=== PATIENT | male | born 1950 | race Caucasian/White ===

== ENCOUNTER 2021-09-24 08:27 | Inpatient (IN) ==
[2021-09-24] MEDS ORDERED: SODIUM CHLORIDE 0.9% 1000ML 500 ML IV ONE (08:42)
[2021-09-24] MEDS ORDERED: dexAMETHasone**PF** 10 MG/ML VIAL IV ONE (08:42)
[2021-09-24] MEDS ORDERED: FAMOTIDINE 20MG IV PUSH 20 MG/5 ML SYR IV STA (08:42)
[2021-09-24] MEDS ORDERED: diphenhydrAMINE 50 MG/ML VIAL IV STA (08:42)
--- NOTE | 2021-09-24 08:45 | Emergency Department Note ---
Impression & Plan Angioedema of tongue ED Provider Note Name: CRIS CHURCHILL Age: 71 Sex: M Arrives Via: Walk-In Informant: Patient, ED Provider: Darrick Diez MD Chief Complaint: Tongue Swelling Impression: Angioedema of tongue Medical Decision Making: Pleasant 71-year-old gentleman with a history of hypertension hyperlipidemia early diabetes arrives for evaluation of tongue swelling. Patient was recently increased lisinopril dosing. He notes swelling this morning of the right side of his tongue with some discomfort. When patient arrived he was noted to have right sided tongue swelling though no significant protuberance in the left side was normal. He had no difficulty swallowing and was talking decently well. He was given Benadryl Decadron Pepcid IV no improvement. Symptoms gradually started worsening at which point it was felt that FFP was indicated which was ordered. At that time I also consulted anesthesia who came and evaluated him and the plan was to continue monitoring closely. Labs were unremarkable other than some mild hyperglycemia. A Covid swab was sent which returned positive. Is unclear when his exposure may have been no the entire family did test positive shortly after Thanksgiving 2 weeks ago with him having no symptoms at that time. One of his contact was his who was positive at that time as well. Patient is not Covid vaccinated. Patient received the FFP however he had worsening of his tongue swelling which is now bilateral and protuberant with inability to swallow his secretions. With bedside discussion with anesthesia the plan is to emergently take him to the Covid isolation unit where he will be intubated in a negative pressure location for the safety of staff as this is a reasonable approach given his other vitals being stable and breathing comfortably through his nose. I feel this is most likely related to his lisinopril as the cause of his angioedema. He does take regular NSAID use but has been doing so for quite some time and I feel lisinopril is more likely. There are case reports of angioedema being associated with Covid however those seem to also have urticaria which she does not have. Patient has a remote history of angioedema felt to be due to food dye and did have some recent [place] food though again it does seem more likely this is the recent increase in his lisinopril. Prior Medical Record and Triage/Nursing Notes reviewed by Me Additional history obtained from chart Differentials: Lisinopril induced angioedema, Allergic reaction, anaphylaxis, urticaria, Hines-Javier syndrome, toxic epidermal necrolysis, erythema multiforme, contact dermatitis, cellulitis, as well as other pathologies. Vital Signs: reviewed and remarkable for hypertension Interventions: Decadron, Benadryl, Pepcid, normal saline bolus, FFP 2 units IV Labs:Reviewed and remarkable for positive Covid, hyperglycemia Cardiac/Tele Monitoring: Cardiac Monitoring: An Order was placed for continuous cardiac monitoring. The monitor shows a rate of 60 with a normal sinus rhythm. Consults:Dr Tonya QUIÑONES Anesthesia, Dr Gisella QUIÑONES Hospitalist Plan: Disposition:Hospitalization. Condition: Fair History of Present Illness:71-year-old male arrives for evaluation of tongue swelling. Patient notes he awoke this morning with sore tongue and noted it was swollen. He notes some mild difficulty with speaking due to large tongue but no difficulty breathing or swallowing. Tongue is not protruding through mouth. He denies any lip swelling itching syncope shortness of breath. He has a history of this happening many years ago of unknown etiology. He does note using lisinopril which was just doubled about 4 weeks ago. He he notes he also takes daily NSAIDs for chronic sciatica. Patient denies any falls, trauma, injuries. He denies any other symptoms currently. He has no recent antibiotic nor other new medication use. He previously had this happen and was given EpiPen but has never used it.. ROS: See above HPI for pertinent positives & negatives. A total of 8 systems reviewed and were otherwise negative. Past Medical History:See Below Past Surgical History:See Below Family History:See Below Social History:See Below Home Medications:See Below Allergies:pnc Vitals:Blood Pressure: 131/91, Pulse 69, RR 18, T 36.8C, O2 99% on RA Physical Exam: GENERAL: Patient is well appearing and in minimal distress. EYES: No scleral icterus, unremarkable pupils. ENT: Edema of right side of tongue, no lip swelling, left side tongue normal. Tolerating secretions. Mucous membranes moist, no nasal congestion. NECK: No masses appreciated, nomeningismus, trachea is midline. RESPIRATORY: No dyspnea. Clear to auscultation and equal bilaterally. No wheeze, no rhonchi. CARDIOVASCULAR: Regular rate and rhythm.No murmurs, rubs, gallops appreciated. EXTREMITIES: Normal motion all extremities, no cyanosis, no edema. NEUROLOGIC: Alert and oriented, no acute motor or sensory deficits, no focal weakness, cranial nerves grossly intact. SKIN: No rash, no jaundice, no diaphoresis. PSYCH: Appropriate GCS: 15 ED Course: Times/Reassessments: gradually worsening tongue swelling despite FFP and plan intubation, but given positive covid taken to unit for intubation by anesthesia Critical Care: I have personally spent 45 minutes of critical care time in the direct management of this patient. Angioedema of the tongue causing airway compromise requiring FFP IV and close monitoring and evaluation by anesthesia with plan to go to Covid unit for probable intubation. This was a life/limb threatening event. This 45 minutes is in excess of all separately billable procedures. Darrick Diez MD Past Med/Surg History Medical History Bladder tumor Encounter for pre-operative examination Erectile dysfunction Hyperlipidemia Hypertension Prediabetes Surgical History No significant past surgical history Family History Father Cardiac disorder Myocardial infarction Coronary heart disease Sister Myocardial infarction Diabetes Mother Hypertension Denies family history of Ovarian cancer Prostate cancer Breast cancer Colorectal cancer Social History Smoking Status: Current every day smoker Tobacco Type: Cigarettes Age Started Using Tobacco: 17; packs per day: 0.5; Cigarettes Per Day: 1/2 ppd; Second Hand Exposure: No; Do You Dip or Chew Tobacco: No; Tobacco Cessation Education Requested by Patient: No Hx Alcohol Use: No Hx Substance Use: No Preferred Language: Dominican Communication Ability: Effective Visual Impairment: No Limitations Hearing Ability: Hard of Hearing Water Engineer Required: No Beliefs That Will Affect Care: None marital status: Current Living Situation: Spouse current occupational status: retired 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 Other Information That Helps Us Care for You: No Feels Safe at Home: Yes Safety Concerns: Feels Safe At This Time Childhood Exposure to Second-Hand Smoke: Yes caffeine: Yes Dental Care, Regularly: No Physical Activity Frequency: Daily Seatbelt Use: always Sunscreen Use: No Assistive Devices: None Allergies Allergies Allergy/AdvReac Type Severity Reaction Status Date / Time Penicillins Allergy Intermediate hives Verified 06/28/21 10:48 Home Meds Home Medications Medication Instructions Recorded Confirmed aspirin 81 mg tablet,delayed 81 mg PO DAILY tab 03/24/19 09/24/21 release coenzyme Q10 100 mg capsule 100 mg PO DAILY cap 03/24/19 09/24/21 omega-3 acid ethyl esters 1 gram 2 cap PO DAILY cap 03/24/19 09/24/21 capsule lisinopril 5 mg tablet 10 mg PO DAILY 09/24/21 09/24/21 Previous Rx's Medication Instructions Recorded metoprolol tartrate 50 mg tablet 50 mg PO BID #180 tab 01/29/21 atorvastatin 10 mg tablet 10 mg PO DAILY #90 tab 02/19/21 Results & Data (ED) Vital Signs Vital Signs - 24 hr 09/24/21 08:31 09/24/21 08:41 09/24/21 08:50 Temperature 36.8 C Temperature Source Temporal Artery Scan Pulse Rate 69 65 61 Pulse Rate from SpO2 Sensor 65 62 Pulse Rhythm Pulse Strength Respiratory Rate 18 17 21 Blood Pressure 131/91 Blood Pressure Mean 104 Pulse Oximetry 99 99 99 Oxygen Delivery Method Room Air Sepsis Recent Fever Within 48 Hours No Sepsis New/Unexplained Change in Mental Status N/A Sepsis Action Taken by Nursing No Action Required 09/24/21 09:00 09/24/21 09:10 09/24/21 09:20 Temperature Temperature Source Pulse Rate 63 60 60 Pulse Rate from SpO2 Sensor 60 60 61 Pulse Rhythm Pulse Strength Respiratory Rate 17 15 19 Blood Pressure Blood Pressure Mean Pulse Oximetry 99 100 100 Oxygen Delivery Method Sepsis Recent Fever Within 48 Hours Sepsis New/Unexplained Change in Mental Status Sepsis Action Taken by Nursing 09/24/21 09:30 09/24/21 09:40 09/24/21 09:50 Temperature Temperature Source Pulse Rate 61 62 61 Pulse Rate from SpO2 Sensor 61 62 61 Pulse Rhythm Pulse Strength Respiratory Rate 18 19 19 Blood Pressure Blood Pressure Mean Pulse Oximetry 99 97 97 Oxygen Delivery Method Sepsis Recent Fever Within 48 Hours Sepsis New/Unexplained Change in Mental Status Sepsis Action Taken by Nursing 09/24/21 10:00 09/24/21 10:10 09/24/21 10:20 Temperature Temperature Source Pulse Rate 60 59 L 60 Pulse Rate from SpO2 Sensor 60 59 L 61 Pulse Rhythm Pulse Strength Respiratory Rate 19 22 19 Blood Pressure Blood Pressure Mean Pulse Oximetry 97 97 98 Oxygen Delivery Method Sepsis Recent Fever Within 48 Hours Sepsis New/Unexplained Change in Mental Status Sepsis Action Taken by Nursing 09/24/21 10:30 09/24/21 10:40 09/24/21 10:50 Temperature Temperature Source Pulse Rate 60 62 71 Pulse Rate from SpO2 Sensor 61 61 71 Pulse Rhythm Pulse Strength Respiratory Rate 15 16 16 Blood Pressure Blood Pressure Mean Pulse Oximetry 98 98 100 Oxygen Delivery Method Sepsis Recent Fever Within 48 Hours Sepsis New/Unexplained Change in Mental Status Sepsis Action Taken by Nursing 09/24/21 11:00 09/24/21 11:02 09/24/21 11:10 Temperature 37.2 C Temperature Source Oral Pulse Rate 60 60 60 Pulse Rate from SpO2 Sensor 59 L 60 Pulse Rhythm Regular Pulse Strength Normal Respiratory Rate 22 20 15 Blood Pressure 168/118 H Blood Pressure Mean 134 Pulse Oximetry 98 99 97 Oxygen Delivery Method Sepsis Recent Fever Within 48 Hours Sepsis New/Unexplained Change in Mental Status Sepsis Action Taken by Nursing 09/24/21 11:20 09/24/21 11:21 09/24/21 11:30 Temperature 36.6 C Temperature Source Oral Pulse Rate 58 L 66 59 L Pulse Rate from SpO2 Sensor 58 L 59 L Pulse Rhythm Pulse Strength Respiratory Rate 17 20 15 Blood Pressure 169/97 H Blood Pressure Mean 121 Pulse Oximetry 98 99 97 Oxygen Delivery Method Sepsis Recent Fever Within 48 Hours Sepsis New/Unexplained Change in Mental Status Sepsis Action Taken by Nursing 09/24/21 11:35 09/24/21 11:40 Temperature 36.6 C Temperature Source Oral Pulse Rate 61 62 Pulse Rate from SpO2 Sensor 61 Pulse Rhythm Pulse Strength Respiratory Rate 18 20 Blood Pressure 169/97 H Blood Pressure Mean 121 Pulse Oximetry 97 98 Oxygen Delivery Method Sepsis Recent Fever Within 48 Hours Sepsis New/Unexplained Change in Mental Status Sepsis Action Taken by Nursing Laboratory Data Result diagrams: 09/24/21 08:46 09/24/21 08:46 Lab Results 09/24/21 09/24/21 09/24/21 Range/Units 08:46 08:46 08:50 WBC 10.19 (4.8-10.8) K/uL RBC 4.51 L (4.7-6.1) M/uL Hgb 13.8 L (14.0-18.0) g/dL Hct 40.9 L (42-52) % MCV 90.7 (80-100) fL MCH 30.6 (25-34) pg MCHC 33.7 (32-36) g/dL RDW Std Deviation 42.5 (36.4-46.3) fL RDW Coeff of Jimbo 12.9 (11.5-14.5) % Plt Count 249 (130-400) K/uL MPV 11.6 H (7.4-10.4) fL Immature Gran % (Auto) 0.2 % Neut % (Auto) 73.1 % Lymph % (Auto) 17.3 % [place] % (Auto) 7.7 % Eos % (Auto) 1.5 % Baso % (Auto) 0.2 % Neut # (Auto) 7.46 H (1.4-6.5) K/uL Lymph # (Auto) 1.76 (1.2-3.4) K/uL [place] # (Auto) 0.78 H (0.11-0.59) K/uL Eos # (Auto) 0.15 (0-0.5) K/uL Baso # (Auto) 0.02 (0-0.2) K/uL Immature Gran # (Auto) 0.02 (0.00-0.02) K/uL Sodium 139 (136-145) mmol/L Potassium 3.8 (3.5-5.1) mmol/L Chloride 107 (98-107) mmol/L Carbon Dioxide 25 (21-32) mmol/L Anion Gap 7.0 (3-11) BUN 13 (7-18) mg/dl Creatinine 1.35 (0.6-1.4) mg/dl Est Cr Clr Drug Dosing 50.9 ml/min Est GFR ( Amer) 61.2 ml/min Est GFR (Non-Af Amer) 52.8 ml/min BUN/Creatinine Ratio 9.7 L (10-20) Glucose 158 H (70-99) mg/dl Calcium 9.2 (8.5-10.1) mg/dl SARS-CoV-2, RNA, NAAT (NEGATIVE) Blood Type B Positive Antibody Screen NEGATIVE 09/24/21 Range/Units 10:33 WBC (4.8-10.8) K/uL RBC (4.7-6.1) M/uL Hgb (14.0-18.0) g/dL Hct (42-52) % MCV (80-100) fL MCH (25-34) pg MCHC (32-36) g/dL RDW Std Deviation (36.4-46.3) fL RDW Coeff of Jimbo (11.5-14.5) % Plt Count (130-400) K/uL MPV (7.4-10.4) fL Immature Gran % (Auto) % Neut % (Auto) % Lymph % (Auto) % [place] % (Auto) % Eos % (Auto) % Baso % (Auto) % Neut # (Auto) (1.4-6.5) K/uL Lymph # (Auto) (1.2-3.4) K/uL [place] # (Auto) (0.11-0.59) K/uL Eos # (Auto) (0-0.5) K/uL Baso # (Auto) (0-0.2) K/uL Immature Gran # (Auto) (0.00-0.02) K/uL Sodium (136-145) mmol/L Potassium (3.5-5.1) mmol/L Chloride (98-107) mmol/L Carbon Dioxide (21-32) mmol/L Anion Gap (3-11) BUN (7-18) mg/dl Creatinine (0.6-1.4) mg/dl Est Cr Clr Drug Dosing ml/min Est GFR ( Amer) ml/min Est GFR (Non-Af Amer) ml/min BUN/Creatinine Ratio (10-20) Glucose (70-99) mg/dl Calcium (8.5-10.1) mg/dl SARS-CoV-2, RNA, NAAT POSITIVE A* (NEGATIVE) Blood Type Antibody Screen Administered Medications Discontinued Medications Dexamethasone Sodium Phosphate (DexamethasonePf 10 Mg/Ml Vial) 10 mg IV NOW ONE Stop: 09/24/21 08:43 Last Admin: 09/24/21 08:50 Dose: 10 mg Documented by: [id number] Diphenhydramine HCl (Diphenhydramine 50 Mg/Ml Vial) 50 mg IV NOW STA Stop: 09/24/21 08:43 Last Admin: 09/24/21 08:50 Dose: 50 mg Documented by: [id number] Famotidine (Pepcid 20mg Iv Push) 20 mg in 5 mls @ 2.5 mls/min IV NOW STA Stop: 09/24/21 08:43 Last Admin: 09/24/21 08:50 Dose: 2.5 mls/min Documented by: [id number] Sodium Chloride (Nss 1000ml) 500 mls @ 999 mls/hr IV .Q31M ONE Stop: 09/24/21 09:12 Last Admin: 09/24/21 08:50 Dose: 999 mls/hr Documented by: [id number] Discharge Plan Visit Data Chief Complaint: Allergic Reaction Stated Complaint: TOUNGE SWELLING ED Provider: Darrick Diez Discharge Problem: Angioedema of tongue Patient Disposition: Admitted As Inpatient Discharge Instructions Interventions: ED Discharge Assessment Last Done: 09/24/21 12:50
[2021-09-24 08:59] LABS: Basophils # (auto) 0.02 K/uL (0-0.2); Basophils % (auto) 0.2 %; Eosinophils # (auto) 0.15 K/uL (0-0.5); Eosinophils % (auto) 1.5 %; Hematocrit (blood only) 40.9 % (42-52); Hemoglobin 13.8 g/dL (14.0-18.0); Immature Granulocytes # (auto) 0.02 K/uL (0.00-0.02); Immature Granulocytes % (auto) 0.2 %; Lymphocytes # (auto) 1.76 K/uL (1.2-3.4); Lymphocytes % (auto) 17.3 %; Mean Corpuscular Hemoglobin 30.6 pg (25-34); Mean Corpuscular Hgb Conc 33.7 g/dL (32-36); Mean Corpuscular Volume 90.7 fL (80-100); Mean Platelet Volume 11.6 fL (7.4-10.4); Monocytes # (auto) 0.78 K/uL (0.11-0.59); Monocytes % (auto) 7.7 %; Neutrophils # (auto) 7.46 K/uL (1.4-6.5); Neutrophils % (auto) 73.1 %; Platelet Count 249 K/uL (130-400); RDW Coefficient of Variation 12.9 % (11.5-14.5); RDW Standard Deviation 42.5 fL (36.4-46.3); Red Blood Count 4.51 M/uL (4.7-6.1); White Blood Count 10.19 K/uL (4.8-10.8)
[2021-09-24 09:19] LABS: BUN Creatinine Ratio 9.7 (10-20); Calcium 9.2 mg/dl (8.5-10.1); Creatinine Clr Calc Pharmacy 50.9 ml/min; Est GFR (African American) 61.2 ml/min; Est GFR (Non-African American) 52.8 ml/min
[2021-09-24 09:20] LABS: Potassium 3.8 mmol/L (3.5-5.1)
[2021-09-24] MEDS ORDERED: KETAMINE 50 MG/5 ML SYRINGE ONE (10:08)
[2021-09-24] MEDS ORDERED: MIDAZOLAM HCL 1 MG/ML 2ML VIAL ONE (10:08)
[2021-09-24] MEDS ORDERED: PROPOFOL IV EMULSION 10 MG/ML 20 ML VIAL IV ONE (10:08)
[2021-09-24] MEDS ORDERED: LIDOCAINE 4% MPF LOCAL INJ 5 ML AMP ONE (10:12)
--- NOTE | 2021-09-24 10:22 | History & Physical Report ---
Date of Service September 24, 2021 Assessment & Plan (1) Angioedema of tongue: Plan: Intubated for airway protection. Received FFP, diphenhydramine and dexamethasone. Hold lars inhibitor indefinitely will monitor overnight, likely extubate in AM. (2) COVID-19: Plan: First postive test today. will keep patient in isolation until day 10, eventhough patient was perhaps symptomatic for more than 10 days. However, unable to confirm his prior symptoms were from covid. (3) Hyperlipidemia: Plan: resume home meds (4) Hypertension: Plan: hold lars cont metoprolol and monitor DVT proph: lovenox History of Present Illness Chief Complaint: angioedema. Primary Care Provider: Sebastian Jane MD 71 yo male with PMH described below arrives to the ED with swollen tongue. Patient recently had an increase to his lars inhibitor. Patient is having difficulty swallowing. History obtained from ED chart. At time of interview, patient already intubated and sedated. Allergies Allergy/AdvReac Type Severity Reaction Status Date / Time LARS Inhibitors Allergy Severe Severe Verified 09/24/21 14:31 angioedema Penicillins Allergy Intermediate hives Verified 06/28/21 10:48 Home Medications Medication Instructions Recorded Confirmed Type aspirin 81 mg tablet,delayed 81 mg PO DAILY tab 03/24/19 09/24/21 History release coenzyme Q10 100 mg capsule 100 mg PO DAILY cap 03/24/19 09/24/21 History omega-3 acid ethyl esters 1 gram 2 cap PO DAILY cap 03/24/19 09/24/21 History capsule metoprolol tartrate 50 mg tablet 50 mg PO BID #180 tab 01/29/21 09/24/21 Rx atorvastatin 10 mg tablet 10 mg PO DAILY #90 tab 02/19/21 09/24/21 Rx lisinopril 5 mg tablet 10 mg PO DAILY 09/24/21 09/24/21 History Past Med/Surg History Medical History Bladder tumor COVID-19 Encounter for pre-operative examination Erectile dysfunction Hyperlipidemia Hypertension Prediabetes Tobacco abuse Surgical History No significant past surgical history Family History Father Cardiac disorder Myocardial infarction Coronary heart disease Sister Myocardial infarction Diabetes Mother Hypertension Denies family history of Ovarian cancer Prostate cancer Breast cancer Colorectal cancer Social History Smoking Status: Current every day smoker Tobacco Type: Cigarettes Age Started Using Tobacco: 17; packs per day: 0.5; Cigarettes Per Day: 1/2 ppd; Second Hand Exposure: No; Do You Dip or Chew Tobacco: No; Tobacco Cessation Education Requested by Patient: No Hx Alcohol Use: No Hx Substance Use: No Preferred Language: Mosotho Communication Ability: Effective Visual Impairment: No Limitations Hearing Ability: Hard of Hearing Product Safety Test Engineer Required: No Beliefs That Will Affect Care: None marital status: Current Living Situation: Spouse current occupational status: retired 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 Other Information That Helps Us Care for You: No Feels Safe at Home: Yes Safety Concerns: Feels Safe At This Time Childhood Exposure to Second-Hand Smoke: Yes caffeine: Yes Dental Care, Regularly: No Physical Activity Frequency: Daily Seatbelt Use: always Sunscreen Use: No Assistive Devices: Oxygen - Continuous Review of Systems Review of Systems: Unobtainable due to endotracheal tube Physical Exam Physical Exam: Intubated and sedated Eyes: PERRL, conjunctivae normal, anicteric sclerae ENMT: external ear and nose normal, oropharynx normal (except for swollen tongue) Neck: trachea midline, no thyromegaly Respiratory: normal respiratory effort, lungs clear to auscultation Cardiovascular: RRR, no murmur, no edema Gastrointestinal (Abdomen): normal bowel sounds, soft, nontender, no hepatosplenomegaly Skin: no rashes, warm and dry Psychiatric: sedated Results & Data Results & Data ([facility]) Vital Signs (Past 12 Hours) Vital Signs Temp Pulse Resp BP Pulse Ox 09/24/21 10:10 59 L 22 97 09/24/21 10:00 60 19 97 09/24/21 09:50 61 19 97 09/24/21 09:40 62 19 97 09/24/21 09:30 61 18 99 09/24/21 09:20 60 19 100 09/24/21 09:10 60 15 100 09/24/21 09:00 63 17 99 09/24/21 08:50 61 21 99 09/24/21 08:41 65 17 99 12/13/21 08:31 36.8 C 69 18 131/91 99 PG Care Time/CCT Total # of Minutes Spent Total Time Spent with Patient: Total time spent is greater than 50% in coordination of care (as documented) at patient's floor/unit and/or counseling patient: Coding Level of Care Code 04841 Initial Inpt Care Lvl 3 Diagnoses Angioedema of tongue T78.3XXA COVID-19 U07.1 Hyperlipidemia E78.5 Hypertension I10 Hypertension type: essential hypertension (1) Hypertension Hypertension type: essential hypertension Qualified Code(s): I10 - Essential (primary) hypertension
[2021-09-24] MEDS ORDERED: SODIUM CHLORIDE 0.9% 250 ML IV PRN (10:23)
--- NOTE | 2021-09-24 10:23 | Anesthesiology Consultation ---
Date of Service September 24, 2021 Assessment & Plan (1) Encounter for pre-operative examination: Chart Review Chart Review: Acceptable Risk for Surgery and Patient NOT seen in Pre Admission Testing Plan would be intubation for airway protection given progression of angioedema likely relate to lisinopril. Patient is full stomach and difficult airway so will require awake intubation with light sedation after airway topicalization. Patient and made aware of risks and benefits and agree to procedure if FFP does not improve patient's condition. ER physician closely monitoring and if no improvement or worsening of his condition will intubate before patient's airway status worsens. Consults Requested none History Height/Weight Height: 5 ft 9 in Weight: 81.5 kg Allergies Allergy/AdvReac Type Severity Reaction Status Date / Time Penicillins Allergy Intermediate hives Verified 06/28/21 10:48 Medications Home Medications Medication Instructions Recorded Confirmed Last Taken aspirin 81 mg tablet,delayed 81 mg PO DAILY tab 03/24/19 06/28/21 Unknown release coenzyme Q10 100 mg capsule 100 mg PO DAILY cap 03/24/19 06/28/21 Unknown omega-3 acid ethyl esters 1 gram 2 cap PO DAILY cap 03/24/19 06/28/21 Unknown capsule metoprolol tartrate 50 mg tablet 50 mg PO BID #180 tab 01/29/21 06/28/21 Unknown atorvastatin 10 mg tablet 10 mg PO DAILY #90 tab 02/19/21 06/28/21 Unknown hydrochlorothiazide 25 mg tablet 25 mg PO DAILY #90 tab 03/14/21 06/28/21 Unknown lisinopril 5 mg tablet 5 mg PO DAILY #90 tab 05/02/21 06/28/21 Unknown Past Medical History Medical History (Updated 09/24/21 @ 10:20 by Chintan Castaneda MD) Bladder tumor Encounter for pre-operative examination Erectile dysfunction Hyperlipidemia Hypertension Prediabetes Past Family History Family History Father Cardiac disorder Myocardial infarction Coronary heart disease Sister Myocardial infarction Diabetes Mother Hypertension Denies family history of Ovarian cancer Prostate cancer Breast cancer Colorectal cancer Past Surgical History Surgical History No significant past surgical history Past Anesthesia History No Hx of Anesthesia Complications and No Family Hx of Anesthesia Complications Social History Smoking Status: Current every day smoker Smoking cigarettes per day: 10 Hx Alcohol Use: Yes Hx Substance Use: No Physical Exam Vital Signs Last Vital Signs Temp 36.8 C 09/24/21 08:31 Pulse 59 L 09/24/21 10:10 Resp 22 09/24/21 10:10 BP 131/91 09/24/21 08:31 Pulse Ox 97 09/24/21 10:10 Testing Laboratory Results 09/24/21 08:46 09/24/21 08:46 Blood Type B Positive 09/24/21 08:50 Antibody Screen NEGATIVE 09/24/21 08:50
[2021-09-24] MEDS ORDERED: DEXTROSE 5% 100 ML BAG IV ONE (11:26)
[2021-09-24] MEDS ORDERED: AMIODARONE HCL INJ 50 MG/ML 3 ML VIAL IV ONE (11:26)
[2021-09-24] MEDS ORDERED: MIDAZOLAM HCL 5 MG/ML VIAL IV ONE (11:26)
[2021-09-24] MEDS ORDERED: SODIUM CHLORIDE 0.9% 10ML FLUSH IV ONE (11:26)
[2021-09-24] MEDS ORDERED: ADENOSINE IV SOLN 3 MG/ML 2 ML VIAL IV ONE (11:26)
[2021-09-24] MEDS ORDERED: SODIUM CHLORIDE 0.9% 500 ML BAG IV ONE (11:26)
[2021-09-24] MEDS ORDERED: NOREPINEPHRINE BITARTRATE 1 MG/ML 4 ML VIAL IV ONE (11:26)
[2021-09-24] MEDS ORDERED: ICU PROTOCOL FOR HYPERGLYCEMIA PRN (11:55)
[2021-09-24] MEDS ORDERED: RAPID SEQUENCE INDUCTION BAG ONE (12:04)
--- NOTE | 2021-09-24 13:38 | Critical Care Consultation ---
Date of Consultation September 24, 2021 Assessment & Plan (1) Angioedema of tongue: (2) COVID-19: (3) Tobacco abuse: Attending: Dr. Connolly Impression: 71-year-old male with no history of trauma or sting. Patient presents with severe angioedema of the tongue. Suspected to be from increased dose of lisinopril. Patient denies any prior history to LARS inhibitor allergies or history of angioedema. Drug allergies include penicillin. Patient not subjected to penicillin recently. Reason Critically Ill: Angioedema of the tongue presumably secondary to LARS inhibitor (lisinopril). Patient was ordered 2 units of FFP. He did not receive any TXA. No reason to suspect anaphylactic reaction at this time. No improvement after FFP, diphenhydramine and dexamethasone. Patient intubated for airway control Neuro - [facility] ICU: Alert and oriented x3. Cardiac - History of hypertension. Patient is on lisinopril at home. As well as metoprolol tartrate 50 mg p.o. twice daily. Lisinopril will be discontinued as it most likely is causing patient's angioedema No indication for echocardiogram at this time. Respiratory - Currently saturating well on room air Patient denies history of pulmonary disease including asthma Will follow closely secondary angioedema for increasing oxygen requirements Continue to monitor on telemetry COVID-19 pneumonitis- No chest x-ray on admission. Will obtain chest x-ray to trend Continue dexamethasone No indication for remdesivir or monoclonal antibodies as patient has no respiratory distress and was initially positive over a week ago Check CRP and procalcitonin Follow supportively GI - No history of GERD or other abdominal malady Patient denies any nominal nausea or vomiting or diarrhea. Continue to follow clinically Patient started empirically on famotidine Hold on tube feeds at this time RENAL/LYTES - BUN 13, creatinine 1.35 Gentle hydration and follow serial labs - No indication for Barber catheter at this time Follow strict I's and O's ENDO - Prediabetes but no diagnosis of diabetes mellitus Previous hemoglobin A1c was 6% Check hemoglobin A1c with next set of labs Random glucose 158 No history of hypothyroidism HEME - Hemoglobin 13.8 ID - Patient with COVID-19 pneumonitis Apparently diagnosed 1 week ago No chest x-ray this admission Check CRP, procalcitonin No hypoxia No other signs or symptoms of infection LINES/IV ACCESS - Peripheral IV No indication for central line or arterial line at this time DVT PROPHYLAXIS - Enoxaparin 40 mg subcutaneously every 12 hours CCT: 60 minutes independent of any procedures. Thank you for including us in the care of this patient. Please refer to Dr. Connolly's addendum for further recommendations. Supervising Physician Co-Signing Physician Notes Patient seen and examined. EMR reviewed. Discussed with anesthesia as well as critical care ASHER. Agree with assessment and plan as noted. The patient is failed to show any significant improvement despite serial examination and observation. I agree with anesthesias assessment that I would rather secure his airway in a nonemergent fashion as this may take several days for the patient to get better. As this likely represents angioedema, I think there is little role for additional steroids H2 blockers or epinephrine. Data supporting FFP and angioedema related to LARS inhibitor's is quite mixed. Could consider TXA. We do not have icatibant available or C1 esterase concentrates. As the patient is not intubated and most of these therapies had endpoints defined as not progressing to needing intubation would hold off now and offer supportive care. Will likely need enteral nutrition. will check ESR, CRP and C4 levels. May need outpatient allergy evaluation. History of Present Illness Reason for Consultation: Angioedema Attending Physician: Jovani Obando History of Present Illness Attending: Dr. Connolly Patient is a 71 yo caucasion male with a PMH including HTN, ED, hy[perlipidemia, prediabetes. He presents with angioedema of the tongue. He was previously diagnosed with COVID-19 approximately one week ago. He denies any SOB, n/v/d. He has no chest pain and no pleuritic pain. It is probable that his angioedema is secondary to increased dose of Lisinopril. He reports that he has been on this for years but recently had his dose increased. He has no other known provocation. He received FFP, diphenhydramine, and dexamethasone in the ED. Currently he has no stridor, no difficulty swallowing, and no odynophagia. He does drool as he is not able to mobilize secrecretions behind the tongue to swallow. He denies fever, chills, sweats, rigors. He has no otheracute complaints. The patient is an every day smoker of approximately 1/2 PPD Allergies Allergy/AdvReac Type Severity Reaction Status Date / Time LARS Inhibitors Allergy Severe Severe Verified 09/24/21 14:31 angioedema Penicillins Allergy Intermediate hives Verified 06/28/21 10:48 Home Medications Medication Instructions Recorded Confirmed Type aspirin 81 mg tablet,delayed 81 mg PO DAILY tab 03/24/19 09/24/21 History release coenzyme Q10 100 mg capsule 100 mg PO DAILY cap 03/24/19 09/24/21 History omega-3 acid ethyl esters 1 gram 2 cap PO DAILY cap 03/24/19 09/24/21 History capsule metoprolol tartrate 50 mg tablet 50 mg PO BID #180 tab 01/29/21 09/24/21 Rx atorvastatin 10 mg tablet 10 mg PO DAILY #90 tab 02/19/21 09/24/21 Rx lisinopril 5 mg tablet 10 mg PO DAILY 09/24/21 09/24/21 History Patient History Medical History (Updated 09/24/21 @ 13:51 by Silverio Chaney PA-C) Bladder tumor COVID-19 Encounter for pre-operative examination Erectile dysfunction Hyperlipidemia Hypertension Prediabetes Tobacco abuse Surgical History No significant past surgical history Family History Father Cardiac disorder Myocardial infarction Coronary heart disease Sister Myocardial infarction Diabetes Mother Hypertension Denies family history of Ovarian cancer Prostate cancer Breast cancer Colorectal cancer Social History Smoking Status: Current every day smoker Tobacco Type: Cigarettes Age Started Using Tobacco: 17; packs per day: 0.5; Cigarettes Per Day: 1/2 ppd; Second Hand Exposure: No; Do You Dip or Chew Tobacco: No; Tobacco Cessation Education Requested by Patient: No Hx Alcohol Use: No Hx Substance Use: No Preferred Language: [place] Communication Ability: Effective Visual Impairment: No Limitations Hearing Ability: Hard of Hearing Nitriles Lab Technician Required: No Beliefs That Will Affect Care: None marital status: Current Living Situation: Spouse current occupational status: retired 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 EYES: No icterus, gaze conjugate. Pupils equal round and reactive to light NOSE: No evidence of epistaxis MOUTH: No lesions or candidiasis. Unable to visualize the posterior oropharynx secondary to extreme tongue swelling. Patient with no significant discomfort. Denies pain to tongue. Drooling as he cannot mobilize secretions posterior to the tongue. Otherwise, appears to have no difficulty with swallowing. NECK: Supple. No stridor LUNGS: CTA B/L, no wheezes, rales or rhonchi. Good inspirational effort HEART: Regular, rate controlled. No appreciation of ectopy ABDOMEN: Soft, NT, ND, BS Present EXTREMITIES: No LE edema, pedal pulses intact NEURO: A&OX3. Pupils equal round react to light. Slurred speech secondary to angioedema of the tongue. Results & Data Results & Data ([facility]) Vital Signs (Past 12 Hours) Vital Signs Temp Pulse Pulse Resp BP BP Pulse Ox 09/24/21 12:58 36.8 C 70 20 212/105 H 99 09/24/21 11:56 36.8 C 72 22 186/102 H 100 09/24/21 11:40 62 20 98 09/24/21 11:35 36.6 C 61 18 169/97 H 97 09/24/21 11:30 59 L 15 97 09/24/21 11:21 36.6 C 66 20 169/97 H 99 09/24/21 11:20 58 L 17 98 09/24/21 11:10 60 15 97 09/24/21 11:02 37.2 C 60 20 168/118 H 99 09/24/21 11:00 60 22 98 09/24/21 10:50 71 16 100 09/24/21 10:40 62 16 98 09/24/21 10:30 60 15 98 09/24/21 10:20 60 19 98 09/24/21 10:10 59 L 22 97 09/24/21 10:00 60 19 97 09/24/21 09:50 61 19 97 09/24/21 09:40 62 19 97 09/24/21 09:30 61 18 99 09/24/21 09:20 60 19 100 09/24/21 09:10 60 15 100 09/24/21 09:00 63 17 99 09/24/21 08:50 61 21 99 09/24/21 08:41 65 17 99 09/24/21 08:31 36.8 C 69 18 131/91 99 Laboratory Results 09/24/21 08:46 09/24/21 08:46 Coding Level of Care Code Critical Care 1st 30-74 mins Diagnoses Angioedema of tongue T78.3XXA COVID-19 U07.1 Tobacco abuse Z72.0 Time Spent (min) 60
[2021-09-24 14:55] LABS: INR 1.1 (0.9-1.1); Prothrombin Time 11.2 Seconds (9.0-12.0)
[2021-09-24] MEDS ORDERED: STAT IV Infusion **Titration per Protocol STA (14:56)
[2021-09-24] MEDS ORDERED: PROPOFOL IV EMULSION 10 MG/ML 100 ML VIAL IV ONE (14:58)
[2021-09-24 15:13] LABS: Albumin Level 2.6 gm/dl (3.4-5.0); Bilirubin Direct 0.4 mg/dl (0-0.2); Bilirubin,Total 0.9 mg/dl (0.2-1); C Reactive Protein 0.37 mg/dl (0-0.29)
--- NOTE | 2021-09-24 15:41 | Anesthesiology Progress Note ---
Date of Service September 24, 2021 Assessment & Plan (1) Angioedema of tongue: Plan: Patient already on monitors in ICU negative pressure room. Consent had been obtained in emergency room. Family updated, patient agreeable to proceed. Preoxygenated, suctioned and IVF running freely. Respiratory therapy present with vent and ICU nurses x2. Myself and [employer] performed intubation. Patient had lidocaine nebulizer and then sprayed with atomizer with 2% lido at cords. Sed ated gently with 2mg versed and IV ketamine. Fiberoptic scope inserted and noted significant edema of epiglottis and vocal cords (anatomy grossly distorted). Inserted fiberoptic into trachea as noted by tracheal rings and advanced until darryl visualized. ETT had been placed previously over the fiberoptic scope and inserted to a depth of 24cm at lips. Confirmed by listening to b/l breath sounds and positive ETCO2. Secured in placed by respiratory therapy and CXR ordered. ICU team managing sedation. VSS. No desaturations during procedure as patient maintained spontaneous respirations throughout. Given a dose of IV propofol after tube in placed, confirmed and secured. Intubation Note Date and time of procedure: 09/24/21 at 1500 Indication for Intubation: Unable to protect airway in setting of angioedema of tongue and airway. Consent: Informed consent obtained from the patient. The inherent risks, expected benefits, treatment alternatives, as well as the technical aspects of the procedure were discussed with the patient and a full explanation was given. Patient was given the opportunity to ask questions, which were answered to their satisfaction. Time Out: A time-out was performed verifying correct patient with two identifiers, procedure, site, positioning, and special equipment (if needed). Monitors Attached: EKG BP Pulse Oximetry CO2 Induction Medications: [2]mg Midazolam [50]mg Ketamine Paralytic Medication: NONE Intubation Technique: Adequate preoxygenation Equipment: Fiberoptic Endotracheal Tube: Oral 7.0 Procedure Details: ET tube was placed atraumatically on [1st] attempt. Balloon was inflated and the tube was secured at [24] cm. Placement was confirmed by auscultation and positive CO2 detection. Post-procedure: Pt hemodynamically stable throughout. Patient tolerated the procedure well without apparent complications. Post placement CXR ordered. Present on Admission?: Yes Admission and Anticipated Discharge Date Admission Date: September 24, 2021 Subjective After reassessing patient at 1445, no change noted in size of his tongue. Continued to drool now requiring suction. Patient fully agreeable at this point to undergo endotracheal intubation (awake fiberoptic). Updated his family pre and post intubation and answered all questions. Physical Exam Vital Signs: Last Vital Signs Temp 36.8 C 09/24/21 12:58 Pulse 77 09/24/21 15:00 Resp 11 L 09/24/21 15:00 BP 202/102 H 09/24/21 15:00 Pulse Ox 100 09/24/21 15:00
[2021-09-24] MEDS: fentaNYL DRIP 1,250 MCG/250 ML BAG IV SCH (15:49)
[2021-09-24] MEDS: MIDAZOLAM HCL 125 MG/250 ML BAG IV SCH (15:50)
[2021-09-24] MEDS: D5W NORMOSOL-R 1,000 ML IV SCH (15:50)
[2021-09-24] MEDS: MIDAZOLAM BOLUS FROM BAG IV PRN (15:50)
[2021-09-24] MEDS: ENOXAPARIN INJ 40 MG/0.4 ML SYR SQ SCH ×2 (15:51→21:33)
--- NOTE | 2021-09-24 16:28 | XRay Report ---
XR chest 1V portable CLINICAL HISTORY: post intubation and OG placement TECHNIQUE: Single frontal radiograph of the chest was obtained. Comparison: Comparison is made to chest one view 06/07/2011 FINDINGS: Endotracheal tube terminates 3 cm from the darryl. An enteric tube is in satisfactory position. The c ardiomediastinal silhouette is normal. Faint bilateral airspace opacities are noted. No evidence of p leural effusion or pneumothorax. IMPRESSION: Satisfactory position of endotracheal and enteric tubes. Faint bilateral airspace opacities may repre sent atelectasis, aspiration, or pneumonia. ACT 112: Negative or not required by law. Electronically signed by: Kiel Aguirre M.D. 09/24/2021 4:27 PM
[2021-09-24] MEDS: METOPROLOL TARTRATE 50 MG TAB PO SCH (21:32)
[2021-09-25] MEDS: fentaNYL DRIP 1,250 MCG/250 ML BAG IV SCH ×3 (00:49→19:45)
[2021-09-25 04:21] LABS: iSTAT Allen Test Pass; iSTAT Arterial Blood Gas HCO3 23 meg/L (19-24); iSTAT Arterial Blood Gas pCO2 37 mmHg (35-46); iSTAT Arterial Blood Gas pO2 65 mmHg (80-95); iSTAT Carbon Dioxide 24 mmol/L (24-31); iSTAT FiO2 35 %; iSTAT Site R Radial
[2021-09-25] MEDS: D5W NORMOSOL-R 1,000 ML IV SCH (04:23)
[2021-09-25 07:15] LABS: Estimated Average Glucose 131 mg/dl; Hemoglobin A1C 6.2 % (4.5-5.6)
[2021-09-25 07:36] LABS: Basophils # (auto) 0.01 K/uL (0-0.2); Basophils % (auto) 0.1 %; Hematocrit (blood only) 35.1 % (42-52); Hemoglobin 11.5 g/dL (14.0-18.0); Immature Granulocytes # (auto) 0.02 K/uL (0.00-0.02); Immature Granulocytes % (auto) 0.2 %; Lymphocytes # (auto) 1.65 K/uL (1.2-3.4); Lymphocytes % (auto) 13.3 %; Mean Corpuscular Hemoglobin 30.5 pg (25-34); Mean Corpuscular Hgb Conc 32.8 g/dL (32-36); Mean Corpuscular Volume 93.1 fL (80-100); Mean Platelet Volume 11.3 fL (7.4-10.4); Monocytes # (auto) 0.96 K/uL (0.11-0.59); Monocytes % (auto) 7.7 %; Neutrophils # (auto) 9.75 K/uL (1.4-6.5); Neutrophils % (auto) 78.7 %; Platelet Count 235 K/uL (130-400); RDW Coefficient of Variation 13.2 % (11.5-14.5); RDW Standard Deviation 44.7 fL (36.4-46.3); Red Blood Count 3.77 M/uL (4.7-6.1); White Blood Count 12.39 K/uL (4.8-10.8)
[2021-09-25] MEDS: MIDAZOLAM BOLUS FROM BAG IV PRN ×5 (07:37→19:55)
[2021-09-25 08:06] LABS: BUN Creatinine Ratio 16.7 (10-20); Calcium 8.5 mg/dl (8.5-10.1); Creatinine Clr Calc Pharmacy 62.9 ml/min; Est GFR (African American) 70.6 ml/min; Est GFR (Non-African American) 60.9 ml/min; Magnesium 2.3 mg/dl (1.8-2.4); Phosphorus 3.2 mg/dl (2.5-4.9)
[2021-09-25] MEDS: ENOXAPARIN INJ 40 MG/0.4 ML SYR SQ SCH ×2 (08:25→22:05)
[2021-09-25] MEDS: ATORVASTATIN 10 MG TAB PO SCH (08:25)
[2021-09-25] MEDS: METOPROLOL TARTRATE 50 MG TAB PO SCH (08:25)
[2021-09-25 08:26] LABS: Potassium 3.5 mmol/L (3.5-5.1)
[2021-09-25] MEDS ORDERED: ASPIRIN 81 MG ECTAB PO SCH (09:00)
[2021-09-25] MEDS ORDERED: NON-FORMULARY MEDICATION (Coenzyme Q10 100 mg capsule) PO SCH (09:00)
[2021-09-25] MEDS ORDERED: OMEGA-3 (PURIFIED FISH OIL) 1 GM CAP PO SCH (09:00)
[2021-09-25] MEDS ORDERED: STAT IV Infusion **Titration per Protocol STA (11:02)
[2021-09-25] MEDS: DEXMEDETOMIDINE HCL 200 MCG in SODIUM CHLORIDE 0.9% 48 ML IV SCH ×3 (11:37→18:34)
[2021-09-25] MEDS: ASPIRIN 81 MG CHEW PO SCH (12:19)
--- NOTE | 2021-09-25 13:44 | Critical Care Progress Note ---
Date of Service September 25, 2021 Assessment & Plan (1) Angioedema of tongue: (2) COVID-19: (3) Tobacco abuse: Plan: Impression: 71-year-old male with no history of trauma or sting. Patient presents with severe angioedema of the tongue. Suspected to be from increased dose of lisinopril. Patient denies any prior history to LARS inhibitor allergies or history of angioedema. Drug allergies include penicillin. Patient not subjected to penicillin recently. 24-hour events: Patient was a admitted to the ICU. He underwent awake fiberoptic intubation by anesthesia due to severe angioedema with tongue swelling. The vocal cords and laryngeal structures were markedly abnormal per my discussion with anesthesia. Has been maintained on sedation and mechanical ventilation overnight. He is hemodynamically stable. Recommendations: Neuro -keep sedated on vent for now. He is currently on Versed and fentanyl. We will hold his metoprolol and placed on Precedex to see if this provides bet ter levels of sedation. May consider oral agents as well. Cardiac -history of hypertension but not currently hypertensive. Holding metoprolol if so we can add Precedex. Avoid LARS inhibitors in the future. If additional blood pressure medications are required, these will be titrated based on clinical response. Respiratory -intubated for airway protection. Airway swelling is not significantly decreased to the patient's not appropriate for sedation break or SBT at the current time. I discussed with the patient's daughter who is an ICU nurse. I advised them that the only other alternative other than watchful waiting at this point time would be to pursue an early tracheostomy which would likely allow the patient to potentially go home in avoid any additional sedatives. She appropriately would like to hold off for now which I think is reasonable. We will continue to provide local care to his tongue to prevent desiccation. There is no indication for steroids or H2 blockers currently. Other therapies for angioedema have only been shown to be effective in preventing intubation mechanical ventilation. As he is already there, I do not think additional therapies at this point time are warranted. Awaiting C1 esterase level as well as C4. Interestingly his CRP and ESR were elevated. Outpatient allergy immunology evaluation may be appropriate. Patient was Covid positive. He is oxygenating well. He does not need steroids or any additional interventions for Covid. GI -asked dietary to initiate enteral tube feeding. Does not need PPI or stress ulcer prophylaxis currently. RENAL/LYTES -no acute issues. We will replete electrolytes as needed. -Barber catheter while intubated ENDO -glycemic control per protocol HEME -no current issues. Continue to follow ID -positive COVID-19. Continue to follow. He is at risk for progression. No adjunct of therapy is indicated currently. LINES/IV ACCESS - Peripheral IV Endotracheal tube, Barber catheter DVT PROPHYLAXIS - Enoxaparin 40 mg subcutaneously every 12 hours Discussed with patient's daughter and on the phone. Questions were answered and they were updated appropriately. They are agreement with the plan as outlined. We will continue supportive care pending improvement in the patient's airway. They were advised that this may take several days. They understand and we will continue to update them on a daily basis. Patient was reviewed on multidisciplinary rounds as well as with the bedside critical care nurse. Total of 54 minutes was spent in evaluation management stabilization of this patient. Admission and Anticipated Discharge Date Admission Date: September 24, 2021 Subjective Patient is intubated and sedated. Review of Systems Review of Systems: Unobtainable due to endotracheal tube Physical Exam Constitutional: + mechanically ventilated ENMT: Endotracheal tube in position. The tongue is markedly swollen, not different than yesterday. Nasogastric tube in place. Neck: trachea midline, no thyromegaly Respiratory: no respiratory distress Few inspiratory squeaks bilaterally. Cardiovascular: RRR, no murmur, no edema Gastrointestinal (Abdomen): normal bowel sounds, soft, nontender, no hepatosplenomegaly Musculoskeletal: Extremities: extremities normal to inspection Skin: no rashes, warm and dry Neurologic: Sedated Lymphatic: no cervical lymphadenopathy Results & Data Results & Data ([facility]) Vital Signs (Past 12 Hours) Vital Signs Temp Pulse Pulse Resp BP BP Pulse Ox 09/25/21 12:00 57 L 20 132/71 94 09/25/21 11:38 36.5 C 09/25/21 11:00 57 L 20 140/76 95 09/25/21 10:55 58 L 20 95 09/25/21 10:00 57 L 20 116/68 97 09/25/21 09:00 62 20 94 09/25/21 08:00 58 L 20 131/71 95 09/25/21 07:55 36.5 C 09/25/21 07:45 62 20 94 09/25/21 07:30 62 20 149/72 H 94 09/25/21 07:00 54 L 20 116/65 96 09/25/21 06:00 54 L 20 154/80 H 97 09/25/21 05:00 52 L 20 123/68 96 09/25/21 04:02 50 L 20 95 09/25/21 04:00 36.8 C 50 L 20 118/67 95 09/25/21 03:00 51 L 20 109/63 97 09/25/21 02:00 53 L 20 119/69 97 Critical Care Results & Data Vital Signs (Past 12 Hours) Vital Signs Temp Pulse Pulse Resp BP BP Pulse Ox 09/25/21 12:00 57 L 20 132/71 94 09/25/21 11:38 36.5 C 09/25/21 11:00 57 L 20 140/76 95 09/25/21 10:55 58 L 20 95 09/25/21 10:00 57 L 20 116/68 97 09/25/21 09:00 62 20 94 09/25/21 08:00 58 L 20 131/71 95 09/25/21 07:55 36.5 C 09/25/21 07:45 62 20 94 09/25/21 07:30 62 20 149/72 H 94 09/25/21 07:00 54 L 20 116/65 96 09/25/21 06:00 54 L 20 154/80 H 97 09/25/21 05:00 52 L 20 123/68 96 09/25/21 04:02 50 L 20 95 09/25/21 04:00 36.8 C 50 L 20 118/67 95 09/25/21 03:00 51 L 20 109/63 97 09/25/21 02:00 53 L 20 119/69 97 Lab & Micro Results (Past 24 Hours) RBC 3.77 M/uL (4.7-6.1) L 09/25/21 WBC 12.39 K/uL (4.8-10.8) H 09/25/21 Hgb 11.5 g/dL (14.0-18.0) L 09/25/21 Hct 35.1 % (42-52) L 09/25/21 MCV 93.1 fL (80-100) 09/25/21 MCH 30.5 pg (25-34) 09/25/21 MCHC 32.8 g/dL (32-36) 09/25/21 RDW Standard Deviation 44.7 fL (36.4-46.3) 09/25/21 RDW Coefficient of Variation 13.2 % (11.5-14.5) 09/25/21 Plt Count 235 K/uL (130-400) 09/25/21 MPV 11.3 fL (7.4-10.4) H 09/25/21 Neutrophils (%) (Auto) 78.7 % 09/25/21 Lymphocytes (%) (Auto) 13.3 % 09/25/21 Monocytes # (Auto) 0.96 K/uL (0.11-0.59) H 09/25/21 Eosinophils # (Auto) 0.00 K/uL (0-0.5) 09/25/21 Immature Granulocyte % (Auto) 0.2 % 09/25/21 Neutrophils # (Auto) 9.75 K/uL (1.4-6.5) H 09/25/21 Lymphocytes # (Auto) 1.65 K/uL (1.2-3.4) 09/25/21 Monocytes # (Auto) 0.96 K/uL (0.11-0.59) H 09/25/21 Eosinophils # (Auto) 0.00 K/uL (0-0.5) 09/25/21 Basophils # (Auto) 0.01 K/uL (0-0.2) 09/25/21 Immature Granulocyte # (Auto) 0.02 K/uL (0.00-0.02) 09/25/21 Na 143 mmol/L (136-145) 09/25/21 K 3.5 mmol/L (3.5-5.1) 09/25/21 Cl 112 mmol/L (98-107) H 09/25/21 CO2 24 mmol/L (21-32) 09/25/21 Anion Gap 7.0 (3-11) 09/25/21 BUN 20 mg/dl (7-18) H 09/25/21 Creatinine 1.20 mg/dl (0.6-1.4) 09/25/21 Estimated GFR ( Amer) 70.6 ml/min 09/25/21 Estimated GFR (Non-Af Amer) 60.9 ml/min 09/25/21 BUN/Creatinine Ratio 16.7 (10-20) 09/25/21 Glu 128 mg/dl (70-99) H 09/25/21 Ca 8.5 mg/dl (8.5-10.1) 09/25/21 Phosphorus Level 3.2 mg/dl (2.5-4.9) 09/25/21 Mg 2.3 mg/dl (1.8-2.4) 09/25/21 07:10 09/25/21 Calcium Level 8.5 mg/dl (8.5-10.1) 09/25/21 07:10 09/25/21 [place] Test Pass 09/25/21 04:04 09/25/21 Diagnostic Findings (Past 24 Hours) Chest X-Ray 09/24/21 15:46 XR chest 1V portable CLINICAL HISTORY: post intubation and OG placement TECHNIQUE: Single frontal radiograph of the chest was obtained. Comparison: Comparison is made to chest one view 06/07/2011 FINDINGS: Endotracheal tube terminates 3 cm from the darryl. An enteric tube is in satisfactory position. The cardiomediastinal silhouette is normal. Faint bilateral airspace opacities are noted. No evidence of pleural effusion or pneumothorax. IMPRESSION: Satisfactory position of endotracheal and enteric tubes. Faint bilateral airspace opacities may represent atelectasis, aspiration, or pneumonia. ACT 112: Negative or not required by law. Electronically signed by: Kiel Aguirre M.D. 09/24/2021 4:27 PM I & O Totals 24 Hours 09/24/21 09/25/21 09/26/21 06:59 06:59 06:59 Intake Total 2648.500 / 2648.500 779.034 / 779.034 Output Total 835 / 835 230 / 230 Balance 1813.500 / 1813.500 549.034 / 549.034 Cumulative 09/24/21 08:27 thru 09/25/21 12:38 Intake Total 3427.534 Output Total 1065 Balance 2362.534 RT Ventilator Mngmt (Last Documented) Ventilator Ordered Settings Ventilator Support Mode Assist Control 09/25/21 11:00 Respiratory Rate 20 09/25/21 12:00 Ventilator Tidal Volume 400 09/25/21 11:00 Setting Minute Ventilation 7.6 09/25/21 10:55 Positive End Expiratory 5 09/25/21 11:00 Pressure Fraction of Inspired Oxygen 35 12/14/21 11:00 Peak Inspiratory Flow 60 09/25/21 10:55 Ventilator - PT Measurements Respiratory Rate 20 Exhaled Tidal Volume 420 Minute Ventilation 7.6 Peak Inspiratory Airway 28 Pressure Plateau Pressure 17 Respiratory Cycle Inspiratory: 1:3.4 Expiratory Ratio Inspiratory Phase Time 0.67 End-Tidal CO2 26 Static Lung Compliance 35.00 Dynamic Lung Compliance 16.80 Normal Static Lung Compliance 45.00 Coding Level of Care Code Critical Care 1st 30-74 mins Diagnoses Angioedema of tongue T78.3XXA COVID-19 U07.1 Tobacco abuse Z72.0 Time Spent (min) 50
[2021-09-25] MEDS: TUBE FEEDING WATER FLUSH NG SCH ×3 (14:35→22:05)
[2021-09-25] MEDS: IMPACT LIQD 1.0 CAL 1,000 ML BAG NG SCH (14:36)
[2021-09-25] MEDS: MIDAZOLAM HCL 125 MG/250 ML BAG IV SCH (15:33)
--- NOTE | 2021-09-25 21:04 | Hospitalist Progress Note ---
Date of Service September 25, 2021 Assessment & Plan (1) Angioedema of tongue: Plan: Likely secondary to recently increased dose of lisinopril Intubated for airway protection due to extremely large tongue. Tongue swelling persists Received FFP, diphenhydramine and dexamethasone in the ER Hold ruy inhibitor indefinitely Continue sedation and mechanical ventilation for airway protection Appreciate rock picker management Should follow-up with scrum product owner as an outpatient after discharge C1 esterase and C4 levels pending CRP and ESR elevated-likely secondary to Covid-19 infection No steroids or antihistamines indicated (2) COVID-19: Plan: Was asymptomatic other than angioedema at the time of presentation Oxygenating well Keep on Covid airborne precautions No indication for steroids (3) Hyperlipidemia: Plan: Continue atorvastatin, aspirin through NG tube (4) Hypertension: Plan: Discontinue lisinopril Continue metoprolol tartrate 50 mg p.o. twice daily Plan: DVT prophylaxis-Lovenox Disposition-continued stay in ICU Admission and Anticipated Discharge Date Admission Date: September 24, 2021 Subjective Patient is intubated and sedated. Review of Systems Review of Systems: Unobtainable due to endotracheal tube and Unobtainable due to reduced consciousness Physical Exam Constitutional: well developed and + mechanically ventilated ENMT: Tongue very large and protruding out of mouth Results & Data Results & Data ([facility]) Vital Signs (Past 12 Hours) Vital Signs Temp Pulse Pulse Resp BP BP Pulse Ox 09/25/21 19:26 60 20 162/78 H 98 09/25/21 19:01 36.9 C 61 20 163/83 H 97 09/25/21 19:00 63 09/25/21 18:00 37.2 C 50 L 20 125/67 96 09/25/21 17:00 49 L 20 127/70 94 09/25/21 16:29 20 09/25/21 16:00 36.9 C 50 L 20 135/72 95 09/25/21 15:44 36.4 C L 09/25/21 15:00 37.0 C 51 L 20 123/69 94 09/25/21 14:00 58 L 20 136/69 95 09/25/21 13:00 36.9 C 58 L 20 124/67 95 09/25/21 12:00 57 L 20 132/71 94 09/25/21 11:38 36.5 C 09/25/21 11:00 57 L 20 140/76 95 09/25/21 10:55 58 L 20 95 09/25/21 10:00 57 L 20 116/68 97 Laboratory Results 09/25/21 09/25/21 09/25/21 Range/Units 18:11 14:56 11:27 WBC (4.8-10.8) K/uL RBC (4.7-6.1) M/uL Hgb (14.0-18.0) g/dL Hct (42-52) % MCV (80-100) fL MCH (25-34) pg MCHC (32-36) g/dL RDW Std Deviation (36.4-46.3) fL RDW Coeff of Jimbo (11.5-14.5) % Plt Count (130-400) K/uL MPV (7.4-10.4) fL Immature Gran % (Auto) % Neut % (Auto) % Lymph % (Auto) % [place] % (Auto) % Eos % (Auto) % Baso % (Auto) % Neut # (Auto) (1.4-6.5) K/uL Lymph # (Auto) (1.2-3.4) K/uL [place] # (Auto) (0.11-0.59) K/uL Eos # (Auto) (0-0.5) K/uL Baso # (Auto) (0-0.2) K/uL Immature Gran # (Auto) (0.00-0.02) K/uL Sample Site POC pH (7.35-7.45) POC pCO2 (35-46) mmHg POC pO2 (80-95) mmHg POC HCO3 (19-24) sarita/L POC Total CO2 (24-31) mmol/L POC Base Excess (-9-1.8) sarita/L POC ABG O2 Sat (90-95) % Troy Test O2 Delivery Device POC O2 Rate POC FiO2 % Tidal Volume PEEP Sodium (136-145) mmol/L Potassium (3.5-5.1) mmol/L Chloride (98-107) mmol/L Carbon Dioxide (21-32) mmol/L Anion Gap (3-11) BUN (7-18) mg/dl Creatinine (0.6-1.4) mg/dl Est Cr Clr Drug Dosing ml/min Est GFR ( Amer) ml/min Est GFR (Non-Af Amer) ml/min BUN/Creatinine Ratio (10-20) Glucose (70-99) mg/dl POC Glucose 110 H 121 H (70-99) mg/dl Estimat Average Glucose mg/dl Hemoglobin A1c (4.5-5.6) % Calcium (8.5-10.1) mg/dl Phosphorus (2.5-4.9) mg/dl Magnesium (1.8-2.4) mg/dl Func C1 Esterase Inhib Pending 09/25/21 09/25/21 09/25/21 Range/Units 07:10 07:10 04:04 WBC 12.39 H (4.8-10.8) K/uL RBC 3.77 L (4.7-6.1) M/uL Hgb 11.5 L (14.0-18.0) g/dL Hct 35.1 L (42-52) % MCV 93.1 (80-100) fL MCH 30.5 (25-34) pg MCHC 32.8 (32-36) g/dL RDW Std Deviation 44.7 (36.4-46.3) fL RDW Coeff of Jimbo 13.2 (11.5-14.5) % Plt Count 235 (130-400) K/uL MPV 11.3 H (7.4-10.4) fL Immature Gran % (Auto) 0.2 % Neut % (Auto) 78.7 % Lymph % (Auto) 13.3 % [place] % (Auto) 7.7 % Eos % (Auto) 0.0 % Baso % (Auto) 0.1 % Neut # (Auto) 9.75 H (1.4-6.5) K/uL Lymph # (Auto) 1.65 (1.2-3.4) K/uL [place] # (Auto) 0.96 H (0.11-0.59) K/uL Eos # (Auto) 0.00 (0-0.5) K/uL Baso # (Auto) 0.01 (0-0.2) K/uL Immature Gran # (Auto) 0.02 (0.00-0.02) K/uL Sample Site R Radial POC pH 7.40 (7.35-7.45) POC pCO2 37 (35-46) mmHg POC pO2 65 L (80-95) mmHg POC HCO3 23 (19-24) sarita/L POC Total CO2 24 (24-31) mmol/L POC Base Excess -2.0 (-9-1.8) sarita/L POC ABG O2 Sat 93.0 (90-95) % [place] Test Pass O2 Delivery Device Ventilator POC O2 Rate 20 POC FiO2 35 % Tidal Volume 400 PEEP 5 Sodium 143 (136-145) mmol/L Potassium 3.5 (3.5-5.1) mmol/L Chloride 112 H (98-107) mmol/L Carbon Dioxide 24 (21-32) mmol/L Anion Gap 7.0 (3-11) BUN 20 H D (7-18) mg/dl Creatinine 1.20 (0.6-1.4) mg/dl Est Cr Clr Drug Dosing 62.9 ml/min Est GFR ( Amer) 70.6 ml/min Est GFR (Non-Af Amer) 60.9 ml/min BUN/Creatinine Ratio 16.7 (10-20) Glucose 128 H (70-99) mg/dl POC Glucose (70-99) mg/dl Estimat Average Glucose mg/dl Hemoglobin A1c (4.5-5.6) % Calcium 8.5 (8.5-10.1) mg/dl Phosphorus 3.2 (2.5-4.9) mg/dl Magnesium 2.3 (1.8-2.4) mg/dl Func C1 Esterase Inhib 09/25/21 09/24/21 Range/Units 00:02 08:46 WBC (4.8-10.8) K/uL RBC (4.7-6.1) M/uL Hgb (14.0-18.0) g/dL Hct (42-52) % MCV (80-100) fL MCH (25-34) pg MCHC (32-36) g/dL RDW Std Deviation (36.4-46.3) fL RDW Coeff of Jimbo (11.5-14.5) % Plt Count (130-400) K/uL MPV (7.4-10.4) fL Immature Gran % (Auto) % Neut % (Auto) % Lymph % (Auto) % [place] % (Auto) % Eos % (Auto) % Baso % (Auto) % Neut # (Auto) (1.4-6.5) K/uL Lymph # (Auto) (1.2-3.4) K/uL [place] # (Auto) (0.11-0.59) K/uL Eos # (Auto) (0-0.5) K/uL Baso # (Auto) (0-0.2) K/uL Immature Gran # (Auto) (0.00-0.02) K/uL Sample Site POC pH (7.35-7.45) POC pCO2 (35-46) mmHg POC pO2 (80-95) mmHg POC HCO3 (19-24) sarita/L POC Total CO2 (24-31) mmol/L POC Base Excess (-9-1.8) sarita/L POC ABG O2 Sat (90-95) % [place] Test O2 Delivery Device POC O2 Rate POC FiO2 % Tidal Volume PEEP Sodium (136-145) mmol/L Potassium (3.5-5.1) mmol/L Chloride (98-107) mmol/L Carbon Dioxide (21-32) mmol/L Anion Gap (3-11) BUN (7-18) mg/dl Creatinine (0.6-1.4) mg/dl Est Cr Clr Drug Dosing ml/min Est GFR ( Amer) ml/min Est GFR (Non-Af Amer) ml/min BUN/Creatinine Ratio (10-20) Glucose (70-99) mg/dl POC Glucose 137 H (70-99) mg/dl Estimat Average Glucose 131 mg/dl Hemoglobin A1c 6.2 H (4.5-5.6) % Calcium (8.5-10.1) mg/dl Phosphorus (2.5-4.9) mg/dl Magnesium (1.8-2.4) mg/dl Func C1 Esterase Inhib PG Care Time/CCT Total # of Minutes Spent Total Time Spent with Patient: Total time spent is greater than 50% in coordination of care (as documented) at patient's floor/unit and/or counseling patient: Coding Level of Care Code 00046 Subseq Hosp Care Lvl 1 Diagnoses Angioedema of tongue T78.3XXA COVID-19 U07.1 Hyperlipidemia E78.5 Hypertension I10 Hypertension type: essential hypertension (1) Hypertension Hypertension type: essential hypertension Qualified Code(s): I10 - Essential (primary) hypertension
[2021-09-26] MEDS: DEXMEDETOMIDINE HCL 200 MCG in SODIUM CHLORIDE 0.9% 48 ML IV SCH ×4 (00:46→08:07)
[2021-09-26] MEDS: TUBE FEEDING WATER FLUSH NG SCH ×6 (02:09→22:05)
[2021-09-26] MEDS: MIDAZOLAM BOLUS FROM BAG IV PRN (03:22)
[2021-09-26] MEDS: fentaNYL DRIP 1,250 MCG/250 ML BAG IV SCH ×2 (04:07→15:10)
[2021-09-26 06:48] LABS: Basophils # (auto) 0.02 K/uL (0-0.2); Basophils % (auto) 0.1 %; Eosinophils # (auto) 0.01 K/uL (0-0.5); Eosinophils % (auto) 0.1 %; Hematocrit (blood only) 39.7 % (42-52); Hemoglobin 12.6 g/dL (14.0-18.0); Immature Granulocytes # (auto) 0.04 K/uL (0.00-0.02); Immature Granulocytes % (auto) 0.3 %; Lymphocytes # (auto) 1.19 K/uL (1.2-3.4); Lymphocytes % (auto) 8.8 %; Mean Corpuscular Hemoglobin 29.6 pg (25-34); Mean Corpuscular Hgb Conc 31.7 g/dL (32-36); Mean Corpuscular Volume 93.4 fL (80-100); Mean Platelet Volume 11.5 fL (7.4-10.4); Monocytes # (auto) 1.59 K/uL (0.11-0.59); Monocytes % (auto) 11.8 %; Neutrophils # (auto) 10.67 K/uL (1.4-6.5); Neutrophils % (auto) 78.9 %; Platelet Count 240 K/uL (130-400); RDW Coefficient of Variation 13.5 % (11.5-14.5); Red Blood Count 4.25 M/uL (4.7-6.1); White Blood Count 13.52 K/uL (4.8-10.8)
[2021-09-26 07:25] LABS: BUN Creatinine Ratio 20.6 (10-20); Calcium 9.1 mg/dl (8.5-10.1); Creatinine Clr Calc Pharmacy 58.3 ml/min; Est GFR (Non-African American) 62.2 ml/min; Phosphorus 2.7 mg/dl (2.5-4.9); Potassium 3.6 mmol/L (3.5-5.1)
[2021-09-26 07:28] LABS: Magnesium 2.2 mg/dl (1.8-2.4)
[2021-09-26] MEDS: DEXMEDETOMIDINE HCL 400 MCG in 0.9 % SODIUM CHLORIDE 96 ML IV SCH ×3 (07:31→19:25)
[2021-09-26] MEDS: MIDAZOLAM HCL 125 MG/250 ML BAG IV SCH ×2 (08:06→18:38)
[2021-09-26] MEDS: ENOXAPARIN INJ 40 MG/0.4 ML SYR SQ SCH ×2 (09:49→22:09)
[2021-09-26] MEDS: ATORVASTATIN 10 MG TAB PO SCH (09:51)
[2021-09-26] MEDS: ASPIRIN 81 MG CHEW PO SCH (09:51)
--- NOTE | 2021-09-26 14:39 | Critical Care Progress Note ---
Date of Service September 26, 2021 Assessment & Plan (1) Angioedema of tongue: (2) COVID-19: (3) Tobacco abuse: Plan: Impression: 71-year-old male with no history of trauma or sting. Patient presents with severe angioedema of the tongue. Suspected to be from increased dose of lisinopril, however there have been case reports of this occurring with COVID infecitons. Patient denies any prior history to LARS inhibitor allergies or history of angioedema. Drug allergies include penicillin. Patient not subjected to penicillin recently. 24-hour events: Patient was a admitted to the ICU. He underwent awake fiberop tic intubation by anesthesia due to severe angioedema with tongue swelling. The vocal cords and laryngeal structures were reportedly markedly abnormal. . Has been maintained on sedation and mechanical ventilation. He is hemodynamically stable. Recommendations: Neuro - CAM (-) Awoken and followed commands this morning with no focal deficits. Keep sedated on vent for now. He is currently on Versed and fentanyl. We will hold his metoprolol and placed on Precedex to see if this provides better levels of sedation. May consider oral agents as well. Cardiac - history of hypertension but not currently hypertensive. Holding metoprolol if so we can add Precedex. Avoid LARS inhibitors in the future. If additional blood pressure medications are required, these will be titrated based on clinical response. Respiratory -intubated for airway protection. Airway swelling is not significantly decreased to the patient's not appropriate for sedation break or SBT at the current time. I discussed with the patient's daughter who is an ICU nurse. Continue with waiting for swelling to decrease to a safe level. We will continue to provide local care to his tongue to prevent desiccation. There is no indication for steroids or H2 blockers currently. Awaiting C1 esterase level as well as C4. . Outpatient allergy immunology evaluation would be appropriate. Patient was Covid positive and remains doing well on the ventliator. He does not need steroids or any additional interventions for Covid. GI -asked dietary to initiate enteral tube feeding. Does not need PPI or stress ulcer prophylaxis currently. RENAL/LYTES -no acute issues. We will replete electrolytes as needed. -Barber catheter while intubated ENDO -glycemic control per protocol HEME -no current issues. Continue to follow ID -positive COVID-19. Continue to follow. He is at risk for progression. No adjunct of therapy is indicated currently. LINES/IV ACCESS - Peripheral IV Endotracheal tube, Barber catheter Continue use of all lines DVT PROPHYLAXIS - Enoxaparin 40 mg subcutaneously every 12 hours Patient was reviewed on multidisciplinary rounds as well as with the bedside [facility] emergency department nurse. Total of 35 minutes was spent in evaluation management stabilization of this patient. Admission and Anticipated Discharge Date Admission Date: September 24, 2021 Subjective Patient is HD# 2, ICU day and Ventilator day #2 following angioedema in the setting of increased LARS and COVID +. Patient was intubated secondary to his angioedema and has remained on very minimal ventilatory settings. He is doing well from oxygenation standpoint and does not currently meet any further criteria for treatment of his COVID infection. Ther eis a possibility that the COVID infection and the LARS dose increase together may have contributed to his angioedema, but either way this therapy should be abandoned in the future. He has had compliment factors sent which are pending to rule out hereditary angioedema. He has had some thick secretions from his ETT without febrility, will obtain culture and gram stain of his ETT secretions. Patient remains with conservative treatment as there is no current role for any of the other agents. We will continue to await for his swelling in his tongue to decrease and continue with sedation holidays. Review of Systems Review of Systems: unable to perform secondary to sedation and mechanical intubation Physical Exam Physical Exam: GENERAL : sedated to a REYMUNDO -2 , weakly opens eyes- did have sedation holiday this morning EYES: No icterus, gaze conjugate. Pupils equal round and reactive to light NOSE: No evidence of epistaxis MOUTH: No lesions or candidiasis. Unable to visualize the posterior oropharynx secondary to extreme tongue swelling. Tongue is softer today, remains moist without ulcerations, unable to view posterior to the tongue. Otherwise, appears to have no difficulty with swallowing. NECK: Supple. No stridor LUNGS: CTA B/L, no wheezes, rales or rhonchi. Good inspirational effort HEART: Regular, rate controlled. No appreciation of ectopy ABDOMEN: Soft, NT, ND, BS Present EXTREMITIES: No LE edema, pedal pulses intact NEURO: A&OX3. Pupils equal round react to light. Slurred speech secondary to angioedema of the tongue. Results & Data Results & Data ([facility]) Vital Signs (Past 12 Hours) Vital Signs Temp Pulse Pulse Resp BP BP Pulse Ox 09/26/21 11:15 56 L 20 95 09/26/21 10:00 57 L 20 160/77 H 95 09/26/21 09:30 58 L 20 160/76 H 95 09/26/21 09:00 59 L 20 166/80 H 95 09/26/21 08:30 60 21 165/83 H 94 09/26/21 08:00 37.6 C H 61 22 154/75 H 94 09/26/21 07:46 62 20 94 09/26/21 07:30 62 24 171/83 H 94 09/26/21 07:00 63 24 161/80 H 93 09/26/21 06:30 64 22 155/80 H 92 09/26/21 06:00 64 64 21 157/78 H 157/78 H 93 09/26/21 05:30 64 21 157/80 H 93 09/26/21 05:00 63 63 21 154/79 H 154/79 H 94 09/26/21 04:30 63 21 159/78 H 94 09/26/21 04:10 63 23 94 09/26/21 04:00 36.8 C 63 63 22 138/73 138/73 93 09/26/21 03:30 63 20 124/67 93 09/26/21 03:00 63 63 21 132/71 132/71 93 09/26/21 02:30 62 20 141/73 H 94 Laboratory Results Abnormal lab results 09/24/21 09/25/21 09/26/21 Range/Units 08:46 18:11 06:08 WBC 13.52 H (4.8-10.8) K/uL RBC 4.25 L (4.7-6.1) M/uL Hgb 12.6 L (14.0-18.0) g/dL Hct 39.7 L (42-52) % MCHC 31.7 L (32-36) g/dL MPV 11.5 H (7.4-10.4) fL Neut # (Auto) 10.67 H (1.4-6.5) K/uL Lymph # (Auto) 1.19 L (1.2-3.4) K/uL [place] # (Auto) 1.59 H (0.11-0.59) K/uL Immature Gran # (Auto) 0.04 H (0.00-0.02) K/uL Chloride (98-107) mmol/L BUN (7-18) mg/dl BUN/Creatinine Ratio (10-20) Glucose (70-99) mg/dl POC Glucose 110 H (70-99) mg/dl Complement C4 54 H (15-53) mg/dL 09/26/21 09/26/21 Range/Units 06:08 08:20 WBC (4.8-10.8) K/uL RBC (4.7-6.1) M/uL Hgb (14.0-18.0) g/dL Hct (42-52) % MCHC (32-36) g/dL MPV (7.4-10.4) fL Neut # (Auto) (1.4-6.5) K/uL Lymph # (Auto) (1.2-3.4) K/uL [place] # (Auto) (0.11-0.59) K/uL Immature Gran # (Auto) (0.00-0.02) K/uL Chloride 111 H (98-107) mmol/L BUN 24 H (7-18) mg/dl BUN/Creatinine Ratio 20.6 H (10-20) Glucose 127 H (70-99) mg/dl POC Glucose 122 H (70-99) mg/dl Complement C4 (15-53) mg/dL Diagnostic Findings XR chest 1V portable CLINICAL HISTORY: post intubation and OG placement TECHNIQUE: Single frontal radiograph of the chest was obtained. Comparison: Comparison is made to chest one view 06/07/2011 FINDINGS: Endotracheal tube terminates 3 cm from the darryl. An enteric tube is in satisfactory position. The cardiomediastinal silhouette is normal. Faint bilateral airspace opacities are noted. No evidence of pleural effusion or pneumothorax. IMPRESSION: Satisfactory position of endotracheal and enteric tubes. Faint bilateral airspace opacities may represent atelectasis, aspiration, or pneumonia. Coding Level of Care Code Critical Care 1st 30-74 mins Diagnoses Angioedema of tongue T78.3XXA COVID-19 U07.1 Tobacco abuse Z72.0
--- NOTE | 2021-09-26 17:21 | Hospitalist Progress Note ---
Date of Service September 26, 2021 Assessment & Plan (1) Angioedema of tongue: Plan: Likely secondary to recently increased dose of lisinopril No NSAID use reportedly and no other signs of anaphylaxis to suggest allergic reaction C4 level is normal/high which rules out hereditary angioedema Intubated for airway protection due to extremely large tongue. Tongue swelling persists Received FFP, diphenhydramine and dexamethasone in the ER Discontinue ruy inhibitor permanently Continue sedation and mechanical ventilation for airway protection as tongue still quite swollen Appreciate solid waste collector management Pulmonology recommends follow-up with visual manager as an outpatient after discharge CRP and ESR elevated-likely secondary to Covid-19 infection No steroids or antihistamines indicated (2) COVID-19: Plan: Was asymptomatic other than angioedema at the time of presentation Oxygenating well Keep on Covid airborne precautions No indication for steroids (3) Hyperlipidemia: Plan: Continue atorvastatin, aspirin through NG tube (4) Hypertension: Plan: Discontinue lisinopril Continue metoprolol tartrate 50 mg p.o. twice daily Plan: DVT prophylaxis-Lovenox Disposition-continued stay in ICU Admission and Anticipated Discharge Date Admission Date: September 24, 2021 Subjective Patient remains sedated and intubated, tongue is still quite swollen. Review of Systems Review of Systems: Unobtainable due to endotracheal tube and Unobtainable due to reduced consciousness Physical Exam Constitutional: well developed and + mechanically ventilated ENMT: Tongue is large and swollen hanging out of mouth, wrapped in moist gauze Results & Data Results & Data ([facility]) Vital Signs (Past 12 Hours) Vital Signs Temp Pulse Pulse Resp BP BP Pulse Ox 09/26/21 15:23 53 L 20 96 09/26/21 11:15 56 L 20 95 09/26/21 10:00 57 L 20 160/77 H 95 09/26/21 09:30 58 L 20 160/76 H 95 09/26/21 09:00 59 L 20 166/80 H 95 09/26/21 08:30 60 21 165/83 H 94 09/26/21 08:00 37.6 C H 61 22 154/75 H 94 09/26/21 07:46 62 20 94 09/26/21 07:30 62 24 171/83 H 94 09/26/21 07:00 63 24 161/80 H 93 09/26/21 06:30 64 22 155/80 H 92 09/26/21 06:00 64 64 21 157/78 H 157/78 H 93 09/26/21 05:30 64 21 157/80 H 93 Laboratory Results 09/26/21 09/26/21 09/26/21 Range/Units 08:20 06:08 06:08 WBC 13.52 H (4.8-10.8) K/uL RBC 4.25 L (4.7-6.1) M/uL Hgb 12.6 L (14.0-18.0) g/dL Hct 39.7 L (42-52) % MCV 93.4 (80-100) fL MCH 29.6 (25-34) pg MCHC 31.7 L (32-36) g/dL RDW Std Deviation 46.0 (36.4-46.3) fL RDW Coeff of Jimbo 13.5 (11.5-14.5) % Plt Count 240 (130-400) K/uL MPV 11.5 H (7.4-10.4) fL Immature Gran % (Auto) 0.3 % Neut % (Auto) 78.9 % Lymph % (Auto) 8.8 % [place] % (Auto) 11.8 % Eos % (Auto) 0.1 % Baso % (Auto) 0.1 % Neut # (Auto) 10.67 H (1.4-6.5) K/uL Lymph # (Auto) 1.19 L (1.2-3.4) K/uL [place] # (Auto) 1.59 H (0.11-0.59) K/uL Eos # (Auto) 0.01 (0-0.5) K/uL Baso # (Auto) 0.02 (0-0.2) K/uL Immature Gran # (Auto) 0.04 H (0.00-0.02) K/uL Sodium 143 (136-145) mmol/L Potassium 3.6 (3.5-5.1) mmol/L Chloride 111 H (98-107) mmol/L Carbon Dioxide 25 (21-32) mmol/L Anion Gap 7.0 (3-11) BUN 24 H (7-18) mg/dl Creatinine 1.18 (0.6-1.4) mg/dl Est Cr Clr Drug Dosing 58.3 ml/min Est GFR ( Amer) 72.0 ml/min Est GFR (Non-Af Amer) 62.2 ml/min BUN/Creatinine Ratio 20.6 H (10-20) Glucose 127 H (70-99) mg/dl POC Glucose 122 H (70-99) mg/dl Calcium 9.1 (8.5-10.1) mg/dl Phosphorus 2.7 (2.5-4.9) mg/dl Magnesium 2.2 (1.8-2.4) mg/dl Complement C4 (15-53) mg/dL 09/24/21 Range/Units 08:46 WBC (4.8-10.8) K/uL RBC (4.7-6.1) M/uL Hgb (14.0-18.0) g/dL Hct (42-52) % MCV (80-100) fL MCH (25-34) pg MCHC (32-36) g/dL RDW Std Deviation (36.4-46.3) fL RDW Coeff of Jimbo (11.5-14.5) % Plt Count (130-400) K/uL MPV (7.4-10.4) fL Immature Gran % (Auto) % Neut % (Auto) % Lymph % (Auto) % [place] % (Auto) % Eos % (Auto) % Baso % (Auto) % Neut # (Auto) (1.4-6.5) K/uL Lymph # (Auto) (1.2-3.4) K/uL [place] # (Auto) (0.11-0.59) K/uL Eos # (Auto) (0-0.5) K/uL Baso # (Auto) (0-0.2) K/uL Immature Gran # (Auto) (0.00-0.02) K/uL Sodium (136-145) mmol/L Potassium (3.5-5.1) mmol/L Chloride (98-107) mmol/L Carbon Dioxide (21-32) mmol/L Anion Gap (3-11) BUN (7-18) mg/dl Creatinine (0.6-1.4) mg/dl Est Cr Clr Drug Dosing ml/min Est GFR ( Amer) ml/min Est GFR (Non-Af Amer) ml/min BUN/Creatinine Ratio (10-20) Glucose (70-99) mg/dl POC Glucose (70-99) mg/dl Calcium (8.5-10.1) mg/dl Phosphorus (2.5-4.9) mg/dl Magnesium (1.8-2.4) mg/dl Complement C4 54 H (15-53) mg/dL PG Care Time/CCT Total # of Minutes Spent Total Time Spent with Patient: Total time spent is greater than 50% in coordination of care (as documented) at patient's floor/unit and/or counseling patient: Coding Level of Care Code 20058 Subseq Hosp Care Lvl 1 Diagnoses Angioedema of tongue T78.3XXA COVID-19 U07.1 Hyperlipidemia E78.5 Hypertension I10 Hypertension type: essential hypertension (1) Hypertension Hypertension type: essential hypertension Qualified Code(s): I10 - Essential (primary) hypertension
[2021-09-27] MEDS: DEXMEDETOMIDINE HCL 400 MCG in 0.9 % SODIUM CHLORIDE 96 ML IV SCH ×5 (00:50→23:05)
[2021-09-27] MEDS: TUBE FEEDING WATER FLUSH NG SCH ×6 (01:16→21:07)
[2021-09-27] MEDS: fentaNYL DRIP 1,250 MCG/250 ML BAG IV SCH (04:33)
[2021-09-27 06:34] LABS: Basophils # (auto) 0.02 K/uL (0-0.2); Basophils % (auto) 0.2 %; Eosinophils # (auto) 0.06 K/uL (0-0.5); Eosinophils % (auto) 0.5 %; Hematocrit (blood only) 39.1 % (42-52); Hemoglobin 12.7 g/dL (14.0-18.0); Immature Granulocytes # (auto) 0.04 K/uL (0.00-0.02); Immature Granulocytes % (auto) 0.3 %; Lymphocytes # (auto) 1.36 K/uL (1.2-3.4); Lymphocytes % (auto) 10.5 %; Mean Corpuscular Hemoglobin 30.7 pg (25-34); Mean Corpuscular Hgb Conc 32.5 g/dL (32-36); Mean Corpuscular Volume 94.4 fL (80-100); Mean Platelet Volume 11.5 fL (7.4-10.4); Monocytes # (auto) 1.99 K/uL (0.11-0.59); Monocytes % (auto) 15.3 %; Neutrophils # (auto) 9.51 K/uL (1.4-6.5); Neutrophils % (auto) 73.2 %; Platelet Count 217 K/uL (130-400); RDW Coefficient of Variation 13.4 % (11.5-14.5); RDW Standard Deviation 46.2 fL (36.4-46.3); Red Blood Count 4.14 M/uL (4.7-6.1); White Blood Count 12.98 K/uL (4.8-10.8)
[2021-09-27 07:09] LABS: BUN Creatinine Ratio 23.6 (10-20); Calcium 9.1 mg/dl (8.5-10.1); Creatinine Clr Calc Pharmacy 56.8 ml/min; Est GFR (African American) 69.9 ml/min; Est GFR (Non-African American) 60.3 ml/min; Magnesium 2.4 mg/dl (1.8-2.4); Potassium 3.8 mmol/L (3.5-5.1)
[2021-09-27] MEDS: ATORVASTATIN 10 MG TAB PO SCH (08:12)
[2021-09-27] MEDS: ENOXAPARIN INJ 40 MG/0.4 ML SYR SQ SCH (08:12)
[2021-09-27] MEDS: ASPIRIN 81 MG CHEW PO SCH (08:12)
--- NOTE | 2021-09-27 12:28 | Critical Care Progress Note ---
Date of Service September 27, 2021 Assessment & Plan (1) Angioedema of tongue: (2) COVID-19: (3) Tobacco abuse: Plan: Impression: 71-year-old male with no history of trauma or sting. Patient presents with severe angioedema of the tongue. Suspected to be from increased dose of lisinopril. Patient denies any prior history to LARS inhibitor allergies or history of angioedema. Drug allergies include penicillin. Patient not subjected to penicillin recently. 24-hour events: Remains on the ventilator. Has had some improvement in his tongue swelling over the last 24 hours. Tolerating sedation. Hemodynamically s table Recommendations: Neuro -keep sedated on vent for now. He is currently on Versed fentanyl and Precedex. We will try and wean the Versed to off. Can increase Precedex if needed Cardiac -history of hypertension but not currently hypertensive. Avoid LARS inhibitors in the future. If additional blood pressure medications are required, these will be titrated based on clinical response. Respiratory -intubated for airway protection. Tongue swelling improved today. Continue supportive care and watchful waiting. Once swelling has significantly regressed, will assess for cuff leak prior to extubation. Interestingly his CRP and ESR were elevated. C1 esterase level pending. Outpatient allergy immunology evaluation may be appropriate. Patient was Covid positive. He is oxygenating well. He does not need steroids or any additional interventions for Covid. GI -tube feeding per dietary. Does not need PPI or stress ulcer prophylaxis currently. RENAL/LYTES -no acute issues. We will replete electrolytes as needed. -Barber catheter while intubated ENDO -glycemic control per protocol HEME -no current issues. Continue to follow ID -positive COVID-19. Continue to follow. He is at risk for progression. No adjunct of therapy is indicated currently. Mild leukocytosis but no signs of infection LINES/IV ACCESS - Peripheral IV Endotracheal tube, Barber catheter DVT PROPHYLAXIS - Enoxaparin 40 mg subcutaneously daily Discussed with patient's daughter and on the phone. Questions were answered and they were updated appropriately. They are agreement with the plan as outlined. We will continue supportive care pending improvement in the patient's airway. They were advised that this may take several days. They understand and we will continue to update them on a daily basis. Patient was reviewed on multidisciplinary rounds as well as with the bedside critical care nurse. Admission and Anticipated Discharge Date Admission Date: September 24, 2021 Subjective Intubated and sedated Review of Systems Review of Systems: Unobtainable due to endotracheal tube Physical Exam Constitutional: + mechanically ventilated ENMT: Tongue is markedly better today. Abnormal stable to push back into the oral cavity. Endotracheal tube and nasogastric tube still in place Neck: trachea midline, no thyromegaly Respiratory: no respiratory distress Cardiovascular: RRR, no murmur, no edema Gastrointestinal (Abdomen): normal bowel sounds, soft, nontender, no hepatosplenomegaly Musculoskeletal: Extremities: extremities normal to inspection Skin: no rashes, warm and dry Lymphatic: no cervical lymphadenopathy Results & Data Results & Data ([facility]) Vital Signs (Past 12 Hours) Vital Signs Temp Pulse Resp BP Pulse Ox 09/27/21 07:41 51 L 20 97 09/27/21 06:00 50 L 20 152/72 H 97 09/27/21 05:30 50 L 20 97 09/27/21 05:00 50 L 20 133/66 97 09/27/21 04:30 50 L 20 135/69 97 09/27/21 04:00 36.5 C 51 L 20 148/69 H 97 09/27/21 03:30 50 L 20 149/69 H 96 09/27/21 03:00 48 L 20 119/64 97 09/27/21 02:38 48 L 20 96 09/27/21 02:30 48 L 20 120/62 97 09/27/21 02:00 48 L 20 113/63 97 09/27/21 01:30 47 L 20 116/63 97 09/27/21 01:00 46 L 20 130/63 97 09/27/21 00:30 46 L 20 104/58 L 96 Critical Care Results & Data Vital Signs (Past 12 Hours) Vital Signs Temp Pulse Resp BP Pulse Ox 09/27/21 12:17 58 L 20 96 09/27/21 07:41 51 L 20 97 09/27/21 06:00 50 L 20 152/72 H 97 09/27/21 05:30 50 L 20 97 09/27/21 05:00 50 L 20 133/66 97 09/27/21 04:30 50 L 20 135/69 97 09/27/21 04:00 36.5 C 51 L 20 148/69 H 97 09/27/21 03:30 50 L 20 149/69 H 96 09/27/21 03:00 48 L 20 119/64 97 09/27/21 02:38 48 L 20 96 09/27/21 02:30 48 L 20 120/62 97 09/27/21 02:00 48 L 20 113/63 97 09/27/21 01:30 47 L 20 116/63 97 09/27/21 01:00 46 L 20 130/63 97 09/27/21 00:30 46 L 20 104/58 L 96 Lab & Micro Results (Past 24 Hours) RBC 4.14 M/uL (4.7-6.1) L 09/27/21 WBC 12.98 K/uL (4.8-10.8) H 09/27/21 Hgb 12.7 g/dL (14.0-18.0) L 09/27/21 Hct 39.1 % (42-52) L 09/27/21 MCV 94.4 fL (80-100) 09/27/21 MCH 30.7 pg (25-34) 09/27/21 MCHC 32.5 g/dL (32-36) 09/27/21 RDW Standard Deviation 46.2 fL (36.4-46.3) 09/27/21 RDW Coefficient of Variation 13.4 % (11.5-14.5) 09/27/21 Plt Count 217 K/uL (130-400) 09/27/21 MPV 11.5 fL (7.4-10.4) H 09/27/21 Neutrophils (%) (Auto) 73.2 % 09/27/21 Lymphocytes (%) (Auto) 10.5 % 09/27/21 Monocytes # (Auto) 1.99 K/uL (0.11-0.59) H 09/27/21 Eosinophils # (Auto) 0.06 K/uL (0-0.5) 09/27/21 Immature Granulocyte % (Auto) 0.3 % 09/27/21 Neutrophils # (Auto) 9.51 K/uL (1.4-6.5) H 09/27/21 Lymphocytes # (Auto) 1.36 K/uL (1.2-3.4) 09/27/21 Monocytes # (Auto) 1.99 K/uL (0.11-0.59) H 09/27/21 Eosinophils # (Auto) 0.06 K/uL (0-0.5) 09/27/21 Basophils # (Auto) 0.02 K/uL (0-0.2) 09/27/21 Immature Granulocyte # (Auto) 0.04 K/uL (0.00-0.02) H 09/27/21 Na 145 mmol/L (136-145) 09/27/21 K 3.8 mmol/L (3.5-5.1) 09/27/21 Cl 113 mmol/L (98-107) H 09/27/21 CO2 27 mmol/L (21-32) 09/27/21 Anion Gap 5.0 (3-11) 09/27/21 BUN 29 mg/dl (7-18) H 09/27/21 Creatinine 1.21 mg/dl (0.6-1.4) 09/27/21 Estimated GFR ( Amer) 69.9 ml/min 09/27/21 Estimated GFR (Non-Af Amer) 60.3 ml/min 09/27/21 BUN/Creatinine Ratio 23.6 (10-20) H 09/27/21 Glu 140 mg/dl (70-99) H 09/27/21 Ca 9.1 mg/dl (8.5-10.1) 09/27/21 Phosphorus Level 3.0 mg/dl (2.5-4.9) 09/27/21 Mg 2.4 mg/dl (1.8-2.4) 09/27/21 06:14 09/27/21 Calcium Level 9.1 mg/dl (8.5-10.1) 09/27/21 06:14 09/27/21 Microbiology 09/26/21 10:45 Gram Stain - Final Sputum,Vent Suction Sputum Culture - Preliminary Light normal ricki present, final report to follow. I & O Totals 24 Hours 09/26/21 09/27/21 09/28/21 06:59 06:59 06:59 Intake Total 1839.010 / 0855.293 8427.880 / 1921.880 195.027 / 195.027 Output Total 1130 / 1130 925 / 925 Balance 709.010 / 709.010 966.880 / 996.880 195.027 / 195.027 Cumulative 09/24/21 08:27 thru 09/27/21 07:52 Intake Total 6574.417 Output Total 2890 Balance 3684.417 RT Ventilator Mngmt (Last Documented) Ventilator Ordered Settings Ventilator Support Mode Assist Control 09/27/21 12:17 Respiratory Rate 20 09/27/21 12:17 Ventilator Tidal Volume 400 09/27/21 12:17 Setting Minute Ventilation 7.4 09/27/21 12:17 Positive End Expiratory 5 09/27/21 12:17 Pressure Fraction of Inspired Oxygen 30 09/27/21 12:17 Peak Inspiratory Flow 50 09/27/21 12:17 Ventilator - PT Measurements Respiratory Rate 20 Exhaled Tidal Volume 380 Minute Ventilation 7.4 Peak Inspiratory Airway 35 Pressure Plateau Pressure 20 Respiratory Cycle Inspiratory: 1:2.6 Expiratory Ratio Inspiratory Phase Time 0.83 End-Tidal CO2 30 Static Lung Compliance 25.33 Dynamic Lung Compliance 12.67 Normal Static Lung Compliance 43.00 Coding Level of Care Code 30378 Subseq Hosp Care Lvl 3 Diagnoses Angioedema of tongue T78.3XXA COVID-19 U07.1 Tobacco abuse Z72.0
[2021-09-27] MEDS: hydrALAZINE HCL 20 MG/ML VIAL IV PRN (16:08)
[2021-09-27] MEDS ORDERED: fentaNYL citrate 2,500 MCG/250 ML BAG IV SCH (17:00)
[2021-09-27] MEDS: hydrALAZINE 10 MG TAB PO SCH ×2 (18:27→23:52)
--- NOTE | 2021-09-27 21:15 | Hospitalist Progress Note ---
Date of Service September 27, 2021 Assessment & Plan (1) Angioedema of tongue: Plan: Likely secondary to recently increased dose of lisinopril No NSAID use reportedly and no other signs of anaphylaxis to suggest allergic reaction C4 level is normal/high which rules out hereditary angioedema On Dexmedetomidine Intubated for airway protection due to extremely large tongue. 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 twice daily Plan: DVT prophylaxis-Lovenox Disposition-continued stay in ICU Admission and Anticipated Discharge Date Admission Date: September 24, 2021 Subjective Patient is intubated. Review of Systems Review of Systems: All systems reviewed & are unremarkable except as noted in HPI & below Physical Exam Physical Exam: Physical Exam: Intubated and sedated Eyes: PERRL, conjunctivae normal, anicteric sclerae ENMT: external ear and nose normal, oropharynx normal (except for swollen tongue) Neck: trachea midline, no thyromegaly Respiratory: normal respiratory effort, lungs clear to auscultation Cardiovascular: RRR, no murmur, no edema Gastrointestinal (Abdomen): normal bowel sounds, soft, nontender, no hepatosplenomegaly Skin: no rashes, warm and dry Psychiatric: sedated Results & Data Results & Data ([facility]) Vital Signs (Past 12 Hours) Vital Signs Temp Pulse Resp BP Pulse Ox 09/27/21 20:30 60 20 146/78 H 96 09/27/21 20:00 36.5 C 61 20 144/74 H 95 09/27/21 19:30 63 20 135/73 94 09/27/21 19:00 65 20 133/68 94 09/27/21 17:30 57 L 20 95 09/27/21 17:00 57 L 20 170/77 H 96 09/27/21 16:30 59 L 20 97 09/27/21 16:00 52 L 20 96 09/27/21 15:58 52 L 20 96 09/27/21 15:30 53 L 20 96 09/27/21 15:15 52 L 20 95 09/27/21 15:00 52 L 20 177/82 H 95 09/27/21 14:45 52 L 20 95 09/27/21 14:30 52 L 20 95 09/27/21 14:15 60 20 96 09/27/21 14:00 53 L 20 181/79 H 97 09/27/21 13:45 52 L 20 97 09/27/21 13:30 52 L 20 97 09/27/21 13:15 52 L 20 97 09/27/21 13:00 52 L 20 166/70 H 97 09/27/21 12:45 54 L 20 97 09/27/21 12:30 52 L 20 97 09/27/21 12:17 58 L 20 96 09/27/21 12:15 52 L 20 97 09/27/21 12:00 51 L 20 98 09/27/21 11:45 50 L 20 97 09/27/21 11:30 51 L 20 156/74 H 97 09/27/21 11:15 50 L 20 98 09/27/21 11:00 51 L 20 97 09/27/21 10:45 51 L 20 97 09/27/21 10:30 51 L 20 97 09/27/21 10:15 51 L 20 97 09/27/21 10:00 51 L 20 97 09/27/21 09:45 51 L 20 97 09/27/21 09:30 51 L 20 97 09/27/21 09:15 52 L 20 97 PG Care Time/CCT Total # of Minutes Spent Total Time Spent with Patient: Total time spent is greater than 50% in coordination of care (as documented) at patient's floor/unit and/or counseling patient: Coding Level of Care Code 18580 Subseq Hosp Care Lvl 2 Diagnoses Angioedema of tongue T78.3XXA COVID-19 U07.1 Hyperlipidemia E78.5 Hypertension I10 Hypertension type: essential hypertension (1) Hypertension Hypertension type: essential hypertension Qualified Code(s): I10 - Essential (primary) hypertension
[2021-09-28] MEDS: TUBE FEEDING WATER FLUSH NG SCH ×6 (02:50→19:37)
[2021-09-28] MEDS: DEXMEDETOMIDINE HCL 400 MCG in 0.9 % SODIUM CHLORIDE 96 ML IV SCH ×3 (04:07→19:39)
[2021-09-28] MEDS: IMPACT LIQD 1.0 CAL 1,000 ML BAG NG SCH (04:08)
[2021-09-28] MEDS: hydrALAZINE 10 MG TAB PO SCH ×3 (05:04→17:07)
[2021-09-28 05:09] LABS: iSTAT Allen Test Pass; iSTAT Arterial Blood Gas HCO3 27 meg/L (19-24); iSTAT Arterial Blood Gas pCO2 40 mmHg (35-46); iSTAT Arterial Blood Gas pH 7.44 (7.35-7.45); iSTAT Arterial Blood Gas pO2 65 mmHg (80-95); iSTAT Carbon Dioxide 29 mmol/L (24-31); iSTAT FiO2 30 %; iSTAT Site L Radial
--- NOTE | 2021-09-28 07:48 | XRay Report ---
XR chest 1V portable HISTORY: Respiratory failure. Follow-up. COMPARISON: Chest 09/24/2021. FINDINGS: No pneumothorax. No pleural effusions. Hazy bilateral mid to lower lung zone airspace opaci ties have slightly progressed. This most pronounced within the left lower lobe. The heart is normal i n size. The endotracheal tube terminates 3 cm from the darryl. IMPRESSION: 1. Slight progression of the hazy bilateral airspace opacities likely representing a viral pneumonia. 2. Endotracheal tube terminates 3 cm from the darryl. ACT 112: Negative or not required by law. Electronically signed by: Lit Nino M.D. 09/28/2021 7:47 AM
[2021-09-28 07:56] LABS: Basophils # (auto) 0.01 K/uL (0-0.2); Basophils % (auto) 0.1 %; Eosinophils # (auto) 0.01 K/uL (0-0.5); Eosinophils % (auto) 0.1 %; Hematocrit (blood only) 37.4 % (42-52); Immature Granulocytes # (auto) 0.03 K/uL (0.00-0.02); Immature Granulocytes % (auto) 0.3 %; Lymphocytes # (auto) 0.64 K/uL (1.2-3.4); Lymphocytes % (auto) 5.7 %; Mean Corpuscular Hgb Conc 32.1 g/dL (32-36); Mean Corpuscular Volume 93.5 fL (80-100); Mean Platelet Volume 12.1 fL (7.4-10.4); Monocytes # (auto) 0.69 K/uL (0.11-0.59); Monocytes % (auto) 6.2 %; Neutrophils # (auto) 9.78 K/uL (1.4-6.5); Neutrophils % (auto) 87.6 %; Platelet Count 228 K/uL (130-400); RDW Coefficient of Variation 13.2 % (11.5-14.5); RDW Standard Deviation 45.3 fL (36.4-46.3); White Blood Count 11.16 K/uL (4.8-10.8)
[2021-09-28 08:17] LABS: BUN Creatinine Ratio 27.5 (10-20); Calcium 9.1 mg/dl (8.5-10.1); Creatinine Clr Calc Pharmacy 62.5 ml/min; Est GFR (African American) 78.4 ml/min; Est GFR (Non-African American) 67.7 ml/min; Magnesium 2.4 mg/dl (1.8-2.4); Phosphorus 2.8 mg/dl (2.5-4.9); Potassium 3.4 mmol/L (3.5-5.1)
--- NOTE | 2021-09-28 09:26 | Critical Care Progress Note ---
Date of Service September 28, 2021 Assessment & Plan (1) Angioedema of tongue: (2) COVID-19: (3) Tobacco abuse: Plan: Impression: 71-year-old male with no history of trauma or sting. Patient presents with severe angioedema of the tongue. Suspected to be from increased dose of lisinopril. Patient denies any prior history to LARS inhibitor allergies or history of angioedema. Drug allergies include penicillin. Patient not subjected to penicillin recently. 24-hour events: patient doing well clinically. Tongue swelling is decreased significantly. I performed a cuff leak at bedside. He had a significant cough. Contacted anesthesia who presented to the bedside and we extubated the patient to a humidified face tent. Recommendations: Neuro - discontinue all sedation Cardiac -history of hypertension. Avoid LARS inhibitors in the future. IV hydralazine as needed. We will readdress his oral regiment once he passes swallow study. Respiratory -now extubated. Oxygen via humidified face tent. GI -we will request swallow study with speech therapy RENAL/LYTES -no acute issues. Mildly hyponatremic and hypokalemic today. Will replace potassium. Likely need some free water but will await swallow evaluation. Repeat labs in the a.m. -discontinue Barber ENDO -glycemic control per protocol HEME -no current issues. Continue to follow ID -positive COVID-19. Continue to follow. He is at risk for progression. No adjunct of therapy is indicated currently. Mild leukocytosis but no signs of infection ALLERGY: Angioedema most likely secondary to LARS inhibitor. Avoid in the future. C1 esterase level pending. ESR and CRP elevated. Outpatient allergy immunology evaluation and follow-up recommended. LINES/IV ACCESS - Peripheral IV Discontinue Barber catheter. Out of bed to chair as tolerated. PT OT and speech therapy evaluations DVT PROPHYLAXIS - Enoxaparin 40 mg subcutaneously daily Discussed with patient's daughter and on the phone. He is doing well clinically. He can likely downgrade out of the ICU status over the next 12 to 24 hours depending on clinical course. Admission and Anticipated Discharge Date Admission Date: September 24, 2021 Subjective intubated and sedated Review of Systems Review of Systems: Unobtainable due to endotracheal tube Physical Exam Constitutional: + mechanically ventilated ENMT: tongue looks better. Cuff leak noted with deflation of balloon. Neck: trachea midline, no thyromegaly Respiratory: no respiratory distress Cardiovascular: RRR, no murmur, no edema Gastrointestinal (Abdomen): normal bowel sounds, soft, nontender, no hepatosplenomegaly Musculoskeletal: Extremities: extremities normal to inspection Skin: no rashes, warm and dry Lymphatic: no cervical lymphadenopathy Results & Data Results & Data ([facility]) Vital Signs (Past 12 Hours) Vital Signs Temp Pulse Resp BP Pulse Ox 09/28/21 08:11 77 24 94 09/28/21 06:00 79 24 147/77 H 95 09/28/21 05:30 70 23 95 09/28/21 05:00 62 20 156/80 H 96 09/28/21 04:30 63 20 169/81 H 94 09/28/21 04:00 36.6 C 63 21 141/75 H 95 09/28/21 03:30 64 20 92 09/28/21 03:00 66 20 137/74 92 09/28/21 02:30 74 24 160/85 H 92 09/28/21 02:00 70 24 134/66 93 09/28/21 01:30 65 20 92 09/28/21 01:00 63 20 156/80 H 92 09/28/21 00:30 67 20 92 09/28/21 00:00 36.6 C 69 20 168/85 H 94 09/27/21 23:30 64 20 136/76 93 09/27/21 23:00 73 21 146/80 H 94 09/27/21 22:57 75 21 94 09/27/21 22:30 64 20 150/75 H 94 09/27/21 22:00 66 21 141/72 H 95 09/27/21 21:30 63 20 141/75 H 95 Critical Care Results & Data Vital Signs (Past 12 Hours) Vital Signs Temp Pulse Resp BP Pulse Ox 09/28/21 08:11 77 24 94 09/28/21 06:00 79 24 147/77 H 95 09/28/21 05:30 70 23 95 09/28/21 05:00 62 20 156/80 H 96 09/28/21 04:30 63 20 169/81 H 94 09/28/21 04:00 36.6 C 63 21 141/75 H 95 09/28/21 03:30 64 20 92 09/28/21 03:00 66 20 137/74 92 09/28/21 02:30 74 24 160/85 H 92 09/28/21 02:00 70 24 134/66 93 09/28/21 01:30 65 20 92 09/28/21 01:00 63 20 156/80 H 92 09/28/21 00:30 67 20 92 09/28/21 00:00 36.6 C 69 20 168/85 H 94 09/27/21 23:30 64 20 136/76 93 09/27/21 23:00 73 21 146/80 H 94 09/27/21 22:57 75 21 94 09/27/21 22:30 64 20 150/75 H 94 09/27/21 22:00 66 21 141/72 H 95 09/27/21 21:30 63 20 141/75 H 95 Lab & Micro Results (Past 24 Hours) RBC 4.00 M/uL (4.7-6.1) L 09/28/21 WBC 11.16 K/uL (4.8-10.8) H 09/28/21 Hgb 12.0 g/dL (14.0-18.0) L 09/28/21 Hct 37.4 % (42-52) L 09/28/21 MCV 93.5 fL (80-100) 09/28/21 MCH 30.0 pg (25-34) 09/28/21 MCHC 32.1 g/dL (32-36) 09/28/21 RDW Standard Deviation 45.3 fL (36.4-46.3) 09/28/21 RDW Coefficient of Variation 13.2 % (11.5-14.5) 09/28/21 Plt Count 228 K/uL (130-400) 09/28/21 MPV 12.1 fL (7.4-10.4) H 09/28/21 Neutrophils (%) (Auto) 87.6 % 09/28/21 Lymphocytes (%) (Auto) 5.7 % 09/28/21 Monocytes # (Auto) 0.69 K/uL (0.11-0.59) H 09/28/21 Eosinophils # (Auto) 0.01 K/uL (0-0.5) 09/28/21 Immature Granulocyte % (Auto) 0.3 % 09/28/21 Neutrophils # (Auto) 9.78 K/uL (1.4-6.5) H 09/28/21 Lymphocytes # (Auto) 0.64 K/uL (1.2-3.4) L 09/28/21 Monocytes # (Auto) 0.69 K/uL (0.11-0.59) H 09/28/21 Eosinophils # (Auto) 0.01 K/uL (0-0.5) 09/28/21 Basophils # (Auto) 0.01 K/uL (0-0.2) 09/28/21 Immature Granulocyte # (Auto) 0.03 K/uL (0.00-0.02) H 09/28/21 Na 146 mmol/L (136-145) H 09/28/21 K 3.4 mmol/L (3.5-5.1) L 09/28/21 Cl 114 mmol/L (98-107) H 09/28/21 CO2 26 mmol/L (21-32) 09/28/21 Anion Gap 6.0 (3-11) 09/28/21 BUN 30 mg/dl (7-18) H 09/28/21 Creatinine 1.10 mg/dl (0.6-1.4) 09/28/21 Estimated GFR ( Amer) 78.4 ml/min 09/28/21 Estimated GFR (Non-Af Amer) 67.7 ml/min 09/28/21 BUN/Creatinine Ratio 27.5 (10-20) H 09/28/21 Glu 225 mg/dl (70-99) H 09/28/21 Ca 9.1 mg/dl (8.5-10.1) 09/28/21 Phosphorus Level 2.8 mg/dl (2.5-4.9) 09/28/21 Mg 2.4 mg/dl (1.8-2.4) 09/28/21 06:50 09/28/21 Calcium Level 9.1 mg/dl (8.5-10.1) 09/28/21 06:50 09/28/21 [place] Test Pass 09/28/21 04:19 09/28/21 Microbiology 09/26/21 10:45 Gram Stain - Final Sputum,Vent Suction Sputum Culture - Preliminary Light normal ricki present, final report to follow. Diagnostic Findings (Past 24 Hours) Chest X-Ray 09/28/21 07:00 XR chest 1V portable HISTORY: Respiratory failure. Follow-up. COMPARISON: Chest 09/24/2021. FINDINGS: No pneumothorax. No pleural effusions. Hazy bilateral mid to lower lung zone airspace opacities have slightly progressed. This most pronounced within the left lower lobe. The heart is normal in size. The endotracheal tube terminates 3 cm from the darryl. IMPRESSION: 1. Slight progression of the hazy bilateral airspace opacities likely representing a viral pneumonia. 2. Endotracheal tube terminates 3 cm from the darryl. ACT 112: Negative or not required by law. Electronically signed by: Lit Nino M.D. 09/28/2021 7:47 AM I & O Totals 24 Hours 09/27/21 09/28/21 09/29/21 06:59 06:59 06:59 Intake Total 1891.880 / 9104.064 7152.973 / 2343.973 189.200 / 189.200 Output Total 925 / 925 1250 / 1250 Balance 966.880 / 142.461 5874.973 / 1093.973 189.200 / 189.200 Cumulative 09/24/21 08:27 thru 09/28/21 07:18 Intake Total 8912.563 Output Total 4140 Balance 4772.563 RT Ventilator Mngmt (Last Documented) Ventilator Ordered Settings Ventilator Support Mode Assist Control 09/28/21 08:11 Respiratory Rate 24 09/28/21 08:11 Ventilator Tidal Volume 400 09/28/21 08:11 Setting Minute Ventilation 9.1 09/28/21 08:11 Positive End Expiratory 5 09/28/21 08:11 Pressure Fraction of Inspired Oxygen 30 09/28/21 08:11 Peak Inspiratory Flow 50 09/27/21 15:58 Ventilator - PT Measurements Respiratory Rate 24 Exhaled Tidal Volume 380 Minute Ventilation 9.1 Peak Inspiratory Airway 19 Pressure Plateau Pressure 16 Respiratory Cycle Inspiratory: 1:2.3 Expiratory Ratio Inspiratory Phase Time 0.75 End-Tidal CO2 31 Static Lung Compliance 34.55 Dynamic Lung Compliance 27.14 Normal Static Lung Compliance 47.00 Coding Level of Care Code 25486 Subseq Hosp Care Lvl 3 Diagnoses Angioedema of tongue T78.3XXA COVID-19 U07.1 Tobacco abuse Z72.0
[2021-09-28] MEDS: fentaNYL DRIP 1,250 MCG/250 ML BAG IV SCH ×2 (11:19→11:20)
[2021-09-28] MEDS: MIDAZOLAM HCL 125 MG/250 ML BAG IV SCH (11:20)
[2021-09-28] MEDS: ASPIRIN 81 MG CHEW PO SCH (11:21)
[2021-09-28] MEDS: ATORVASTATIN 10 MG TAB PO SCH (11:21)
[2021-09-28] MEDS: ENOXAPARIN INJ 40 MG/0.4 ML SYR SQ SCH (11:21)
[2021-09-28] MEDS: INSULIN ASPART PER UNIT SC SCH ×2 (11:47→17:07)
[2021-09-28] MEDS: ONDANSETRON INJ 2 MG/ML 2 ML VIAL IV PRN ×2 (14:22→22:30)
[2021-09-28] MEDS ORDERED: CARBOHYDRATES FOR HYPOGLYCEMIA PO PRN (15:45)
[2021-09-28] MEDS ORDERED: GLUCAGON FOR INJ 1 MG VIAL IM PRN (15:45)
[2021-09-28] MEDS ORDERED: GLUCOSE 40% GEL 15 GM TUBE PO PRN (15:45)
[2021-09-28] MEDS ORDERED: DEXTROSE 50% 50 ML SYRINGE IV PRN (15:45)
[2021-09-28] MEDS ORDERED: GLUCOSE 10 TABS/TUBE PO PRN (15:45)
[2021-09-28] MEDS ORDERED: LABETALOL HCL IV 5 MG/ML 20ML IV SCH (16:00)
[2021-09-28] MEDS: hydrALAZINE HCL 20 MG/ML VIAL IV PRN ×2 (16:44→22:57)
[2021-09-28] MEDS ORDERED: LABETALOL HCL IV 5 MG/ML 20ML IV STA (17:34)
[2021-09-28] MEDS ORDERED: LABETALOL HCL IV 5 MG/ML 20ML IV PRN (17:34)
--- NOTE | 2021-09-28 20:57 | Hospitalist Progress Note ---
Date of Service September 28, 2021 Assessment & Plan (1) Angioedema of tongue: Plan: Likely secondary to recently increased dose of lisinopril No NSAID use reportedly and no other signs of anaphylaxis to suggest allergic reaction C4 level is normal/high which rules out hereditary angioedema On Dexmedetomidine Intubated for airway protection due to extremely large tongue. Tongue swelling persists Received FFP, diphenhydramine and dexamethasone in the ER Extubated on 08/29 will transfer out of ICU. 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 twice daily Plan: DVT prophylaxis-Lovenox Admission and Anticipated Discharge Date Admission Date: September 24, 2021 Subjective Patient is extubated. Patient is amador to close mouth now. Review of Systems Review of Systems: All systems reviewed & are unremarkable except as noted in HPI & below Physical Exam Physical Exam: Physical Exam: awake, able close to mouth Eyes: PERRL, conjunctivae normal, anicteric sclerae ENMT: external ear and nose normal, oropharynx normal except: (decreased swollen tongue) Neck: trachea midline, no thyromegaly Respiratory: normal respiratory effort, lungs clear to auscultation Cardiovascular: RRR, no murmur, no edema Gastrointestinal (Abdomen): normal bowel sounds, soft, nontender, no hepatosplenomegaly Skin: no rashes, warm and dry Psychiatric: sedated Results & Data Results & Data ([facility]) Vital Signs (Past 12 Hours) Vital Signs Temp Pulse Pulse Resp BP BP Pulse Ox 09/28/21 20:30 102 H 183/82 H 95 09/28/21 20:00 37.5 C 99 H 96 09/28/21 19:30 101 H 95 09/28/21 19:00 103 H 92 09/28/21 18:57 176/77 H 12/17/21 18:00 101 H 93 09/28/21 17:30 108 H 182/80 H 91 09/28/21 17:00 102 H 184/85 H 94 09/28/21 16:30 92 H 199/91 H 95 09/28/21 16:00 97 H 205/99 H 91 09/28/21 15:30 95 H 94 09/28/21 15:24 36.9 C 92 H 26 H 204/94 H 93 09/28/21 15:00 91 H 180/93 H 94 09/28/21 14:30 89 142/97 H 90 09/28/21 14:03 98 H 22 142/97 H 94 09/28/21 13:00 83 24 183/90 H 92 09/28/21 12:00 87 24 143/80 H 93 09/28/21 11:00 74 22 154/79 H 09/28/21 10:00 72 24 143/69 H 09/28/21 09:00 68 22 132/72 94 PG Care Time/CCT Total # of Minutes Spent Total Time Spent with Patient: Total time spent is greater than 50% in coordination of care (as documented) at patient's floor/unit and/or counseling patient: Coding Level of Care Code 70614 Subseq Hosp Care Lvl 2 Diagnoses Angioedema of tongue T78.3XXA COVID-19 U07.1 Hyperlipidemia E78.5 Hypertension I10 Hypertension type: essential hypertension (1) Hypertension Hypertension type: essential hypertension Qualified Code(s): I10 - Essential (primary) hypertension
[2021-09-29] MEDS: hydrALAZINE 10 MG TAB PO SCH ×4 (00:17→17:49)
[2021-09-29] MEDS: INSULIN ASPART PER UNIT SC SCH ×4 (00:17→18:33)
[2021-09-29] MEDS ORDERED: STAT IV Infusion **Titration per Protocol STA (00:31)
[2021-09-29] MEDS: niCARdipine 25 MG in SODIUM CHLORIDE 0.9% 240 ML IV SCH ×8 (00:53→22:54)
[2021-09-29] MEDS: ONDANSETRON INJ 2 MG/ML 2 ML VIAL IV PRN (03:18)
--- NOTE | 2021-09-29 06:40 | XRay Report ---
SINGLE VIEW CHEST CLINICAL HISTORY: Hypoxia. FINDINGS: An AP, portable, upright chest radiograph is compared to study dated 09/28/2021. The examin ation is degraded by portable technique and patient rotation. An enteric tube has been placed. The tip extends below the diaphragm and is not visualized. An endotracheal tube has been removed. The hea rt is top normal for projection. Airspace consolidation is seen at the left lung base. No large pleur al effusion or pneumothorax is seen. The skeletal structures are osteopenic. The bony thorax is gross ly intact. IMPRESSION: 1. An endotracheal tube has been removed and an enteric tube has been placed. 2. Airspace consolidation at the left lung base is typical for pneumonia. Clinical correlation will b e required and radiographic follow-up to resolution is recommended. ACT 112: Negative or not required by law. Electronically signed by: Silverio Szymanski M.D. 09/29/2021 6:38 AM
--- NOTE | 2021-09-29 06:50 | XRay Report ---
KUB CLINICAL HISTORY: Enteric tube placement. FINDINGS: 2 AP, portable, supine abdominal radiographs are obtained. No prior studies are available f or comparison at the time of dictation. An enteric tube has been placed. The tip projects below the d iaphragm over the distal stomach. There is mild gaseous distention of the small bowel loops which abiel sure up to 3.5 cm. Gas and stool are seen in the left colon. No evidence of intraperitoneal free air is seen on these supine images. Left basilar consolidation is noted. The skeletal structures are oste openic and grossly intact. IMPRESSION: 1. An enteric tube has been placed as above. 2. There is mild nonspecific gaseous distention of the small bowel loops, possibly representing ileus . Low-grade/developing obstruction would be impossible exclude and clinical correlation will be requi red. Electronically signed by: Silverio Szymanski M.D. 09/29/2021 6:49 AM
[2021-09-29 08:26] LABS: Basophils # (auto) 0.01 K/uL (0-0.2); Basophils % (auto) 0.1 %; Hematocrit (blood only) 40.6 % (42-52); Hemoglobin 13.2 g/dL (14.0-18.0); Immature Granulocytes # (auto) 0.04 K/uL (0.00-0.02); Immature Granulocytes % (auto) 0.3 %; Lymphocytes # (auto) 1.49 K/uL (1.2-3.4); Lymphocytes % (auto) 11.1 %; Mean Corpuscular Hemoglobin 30.7 pg (25-34); Mean Corpuscular Hgb Conc 32.5 g/dL (32-36); Mean Corpuscular Volume 94.4 fL (80-100); Mean Platelet Volume 11.8 fL (7.4-10.4); Monocytes # (auto) 0.64 K/uL (0.11-0.59); Monocytes % (auto) 4.8 %; Neutrophils # (auto) 11.23 K/uL (1.4-6.5); Neutrophils % (auto) 83.7 %; Platelet Count 266 K/uL (130-400); RDW Coefficient of Variation 13.7 % (11.5-14.5); White Blood Count 13.41 K/uL (4.8-10.8)
[2021-09-29 08:56] LABS: C1 Esterase Inhib Functional 91 % (>=68)
[2021-09-29 09:17] LABS: BUN Creatinine Ratio 21.3 (10-20); Calcium 9.7 mg/dl (8.5-10.1); Creatinine Clr Calc Pharmacy 50.2 ml/min; Est GFR (African American) 60.1 ml/min; Est GFR (Non-African American) 51.9 ml/min; Magnesium 2.6 mg/dl (1.8-2.4)
[2021-09-29] MEDS ORDERED: SODIUM PHOSPHATE 3 MMOL/1 ML INFUSION IV STA (09:56)
[2021-09-29] MEDS ORDERED: POTASSIUM CHLORIDE / WTR 10 MEQ/100 ML PLCT IV STA ×4 (09:56)
[2021-09-29] MEDS ORDERED: MAGNESIUM SULFATE / D5W 1 GM/100 ML BAG IV ONE (09:56)
[2021-09-29] MEDS ORDERED: MAGNESIUM SULFATE / D5W 1 GM/100 ML BAG IV STA (09:56)
[2021-09-29] MEDS ORDERED: MAGNESIUM SULFATE / D5W 1 GM/100 ML BAG IV SCH (10:00)
[2021-09-29] MEDS ORDERED: ICU ELECTROLYTE REPLACEMENT PROTOCOL PRN (10:12)
[2021-09-29] MEDS: ENOXAPARIN INJ 40 MG/0.4 ML SYR SQ SCH (10:24)
--- NOTE | 2021-09-29 10:47 | Critical Care Progress Note ---
Date of Service September 29, 2021 Assessment & Plan (1) Angioedema of tongue: (2) COVID-19: (3) Tobacco abuse: Plan: Impression: 71-year-old male with no history of trauma or sting. Patient presents with severe angioedema of the tongue. Suspected to be from increased dose of lisinopril. Patient denies any prior history to LARS inhibitor allergies or history of angioedema. Drug allergies include penicillin. Patient not subjected to penicillin recently. 24-hour events: Extubated with anesthesia and did well. Unfortunately developed ileus with nausea and vomiting and potential aspiration event. Now on oxygen. NG tube to low intermittent suction. Unable to control blood pressure so was initiated on Cardene infusion. Patient is manifesting some signs of sundowning/ICU delirium Recommendations: Neuro -ICU related delirium. Maintain sleep-wake cycles. Reorient patient frequently. Avoid medications known to contribute to ICU delirium. Cardiac -significant hypertension. Continue IV labetalol and hydralazine. Will start clonidine TTS patches. Wean Cardene as tolerated. Respiratory -aspiration event last evening. Continue to wean oxygen as tolerated. GI -ileus versus small bowel obstruction. Continue NG until bowel function resumes. Would continue with speech therapy swallow evaluation. If passes, may be able to restart some of his oral hypertensive medications. Unclear if the patient could have had some angioedema of the bowel contributing to his nausea vomiting and bowel dysfunction. If fails to progress over the next [address] scanning of the chest to evaluate for potential transition point. RENAL/LYTES - Hypernatremic today. We will change IV fluids to quarter normal saline with potassium and recheck. -discontinue Barber ENDO -glycemic control per protocol HEME -no current issues. Continue to follow ID -positive COVID-19. Continue to follow. Aspiration last evening with mild elevation in white blood cell count. Significant penicillin allergy. Starting Rocephin. Will trend procalcitonin, white blood cell count, and clinical response ALLERGY: Angioedema most likely secondary to LARS inhibitor. Avoid in the future. C1 esterase level normal. ESR and CRP elevated. Outpatient allergy immunology evaluation and follow-up recommended. LINES/IV ACCESS - Peripheral IV Discontinue Barber catheter. Out of bed to chair as tolerated. PT OT and speech therapy evaluations DVT PROPHYLAXIS - Enoxaparin 40 mg subcutaneously daily Discussed with patient's daughter and on the phone. We will keep in ICU u ntil we can get him off parenteral blood pressure medications. Admission and Anticipated Discharge Date Admission Date: September 24, 2021 Subjective Patient seen and examined. EMR reviewed. Discussed with bedside critical care nurse as well as overnight critical care ASHER. The patient had issues with hypertension. He was started on scheduled IV Lopressor and as needed IV hydralazine. Unfortunately this was inadequate to control his blood pressure and he was initiated on a Cardene infusion. During the night he developed nausea vomiting and emesis with a potential aspiration event. Chest x-ray showed a new left lower lobe airspace opacity. His white count is up to 13,000 but he remains afebrile. An NG tube was placed and 700 cc of output was recorded. He has minimal bowel sounds. KUB did demonstrate several mildly dilated loops of small bowel consistent with early bowel obstruction versus ileus. The patient states that he feels fine. He states he is ready to go home. He does not wish to remain in the hospital anymore. Review of Systems Review of Systems: All systems reviewed & are unremarkable except as noted in Subjective Physical Exam Neck: trachea midline, no thyromegaly Respiratory: no respiratory distress Cardiovascular: RRR, no murmur, no edema Gastrointestinal (Abdomen): normal bowel sounds, soft, nontender, no hepatosplenomegaly Musculoskeletal: Extremities: extremities normal to inspection Skin: no rashes, warm and dry Lymphatic: no cervical lymphadenopathy Results & Data Results & Data ([facility]) Vital Signs (Past 12 Hours) Vital Signs Temp Pulse Pulse Resp BP BP Pulse Ox 09/29/21 08:00 104 H 09/29/21 07:41 37.0 C 105 H 28 H 160/75 H 94 09/29/21 06:00 104 H 167/77 H 92 09/29/21 05:30 105 H 149/74 H 91 09/29/21 05:00 104 H 92 09/29/21 04:30 98 H 160/70 H 86 L 09/29/21 04:00 100 H 88 L 09/29/21 03:30 97 H 09/29/21 03:26 37.2 C 09/29/21 03:00 96 H 92 09/29/21 02:30 100 H 153/78 H 91 09/29/21 02:00 99 H 159/70 H 92 09/29/21 01:30 100 H 164/72 H 92 09/29/21 01:00 98 H 171/76 H 94 09/29/21 00:30 100 H 94 09/29/21 00:00 37.2 C 98 H 93 09/28/21 23:30 99 H 159/73 H 94 09/28/21 23:00 93 H 94 09/28/21 22:49 179/86 H Critical Care Results & Data Vital Signs (Past 12 Hours) Vital Signs Temp Pulse Pulse Resp BP BP Pulse Ox 09/29/21 08:00 104 H 09/29/21 07:41 37.0 C 105 H 28 H 160/75 H 94 09/29/21 06:00 104 H 167/77 H 92 09/29/21 05:30 105 H 149/74 H 91 09/29/21 05:00 104 H 92 09/29/21 04:30 98 H 160/70 H 86 L 09/29/21 04:00 100 H 88 L 09/29/21 03:30 97 H 09/29/21 03:26 37.2 C 09/29/21 03:00 96 H 92 09/29/21 02:30 100 H 153/78 H 91 09/29/21 02:00 99 H 159/70 H 92 09/29/21 01:30 100 H 164/72 H 92 09/29/21 01:00 98 H 171/76 H 94 09/29/21 00:30 100 H 94 09/29/21 00:00 37.2 C 98 H 93 09/28/21 23:30 99 H 159/73 H 94 09/28/21 23:00 93 H 94 Lab & Micro Results (Past 24 Hours) RBC 4.30 M/uL (4.7-6.1) L 09/29/21 WBC 13.41 K/uL (4.8-10.8) H 09/29/21 Hgb 13.2 g/dL (14.0-18.0) L 09/29/21 Hct 40.6 % (42-52) L 09/29/21 MCV 94.4 fL (80-100) 09/29/21 MCH 30.7 pg (25-34) 09/29/21 MCHC 32.5 g/dL (32-36) 09/29/21 RDW Standard Deviation 47.0 fL (36.4-46.3) H 09/29/21 RDW Coefficient of Variation 13.7 % (11.5-14.5) 09/29/21 Plt Count 266 K/uL (130-400) 09/29/21 MPV 11.8 fL (7.4-10.4) H 09/29/21 Neutrophils (%) (Auto) 83.7 % 09/29/21 Lymphocytes (%) (Auto) 11.1 % 09/29/21 Monocytes # (Auto) 0.64 K/uL (0.11-0.59) H 09/29/21 Eosinophils # (Auto) 0.00 K/uL (0-0.5) 09/29/21 Immature Granulocyte % (Auto) 0.3 % 09/29/21 Neutrophils # (Auto) 11.23 K/uL (1.4-6.5) H 09/29/21 Lymphocytes # (Auto) 1.49 K/uL (1.2-3.4) 09/29/21 Monocytes # (Auto) 0.64 K/uL (0.11-0.59) H 09/29/21 Eosinophils # (Auto) 0.00 K/uL (0-0.5) 09/29/21 Basophils # (Auto) 0.01 K/uL (0-0.2) 09/29/21 Immature Granulocyte # (Auto) 0.04 K/uL (0.00-0.02) H 09/29/21 Na 154 mmol/L (136-145) H 09/29/21 K 3.0 mmol/L (3.5-5.1) L 09/29/21 Cl 115 mmol/L (98-107) H 09/29/21 CO2 30 mmol/L (21-32) 09/29/21 Anion Gap 9.0 (3-11) 09/29/21 BUN 29 mg/dl (7-18) H 09/29/21 Creatinine 1.37 mg/dl (0.6-1.4) 09/29/21 Estimated GFR ( Amer) 60.1 ml/min 09/29/21 Estimated GFR (Non-Af Amer) 51.9 ml/min 09/29/21 BUN/Creatinine Ratio 21.3 (10-20) H 09/29/21 Glu 154 mg/dl (70-99) H 09/29/21 Ca 9.7 mg/dl (8.5-10.1) 09/29/21 Phosphorus Level 3.0 mg/dl (2.5-4.9) 09/29/21 Mg 2.6 mg/dl (1.8-2.4) H 09/29/21 08:09 09/29/21 Calcium Level 9.7 mg/dl (8.5-10.1) 09/29/21 08:09 09/29/21 Microbiology 09/26/21 10:45 Gram Stain - Final Sputum,Vent Suction Sputum Culture - Final Light normal ricki. Diagnostic Findings (Past 24 Hours) Chest X-Ray 09/29/21 04:55 SINGLE VIEW CHEST CLINICAL HISTORY: Hypoxia. FINDINGS: An AP, portable, upright chest radiograph is compared to study dated 09/28/2021. The examination is degraded by portable technique and patient rotation. An enteric tube has been placed. The tip extends below the diaphragm and is not visualized. An endotracheal tube has been removed. The heart is top normal for projection. Airspace consolidation is seen at the left lung base. No large pleural effusion or pneumothorax is seen. The skeletal structures are osteopenic. The bony thorax is grossly intact. IMPRESSION: 1. An endotracheal tube has been removed and an enteric tube has been placed. 2. Airspace consolidation at the left lung base is typical for pneumonia. Clinical correlation will be required and radiographic follow-up to resolution is recommended. ACT 112: Negative or not required by law. Electronically signed by: Silverio Szymanski M.D. 09/29/2021 6:38 AM KUB X-Ray 09/29/21 04:55 KUB CLINICAL HISTORY: Enteric tube placement. FINDINGS: 2 AP, portable, supine abdominal radiographs are obtained. No prior studies are available for comparison at the time of dictation. An enteric tube has been placed. The tip projects below the diaphragm over the distal stomach. There is mild gaseous distention of the small bowel loops which measure up to 3.5 cm. Gas and stool are seen in the left colon. No evidence of intraperitoneal free air is seen on these supine images. Left basilar consolidation is noted. The skeletal structures are osteopenic and grossly intact. IMPRESSION: 1. An enteric tube has been placed as above. 2. There is mild nonspecific gaseous distention of the small bowel loops, possibly representing ileus. Low-grade/developing obstruction would be impossible exclude and clinical correlation will be required. Electronically signed by: Silverio Szymanski M.D. 09/29/2021 6:49 AM I & O Totals 24 Hours 09/28/21 09/29/21 09/30/21 06:59 06:59 06:59 Intake Total 2343.973 / 2433.973 749.667 / 749.667 380.000 / 380.000 Output Total 1250 / 1400 2370 / 2370 0 / 0 Balance 1093.973 / 1033.973 -1620.333 / -1620.333 380.000 / 380.000 Cumulative 09/24/21 08:27 thru 09/29/21 10:23 Intake Total 9853.030 Output Total 6510 Balance 3343.030 RT Ventilator Mngmt (Last Documented) Ventilator Ordered Settings Ventilator Support Mode Assist Control 09/28/21 08:11 Respiratory Rate 28 09/29/21 07:41 Ventilator Tidal Volume 400 09/28/21 08:11 Setting Minute Ventilation 9.1 09/28/21 08:11 Positive End Expiratory 5 09/28/21 08:11 Pressure Fraction of Inspired Oxygen 30 09/28/21 08:11 Peak Inspiratory Flow 50 09/27/21 15:58 Ventilator - PT Measurements Respiratory Rate 28 Exhaled Tidal Volume 380 Minute Ventilation 9.1 Peak Inspiratory Airway 19 Pressure Plateau Pressure 16 Respiratory Cycle Inspiratory: 1:2.3 Expiratory Ratio Inspiratory Phase Time 0.75 End-Tidal CO2 31 Static Lung Compliance 34.55 Dynamic Lung Compliance 27.14 Normal Static Lung Compliance 47.00 Coding Level of Care Code 26330 Subseq Hosp Care Lvl 3 Diagnoses Angioedema of tongue T78.3XXA COVID-19 U07.1 Tobacco abuse Z72.0
[2021-09-29] MEDS: ATORVASTATIN 10 MG TAB PO SCH (10:50)
[2021-09-29] MEDS: ASPIRIN 81 MG CHEW PO SCH (10:50)
[2021-09-29] MEDS: POTASSIUM CHLORIDE / WTR 10 MEQ/100 ML PLCT IV SCH ×9 (10:58→23:10)
[2021-09-29] MEDS ORDERED: cloNIDine HCL 0.3 MG/24 HR TRANSDERM SYS TD SCH (11:30)
[2021-09-29] MEDS ORDERED: D5W AND 1/4NSS + 20MEQ KCL 20 MEQ/1,000 ML BAG IV SCH (12:00)
[2021-09-29] MEDS: cefTRIAXone SODIUM 2,000 MG in DEXTROSE 5% 50 ML IV SCH (12:25)
[2021-09-29] MEDS: NICOTINE 7 MG/24 HR TDSY TD SCH (15:27)
[2021-09-29] MEDS: CHECK CLONIDINE PATCH PLACEMENT SCH (17:48)
[2021-09-29 21:06] LABS: BUN Creatinine Ratio 23.1 (10-20); Calcium 9.3 mg/dl (8.5-10.1); Creatinine Clr Calc Pharmacy 48.4 ml/min; Est GFR (African American) 57.6 ml/min; Est GFR (Non-African American) 49.7 ml/min; Potassium 3.2 mmol/L (3.5-5.1)
[2021-09-29] MEDS ORDERED: DEXTROSE 5% 250 ML IV ONE (21:26)
--- NOTE | 2021-09-29 21:33 | Hospitalist Progress Note ---
Date of Service September 29, 2021 Assessment & Plan (1) Angioedema of tongue: Plan: Likely secondary to recently increased dose of lisinopril No NSAID use reportedly and no other signs of anaphylaxis to suggest allergic reaction C4 level is normal/high which rules out hereditary angioedema On Dexmedetomidine Intubated for airway protection due to extremely large tongue. Tongue swelling persists Received FFP, diphenhydramine and dexamethasone in the ER Extubated on 08/29 remains on ICU team. Discontinue ruy inhibitor permanently Appreciate house calls nurse management Pulmonology recommends follow-up with school bus driver/teacher assistant as an outpatient after discharge CRP and ESR elevated-likely secondary to Covid-19 infection (2) COVID-19: Plan: Was asymptomatic other than angioedema at the time of presentation Oxygenating well Keep on Covid airborne precautions On 09/29 Patient's oxygenation has worsened, CRP is also elevated. will start patient on remdesevir and dexamethasone. unsure of start date of infection. Very well could be less than 1 week. (3) Hyperlipidemia: Plan: Continue atorvastatin, aspirin through NG tube (4) Hypertension: Plan: Discontinue lisinopril Continue metoprolol tartrate 50 mg p.o. twice daily Plan: DVT prophylaxis-Lovenox Admission and Anticipated Discharge Date Admission Date: September 24, 2021 Subjective Patient reports feeling better. States he wants to move around. Nurse reports that he required an NG tube due to nausea and ileus on imaging. Review of Systems Review of Systems: All systems reviewed & are unremarkable except as noted in HPI & below Physical Exam Physical Exam: Physical Exam: awake, able close to mouth Eyes: PERRL, conjunctivae normal, anicteric sclerae ENMT: external ear and nose normal, oropharynx normal except: (decreased swollen tongue) Neck: trachea midline, no thyromegaly Respiratory: normal respiratory effort, lungs clear to auscultation Cardiovascular: RRR, no murmur, no edema Gastrointestinal (Abdomen): normal bowel sounds, soft, nontender, no hepatosplenomegaly Skin: no rashes, warm and dry Results & Data Results & Data ([facility]) Vital Signs (Past 12 Hours) Vital Signs Temp Pulse Pulse Resp BP BP Pulse Ox 09/29/21 18:30 103 H 141/73 H 87 L 09/29/21 18:00 101 H 145/71 H 88 L 09/29/21 17:30 105 H 135/70 94 12/18/21 17:00 107 H 158/66 H 92 09/29/21 16:30 100 H 148/72 H 93 09/29/21 16:14 37.0 C 105 H 26 H 152/79 H 93 09/29/21 16:00 100 H 158/74 H 94 09/29/21 15:30 105 H 141/81 H 92 09/29/21 15:00 101 H 160/73 H 90 09/29/21 14:30 101 H 149/74 H 89 L 09/29/21 14:00 104 H 150/74 H 90 09/29/21 13:30 101 H 152/74 H 88 L 09/29/21 13:00 101 H 151/71 H 91 09/29/21 12:30 101 H 149/66 H 91 09/29/21 12:00 106 H 150/80 H 88 L 09/29/21 11:48 36.9 C 105 H 29 H 153/70 H 89 L 09/29/21 11:30 109 H 09/29/21 11:00 105 H 143/69 H 87 L 09/29/21 10:30 102 H 141/71 H 91 09/29/21 10:00 102 H 145/67 H 92 PG Care Time/CCT Total # of Minutes Spent Total Time Spent with Patient: Total time spent is greater than 50% in coordination of care (as documented) at patient's floor/unit and/or counseling patient: Coding Level of Care Code 38283 Subseq Hosp Care Lvl 3 Diagnoses Angioedema of tongue T78.3XXA COVID-19 U07.1 Hyperlipidemia E78.5 Hypertension I10 Hypertension type: essential hypertension Time Spent (min) 35 (1) Hypertension Hypertension type: essential hypertension Qualified Code(s): I10 - Essential (primary) hypertension
[2021-09-29 21:56] LABS: C Reactive Protein 18.2 mg/dl (0-0.29)
[2021-09-29] MEDS: POTASSIUM CHLORIDE 20 MEQ in DEXTROSE 5% 1,000 ML IV SCH (23:06)
[2021-09-29] MEDS ORDERED: REMDESIVIR 200 MG in SODIUM CHLORIDE 0.9% 210 ML IV STA (23:08)
[2021-09-30] MEDS: POTASSIUM CHLORIDE / WTR 10 MEQ/100 ML PLCT IV SCH ×7 (00:19→06:58)
[2021-09-30] MEDS: dexAMETHasone 6 MG in SYRINGE 0 ML IV SCH ×2 (00:51→10:04)
[2021-09-30] MEDS: CHECK CLONIDINE PATCH PLACEMENT SCH ×4 (01:22→23:47)
[2021-09-30] MEDS: INSULIN ASPART PER UNIT SC SCH ×5 (01:23→23:46)
[2021-09-30] MEDS: SODIUM CHLORIDE 0.9% 10ML FLUSH IV SCH ×2 (03:01→21:55)
[2021-09-30 07:00] LABS: Hematocrit (blood only) 41.9 % (42-52); Hemoglobin 13.3 g/dL (14.0-18.0); Immature Granulocytes # (auto) 0.04 K/uL (0.00-0.02); Immature Granulocytes % (auto) 0.3 %; Lymphocytes # (auto) 0.76 K/uL (1.2-3.4); Lymphocytes % (auto) 6.5 %; Mean Corpuscular Hemoglobin 30.3 pg (25-34); Mean Corpuscular Hgb Conc 31.7 g/dL (32-36); Mean Corpuscular Volume 95.4 fL (80-100); Mean Platelet Volume 12.1 fL (7.4-10.4); Monocytes # (auto) 0.81 K/uL (0.11-0.59); Monocytes % (auto) 6.9 %; Neutrophils % (auto) 86.3 %; Platelet Count 252 K/uL (130-400); RDW Coefficient of Variation 13.6 % (11.5-14.5); RDW Standard Deviation 47.5 fL (36.4-46.3); Red Blood Count 4.39 M/uL (4.7-6.1); White Blood Count 11.71 K/uL (4.8-10.8)
[2021-09-30 07:37] LABS: Alanine Aminotransferase 30 (12-78); Albumin Level 2.4 gm/dl (3.4-5.0); Alkaline Phosphatase 75 U/L (45-117); Aspartate Aminotransferase 22 U/L (15-37); BUN Creatinine Ratio 22.6 (10-20); Bilirubin Direct < 0.1 mg/dl (0-0.2); Bilirubin,Total 0.4 mg/dl (0.2-1); Blood Urea Nitrogen 31 mg/dl (7-18); Calcium 9.3 mg/dl (8.5-10.1); Carbon Dioxide 32 mmol/L (21-32); Chloride 114 mmol/L (98-107); Creatinine Clr Calc Pharmacy 50.5 ml/min; Est GFR (African American) 60.7 ml/min; Est GFR (Non-African American) 52.3 ml/min; Glucose 185 mg/dl (70-99); Magnesium 2.7 mg/dl (1.8-2.4); Phosphorus 2.2 mg/dl (2.5-4.9); Potassium 3.8 mmol/L (3.5-5.1); Sodium 150 mmol/L (136-145); Total Protein 7.5 gm/dl (6.4-8.2)
--- NOTE | 2021-09-30 09:18 | XRay Report ---
XR chest 1V portable HISTORY: 71 years-old Male Resp failure acute respiratory failure COMPARISON: Chest radiograph 09/29/2021 TECHNIQUE: Portable AP view of the chest FINDINGS: Is below the enteric tube courses below the diaphragm with distal tip outside the [id number]. No p neumothorax or large pleural effusion. Ill-defined interstitial coarsening with left basilar predomin ant airspace opacities. Ill-defined airspace opacities are also noted throughout the right lung. No s ignificant change from prior. No acute fracture. IMPRESSION: 1. Bilateral airspace opacities, most pronounced within the left lung base appear stable from prior. 2. Enteric tube courses below the diaphragm outside the [id number]. ACT 112: Negative or not required by law. The above report was generated using voice recognition software. It may contain grammatical, syntax o r spelling errors. Electronically signed by: Ethan Chavez M.D. 09/30/2021 9:16 AM
[2021-09-30] MEDS: ENOXAPARIN INJ 40 MG/0.4 ML SYR SQ SCH (10:04)
[2021-09-30] MEDS: NICOTINE 7 MG/24 HR TDSY TD SCH (10:05)
[2021-09-30] MEDS: ASPIRIN 81 MG CHEW PO SCH (10:06)
[2021-09-30] MEDS: ATORVASTATIN 10 MG TAB PO SCH (10:06)
[2021-09-30] MEDS: POTASSIUM CHLORIDE 20 MEQ in DEXTROSE 5% 1,000 ML IV SCH ×2 (10:10→19:12)
--- NOTE | 2021-09-30 10:34 | Critical Care Progress Note ---
Date of Service September 30, 2021 Assessment & Plan (1) Angioedema of tongue: (2) COVID-19: (3) Tobacco abuse: Plan: Impression: 71-year-old male with no history of trauma or sting. Patient presents with severe angioedema of the tongue. Suspected to be from increased dose of lisinopril. Patient denies any prior history to LARS inhibitor allergies or history of angioedema. Drug allergies include penicillin. Patient not subjected to penicillin recently. 24-hour events: Awaiting speech therapy evaluation. Remains on Cardene. Clonidine patch started. Delirium improved. Still with relatively high NG output Recommendations: Neuro -ICU related delirium. Continue to reorient patient as needed. Avoid medications known to contribute to ICU delirium. Cardiac -significant hypertension. Continue IV labetalol and hydralazine. Continue clonidine. Will start p.o. metoprolol and Norvasc. Wean Cardene to off as tolerated. BNP elevated Respiratory -questionable aspiration event. Continue to wean oxygen as tolerated. GI -ileus versus small bowel obstruction. We will pursue a trial of clamping of the NG tube to see how he does. Okay to start oral medications with NG tube clamped RENAL/LYTES - Hypernatremic today. Fluids changed to D5 water last night. Sodium down to 150 this morning. Continue to replace potassium. -discontinue [facility] ENDO -glycemic control per protocol HEME -no current issues. Continue to follow ID -positive COVID-19. Continue to follow. Aspiration event 09/28. White count decreasing. Fever curve negative. Continue Rocephin. Procalcitonin 0.5. Anticipate 5 to 7 days of antimicrobial therapy ALLERGY: Angioedema most likely secondary to LARS inhibitor. Avoid in the future. C1 esterase level normal. ESR and CRP elevated. Outpatient allergy immunology evaluation and follow-up recommended. LINES/IV ACCESS - Peripheral IV Await speech therapy evaluation. PT OT and out of bed to chair as tolerated DVT PROPHYLAXIS - Enoxaparin 40 mg subcutaneously daily Discussed with patient's daughter and on the phone. We will keep in ICU until we can get him off parenteral blood pressure medications. When off cardene, can go to floor and CC will sign off. Admission and Anticipated Discharge Date Admission Date: September 24, 2021 Subjective Seen and examined. The patient is more calm and oriented today. He denies any complaints. He states he is passing gas. His bowel sounds remain diminished. He is not distended. Review of Systems Review of Systems: All systems reviewed & are unremarkable except as noted in Subjective Physical Exam Neck: trachea midline, no thyromegaly Respiratory: no respiratory distress Cardiovascular: RRR, no murmur, no edema Gastrointestinal (Abdomen): Bowel sounds are diminished in all 4 quadrants. Not distended. Not tender to palpation Musculoskeletal: Extremities: extremities normal to inspection Skin: no rashes, warm and dry Lymphatic: no cervical lymphadenopathy Results & Data Results & Data ([facility]) Vital Signs (Past 12 Hours) Vital Signs Temp Pulse Pulse Resp BP BP Pulse Ox 09/30/21 07:26 36.9 C 96 H 25 H 145/76 H 94 09/30/21 07:00 89 137/67 92 09/30/21 06:45 91 H 142/68 H 91 09/30/21 06:30 96 H 148/74 H 92 09/30/21 06:15 95 H 137/73 93 09/30/21 06:00 95 H 135/69 94 09/30/21 05:45 98 H 139/68 95 09/30/21 05:30 93 H 137/69 93 09/30/21 05:15 94 H 138/69 93 09/30/21 05:00 92 H 136/72 93 09/30/21 04:45 95 H 127/69 94 09/30/21 04:30 96 H 144/71 H 93 09/30/21 04:15 93 H 130/67 94 09/30/21 04:00 92 H 135/68 93 09/30/21 03:45 92 H 134/68 92 09/30/21 03:30 94 H 140/72 93 09/30/21 03:22 36.7 C 26 H 09/30/21 03:15 94 H 134/74 92 09/30/21 03:00 96 H 138/69 94 09/30/21 02:45 98 H 131/69 93 09/30/21 02:30 99 H 90 09/30/21 02:15 96 H 138/70 93 09/30/21 02:00 99 H 142/70 H 93 09/30/21 01:45 100 H 137/68 93 09/30/21 01:30 102 H 130/69 94 09/30/21 01:15 98 H 94 09/30/21 01:00 103 H 93 09/30/21 00:45 103 H 93 09/30/21 00:30 100 H 93 09/30/21 00:15 100 H 145/73 H 93 09/30/21 00:00 100 H 150/74 H 93 09/29/21 23:45 100 H 145/73 H 93 09/29/21 23:30 103 H 152/74 H 93 09/29/21 23:15 100 H 135/76 94 09/29/21 23:00 100 H 143/71 H 94 09/29/21 22:45 102 H 142/70 H 94 09/29/21 22:31 37.1 C 09/29/21 22:30 102 H 149/72 H 94 Critical Care Results & Data Vital Signs (Past 12 Hours) Vital Signs Temp Pulse Pulse Resp BP BP Pulse Ox 09/30/21 07:26 36.9 C 96 H 25 H 145/76 H 94 09/30/21 07:00 89 137/67 92 09/30/21 06:45 91 H 142/68 H 91 09/30/21 06:30 96 H 148/74 H 92 09/30/21 06:15 95 H 137/73 93 09/30/21 06:00 95 H 135/69 94 09/30/21 05:45 98 H 139/68 95 09/30/21 05:30 93 H 137/69 93 09/30/21 05:15 94 H 138/69 93 09/30/21 05:00 92 H 136/72 93 09/30/21 04:45 95 H 127/69 94 09/30/21 04:30 96 H 144/71 H 93 09/30/21 04:15 93 H 130/67 94 09/30/21 04:00 92 H 135/68 93 09/30/21 03:45 92 H 134/68 92 09/30/21 03:30 94 H 140/72 93 09/30/21 03:22 36.7 C 26 H 09/30/21 03:15 94 H 134/74 92 09/30/21 03:00 96 H 138/69 94 09/30/21 02:45 98 H 131/69 93 09/30/21 02:30 99 H 90 09/30/21 02:15 96 H 138/70 93 09/30/21 02:00 99 H 142/70 H 93 09/30/21 01:45 100 H 137/68 93 09/30/21 01:30 102 H 130/69 94 09/30/21 01:15 98 H 94 09/30/21 01:00 103 H 93 09/30/21 00:45 103 H 93 09/30/21 00:30 100 H 93 09/30/21 00:15 100 H 145/73 H 93 09/30/21 00:00 100 H 150/74 H 93 09/29/21 23:45 100 H 145/73 H 93 09/29/21 23:30 103 H 152/74 H 93 09/29/21 23:15 100 H 135/76 94 09/29/21 23:00 100 H 143/71 H 94 09/29/21 22:45 102 H 142/70 H 94 09/29/21 22:31 37.1 C 09/29/21 22:30 102 H 149/72 H 94 Lab & Micro Results (Past 24 Hours) RBC 4.39 M/uL (4.7-6.1) L 09/30/21 WBC 11.71 K/uL (4.8-10.8) H 09/30/21 Hgb 13.3 g/dL (14.0-18.0) L 09/30/21 Hct 41.9 % (42-52) L 09/30/21 MCV 95.4 fL (80-100) 09/30/21 MCH 30.3 pg (25-34) 09/30/21 MCHC 31.7 g/dL (32-36) L 09/30/21 RDW Standard Deviation 47.5 fL (36.4-46.3) H 09/30/21 RDW Coefficient of Variation 13.6 % (11.5-14.5) 09/30/21 Plt Count 252 K/uL (130-400) 09/30/21 MPV 12.1 fL (7.4-10.4) H 09/30/21 Neutrophils (%) (Auto) 86.3 % 09/30/21 Lymphocytes (%) (Auto) 6.5 % 09/30/21 Monocytes # (Auto) 0.81 K/uL (0.11-0.59) H 09/30/21 Eosinophils # (Auto) 0.00 K/uL (0-0.5) 09/30/21 Immature Granulocyte % (Auto) 0.3 % 09/30/21 Neutrophils # (Auto) 10.10 K/uL (1.4-6.5) H 09/30/21 Lymphocytes # (Auto) 0.76 K/uL (1.2-3.4) L 09/30/21 Monocytes # (Auto) 0.81 K/uL (0.11-0.59) H 09/30/21 Eosinophils # (Auto) 0.00 K/uL (0-0.5) 09/30/21 Basophils # (Auto) 0.00 K/uL (0-0.2) 09/30/21 Immature Granulocyte # (Auto) 0.04 K/uL (0.00-0.02) H 09/30/21 Na 150 mmol/L (136-145) H 09/30/21 K 3.8 mmol/L (3.5-5.1) 09/30/21 Cl 114 mmol/L (98-107) H 09/30/21 CO2 32 mmol/L (21-32) 09/30/21 Anion Gap 4.0 (3-11) 09/30/21 BUN 31 mg/dl (7-18) H 09/30/21 Creatinine 1.36 mg/dl (0.6-1.4) 09/30/21 Estimated GFR ( Amer) 60.7 ml/min 09/30/21 Estimated GFR (Non-Af Amer) 52.3 ml/min 09/30/21 BUN/Creatinine Ratio 22.6 (10-20) H 09/30/21 Glu 185 mg/dl (70-99) H 09/30/21 Ca 9.3 mg/dl (8.5-10.1) 09/30/21 Phosphorus Level 2.2 mg/dl (2.5-4.9) L 09/30/21 Total Bilirubin 0.4 mg/dl (0.2-1) 09/30/21 Direct Bilirubin < 0.1 mg/dl (0-0.2) 09/30/21 AST 22 U/L (15-37) 09/30/21 ALT 30 (12-78) 09/30/21 Alkaline Phosphatase 75 U/L (45-117) 09/30/21 TP 7.5 gm/dl (6.4-8.2) 09/30/21 Albumin 2.4 gm/dl (3.4-5.0) L 09/30/21 Mg 2.7 mg/dl (1.8-2.4) H 09/30/21 06:02 09/30/21 Calcium Level 9.3 mg/dl (8.5-10.1) 09/30/21 06:02 09/30/21 Diagnostic Findings (Past 24 Hours) Chest X-Ray 09/30/21 07:00 XR chest 1V portable HISTORY: 71 years-old Male Resp failure acute respiratory failure COMPARISON: Chest radiograph 09/29/2021 TECHNIQUE: Portable AP view of the chest FINDINGS: Is below the enteric tube courses below the diaphragm with distal tip outside the [id number]. No pneumothorax or large pleural effusion. Ill-defined interstitial coarsening with left basilar predominant airspace opacities. Ill- defined airspace opacities are also noted throughout the right lung. No significant change from prior. No acute fracture. IMPRESSION: 1. Bilateral airspace opacities, most pronounced within the left lung base appear stable from prior. 2. Enteric tube courses below the diaphragm outside the [id number]. ACT 112: Negative or not required by law. The above report was generated using voice recognition software. It may contain grammatical, syntax or spelling errors. Electronically signed by: Ethan Chavez M.D. 09/30/2021 9:16 AM I & O Totals 24 Hours 09/29/21 09/30/21 10/01/21 06:59 06:59 06:59 Intake Total 749.667 / 166.537 2658.000 / 4580.000 1510 / 1510 Output Total 2370 / 2370 2850 / 2850 Balance -1620.333 / -3673.601 4100.000 / 0446.013 3045 / 1510 Cumulative 09/24/21 08:27 thru 09/30/21 10:08 Intake Total 22208.030 Output Total 9360 Balance 6203.030 RT Ventilator Mngmt (Last Documented) Ventilator Ordered Settings Ventilator Support Mode Assist Control 09/28/21 08:11 Respiratory Rate 25 09/30/21 07:26 Ventilator Tidal Volume 400 09/28/21 08:11 Setting Minute Ventilation 9.1 09/28/21 08:11 Positive End Expiratory 5 09/28/21 08:11 Pressure Fraction of Inspired Oxygen 40 09/29/21 19:45 Peak Inspiratory Flow 50 09/27/21 15:58 Ventilator - PT Measurements Respiratory Rate 25 Exhaled Tidal Volume 380 Minute Ventilation 9.1 Peak Inspiratory Airway 19 Pressure Plateau Pressure 16 Respiratory Cycle Inspiratory: 1:2.3 Expiratory Ratio Inspiratory Phase Time 0.75 End-Tidal CO2 31 Static Lung Compliance 34.55 Dynamic Lung Compliance 27.14 Normal Static Lung Compliance 47.00 Coding Level of Care Code 63787 Subseq Hosp Care Lvl 3 Diagnoses Angioedema of tongue T78.3XXA COVID-19 U07.1 Tobacco abuse Z72.0
[2021-09-30] MEDS: niCARdipine 25 MG in SODIUM CHLORIDE 0.9% 240 ML IV SCH ×2 (10:51→10:52)
[2021-09-30] MEDS: amLODIPine BESYLATE 5 MG TAB PO SCH (11:29)
[2021-09-30] MEDS: METOPROLOL TARTRATE 25 MG TAB PO SCH ×2 (11:29→20:02)
[2021-09-30] MEDS: cefTRIAXone SODIUM 2,000 MG in DEXTROSE 5% 50 ML IV SCH (12:05)
[2021-09-30] MEDS ORDERED: METOPROLOL TARTRATE 1 MG/ML VIAL IV STA (15:37)
[2021-09-30] MEDS ORDERED: dilTIAZem HCl 5 MG/ML 5 ML VIAL IV STA ×2 (15:39→15:44)
--- NOTE | 2021-09-30 15:39 | Hospitalist Progress Note ---
Date of Service September 30, 2021 Assessment & Plan (1) Angioedema of tongue: Plan: Likely secondary to recently increased dose of lisinopril No NSAID use reportedly and no other signs of anaphylaxis to suggest allergic reaction C4 level is normal/high which rules out hereditary angioedema Intubated for airway protection due to extremely large tongue. Received FFP, diphenhydramine and dexamethasone in the ER Extubated on 08/29 remains on ICU team. Discontinue ruy inhibitor permanently Appreciate telecom analyst management Pulmonology recommends follow-up with engine dispatcher as an outpatient after discharge CRP and ESR elevated-likely secondary to Covid-19 infection (2) Atrial fibrillation with rapid ventricular response: Plan: went into RVR 130-150's on 09/30 continue Lopressor 25mg via NGT BID give Lopressor 5mg IV now start Diltiazem drip at 5mg/hr, stop the Cardene as BP is low normal and need rate control agent heparin drip for full anticoagulation plan for NOAC once he can swallow order echo, consult cardiology consider Amiodarone as this is brand new (3) COVID-19: Plan: Was asymptomatic other than angioedema at the time of presentation Oxygenating well Keep on Covid airborne precautions continue dexamethasone and Remdesivir as he is on oxygen breathing well on 4L currently (4) Hyperlipidemia: Plan: Continue atorvastatin, aspirin through NG tube (5) Hypertension: Plan: Discontinue lisinopril Continue metoprolol tartrate 25 mg via NGT twice daily Clonidine 0.3mg patch Norvasc 5mg daily, will hold tomorrow with using Cardizem drip stop Cardene drip due to Cardizem drip being needed for afib BP is 100's systolic Plan: DVT prophylaxis: start heparin drip with afib Admission and Anticipated Discharge Date Admission Date: September 24, 2021 Subjective patient doing well this morning, had a swallow study, did okay but not great, they will evaluate him again tomorrow breathing well on 4L, no distress, less swelling in lips and tongue had a BM today, ileus is resolving clinically, no abdominal pain or nausea, keep NGT for medications until he passes swallow study BP is better on Cardene drip, Clonidine, Metoprolol, Norvasc, actually down to 100s systolic went into Afib with RVR this afternoon, rates in 140-150, some ST depressions on EKG will give Lopressor 5mg IV now and will start Diltiazem 5mg IV drip after bolus will initiate anticoagulation, consider Amiodarone if afib does no convert back to sinus discussed with Dr. Connolly Review of Systems Review of Systems: All systems reviewed & are unremarkable except as noted in Subjective Respiratory: + dyspnea on exertion; no cough and no dyspnea Cardiovascular: no chest pain, no palpitations and no edema Gastrointestinal: no abdominal pain, no nausea, no vomiting, no constipation and no diarrhea/loose stools Physical Exam Physical Exam: General: well developed, well nourished, no acute distress, appears weak EENT: swelling of lips and tongue, NGT in place Neck: supple, trachea midline, normal thyroid Lungs: clear to auscultation bilaterally, normal respiratory effort, no accessory muscle use, no distress Heart: tachycardic, irregular irregular S1 S2, no murmur, peripheral pulses normal, capillary refill normal, no edema Abdomen: soft, slightly distended, normoactive bowel sounds, tympanic to percusion Extremities: normal in appearance, no cyanosis, no petechiae, strength is 5/5 bilaterally Neuro: awake, cooperative, moves all extremities, no focal motor deficits, CN II-XII intact, sensation in extremities intact, normal speech Skin: warm, dry, no rash, normal turgor Psych: Awake, alert oriented x 3, euthymic affect Results & Data Results & Data ([facility]) Vital Signs (Past 12 Hours) Vital Signs Temp Pulse Pulse Resp BP BP Pulse Ox 09/30/21 12:19 37.0 C 83 24 120/62 93 09/30/21 07:26 36.9 C 96 H 25 H 145/76 H 94 09/30/21 07:00 89 137/67 92 09/30/21 06:45 91 H 142/68 H 91 09/30/21 06:30 96 H 148/74 H 92 09/30/21 06:15 95 H 137/73 93 09/30/21 06:00 95 H 135/69 94 09/30/21 05:45 98 H 139/68 95 09/30/21 05:30 93 H 137/69 93 09/30/21 05:15 94 H 138/69 93 09/30/21 05:00 92 H 136/72 93 09/30/21 04:45 95 H 127/69 94 12/19/21 04:30 96 H 144/71 H 93 09/30/21 04:15 93 H 130/67 94 09/30/21 04:00 92 H 135/68 93 09/30/21 03:45 92 H 134/68 92 Laboratory Results Laboratory Results - last 24 hr 09/29/21 09/29/21 09/30/21 18:31 20:14 00:17 WBC RBC Hgb Hct MCV MCH MCHC RDW Std Deviation RDW Coeff of Jimbo Plt Count MPV Immature Gran % (Auto) Neut % (Auto) Lymph % (Auto) [place] % (Auto) Eos % (Auto) Baso % (Auto) Neut # (Auto) Lymph # (Auto) [place] # (Auto) Eos # (Auto) Baso # (Auto) Immature Gran # (Auto) Sodium 156 H* Potassium 3.2 L Chloride 117 H Carbon Dioxide 34 H Anion Gap 5.0 BUN 33 H Creatinine 1.42 H Est Cr Clr Drug Dosing 48.4 Est GFR ( Amer) 57.6 Est GFR (Non-Af Amer) 49.7 BUN/Creatinine Ratio 23.1 H Glucose 160 H POC Glucose 152 H 169 H Calcium 9.3 Phosphorus Magnesium Total Bilirubin Direct Bilirubin AST ALT Alkaline Phosphatase C-Reactive Protein 18.20 H NT-Pro-B Natriuret Pep 3987 H Total Protein Albumin 09/30/21 09/30/21 09/30/21 05:46 06:02 06:02 WBC 11.71 H RBC 4.39 L Hgb 13.3 L Hct 41.9 L MCV 95.4 MCH 30.3 MCHC 31.7 L RDW Std Deviation 47.5 H RDW Coeff of Jimbo 13.6 Plt Count 252 MPV 12.1 H Immature Gran % (Auto) 0.3 Neut % (Auto) 86.3 Lymph % (Auto) 6.5 [place] % (Auto) 6.9 Eos % (Auto) 0.0 Baso % (Auto) 0.0 Neut # (Auto) 10.10 H Lymph # (Auto) 0.76 L [place] # (Auto) 0.81 H Eos # (Auto) 0.00 Baso # (Auto) 0.00 Immature Gran # (Auto) 0.04 H Sodium 150 H Potassium 3.8 D Chloride 114 H Carbon Dioxide 32 Anion Gap 4.0 BUN 31 H Creatinine 1.36 Est Cr Clr Drug Dosing 50.5 Est GFR ( Amer) 60.7 Est GFR (Non-Af Amer) 52.3 BUN/Creatinine Ratio 22.6 H Glucose 185 H POC Glucose 164 H Calcium 9.3 Phosphorus 2.2 L Magnesium 2.7 H Total Bilirubin 0.4 Direct Bilirubin < 0.1 AST 22 ALT 30 Alkaline Phosphatase 75 C-Reactive Protein NT-Pro-B Natriuret Pep Total Protein 7.5 Albumin 2.4 L 09/30/21 12:18 WBC RBC Hgb Hct MCV MCH MCHC RDW Std Deviation RDW Coeff of Jimbo Plt Count MPV Immature Gran % (Auto) Neut % (Auto) Lymph % (Auto) [place] % (Auto) Eos % (Auto) Baso % (Auto) Neut # (Auto) Lymph # (Auto) [place] # (Auto) Eos # (Auto) Baso # (Auto) Immature Gran # (Auto) Sodium Potassium Chloride Carbon Dioxide Anion Gap BUN Creatinine Est Cr Clr Drug Dosing Est GFR ( Amer) Est GFR (Non-Af Amer) BUN/Creatinine Ratio Glucose POC Glucose 166 H Calcium Phosphorus Magnesium Total Bilirubin Direct Bilirubin AST ALT Alkaline Phosphatase C-Reactive Protein NT-Pro-B Natriuret Pep Total Protein Albumin Medications Administered Current Inpatient Medications Amlodipine Besylate (Amlodipine Besylate 5 Mg Tab) 5 mg PO QAM [facility] Stop: 10/30/21 10:29 Last Admin: 09/30/21 11:29 Dose: 5 mg Documented by: Aspirin (Aspirin 81 Mg Chew) 81 mg PO DAILY [facility] Stop: 10/25/21 11:59 Last Admin: 09/30/21 10:06 Dose: 81 mg Documented by: Atorvastatin Calcium (Atorvastatin 10 Mg Tab) 10 mg PO DAILY [facility] Stop: 10/25/21 08:59 Last Admin: 09/30/21 10:06 Dose: 10 mg Documented by: Clonidine HCl (Clonidine Hcl 0.3 Mg/24 Hr Transderm Sys) 1 patch TD Sa@1130 [facility] Stop: 10/29/21 11:29 Last Admin: 09/29/21 12:28 Dose: 1 patch Documented by: Dextrose (Dextrose 50% 50 Ml Syringe) 25 - 50 ml IV UD PRN; Protocol PRN Reason: Hypoglycemia Protocol Stop: 10/28/21 15:44 Enoxaparin Sodium (Enoxaparin Inj 40 Mg/0.4 Ml Syr) 40 mg SQ DAILY [facility] Stop: 10/28/21 08:59 Last Admin: 09/30/21 10:04 Dose: 40 mg Documented by: Glucagon (Glucagon For Inj 1 Mg Vial) 1 mg IM UD PRN; Protocol PRN Reason: Hypoglycemia Protocol Stop: 10/28/21 15:44 Glucose (Glucose 40% Gel 15 Gm Tube) 15 - 30 gm PO UD PRN; Protocol PRN Reason: Hypoglycemia Protocol Stop: 10/28/21 15:44 Glucose (Glucose 10 Tabs/Tube) 4 - 8 tabs PO UD PRN; Protocol PRN Reason: Hypoglycemia Protocol Stop: 10/28/21 15:44 Heparin Sodium/Dextrose (Heparin Iv Adult Wt-Based Low-Dose *No* Bolus Protocol) 1 ea N/A ONE ONE; Protocol Stop: 09/30/21 15:56 Hydralazine HCl (Hydralazine 10 Mg Tab) 10 mg PO Q6 [facility] Stop: 10/27/21 17:59 Last Admin: 09/29/21 17:49 Dose: Not Given Documented by: Hydralazine HCl (Hydralazine Hcl 20 Mg/Ml Vial) 10 mg IV Q4 PRN PRN Reason: hypertension, SBP > 160 Stop: 10/27/21 15:48 Last Admin: 09/28/21 22:57 Dose: 10 mg Documented by: Ceftriaxone Sodium 2,000 mg/ (Dextrose) 70 mls @ 100 mls/hr IV DAILY@1200 ANGELA; Protocol Stop: 10/06/21 11:59 Last Infusion: 09/30/21 13:59 Dose: Infused Documented by: Potassium Chloride 20 meq/ (Dextrose) 1,010 mls @ 100 mls/hr IV .Q10H6M [facility] Stop: 10/29/21 21:44 Last Admin: 09/30/21 10:10 Dose: 100 mls/hr Documented by: Dexamethasone 6 mg/ Syringe 1.5 mls @ 1 mls/min IV DAILY [facility] Stop: 10/29/21 23:29 Last Admin: 09/30/21 10:04 Dose: 1 mls/min Documented by: Remdesivir 100 mg/ Sodium (Chloride) 250 mls @ 250 mls/hr IV Q24H [facility]; Protocol Stop: 10/03/21 20:59 Diltiazem HCl 125 mg/ Dextrose 125 mls @ 5 mls/hr IV .Q24H [facility]; Protocol Stop: 10/30/21 15:59 Heparin Sodium/Dextrose (Heparin Sodium/Dextrose) 25,000 units in 500 mls @ 0.02 mls/hr IV .Q24H [facility]; Protocol Stop: 10/30/21 15:59 Insulin Aspart (Insulin Aspart Per Unit) 0 units SC Q6 [facility] Stop: 10/28/21 11:59 Last Admin: 09/30/21 12:45 Dose: 1 units Documented by: Labetalol HCl (Labetalol Hcl Iv 5 Mg/Ml 20ml) 10 mg IV Q4 PRN PRN Reason: HTN SBP >190 Stop: 10/28/21 17:33 Last Admin: 09/28/21 21:21 Dose: 10 mg Documented by: Metoprolol Tartrate (Metoprolol Tartrate 25 Mg Tab) 25 mg PO BID [facility] Stop: 10/30/21 10:29 Last Admin: 09/30/21 11:29 Dose: 25 mg Documented by: Miscellaneous (Carbohydrates For Hypoglycemia ) 15 - 30 gm PO UD PRN PRN Reason: Hypoglycemia Treatment Stop: 10/28/21 15:44 Miscellaneous (Icu Electrolyte Replacement Protocol) 1 ea N/A PRN PRN PRN Reason: ELECTROLYTES Stop: 10/06/21 10:11 Last Admin: 09/29/21 10:16 Dose: 1 ea Documented by: Miscellaneous (Remove Clonidine Patch) 1 ea N/A Sa@1129 [facility] Stop: 10/29/21 11:28 Last Admin: 09/29/21 12:30 Dose: 1 ea Documented by: Miscellaneous (Check Clonidine Patch Placement) 1 ea N/A QS [facility] Stop: 10/29/21 15:59 Last Admin: 09/30/21 10:07 Dose: 1 ea Documented by: Miscellaneous (Remove Nicoderm Patch) 1 ea N/A DAILY@0859 [facility] Stop: 10/30/21 08:58 Last Admin: 09/30/21 10:06 Dose: 1 ea Documented by: Nicotine (Nicotine 7 Mg/24 Hr Tdsy) 7 mg TD QAM [facility] Stop: 10/29/21 13:44 Last Admin: 09/30/21 10:05 Dose: 7 mg Documented by: Ondansetron HCl (Ondansetron Inj 2 Mg/Ml 2 Ml Vial) 4 mg IV Q4H PRN PRN Reason: Nausea Stop: 10/28/21 14:09 Last Admin: 09/29/21 03:18 Dose: 4 mg Documented by: Sodium Chloride (Sodium Chloride 0.9% 10ml Flush) 30 ml IV Q24H [facility] Stop: 10/03/21 23:16 Last Admin: 09/30/21 03:01 Dose: 30 ml Documented by: PG Care Time/CCT Total # of Minutes Spent Total Time Spent: 36 Total Time Spent with Patient: Total time spent is greater than 50% in coordination of care (as documented) at patient's floor/unit and/or counseling patient: Coding Level of Care Code 76959 Subseq Hosp Care Lvl 3 Diagnoses Angioedema of tongue T78.3XXA COVID-19 U07.1 Hyperlipidemia E78.5 Hypertension I10 Hypertension type: essential hypertension Atrial fibrillation with rapid ventricular response I48.91 (1) Hypertension Hypertension type: essential hypertension Qualified Code(s): I10 - Essential (primary) hypertension
[2021-09-30] MEDS ORDERED: METOPROLOL TARTRATE 1 MG/ML VIAL IV ONE (15:43)
[2021-09-30] MEDS ORDERED: STAT IV Infusion **Titration per Protocol STA (15:44)
[2021-09-30] MEDS ORDERED: Heparin IV Adult Wt-Based Low-Dose *NO* Bolus Protocol IV SCH (15:55)
[2021-09-30] MEDS ORDERED: HEPARIN SODIUM/DEXTROSE 25,000 UNITS/500 ML BAG IV SCH (16:00)
[2021-09-30] MEDS: dilTIAZem HCL 125 MG in DEXTROSE 5% 100 ML IV SCH ×2 (16:20→23:46)
[2021-09-30 16:55] LABS: INR 1.4 (0.9-1.1); Partial Thromboplastin Time 26.8 Seconds (21.0-31.0); Prothrombin Time 13.5 Seconds (9.0-12.0)
[2021-09-30] MEDS ORDERED: FUROSEMIDE INJ 20 MG/2 ML VIAL IV ONE (19:35)
[2021-09-30] MEDS: REMDESIVIR 100 MG in SODIUM CHLORIDE 0.9% 230 ML IV SCH (20:02)
--- NOTE | 2021-09-30 20:39 | XRay Report ---
XR chest 1V portable at 6:05 PM CLINICAL HISTORY: hypoxia. Follow-up bilateral lower lobe airspace opacities, left greater than rig ht COMPARISON STUDY: 09/30/2021 at 6:56 AM TECHNIQUE: 1 view of the chest FINDINGS: Single frontal view of the chest demonstrates the cardiomediastinal silhouette to be within normal li mits. Enteric tube is again seen. Compared to the previous examination, there has been essentially co mplete clearing at the right lung base. There continues to be left lower lobe atelectasis/collapse an d left lower lobe opacity. There is also suspicion of small left pleural effusion. There is no eviden ce for vascular congestion. There is no acute osseous pathology. IMPRESSION: Interval improvement on the right with persistent left lower lobe atelectasis/collapse an d left lower lobe alveolar opacity. There is also suspicion of small left pleural effusion. ACT 112: Negative or not required by law. Electronically signed by: Bernardo Muhammad M.D. 09/30/2021 8:38 PM
[2021-09-30 23:44] LABS: Partial Thromboplastin Ratio 1.2; Partial Thromboplastin Time 30.8 Seconds (21.0-31.0)
[2021-10-01] MEDS ORDERED: HEPARIN SOD (PORCINE) 1000 UNIT/ML IV ONE (03:45)
[2021-10-01] MEDS: INSULIN ASPART PER UNIT SC SCH ×3 (05:51→18:15)
[2021-10-01 07:21] LABS: Basophils # (auto) 0.02 K/uL (0-0.2); Basophils % (auto) 0.1 %; Hemoglobin 12.8 g/dL (14.0-18.0); Immature Granulocytes # (auto) 0.06 K/uL (0.00-0.02); Immature Granulocytes % (auto) 0.4 %; Lymphocytes # (auto) 1.42 K/uL (1.2-3.4); Lymphocytes % (auto) 10.1 %; Mean Corpuscular Hemoglobin 29.7 pg (25-34); Mean Corpuscular Hgb Conc 31.2 g/dL (32-36); Mean Corpuscular Volume 95.1 fL (80-100); Mean Platelet Volume 11.9 fL (7.4-10.4); Monocytes # (auto) 1.09 K/uL (0.11-0.59); Monocytes % (auto) 7.8 %; Neutrophils # (auto) 11.43 K/uL (1.4-6.5); Neutrophils % (auto) 81.6 %; Platelet Count 228 K/uL (130-400); RDW Coefficient of Variation 13.6 % (11.5-14.5); RDW Standard Deviation 47.8 fL (36.4-46.3); Red Blood Count 4.31 M/uL (4.7-6.1); White Blood Count 14.02 K/uL (4.8-10.8)
[2021-10-01] MEDS: dilTIAZem HCL 125 MG in DEXTROSE 5% 100 ML IV SCH ×4 (07:38→22:15)
[2021-10-01] MEDS: CHECK CLONIDINE PATCH PLACEMENT SCH ×2 (07:38→16:24)
--- NOTE | 2021-10-01 07:40 | XRay Report ---
XR KUB/Abdomen 1 view CLINICAL HISTORY: NG tube placement TECHNIQUE: 1 view of the abdomen was obtained. Comparison: None available at the time of this dictation. FINDINGS: Enteric tube side-port and tip lie within the stomach. The osseous structures are grossly unremarkabl e. The bowel gas pattern is nonobstructive. A moderate amount of stool is noted within the large yanira l. IMPRESSION: Nonobstructive bowel gas pattern. ACT 112: Negative or not required by law. Electronically signed by: Kiel Aguirre M.D. 10/01/2021 7:39 AM
[2021-10-01 07:56] LABS: BUN Creatinine Ratio 30.2 (10-20); C Reactive Protein 12.9 mg/dl (0-0.29); Calcium 8.8 mg/dl (8.5-10.1); Creatinine Clr Calc Pharmacy 57.9 ml/min; Est GFR (African American) 64.7 ml/min; Est GFR (Non-African American) 55.8 ml/min; Magnesium 2.5 mg/dl (1.8-2.4); Potassium 3.6 mmol/L (3.5-5.1)
[2021-10-01 08:06] LABS: Phosphorus 3.3 mg/dl (2.5-4.9)
[2021-10-01] MEDS: dexAMETHasone 6 MG in SYRINGE 0 ML IV SCH (08:44)
[2021-10-01] MEDS: ATORVASTATIN 10 MG TAB PO SCH (08:44)
[2021-10-01] MEDS: ASPIRIN 81 MG CHEW PO SCH (08:44)
[2021-10-01] MEDS: NICOTINE 7 MG/24 HR TDSY TD SCH (08:45)
[2021-10-01] MEDS: METOPROLOL TARTRATE 25 MG TAB PO SCH (08:45)
[2021-10-01] MEDS: amLODIPine BESYLATE 5 MG TAB PO SCH (08:45)
[2021-10-01] MEDS ORDERED: PANTOprazole 40 MG TAB PO SCH (09:00)
[2021-10-01] MEDS ORDERED: FUROSEMIDE INJ 20 MG/2 ML VIAL IV ONE (10:09)
[2021-10-01] MEDS ORDERED: FUROSEMIDE INJ 20 MG/2 ML VIAL IV STA (10:11)
[2021-10-01] MEDS ORDERED: DEXTROSE 5% 1,000 ML IV SCH (10:15)
[2021-10-01] MEDS: ENOXAPARIN 100 MG/1ML SYR SQ SCH ×2 (11:57→20:50)
[2021-10-01] MEDS ORDERED: dilTIAZem HCL 30 MG TAB PO SCH (12:00)
--- NOTE | 2021-10-01 13:20 | Critical Care Progress Note ---
Date of Service October 01, 2021 Assessment & Plan (1) Angioedema of tongue: (2) COVID-19: (3) Tobacco abuse: Plan: Impression: 71-year-old male with no history of trauma or sting. Patient presents with severe angioedema of the tongue. Suspected to be from increased dose of lisinopril. Patient denies any prior history to LARS inhibitor allergies or history of angioedema. Drug allergies include penicillin. Patient not subjected to penicillin recently. 24-hour events: Off Cardene drip. Recommendations: --Acute hypoxic respiratory failure Possible aspiration event on top of COPD Patient also has Covid-19 Continue with O2 supplementation to keep oxygen saturation between 90-92% Continue with incentive spirometry Continue with Rocephin for total of 5 days --A. fib with RVR Diltiazem drip We will bridge to p.o. diltiazem --Ileus Patient had bowel movement yesterday Recommend swallow eval today At the patient is able to swallow then we can DC the NGT --Hypernatremia Give free water 250 mL through the NGT every 6 hours Plan: Bridge with p.o. diltiazem to take the diltiazem drip off Free water flushes 250 mL every 6 hours through the NGT Swallow eval and if the patient is able to pass the swallow eval DC the NGT Patient likely has COPD. Would recommend outpatient pulmonary follow-up Recommend Incruse inhaler to be started on discharge Patient is hemodynamically stable to be downgraded to telemetry floor Please note the above document was generated using voice recognition software. It may contain grammatical, syntax or spelling errors.Any formal questions or concerns about the content, text or information contained within the body of this dictation should be directly addressed to the provider for clarification. Admission and Anticipated Discharge Date Admission Date: September 24, 2021 Subjective Patient seen and ABLA bedside. No acute distress, no dressings overnight He was saturating 94% on 5 l nasal cannula at time of examination States that he is doing well. Did have bowel movement yesterday. Denies any fever or chills No headache, no nausea, no vomiting Review of Systems Review of Systems: All systems reviewed & are unremarkable except as noted in Subjective Physical Exam Physical Exam: Constitutional: No acute distress HEENT: EOMI, PERRLA, positive NGT Respiratory system: Decreased air entry bilaterally, no wheeze, no rub, positive crackles bilateral lower lobes CVS: S1-S2 positive, no murmurs or gallops Abdomen: Soft, nontender, nondistended, positive bowel sounds x4 Extremities: +2 pulses bilaterally radialis/ dorsalis pedis, no cyanosis, no edema Neuro: Awake alert oriented x3 Psych: Normal mood and affect G/U: No Barber Skin: no rashes, warm and dry Lymphatic: no cervical or axillary lymphadenopathy Results & Data Results & Data ([facility]) Vital Signs (Past 12 Hours) Vital Signs Temp Pulse Pulse Resp BP BP Pulse Ox 10/01/21 11:56 36.4 C L 72 20 136/79 93 10/01/21 08:04 36.6 C 79 20 134/78 91 10/01/21 06:00 74 133/69 93 10/01/21 05:00 76 129/66 93 10/01/21 04:00 36.9 C 83 150/67 H 93 10/01/21 03:00 79 124/72 92 10/01/21 02:00 75 128/69 94 10/01/21 07:03 10/01/21 07:03 Coding Level of Care Code 46258 Subseq Hosp Care Lvl 3 Diagnoses Angioedema of tongue T78.3XXA COVID-19 U07.1 Tobacco abuse Z72.0
--- NOTE | 2021-10-01 13:44 | Hospitalist Progress Note ---
Date of Service October 01, 2021 Assessment & Plan (1) Angioedema of tongue: Plan: Likely secondary to recently increased dose of lisinopril No NSAID use reportedly and no other signs of anaphylaxis to suggest allergic reaction C4 level is normal/high which rules out hereditary angioedema Intubated for airway protection due to extremely large tongue. Received FFP, diphenhydramine and dexamethasone in the ER Extubated on 08/29 Discontinue ruy inhibitor permanently Appreciate top polisher management Pulmonology recommends follow-up with wash house worker as an outpatient after discharge CRP and ESR elevated-likely secondary to Covid-19 infection failed bedside swallow today, try again tomorrow if speech can see him again (2) Atrial fibrillation with rapid ventricular response: Plan: went into RVR 130-150's on 09/30 converted to sinus rhythm with Diltiazem drip increase Lopressor to 50mg BID, stop Diltiazem Lovenox BID for full anticoagulation echo done appreciate consult from Dr. Noland (3) COVID-19: Plan: Was asymptomatic other than angioedema at the time of presentation Oxygenating well Keep on Covid airborne precautions continue dexamethasone and Remdesivir as he is on oxygen breathing well on 2L currently (4) Hyperlipidemia: Plan: Continue atorvastatin, aspirin through NG tube (5) Hypertension: Plan: Discontinue lisinopril Continue metoprolol tartrate 50mg BID Clonidine 0.3mg patch BP well controlled Plan: DVT prophylaxis: start heparin drip with afib Admission and Anticipated Discharge Date Admission Date: September 24, 2021 Subjective patient failed his swallow study today, had to place another NG tube after he pulled it out last night HR is better, converted to sinus rhythm in 70s change to Lovenox, appreciate Dr. Noland recommendations, increase metoprolol to 50mg BID and stop diltiazem patient wanted to leave, explained that he needs to stay, placed on one to one updated his daughter over the phone discussed plan with nutrition, resume tube feeds and free water flushes reviewed labs, Na is up at 150, Cr stable Review of Systems Review of Systems: All systems reviewed & are unremarkable except as noted in Subjective Physical Exam Physical Exam: General: well developed, well nourished, no acute distress, appears weak EENT: swelling of lips and tongue, NGT in place Neck: supple, trachea midline, normal thyroid Lungs: clear to auscultation bilaterally, normal respiratory effort, no accessory muscle use, no distress Heart:regular S1 S2, no murmur, peripheral pulses normal, capillary refill normal, no edema Abdomen: soft, slightly distended, normoactive bowel sounds, tympanic to percusion Extremities: normal in appearance, no cyanosis, no petechiae, strength is 5/5 bilaterally Neuro: awake, cooperative, moves all extremities, no focal motor deficits, CN II-XII intact, sensation in extremities intact, normal speech Skin: warm, dry, no rash, normal turgor Psych: Awake, alert oriented x 3, agitated affect Results & Data Results & Data ([facility]) Vital Signs (Past 12 Hours) Vital Signs Temp Pulse Pulse Resp BP BP Pulse Ox 10/01/21 11:56 36.4 C L 72 20 136/79 93 10/01/21 08:04 36.6 C 79 20 134/78 91 10/01/21 06:00 74 133/69 93 10/01/21 05:00 76 129/66 93 10/01/21 04:00 36.9 C 83 150/67 H 93 10/01/21 03:00 79 124/72 92 10/01/21 02:00 75 128/69 94 Laboratory Results Laboratory Results - last 24 hr 09/30/21 09/30/21 09/30/21 16:32 18:16 23:11 WBC RBC Hgb Hct MCV MCH MCHC RDW Std Deviation RDW Coeff of Jimbo Plt Count MPV Immature Gran % (Auto) Neut % (Auto) Lymph % (Auto) Miner % (Auto) Eos % (Auto) Baso % (Auto) Neut # (Auto) Lymph # (Auto) Miner # (Auto) Eos # (Auto) Baso # (Auto) Immature Gran # (Auto) PT 13.5 H INR 1.4 H APTT 26.8 PTT Ratio 1.0 Sodium Potassium Chloride Carbon Dioxide Anion Gap BUN Creatinine Est Cr Clr Drug Dosing Est GFR ( Amer) Est GFR (Non-Af Amer) BUN/Creatinine Ratio Glucose POC Glucose 135 H 125 H Calcium Phosphorus Magnesium C-Reactive Protein 09/30/21 10/01/21 10/01/21 23:20 05:33 07:03 WBC RBC Hgb Hct MCV MCH MCHC RDW Std Deviation RDW Coeff of Jimbo Plt Count MPV Immature Gran % (Auto) Neut % (Auto) Lymph % (Auto) Miner % (Auto) Eos % (Auto) Baso % (Auto) Neut # (Auto) Lymph # (Auto) Miner # (Auto) Eos # (Auto) Baso # (Auto) Immature Gran # (Auto) PT INR APTT 30.8 PTT Ratio 1.2 Sodium 149 H Potassium 3.6 Chloride 114 H Carbon Dioxide 30 Anion Gap 5.0 BUN 39 H Creatinine 1.29 Est Cr Clr Drug Dosing 57.9 Est GFR ( Amer) 64.7 Est GFR (Non-Af Amer) 55.8 BUN/Creatinine Ratio 30.2 H Glucose 132 H POC Glucose 127 H Calcium 8.8 Phosphorus 3.3 D Magnesium 2.5 H C-Reactive Protein 12.90 H 10/01/21 10/01/21 07:03 11:16 WBC 14.02 H RBC 4.31 L Hgb 12.8 L Hct 41.0 L MCV 95.1 MCH 29.7 MCHC 31.2 L RDW Std Deviation 47.8 H RDW Coeff of Jimbo 13.6 Plt Count 228 MPV 11.9 H Immature Gran % (Auto) 0.4 Neut % (Auto) 81.6 Lymph % (Auto) 10.1 Miner % (Auto) 7.8 Eos % (Auto) 0.0 Baso % (Auto) 0.1 Neut # (Auto) 11.43 H Lymph # (Auto) 1.42 Miner # (Auto) 1.09 H Eos # (Auto) 0.00 Baso # (Auto) 0.02 Immature Gran # (Auto) 0.06 H PT INR APTT PTT Ratio Sodium Potassium Chloride Carbon Dioxide Anion Gap BUN Creatinine Est Cr Clr Drug Dosing Est GFR ( Amer) Est GFR (Non-Af Amer) BUN/Creatinine Ratio Glucose POC Glucose 125 H Calcium Phosphorus Magnesium C-Reactive Protein Medications Administered Current Inpatient Medications Amlodipine Besylate (Amlodipine Besylate 5 Mg Tab) 5 mg PO QAM [facility] Stop: 10/30/21 10:29 Last Admin: 10/01/21 08:45 Dose: 5 mg Documented by: Aspirin (Aspirin 81 Mg Chew) 81 mg PO DAILY [facility] Stop: 10/25/21 11:59 Last Admin: 10/01/21 08:44 Dose: 81 mg Documented by: Atorvastatin Calcium (Atorvastatin 10 Mg Tab) 10 mg PO DAILY [facility] Stop: 10/25/21 08:59 Last Admin: 10/01/21 08:44 Dose: 10 mg Documented by: Clonidine HCl (Clonidine Hcl 0.3 Mg/24 Hr Transderm Sys) 1 patch TD Sa@1130 [facility] Stop: 10/29/21 11:29 Last Admin: 09/29/21 12:28 Dose: 1 patch Documented by: Dextrose (Dextrose 50% 50 Ml Syringe) 25 - 50 ml IV UD PRN; Protocol PRN Reason: Hypoglycemia Protocol Stop: 10/28/21 15:44 Diltiazem HCl (Diltiazem Hcl 30 Mg Tab) 30 mg PO Q6 [facility] Stop: 10/31/21 11:59 Enoxaparin Sodium (Enoxaparin 100 Mg/1ml Syr) 90 mg SQ Q12 [facility] Stop: 10/31/21 10:29 Last Admin: 10/01/21 11:57 Dose: 90 mg Documented by: Glucagon (Glucagon For Inj 1 Mg Vial) 1 mg IM UD PRN; Protocol PRN Reason: Hypoglycemia Protocol Stop: 10/28/21 15:44 Glucose (Glucose 40% Gel 15 Gm Tube) 15 - 30 gm PO UD PRN; Protocol PRN Reason: Hypoglycemia Protocol Stop: 10/28/21 15:44 Glucose (Glucose 10 Tabs/Tube) 4 - 8 tabs PO UD PRN; Protocol PRN Reason: Hypoglycemia Protocol Stop: 10/28/21 15:44 Hydralazine HCl (Hydralazine 10 Mg Tab) 10 mg PO Q6 [facility] Stop: 10/27/21 17:59 Last Admin: 09/29/21 17:49 Dose: Not Given Documented by: Hydralazine HCl (Hydralazine Hcl 20 Mg/Ml Vial) 10 mg IV Q4 PRN PRN Reason: hypertension, SBP > 160 Stop: 10/27/21 15:48 Last Admin: 09/28/21 22:57 Dose: 10 mg Documented by: Ceftriaxone Sodium 2,000 mg/ (Dextrose) 70 mls @ 100 mls/hr IV DAILY@1200 ANGELA; Protocol Stop: 10/03/21 12:41 Last Infusion: 09/30/21 13:59 Dose: Infused Documented by: Dexamethasone 6 mg/ Syringe 1.5 mls @ 1 mls/min IV DAILY [facility] Stop: 10/29/21 23:29 Last Admin: 10/01/21 08:44 Dose: 1 mls/min Documented by: Remdesivir 100 mg/ Sodium (Chloride) 250 mls @ 250 mls/hr IV Q24H [facility]; Protocol Stop: 10/03/21 20:59 Last Infusion: 09/30/21 21:02 Dose: Infused Documented by: Diltiazem HCl 125 mg/ Dextrose 125 mls @ 15 mls/hr IV .[id number] [facility]; Protocol Stop: 10/30/21 15:59 Last Admin: 10/01/21 07:38 Dose: 15 mg/hr, 15 mls/hr Documented by: Dextrose (D5w) 1,000 mls @ 80 mls/hr IV .[id number] [facility] Stop: 10/01/21 22:44 Last Admin: 10/01/21 11:57 Dose: 80 mls/hr Documented by: Insulin Aspart (Insulin Aspart Per Unit) 0 units SC Q6 [facility] Stop: 10/28/21 11:59 Last Admin: 10/01/21 11:26 Dose: Not Given Documented by: Metoprolol Tartrate (Metoprolol Tartrate 25 Mg Tab) 25 mg PO BID [facility] Stop: 10/30/21 10:29 Last Admin: 10/01/21 08:45 Dose: 25 mg Documented by: Miscellaneous (Carbohydrates For Hypoglycemia ) 15 - 30 gm PO UD PRN PRN Reason: Hypoglycemia Treatment Stop: 10/28/21 15:44 Miscellaneous (Icu Electrolyte Replacement Protocol) 1 ea N/A PRN PRN PRN Reason: ELECTROLYTES Stop: 10/06/21 10:11 Last Admin: 09/29/21 10:16 Dose: 1 ea Documented by: Miscellaneous (Remove Clonidine Patch) 1 ea N/A Sa@1129 [facility] Stop: 10/29/21 11:28 Last Admin: 09/29/21 12:30 Dose: 1 ea Documented by: Miscellaneous (Check Clonidine Patch Placement) 1 ea N/A QS [facility] Stop: 10/29/21 15:59 Last Admin: 10/01/21 07:38 Dose: 1 ea Documented by: Miscellaneous (Remove Nicoderm Patch) 1 ea N/A DAILY@0859 [facility] Stop: 10/30/21 08:58 Last Admin: 10/01/21 08:45 Dose: 1 ea Documented by: Nicotine (Nicotine 7 Mg/24 Hr Tdsy) 7 mg TD QAM [facility] Stop: 10/29/21 13:44 Last Admin: 10/01/21 08:45 Dose: 7 mg Documented by: Ondansetron HCl (Ondansetron Inj 2 Mg/Ml 2 Ml Vial) 4 mg IV Q4H PRN PRN Reason: Nausea Stop: 10/28/21 14:09 Last Admin: 09/29/21 03:18 Dose: 4 mg Documented by: Pantoprazole Sodium (Pantoprazole 40 Mg Tab) 40 mg PO QAM [facility] Stop: 10/31/21 08:59 Last Admin: 10/01/21 11:22 Dose: 40 mg Documented by: Sodium Chloride (Sodium Chloride 0.9% 10ml Flush) 30 ml IV Q24H [facility] Stop: 10/03/21 23:16 Last Admin: 09/30/21 21:55 Dose: 30 ml Documented by: PG Care Time/CCT Total # of Minutes Spent Total Time Spent with Patient: Total time spent is greater than 50% in coordination of care (as documented) at patient's floor/unit and/or counseling patient: Coding Level of Care Code 24392 Subseq Hosp Care Lvl 3 Diagnoses Angioedema of tongue T78.3XXA Atrial fibrillation with rapid ventricular response I48.91 COVID-19 U07.1 Hyperlipidemia E78.5 Hypertension I10 Hypertension type: essential hypertension (1) Hypertension Hypertension type: essential hypertension Qualified Code(s): I10 - Essential (primary) hypertension
[2021-10-01] MEDS: cefTRIAXone SODIUM 2,000 MG in DEXTROSE 5% 50 ML IV SCH (13:49)
--- NOTE | 2021-10-01 14:00 | XCELERA ---
[id number]\[id number]
[2021-10-01] MEDS: IMPACT LIQD 1.0 CAL 1,000 ML BAG NG SCH (16:24)
[2021-10-01] MEDS: TUBE FEEDING WATER FLUSH NG SCH ×2 (16:25→20:51)
--- NOTE | 2021-10-01 16:46 | Cardiology Consultation ---
Date of Consultation October 01, 2021 Assessment & Plan (1) Paroxysmal atrial fibrillation: (2) Hypertension: (3) Tobacco abuse: ASSESSMENT/PLAN: 1. Paroxysmal AFib: Asymptomatic. Spontaneously converted to sinus rhythm after less than 9 hours in AFib. Given that he had a rapid ventricular response, would recommend adjustment of rate-controlling therapy. Increase metoprolol to 50 mg twice daily. Can discontinue diltiazem as he is also on amlodipine for blood pressure management. Diagnosis discussed with him. Various treatment strategies also discussed. His was also contacted via telephone. Recommend anticoagulation for stroke risk reduction. He is agreeable. Would recommend novel agent on discharge, such as Eliquis 5 mg twice daily. Based on his description of his pulse during blood pressure checks at home, this is likely a recurrent issue, but once again asymptomatic. 2. Hypertension: Blood pressure acceptable. Adjusting beta-felipe for rate control. Lisinopril discontinued for angioedema. 3. Tobacco abuse: Recommended that he stop smoking. 4. Disposition: Please call with any other questions or concerns. Cardiology will sign off for now as he is in sinus rhythm. ECG with. Follow-up in the cardiology office in 2-4 weeks. Patient care communicated with Dr. Jiménez of the primary hospitalist service. Thank you for allowing me to participate in the care of your patient. Please call for any other questions or concerns. Sincerely, Luis Noland M.D. History of Present Illness Reason for Consultation: Newly diagnosed AFib Requesting Physician: Kiel Jiménez DO Attending Physician: Kiel Jiménez DO History of Present Illness Mr. Duran is a 71-year-old gentleman with a history significant for hypertension, dyslipidemia, and tobacco abuse. He was admitted on 09/24/2021 with angioedema of the tongue and underwent intubation for airway protection. He was extubated on 08/29/2021. He developed atrial fibrillation with rapid ventricular response on 09/30/2021 at 3:30 p.m. and then spontaneously converted at 12:07 a.m. this morning. He was completely asymptomatic in that regard. He was placed on diltiazem and anticoagulation therapy. He denies palpitations, chest pain, shortness of breath, syncope, near-syncope, edema, or bleeding. He acknowledges that his tongue was swollen when he presented to the emergency department but states that he is fine now. He states that he is being discharged tomorrow regardless. He denies a history of palpitations but when asked about checking his blood pressure or heart rate, he acknowledges that he checks his blood pressure at home periodically. At times he has noted that his resting heart rate is greater than 120 beats per minute, although typically resting heart rate had been normal. Review of systems: As above. Review of systems otherwise negative/unremarkable. Family History: Family history of CAD. Social history: Has smoked 0.5-1 pack per day for many years. Denies significant alcohol or drug abuse. He is and lives at home with his (Verenice) and grandchild. Three children (Angelia is a CCU nurse at [employer] [place] [facility] [place]; Sarah). 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 There was no family in his hospital room. Allergies Allergy/AdvReac Type Severity Reaction Status Date / Time LARS Inhibitors Allergy Severe Severe Verified 09/24/21 14:31 angioedema Penicillins Allergy Intermediate hives Verified 06/28/21 10:48 Home Medications Medication Instructions Recorded Confirmed Type aspirin 81 mg tablet,delayed 81 mg PO DAILY tab 03/24/19 09/24/21 History release coenzyme Q10 100 mg capsule 100 mg PO DAILY cap 03/24/19 09/24/21 History omega-3 acid ethyl esters 1 gram 2 cap PO DAILY cap 03/24/19 09/24/21 History capsule metoprolol tartrate 50 mg tablet 50 mg PO BID #180 tab 01/29/21 09/24/21 Rx atorvastatin 10 mg tablet 10 mg PO DAILY #90 tab 02/19/21 09/24/21 Rx lisinopril 5 mg tablet 10 mg PO DAILY 09/24/21 09/24/21 History Patient History Medical History (Updated 10/01/21 @ 17:21 by Stefan Noland MD) Bladder tumor COVID-19 Encounter for pre-operative examination Erectile dysfunction Hyperlipidemia Hypertension Paroxysmal atrial fibrillation Prediabetes Tobacco abuse Surgical History No significant past surgical history Family History Father Cardiac disorder Myocardial infarction Coronary heart disease Sister Myocardial infarction Diabetes Mother Hypertension Denies family history of Ovarian cancer Prostate cancer Breast cancer Colorectal cancer Social History Smoking Status: Current every day smoker Tobacco Type: Cigarettes Age Started Using Tobacco: 17; packs per day: 0.5; Cigarettes Per Day: 1/2 ppd; Second Hand Exposure: No; Do You Dip or Chew Tobacco: No; Tobacco Cessation Education Requested by Patient: No Hx Alcohol Use: No Hx Substance Use: No Preferred Language: Spanish Communication Ability: Effective Visual Impairment: No Limitations Hearing Ability: Hard of Hearing Water Server Required: No Beliefs That Will Affect Care: None marital status: Current Living Situation: Spouse current occupational status: retired 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 Alert and oriented. HEENT: Anicteric sclera. Neck: No JVD. No bruits. Normal carotid upstrokes bilaterally. Cardiac: PMI was nondisplaced. No ventricular heave. Regular. Normal S1-S2. 1/6 systolic murmur. No rubs or gallops. Pulmonary: Clear to auscultation bilaterally without wheezes, rales, or rhonchi. Abdomen: Soft, nontender, nondistended, with normoactive bowel sounds. No bruits noted. Extremities: 2+ radial pulses bilaterally. 2+ posterior tibialis pulses bilaterally. No edema or cyanosis. Psychiatric: Affect appears appropriate. Results & Data ([facility]) Vital Signs (Past 12 Hours) Vital Signs Temp Pulse Pulse Resp BP BP Pulse Ox 10/01/21 14:59 36.5 C 71 26 H 138/71 91 10/01/21 14:45 73 21 94 10/01/21 14:30 74 94 10/01/21 14:15 71 96 10/01/21 14:00 67 87 L 10/01/21 13:45 68 91 10/01/21 13:30 80 94 10/01/21 13:15 77 93 10/01/21 13:00 73 92 10/01/21 12:45 75 90 10/01/21 12:30 72 92 10/01/21 12:15 70 93 10/01/21 12:00 70 95 10/01/21 11:56 36.4 C L 72 20 136/79 93 10/01/21 11:45 71 91 10/01/21 11:30 74 91 10/01/21 11:15 75 93 10/01/21 11:00 70 95 10/01/21 10:45 95 10/01/21 10:30 93 10/01/21 10:15 95 10/01/21 10:00 78 93 10/01/21 09:45 90 10/01/21 09:30 67 93 10/01/21 09:15 65 94 10/01/21 09:00 72 91 10/01/21 08:45 74 93 10/01/21 08:30 74 89 L 10/01/21 08:15 76 87 L 10/01/21 08:04 36.6 C 79 20 134/78 91 10/01/21 08:00 76 92 10/01/21 07:45 77 93 10/01/21 07:30 77 92 10/01/21 07:15 77 88 L 10/01/21 07:00 73 134/78 92 10/01/21 06:45 74 92 10/01/21 06:30 75 92 10/01/21 06:15 74 92 10/01/21 06:00 74 133/69 93 10/01/21 05:00 76 129/66 93 Laboratory Results Laboratory Results - last 24 hr 09/30/21 09/30/21 09/30/21 18:16 23:11 23:20 WBC RBC Hgb Hct MCV MCH MCHC RDW Std Deviation RDW Coeff of Jimbo Plt Count MPV Immature Gran % (Auto) Neut % (Auto) Lymph % (Auto) [place] % (Auto) Eos % (Auto) Baso % (Auto) Neut # (Auto) Lymph # (Auto) [place] # (Auto) Eos # (Auto) Baso # (Auto) Immature Gran # (Auto) APTT 30.8 PTT Ratio 1.2 Sodium Potassium Chloride Carbon Dioxide Anion Gap BUN Creatinine Est Cr Clr Drug Dosing Est GFR ( Amer) Est GFR (Non-Af Amer) BUN/Creatinine Ratio Glucose POC Glucose 135 H 125 H Calcium Phosphorus Magnesium C-Reactive Protein 10/01/21 10/01/21 10/01/21 05:33 07:03 07:03 WBC 14.02 H RBC 4.31 L Hgb 12.8 L Hct 41.0 L MCV 95.1 MCH 29.7 MCHC 31.2 L RDW Std Deviation 47.8 H RDW Coeff of Jimbo 13.6 Plt Count 228 MPV 11.9 H Immature Gran % (Auto) 0.4 Neut % (Auto) 81.6 Lymph % (Auto) 10.1 [place] % (Auto) 7.8 Eos % (Auto) 0.0 Baso % (Auto) 0.1 Neut # (Auto) 11.43 H Lymph # (Auto) 1.42 [place] # (Auto) 1.09 H Eos # (Auto) 0.00 Baso # (Auto) 0.02 Immature Gran # (Auto) 0.06 H APTT PTT Ratio Sodium 149 H Potassium 3.6 Chloride 114 H Carbon Dioxide 30 Anion Gap 5.0 BUN 39 H Creatinine 1.29 Est Cr Clr Drug Dosing 57.9 Est GFR ( Amer) 64.7 Est GFR (Non-Af Amer) 55.8 BUN/Creatinine Ratio 30.2 H Glucose 132 H POC Glucose 127 H Calcium 8.8 Phosphorus 3.3 D Magnesium 2.5 H C-Reactive Protein 12.90 H 10/01/21 11:16 WBC RBC Hgb Hct MCV MCH MCHC RDW Std Deviation RDW Coeff of Jimbo Plt Count MPV Immature Gran % (Auto) Neut % (Auto) Lymph % (Auto) [place] % (Auto) Eos % (Auto) Baso % (Auto) Neut # (Auto) Lymph # (Auto) [place] # (Auto) Eos # (Auto) Baso # (Auto) Immature Gran # (Auto) APTT PTT Ratio Sodium Potassium Chloride Carbon Dioxide Anion Gap BUN Creatinine Est Cr Clr Drug Dosing Est GFR ( Amer) Est GFR (Non-Af Amer) BUN/Creatinine Ratio Glucose POC Glucose 125 H Calcium Phosphorus Magnesium C-Reactive Protein Diagnostic Findings Telemetry personally reviewed: Sinus rhythm. Atrial fibrillation with RVR began on 09/30/2021 at approximately 3:30 p.m. and spontaneously converted to sinus rhythm today at 12:07 a.m.. No significant pause. Echo 10/01/2021: Normal LV size, wall motion, systolic function. EF 60-65%. No significant valvular abnormalities. ECG 09/30/2021: AFib with RVR 145 beats per minute. Inferolateral ST/T-wave abnormality. Chest x-ray 09/30/2021: left lower lobe atelectasis/collapse with left lower lobe alveolar opacity and possible small left pleural effusion per Radiology. Medications Administered Current Inpatient Medications Amlodipine Besylate (Amlodipine Besylate 5 Mg Tab) 5 mg PO QAM [facility] Stop: 10/30/21 10:29 Last Admin: 10/01/21 08:45 Dose: 5 mg Documented by: Aspirin (Aspirin 81 Mg Chew) 81 mg PO DAILY ANGELA Stop: 10/25/21 11:59 Last Admin: 10/01/21 08:44 Dose: 81 mg Documented by: Atorvastatin Calcium (Atorvastatin 10 Mg Tab) 10 mg PO DAILY ANGELA Stop: 10/25/21 08:59 Last Admin: 10/01/21 08:44 Dose: 10 mg Documented by: Clonidine HCl (Clonidine Hcl 0.3 Mg/24 Hr Transderm Sys) 1 patch TD Sa@1130 [facility] Stop: 10/29/21 11:29 Last Admin: 09/29/21 12:28 Dose: 1 patch Documented by: Dextrose (Dextrose 50% 50 Ml Syringe) 25 - 50 ml IV UD PRN; Protocol PRN Reason: Hypoglycemia Protocol Stop: 10/28/21 15:44 Diltiazem HCl (Diltiazem Hcl 30 Mg Tab) 30 mg PO Q6 [facility] Stop: 10/31/21 11:59 Last Admin: 10/01/21 13:49 Dose: 30 mg Documented by: Enoxaparin Sodium (Enoxaparin 100 Mg/1ml Syr) 90 mg SQ Q12 ANGELA Stop: 10/31/21 10:29 Last Admin: 10/01/21 11:57 Dose: 90 mg Documented by: Enteral Nutritional Formula (Impact Liqd 1.0 Adolfo 1,000 Ml Bag) 1,000 ml NG Q24H ANGELA; Protocol Stop: 10/31/21 14:59 Last Admin: 10/01/21 16:24 Dose: 1,000 ml Documented by: Glucagon (Glucagon For Inj 1 Mg Vial) 1 mg IM UD PRN; Protocol PRN Reason: Hypoglycemia Protocol Stop: 10/28/21 15:44 Glucose (Glucose 40% Gel 15 Gm Tube) 15 - 30 gm PO UD PRN; Protocol PRN Reason: Hypoglycemia Protocol Stop: 10/28/21 15:44 Glucose (Glucose 10 Tabs/Tube) 4 - 8 tabs PO UD PRN; Protocol PRN Reason: Hypoglycemia Protocol Stop: 10/28/21 15:44 Hydralazine HCl (Hydralazine 10 Mg Tab) 10 mg PO Q6 ANGELA Stop: 10/27/21 17:59 Last Admin: 09/29/21 17:49 Dose: Not Given Documented by: Hydralazine HCl (Hydralazine Hcl 20 Mg/Ml Vial) 10 mg IV Q4 PRN PRN Reason: hypertension, SBP > 160 Stop: 10/27/21 15:48 Last Admin: 09/28/21 22:57 Dose: 10 mg Documented by: Ceftriaxone Sodium 2,000 mg/ (Dextrose) 70 mls @ 100 mls/hr IV DAILY@1200 ANGELA; Protocol Stop: 10/03/21 12:41 Last Infusion: 10/01/21 14:35 Dose: Infused Documented by: Dexamethasone 6 mg/ Syringe 1.5 mls @ 1 mls/min IV DAILY [facility] Stop: 10/29/21 23:29 Last Admin: 10/01/21 08:44 Dose: 1 mls/min Documented by: Remdesivir 100 mg/ Sodium (Chloride) 250 mls @ 250 mls/hr IV Q24H [facility]; Protocol Stop: 10/03/21 20:59 Last Infusion: 09/30/21 21:02 Dose: Infused Documented by: Diltiazem HCl 125 mg/ Dextrose 125 mls @ 10 mls/hr IV .[id number] [facility]; Protocol Stop: 10/30/21 15:59 Last Admin: 10/01/21 15:51 Dose: 10 mg/hr, 10 mls/hr Documented by: Insulin Aspart (Insulin Aspart Per Unit) 0 units SC Q6 [facility] Stop: 10/28/21 11:59 Last Admin: 10/01/21 11:26 Dose: Not Given Documented by: Metoprolol Tartrate (Metoprolol Tartrate 25 Mg Tab) 25 mg PO BID [facility] Stop: 10/30/21 10:29 Last Admin: 10/01/21 08:45 Dose: 25 mg Documented by: Miscellaneous (Carbohydrates For Hypoglycemia ) 15 - 30 gm PO UD PRN PRN Reason: Hypoglycemia Treatment Stop: 10/28/21 15:44 Miscellaneous (Icu Electrolyte Replacement Protocol) 1 ea N/A PRN PRN PRN Reason: ELECTROLYTES Stop: 10/06/21 10:11 Last Admin: 09/29/21 10:16 Dose: 1 ea Documented by: Miscellaneous (Remove Clonidine Patch) 1 ea N/A Sa@1129 [facility] Stop: 10/29/21 11:28 Last Admin: 09/29/21 12:30 Dose: 1 ea Documented by: Miscellaneous (Check Clonidine Patch Placement) 1 ea N/A QS [facility] Stop: 10/29/21 15:59 Last Admin: 10/01/21 16:24 Dose: 1 ea Documented by: Serenacellaneous (Remove Nicoderm Patch) 1 ea N/A DAILY@0859 [facility] Stop: 10/30/21 08:58 Last Admin: 10/01/21 08:45 Dose: 1 ea Documented by: Nicotine (Nicotine 7 Mg/24 Hr Tdsy) 7 mg TD QAM [facility] Stop: 10/29/21 13:44 Last Admin: 10/01/21 08:45 Dose: 7 mg Documented by: Ondansetron HCl (Ondansetron Inj 2 Mg/Ml 2 Ml Vial) 4 mg IV Q4H PRN PRN Reason: Nausea Stop: 10/28/21 14:09 Last Admin: 09/29/21 03:18 Dose: 4 mg Documented by: Pantoprazole Sodium (Pantoprazole 40 Mg Tab) 40 mg PO QAM [facility] Stop: 10/31/21 08:59 Last Admin: 10/01/21 11:22 Dose: 40 mg Documented by: Sodium Chloride (Sodium Chloride 0.9% 10ml Flush) 30 ml IV Q24H [facility] Stop: 10/03/21 23:16 Last Admin: 09/30/21 21:55 Dose: 30 ml Documented by: Sterile Water (Tube Feeding Water Flush) 250 ml NG Q6H [facility] Stop: 10/31/21 14:59 Last Admin: 10/01/21 16:25 Dose: 250 ml Documented by: PG Care Time/CCT Total # of Minutes Spent Total Time Spent with Patient: Total time spent is greater than 50% in coordination of care (as documented) at patient's floor/unit and/or counseling patient: Coding Level of Care Code 55905 Initial Inpt Care Lvl 2 Diagnoses Paroxysmal atrial fibrillation I48.0 Hypertension I10 Hypertension type: essential hypertension Tobacco abuse Z72.0 (1) Hypertension Hypertension type: essential hypertension Qualified Code(s): I10 - Essential (primary) hypertension
[2021-10-01] MEDS: REMDESIVIR 100 MG in SODIUM CHLORIDE 0.9% 230 ML IV SCH (20:51)
[2021-10-01] MEDS: METOPROLOL TARTRATE 50 MG TAB PO SCH (20:51)
[2021-10-01] MEDS: SODIUM CHLORIDE 0.9% 10ML FLUSH IV SCH (22:13)
[2021-10-02] MEDS: CHECK CLONIDINE PATCH PLACEMENT SCH ×2 (00:15→08:08)
[2021-10-02] MEDS: INSULIN ASPART PER UNIT SC SCH ×4 (00:17→18:05)
[2021-10-02] MEDS: TUBE FEEDING WATER FLUSH NG SCH ×3 (03:00→14:15)
[2021-10-02 07:40] LABS: Basophils # (auto) 0.01 K/uL (0-0.2); Basophils % (auto) 0.1 %; Hematocrit (blood only) 37.4 % (42-52); Hemoglobin 11.8 g/dL (14.0-18.0); Immature Granulocytes # (auto) 0.09 K/uL (0.00-0.02); Immature Granulocytes % (auto) 0.6 %; Lymphocytes # (auto) 1.75 K/uL (1.2-3.4); Lymphocytes % (auto) 11.8 %; Mean Corpuscular Hemoglobin 30.2 pg (25-34); Mean Corpuscular Hgb Conc 31.6 g/dL (32-36); Mean Corpuscular Volume 95.7 fL (80-100); Mean Platelet Volume 12.1 fL (7.4-10.4); Monocytes # (auto) 1.45 K/uL (0.11-0.59); Monocytes % (auto) 9.8 %; Neutrophils % (auto) 77.7 %; Platelet Count 231 K/uL (130-400); RDW Coefficient of Variation 13.6 % (11.5-14.5); RDW Standard Deviation 47.4 fL (36.4-46.3); Red Blood Count 3.91 M/uL (4.7-6.1)
[2021-10-02] MEDS: ENOXAPARIN 100 MG/1ML SYR SQ SCH (08:05)
[2021-10-02] MEDS: ASPIRIN 81 MG CHEW PO SCH (08:05)
[2021-10-02] MEDS: dexAMETHasone 6 MG in SYRINGE 0 ML IV SCH (08:06)
[2021-10-02] MEDS: METOPROLOL TARTRATE 50 MG TAB PO SCH (08:07)
[2021-10-02] MEDS: NICOTINE 7 MG/24 HR TDSY TD SCH (08:07)
[2021-10-02] MEDS: amLODIPine BESYLATE 5 MG TAB PO SCH (08:07)
[2021-10-02] MEDS: ATORVASTATIN 10 MG TAB PO SCH (08:08)
[2021-10-02] MEDS ORDERED: PANTOprazole 40 MG in SYRINGE 0 ML IV SCH (09:00)
[2021-10-02 09:35] LABS: Magnesium 2.5 mg/dl (1.8-2.4); Phosphorus 2.9 mg/dl (2.5-4.9)
[2021-10-02] MEDS ORDERED: amLODIPine BESYLATE 5 MG TAB PO ONE (09:56)
--- NOTE | 2021-10-02 09:58 | Hospitalist Progress Note ---
Date of Service October 02, 2021 Assessment & Plan (1) GI bleed: Plan: over past 36 hours, Hb down to 9.6, BUN up to 76 very large bloody BM on 10/02/21, this was first time he moved his bowels did have scant amount of coffee ground fluid in NGT this morning but was barely 100cc and nothing further NPO, Protonix drip stop Lovenox and aspirin give 2 units of PRBC since he was hypotensive with afib RVR, want to avoid heart strain his EF was 65% on echo so should do fine with volume, can give Lasix if needed H/H after PRBC transfusion (2) Acute blood loss anemia: Plan: Hb down to 9.6 from 11.8, was 13 on 09/30 give 2 units of PRBC follow H/H (3) Atrial fibrillation with rapid ventricular response: Plan: went into RVR 130-150's on 09/30 converted to sinus rhythm with Diltiazem drip increase Lopressor to 50mg BID, stopped Diltiazem Lovenox BID for full anticoagulation echo done, EF is 65% appreciate consult from Dr. Noland rapid response on 10/02, RVR in 160's and hypotensive after large bloody BM required cardioversion x 3, finally converted to NSR in 80's Amiodarone 150mg IV bolus and drip initiated during ACLS protocol (4) Angioedema of tongue: Plan: Likely secondary to recently increased dose of lisinopril No NSAID use reportedly and no other signs of anaphylaxis to suggest allergic reaction C4 level is normal/high which rules out hereditary angioedema Intubated for airway protection due to extremely large tongue. 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 Pulmonology recommends follow-up with cook jelly as an outpatient after discharge failed bedside swallow, strict NPO still (5) COVID-19: Plan: Was asymptomatic other than angioedema at the time of presentation Oxygenating well Keep on Covid airborne precautions continue dexamethasone and Remdesivir as he is on oxygen was breathing well on room air this morning, now on 5L after ACLS, could be hypoventilation from Versed given for cardioversion (6) Hyperlipidemia: Plan: hold atorvastatin (7) Hypertension: Plan: Discontinue lisinopril stop Clonidine patch for possible allergic reaction hold metoprolol due to hypotension hold Norvasc due to hypotension Plan: DVT prophylaxis: hold now with bleeding, order SCD Admission and Anticipated Discharge Date Admission Date: September 24, 2021 Subjective patient pulled out NGT again last night, had some bright red blood and some reported coffee ground drainage from NGT when placed again Hb was 11.8, down from 12.8 yesterday but Hb was 11.5 on admission no melena reported, when NGT was placed to suction it hardly had any drainage initially held Lovenox and aspirin, had GI evaluated, felt likely to be some bleeding from repeated trauma of pulling 3 NG tubes patient did not have any abdominal pain, kept asking for ice, he was on room air, wanted to go home to take a bath because he felt so good around 14:40 patient was on the toilet, had a very large bloody BM with clots and immediately lost consciousness code blue was called, lifted patient back into bed, he opened his eyes and was talking to me, thus he never lost pulse he was in afib with RVR 150-160s, hypotensive 1L NSS bolus, Amiodarone 150mg bolus and drip, Versed 2mg IV cardioverted 3 times, first 2 attempts with 150J and last attempt with 200J which was successful Hb dropped to 9.6 from 11.8, Cr up to 1.8, BUN jumped to 76 start on Protonix drip, Lovenox and aspirin will be on hold Review of Systems Review of Systems: All systems reviewed & are unremarkable except as noted in Subjective Constitutional: + fatigue; no fever Respiratory: no cough, no dyspnea and no dyspnea on exertion Cardiovascular: no chest pain and no edema Gastrointestinal: + diarrhea/loose stools and + melena; no abdominal pain, no nausea, no vomiting and no constipation Physical Exam Physical Exam: General: well developed, well nourished, ill appearing, weak EENT: far less swelling of lips and tongue, NGT in place Neck: supple, trachea midline, normal thyroid Lungs: clear to auscultation bilaterally, + tachypnea, no accessory muscle use, no distress Heart: regular S1 S2, no murmur, peripheral pulses weak but palpable, capillary refill normal, no edema Abdomen: soft, slightly distended, normoactive bowel sounds, tympanic to percusion Extremities: normal in appearance, no cyanosis, no petechiae, strength is 5/5 bilaterally Neuro: awake, cooperative, moves all extremities, no focal motor deficits, CN II-XII intact, sensation in extremities intact, normal speech Skin: warm, dry, no rash, normal turgor Psych: Awake, alert oriented x 3, agitated affect Results & Data Results & Data ([facility]) Vital Signs (Past 12 Hours) Vital Signs Temp Pulse Pulse Resp BP Pulse Ox 10/02/21 07:57 37.0 C 82 21 173/91 H 95 10/02/21 04:04 36.8 C 73 24 166/87 H 94 10/01/21 23:31 36.8 C 67 19 151/85 H 94 10/01/21 22:30 60 Laboratory Results Laboratory Results - last 24 hr 10/01/21 10/01/21 10/02/21 18:01 23:35 06:32 WBC RBC Hgb Hct MCV MCH MCHC RDW Std Deviation RDW Coeff of Jimbo Plt Count MPV Immature Gran % (Auto) Neut % (Auto) Lymph % (Auto) Drew % (Auto) Eos % (Auto) Baso % (Auto) Neut # (Auto) Lymph # (Auto) Drew # (Auto) Eos # (Auto) Baso # (Auto) Immature Gran # (Auto) Absolute Nucleated RBC Nucleated RBC % (auto) Sodium Potassium Chloride Carbon Dioxide Anion Gap BUN Creatinine Est Cr Clr Drug Dosing Est GFR ( Amer) Est GFR (Non-Af Amer) BUN/Creatinine Ratio Glucose POC Glucose 121 H 127 H 123 H Calcium Phosphorus Magnesium Total Bilirubin AST ALT Alkaline Phosphatase Troponin I Total Protein Albumin Globulin Albumin/Globulin Ratio Blood Type Antibody Screen Crossmatch 10/02/21 10/02/21 10/02/21 07:14 07:14 10:42 WBC 14.80 H RBC 3.91 L Hgb 11.8 L Hct 37.4 L MCV 95.7 MCH 30.2 MCHC 31.6 L RDW Std Deviation 47.4 H RDW Coeff of Jimbo 13.6 Plt Count 231 MPV 12.1 H Immature Gran % (Auto) 0.6 Neut % (Auto) 77.7 Lymph % (Auto) 11.8 Drew % (Auto) 9.8 Eos % (Auto) 0.0 Baso % (Auto) 0.1 Neut # (Auto) 11.50 H Lymph # (Auto) 1.75 Drew # (Auto) 1.45 H Eos # (Auto) 0.00 Baso # (Auto) 0.01 Immature Gran # (Auto) 0.09 H Absolute Nucleated RBC Nucleated RBC % (auto) Sodium 150 H Potassium 4.1 Chloride 117 H Carbon Dioxide 26 Anion Gap 7.0 BUN 64 H D Creatinine 1.43 H Est Cr Clr Drug Dosing 48.1 Est GFR ( Amer) 57.1 Est GFR (Non-Af Amer) 49.3 BUN/Creatinine Ratio 45.0 H Glucose 162 H POC Glucose Calcium 8.4 L Phosphorus 2.9 Magnesium 2.5 H Total Bilirubin AST ALT Alkaline Phosphatase Troponin I Total Protein Albumin Globulin Albumin/Globulin Ratio Blood Type Antibody Screen Crossmatch 10/02/21 10/02/21 10/02/21 11:52 14:40 14:40 WBC RBC Hgb Hct MCV MCH MCHC RDW Std Deviation RDW Coeff of Jimbo Plt Count MPV Immature Gran % (Auto) Neut % (Auto) Lymph % (Auto) Drew % (Auto) Eos % (Auto) Baso % (Auto) Neut # (Auto) Lymph # (Auto) Drew # (Auto) Eos # (Auto) Baso # (Auto) Immature Gran # (Auto) Absolute Nucleated RBC Nucleated RBC % (auto) Sodium 151 H Potassium 3.9 Chloride 117 H Carbon Dioxide 21 Anion Gap 13.0 H BUN 76 H Creatinine 1.81 H D Est Cr Clr Drug Dosing 38.0 Est GFR ( Amer) 42.9 Est GFR (Non-Af Amer) 37.1 BUN/Creatinine Ratio 41.7 H Glucose 207 H POC Glucose 156 H Calcium 8.8 Phosphorus Pending Magnesium 3.0 H Total Bilirubin 0.2 AST 29 ALT 56 Alkaline Phosphatase 61 Troponin I 0.020 Total Protein 6.0 L Albumin 2.2 L Globulin 3.8 Albumin/Globulin Ratio 0.6 L Blood Type Pending Antibody Screen Pending Crossmatch See Detail 10/02/21 14:40 WBC 16.25 H RBC 3.26 L Hgb 9.6 L Hct 31.3 L MCV 96.0 MCH 29.4 MCHC 30.7 L RDW Std Deviation 47.0 H RDW Coeff of Jimbo 13.3 Plt Count 271 MPV 12.3 H Immature Gran % (Auto) 1.0 Neut % (Auto) 74.7 Lymph % (Auto) 19.9 Drew % (Auto) 4.2 Eos % (Auto) 0.0 Baso % (Auto) 0.2 Neut # (Auto) 12.15 H Lymph # (Auto) 3.23 Drew # (Auto) 0.68 H Eos # (Auto) 0.00 Baso # (Auto) 0.03 Immature Gran # (Auto) 0.16 H Absolute Nucleated RBC 0.02 H Nucleated RBC % (auto) 0.1 Sodium Potassium Chloride Carbon Dioxide Anion Gap BUN Creatinine Est Cr Clr Drug Dosing Est GFR ( Amer) Est GFR (Non-Af Amer) BUN/Creatinine Ratio Glucose POC Glucose Calcium Phosphorus Magnesium Total Bilirubin AST ALT Alkaline Phosphatase Troponin I Total Protein Albumin Globulin Albumin/Globulin Ratio Blood Type Antibody Screen Crossmatch Medications Administered Current Inpatient Medications Amlodipine Besylate (Amlodipine Besylate 5 Mg Tab) 5 mg PO NOW ONE Stop: 10/02/21 09:57 Amlodipine Besylate (Amlodipine Besylate 5 Mg Tab) 10 mg PO QAM [facility] Stop: 11/02/21 08:59 Aspirin (Aspirin 81 Mg Chew) 81 mg PO DAILY [facility] Stop: 10/25/21 11:59 Last Admin: 10/02/21 08:05 Dose: Not Given Documented by: Atorvastatin Calcium (Atorvastatin 10 Mg Tab) 10 mg PO DAILY [facility] Stop: 10/25/21 08:59 Last Admin: 10/02/21 08:08 Dose: 10 mg Documented by: Clonidine HCl (Clonidine Hcl 0.3 Mg/24 Hr Transderm Sys) 1 patch TD Sa@1130 [facility] Stop: 10/29/21 11:29 Last Admin: 09/29/21 12:28 Dose: 1 patch Documented by: Dextrose (Dextrose 50% 50 Ml Syringe) 25 - 50 ml IV UD PRN; Protocol PRN Reason: Hypoglycemia Protocol Stop: 10/28/21 15:44 Enoxaparin Sodium (Enoxaparin 100 Mg/1ml Syr) 90 mg SQ Q12 [facility] Stop: 10/31/21 10:29 Last Admin: 10/02/21 08:05 Dose: Not Given Documented by: Enteral Nutritional Formula (Impact Liqd 1.0 Adolfo 1,000 Ml Bag) 1,000 ml NG Q24H ANGELA; Protocol Stop: 10/31/21 14:59 Last Admin: 10/01/21 16:24 Dose: 1,000 ml Documented by: Glucagon (Glucagon For Inj 1 Mg Vial) 1 mg IM UD PRN; Protocol PRN Reason: Hypoglycemia Protocol Stop: 10/28/21 15:44 Glucose (Glucose 40% Gel 15 Gm Tube) 15 - 30 gm PO UD PRN; Protocol PRN Reason: Hypoglycemia Protocol Stop: 10/28/21 15:44 Glucose (Glucose 10 Tabs/Tube) 4 - 8 tabs PO UD PRN; Protocol PRN Reason: Hypoglycemia Protocol Stop: 10/28/21 15:44 Hydralazine HCl (Hydralazine Hcl 20 Mg/Ml Vial) 10 mg IV Q4 PRN PRN Reason: hypertension, SBP > 160 Stop: 10/27/21 15:48 Last Admin: 09/28/21 22:57 Dose: 10 mg Documented by: Ceftriaxone Sodium 2,000 mg/ (Dextrose) 70 mls @ 100 mls/hr IV DAILY@1200 ANGELA; Protocol Stop: 10/03/21 12:41 Last Infusion: 10/01/21 14:35 Dose: Infused Documented by: Dexamethasone 6 mg/ Syringe 1.5 mls @ 1 mls/min IV DAILY [facility] Stop: 10/29/21 23:29 Last Admin: 10/02/21 08:06 Dose: 1 mls/min Documented by: Remdesivir 100 mg/ Sodium (Chloride) 250 mls @ 250 mls/hr IV Q24H [facility]; Protocol Stop: 10/03/21 20:59 Last Infusion: 10/01/21 21:51 Dose: Infused Documented by: Pantoprazole Sodium 40 mg/ (Syringe) 10 mls @ 5 mls/min IV BID [facility] Stop: 11/01/21 08:59 Insulin Aspart (Insulin Aspart Per Unit) 0 units SC Q6 [facility] Stop: 10/28/21 11:59 Last Admin: 10/02/21 06:40 Dose: Not Given Documented by: Metoprolol Tartrate (Metoprolol Tartrate 50 Mg Tab) 50 mg PO BID [facility] Stop: 10/31/21 20:59 Last Admin: 10/02/21 08:07 Dose: 50 mg Documented by: Miscellaneous (Carbohydrates For Hypoglycemia ) 15 - 30 gm PO UD PRN PRN Reason: Hypoglycemia Treatment Stop: 10/28/21 15:44 Miscellaneous (Remove Clonidine Patch) 1 ea N/A Sa@1129 [facility] Stop: 10/29/21 11:28 Last Admin: 09/29/21 12:30 Dose: 1 ea Documented by: Miscellaneous (Check Clonidine Patch Placement) 1 ea N/A QS [facility] Stop: 10/29/21 15:59 Last Admin: 10/02/21 08:08 Dose: 1 ea Documented by: Miscellaneous (Remove Nicoderm Patch) 1 ea N/A DAILY@0859 [facility] Stop: 10/30/21 08:58 Last Admin: 10/02/21 08:08 Dose: 1 ea Documented by: Nicotine (Nicotine 7 Mg/24 Hr Tdsy) 7 mg TD QAM [facility] Stop: 10/29/21 13:44 Last Admin: 10/02/21 08:07 Dose: 7 mg Documented by: Ondansetron HCl (Ondansetron Inj 2 Mg/Ml 2 Ml Vial) 4 mg IV Q4H PRN PRN Reason: Nausea Stop: 10/28/21 14:09 Last Admin: 09/29/21 03:18 Dose: 4 mg Documented by: Sodium Chloride (Sodium Chloride 0.9% 10ml Flush) 30 ml IV Q24H [facility] Stop: 10/03/21 23:16 Last Admin: 10/01/21 22:13 Dose: 30 ml Documented by: Sterile Water (Tube Feeding Water Flush) 250 ml NG Q6H [facility] Stop: 10/31/21 14:59 Last Admin: 10/02/21 08:08 Dose: 250 ml Documented by: PG Care Time/CCT Total # of Minutes Spent Total Time Spent: 65 Total Time Spent with Patient: Total time spent is greater than 50% in coordination of care (as documented) at patient's floor/unit and/or counseling patient: 45 minutes spent on ACLS, rapid response with afib RVR 20 minutes spent earlier in the day on initial visit, documentation, talking with GI and cardiology Prolonged Care Time Prolonged Care Time: Yes Total Prolonged Care Time: 35 65 Coding Level of Care Code 21064 Subseq Hosp Care Lvl 3 (25 - SIGNIFICANT, SEPARATELY IDENTIFIABLE ) Diagnoses Angioedema of tongue T78.3XXA Atrial fibrillation with rapid ventricular response I48.91 COVID-19 U07.1 Hyperlipidemia E78.5 Hypertension I10 Hypertension type: essential hypertension GI bleed K92.2 Acute blood loss anemia D62 Additional Codes Prolonged Care Time - Prolonged Care Time: Yes ([id number]) (1) Hypertension Hypertension type: essential hypertension Qualified Code(s): I10 - Essential (primary) hypertension
--- NOTE | 2021-10-02 10:03 | Communication Note ---
Date of Service: October 02, 2021 Patient is a 71 yo male with COVID19 and angioedema who is currently hospitalized at [facility]. GI was consulted for GI bleeding. Per Dr. Alamo's discussion with nursing staff, patient reportedly has had an NG tube for 2 days and was noted to have coffee-ground colored blood from NG tube in small quantities. Patient's H/H is 11.8/37.4. Patient is on Protonix 40 mg IV BID. Patient has afib and Eliquis was recommended per cardiology. Documentation of brown, formed stool is noted in the chart from 10/01/21. Patient is hemodynamically stable. Suspect blood noted is likely from NG trauma. Given overall clinical picture, no acute GI intervention is recommended at present. Will continue to monitor for ongoing gross GI bleeding. Continue to monitor H/H. Given lack of value of physical exam in this particular clinical situation, patient's evaluation was performed utilizing chart review to minimize provider exposure to COVID19. attending addendum: I agree with the findings as documented by BERYL Saenz continue PPI BID.
[2021-10-02 11:25] LABS: Calcium 8.4 mg/dl (8.5-10.1); Creatinine Clr Calc Pharmacy 48.1 ml/min; Est GFR (African American) 57.1 ml/min; Est GFR (Non-African American) 49.3 ml/min; Potassium 4.1 mmol/L (3.5-5.1)
[2021-10-02] MEDS: cefTRIAXone SODIUM 2,000 MG in DEXTROSE 5% 50 ML IV SCH (12:18)
[2021-10-02] MEDS: IMPACT LIQD 1.0 CAL 1,000 ML BAG NG SCH (14:15)
[2021-10-02] MEDS ORDERED: SODIUM CHLORIDE 0.9% 1000ML 1,000 ML IV ONE ×2 (14:39→14:54)
[2021-10-02] MEDS ORDERED: 0.2 MICRON FILTER SET 1 EA IV ONE (14:42)
[2021-10-02] MEDS ORDERED: AMIODARONE IV BOLUS & DRIP IV STA (14:42)
[2021-10-02] MEDS ORDERED: STAT IV Infusion **Titration per Protocol STA ×2 (14:42→14:50)
[2021-10-02] MEDS ORDERED: AMIODARONE / D5W 150 MG/100 ML BAG IV STA (14:42)
[2021-10-02] MEDS ORDERED: MIDAZOLAM HCL 1 MG/ML 2ML VIAL IV STA (14:43)
[2021-10-02] MEDS ORDERED: SODIUM CHLORIDE 0.9% 250 ML IV PRN ×3 (14:43→16:41)
[2021-10-02] MEDS ORDERED: AMIODARONE 150MG / 100ML D5W IV ONE (14:47)
[2021-10-02] MEDS ORDERED: AMIODARONE 360MG / 200ML D5W IV ONE (14:48)
[2021-10-02] MEDS ORDERED: AMIODARONE / D5W 360 MG/200 ML BAG IV ONE (14:52)
[2021-10-02 15:06] LABS: Basophils # (auto) 0.03 K/uL (0-0.2); Basophils % (auto) 0.2 %; Hematocrit (blood only) 31.3 % (42-52); Hemoglobin 9.6 g/dL (14.0-18.0); Immature Granulocytes # (auto) 0.16 K/uL (0.00-0.02); Lymphocytes # (auto) 3.23 K/uL (1.2-3.4); Lymphocytes % (auto) 19.9 %; Mean Corpuscular Hemoglobin 29.4 pg (25-34); Mean Platelet Volume 12.3 fL (7.4-10.4); Monocytes # (auto) 0.68 K/uL (0.11-0.59); Monocytes % (auto) 4.2 %; Neutrophils # (auto) 12.15 K/uL (1.4-6.5); Neutrophils % (auto) 74.7 %; Nucleated RBC # (auto) 0.02 K/uL (0-0); Nucleated RBC % (auto) 0.1 %; Platelet Count 271 K/uL (130-400); RDW Coefficient of Variation 13.3 % (11.5-14.5); Red Blood Count 3.26 M/uL (4.7-6.1); White Blood Count 16.25 K/uL (4.8-10.8)
[2021-10-02 15:07] LABS: Mean Corpuscular Hgb Conc 30.7 g/dL (32-36)
[2021-10-02 15:23] LABS: Albumin Level 2.2 gm/dl (3.4-5.0); BUN Creatinine Ratio 41.7 (10-20); Calcium 8.8 mg/dl (8.5-10.1); Est GFR (African American) 42.9 ml/min; Est GFR (Non-African American) 37.1 ml/min; Potassium 3.9 mmol/L (3.5-5.1)
[2021-10-02 15:30] LABS: Albumin Globulin Ratio 0.6 (0.9-2); Bilirubin,Total 0.2 mg/dl (0.2-1); Globulin 3.8 gm/dl (2.5-4.0); Troponin I 0.02 ng/ml (0-0.045)
--- NOTE | 2021-10-02 16:27 | Cardiology Progress Note ---
Date of Service October 02, 2021 Assessment & Plan (1) Paroxysmal atrial fibrillation: (2) Hemorrhagic shock: (3) GI bleed: (4) Acute blood loss anemia: (5) Hypertension: (6) Tobacco abuse: Plan: ASSESSMENT/PLAN: 1. Paroxysmal AFib: AFib with RVR recurred today after large bloody bowel movement. Underwent cardioversion emergently as he was hypotensive/unstable. Now on amiodarone drip. Reverted once again to AFib but heart rates 110-120, which should not significantly contribute to hypotension. Continue amiodarone drip. Anticoagulation therapy is contraindicated currently. If heart rate becomes more elevated, would consider Re bolus amiodarone 150 mg IV x1. If unstable, and significantly tachycardic, may require cardioversion, but not currently the case. Some degree of tachycardia is not unexpected due to hemorrhagic shock in the setting of profound GI bleed. Family updated, include his daughter, Angelia, who is a CCU nurse at another facility. 2. Hemorrhagic shock/GI bleed/acute blood loss anemia: Significant GI bleed. Apparently had coffee-ground emesis earlier today followed by hematochezia/melanotic stool this afternoon. GI has already been consulted by primary hospitalist service. Avoid anticoagulation therapy. PRBC is pending. As per GI and primary hospitalist service/critical care team. 3. Hypertension: History of hypertension. Currently mildly hypotensive with systolic pressure in the upper 90s. All antihypertensive agents have been held given acute GI bleed. Lisinopril discontinued for angioedema. 4. Tobacco abuse: Smoking cessation. 5. Disposition: Cardiology will continue to follow along. Patient care communicated with nursing staff and primary hospitalist, Dr. Jiménez. Family updated via telephone. 42 minutes critical care time, including time at the bedside, reviewing telemetry, coordinating care with staff/hospitalist service, and updating family via telephone. Admission and Anticipated Discharge Date Admission Date: September 24, 2021 Subjective Code blue was called earlier today. He did not actually code. Discussed with Dr. Jiménez and also nursing staff who were present in the room. He needed to have a bowel movement and was helped to the commode. He then had a large bloody bowel movement. He apparently lost consciousness for a brief moment and was placed back in bed. When back in bed it was noted that he was in AFib with RVR with heart rates in the 160s and did not have a recordable blood pressure initially. When blood pressure was able to be obtained, he was profoundly hypotensive per nursing staff. He was given IV fluid boluses. He was cardioverted. When reviewing telemetry, he regained sinus rhythm for a brief period of time before reverting to AFib. He was cardioverted again. Amiodarone bolus was given. He remained in sinus rhythm. When I came to the bedside, he had just completed another bloody bowel movement in the bed jones. He had no particular complaints other than he was trying to remove his blood pressure cuff. Nursing staff reports that he has been delirious. He denies chest pain, abdominal pain, shortness of breath, or palpitations. He was in sinus rhythm on telemetry. After I exited the room, I once again glance that telemetry and he had reverted to AFib with RVR but heart rates were 110-120. Systolic blood pressure was 89 mmHg. Review of systems: As above. Physical Exam Physical Exam: Gen.: No acute distress. Alert. Confused. HEENT: Anicteric sclera. Neck: No JVD. Cardiac: PMI was nondisplaced. No ventricular heave. Regular. Normal S1-S2. 1/6 systolic murmur. No rubs or gallops. Pulmonary: Clear to auscultation bilaterally without wheezes, rales, or rhonchi. Abdomen: Soft, nontender, nondistended, with normoactive bowel sounds. No bruits noted. Extremities: 2+ radial pulses bilaterally. 2+ posterior tibialis pulses bilaterally. No edema or cyanosis. Results & Data ([facility]) Vital Signs (Past 12 Hours) Vital Signs Temp Pulse Pulse Resp BP Pulse Ox 10/02/21 11:52 36.8 C 97 H 20 112/61 93 10/02/21 08:00 79 10/02/21 07:57 37.0 C 82 21 173/91 H 95 Laboratory Results Laboratory Results - last 24 hr 10/01/21 10/01/21 10/02/21 18:01 23:35 06:32 WBC RBC Hgb Hct MCV MCH MCHC RDW Std Deviation RDW Coeff of Jimbo Plt Count MPV Immature Gran % (Auto) Neut % (Auto) Lymph % (Auto) Bowman % (Auto) Eos % (Auto) Baso % (Auto) Neut # (Auto) Lymph # (Auto) Bowman # (Auto) Eos # (Auto) Baso # (Auto) Immature Gran # (Auto) Absolute Nucleated RBC Nucleated RBC % (auto) Sodium Potassium Chloride Carbon Dioxide Anion Gap BUN Creatinine Est Cr Clr Drug Dosing Est GFR ( Amer) Est GFR (Non-Af Amer) BUN/Creatinine Ratio Glucose POC Glucose 121 H 127 H 123 H Calcium Phosphorus Magnesium Total Bilirubin AST ALT Alkaline Phosphatase Troponin I Total Protein Albumin Globulin Albumin/Globulin Ratio Blood Type Antibody Screen Crossmatch 10/02/21 10/02/21 10/02/21 07:14 07:14 10:42 WBC 14.80 H RBC 3.91 L Hgb 11.8 L Hct 37.4 L MCV 95.7 MCH 30.2 MCHC 31.6 L RDW Std Deviation 47.4 H RDW Coeff of Jimbo 13.6 Plt Count 231 MPV 12.1 H Immature Gran % (Auto) 0.6 Neut % (Auto) 77.7 Lymph % (Auto) 11.8 Bowman % (Auto) 9.8 Eos % (Auto) 0.0 Baso % (Auto) 0.1 Neut # (Auto) 11.50 H Lymph # (Auto) 1.75 Bowman # (Auto) 1.45 H Eos # (Auto) 0.00 Baso # (Auto) 0.01 Immature Gran # (Auto) 0.09 H Absolute Nucleated RBC Nucleated RBC % (auto) Sodium 150 H Potassium 4.1 Chloride 117 H Carbon Dioxide 26 Anion Gap 7.0 BUN 64 H D Creatinine 1.43 H Est Cr Clr Drug Dosing 48.1 Est GFR ( Amer) 57.1 Est GFR (Non-Af Amer) 49.3 BUN/Creatinine Ratio 45.0 H Glucose 162 H POC Glucose Calcium 8.4 L Phosphorus 2.9 Magnesium 2.5 H Total Bilirubin AST ALT Alkaline Phosphatase Troponin I Total Protein Albumin Globulin Albumin/Globulin Ratio Blood Type Antibody Screen Crossmatch 10/02/21 10/02/21 10/02/21 11:52 14:40 14:40 WBC RBC Hgb Hct MCV MCH MCHC RDW Std Deviation RDW Coeff of Jimbo Plt Count MPV Immature Gran % (Auto) Neut % (Auto) Lymph % (Auto) Bowman % (Auto) Eos % (Auto) Baso % (Auto) Neut # (Auto) Lymph # (Auto) Bowman # (Auto) Eos # (Auto) Baso # (Auto) Immature Gran # (Auto) Absolute Nucleated RBC Nucleated RBC % (auto) Sodium 151 H Potassium 3.9 Chloride 117 H Carbon Dioxide 21 Anion Gap 13.0 H BUN 76 H Creatinine 1.81 H D Est Cr Clr Drug Dosing 38.0 Est GFR ( Amer) 42.9 Est GFR (Non-Af Amer) 37.1 BUN/Creatinine Ratio 41.7 H Glucose 207 H POC Glucose 156 H Calcium 8.8 Phosphorus Pending Magnesium 3.0 H Total Bilirubin 0.2 AST 29 ALT 56 Alkaline Phosphatase 61 Troponin I 0.020 Total Protein 6.0 L Albumin 2.2 L Globulin 3.8 Albumin/Globulin Ratio 0.6 L Blood Type B Positive Antibody Screen NEGATIVE Crossmatch See Detail 10/02/21 14:40 WBC 16.25 H RBC 3.26 L Hgb 9.6 L Hct 31.3 L MCV 96.0 MCH 29.4 MCHC 30.7 L RDW Std Deviation 47.0 H RDW Coeff of Jimbo 13.3 Plt Count 271 MPV 12.3 H Immature Gran % (Auto) 1.0 Neut % (Auto) 74.7 Lymph % (Auto) 19.9 Bowman % (Auto) 4.2 Eos % (Auto) 0.0 Baso % (Auto) 0.2 Neut # (Auto) 12.15 H Lymph # (Auto) 3.23 Bowman # (Auto) 0.68 H Eos # (Auto) 0.00 Baso # (Auto) 0.03 Immature Gran # (Auto) 0.16 H Absolute Nucleated RBC 0.02 H Nucleated RBC % (auto) 0.1 Sodium Potassium Chloride Carbon Dioxide Anion Gap BUN Creatinine Est Cr Clr Drug Dosing Est GFR ( Amer) Est GFR (Non-Af Amer) BUN/Creatinine Ratio Glucose POC Glucose Calcium Phosphorus Magnesium Total Bilirubin AST ALT Alkaline Phosphatase Troponin I Total Protein Albumin Globulin Albumin/Globulin Ratio Blood Type Antibody Screen Crossmatch Diagnostic Findings Telemetry personally reviewed: Paroxysmal atrial fibrillation with rapid ventricular response. Otherwise, sinus rhythm. ECG personally reviewed: ECG 10/02/2021 at 2:41 p.m.: Sinus rhythm 86 beats per minute. Inferolateral ST/T-wave abnormality. Inferolateral ST/T-wave abnormality more pronounced compared to 10/01/2021 at 9:08 p.m. Medications Administered Current Inpatient Medications Dextrose (Dextrose 50% 50 Ml Syringe) 25 - 50 ml IV UD PRN; Protocol PRN Reason: Hypoglycemia Protocol Stop: 10/28/21 15:44 Glucagon (Glucagon For Inj 1 Mg Vial) 1 mg IM UD PRN; Protocol PRN Reason: Hypoglycemia Protocol Stop: 10/28/21 15:44 Glucose (Glucose 40% Gel 15 Gm Tube) 15 - 30 gm PO UD PRN; Protocol PRN Reason: Hypoglycemia Protocol Stop: 10/28/21 15:44 Glucose (Glucose 10 Tabs/Tube) 4 - 8 tabs PO UD PRN; Protocol PRN Reason: Hypoglycemia Protocol Stop: 10/28/21 15:44 Ceftriaxone Sodium 2,000 mg/ (Dextrose) 70 mls @ 100 mls/hr IV DAILY@1200 ANGELA; Protocol Stop: 10/03/21 12:41 Last Infusion: 10/02/21 13:56 Dose: Infused Documented by: Dexamethasone 6 mg/ Syringe 1.5 mls @ 1 mls/min IV DAILY ANGELA Stop: 10/29/21 23:29 Last Admin: 10/02/21 08:06 Dose: 1 mls/min Documented by: Remdesivir 100 mg/ Sodium (Chloride) 250 mls @ 250 mls/hr IV Q24H ANGELA; Protocol Stop: 10/03/21 20:59 Last Infusion: 10/01/21 21:51 Dose: Infused Documented by: Amiodarone HCl/Dextrose (Nexterone / D5w) 360 mg in 200 mls @ 33.333 mls/hr IV ONE ONE Stop: 10/02/21 20:51 Last Admin: 10/02/21 16:21 Dose: 33.3 mls/hr Documented by: Amiodarone HCl/Dextrose (Nexterone / D5w) 360 mg in 200 mls @ 16.667 mls/hr IV .Q12H ANGELA Stop: 11/01/21 20:44 Sodium Chloride (Nss) 250 mls @ 15 mls/hr IV .[id number] PRN PRN Reason: For Transfusion Stop: 10/03/21 00:44 Sodium Chloride (Nss) 250 mls @ 15 mls/hr IV .[id number] PRN PRN Reason: For Transfusion Stop: 10/03/21 00:50 Phenylephrine HCl 20 mg/ (Dextrose) 502 mls @ 37.906 mls/hr IV .[id number] [facility]; Protocol Stop: 11/01/21 14:59 Pantoprazole Sodium 40 mg/ (Dextrose) 100 mls @ 20 mls/hr IV Q5H [facility] Stop: 11/01/21 15:59 Dextrose (D5w) 1,000 mls @ 80 mls/hr IV .[id number] [facility] Stop: 11/01/21 16:29 Insulin Aspart (Insulin Aspart Per Unit) 0 units SC Q6 [facility] Stop: 10/28/21 11:59 Last Admin: 10/02/21 12:20 Dose: Not Given Documented by: Miscellaneous (Carbohydrates For Hypoglycemia ) 15 - 30 gm PO UD PRN PRN Reason: Hypoglycemia Treatment Stop: 10/28/21 15:44 Miscellaneous (Remove Nicoderm Patch) 1 ea N/A DAILY@0859 [facility] Stop: 10/30/21 08:58 Last Admin: 10/02/21 08:08 Dose: 1 ea Documented by: Nicotine (Nicotine 7 Mg/24 Hr Tdsy) 7 mg TD QAM [facility] Stop: 10/29/21 13:44 Last Admin: 10/02/21 08:07 Dose: 7 mg Documented by: Ondansetron HCl (Ondansetron Inj 2 Mg/Ml 2 Ml Vial) 4 mg IV Q4H PRN PRN Reason: Nausea Stop: 10/28/21 14:09 Last Admin: 09/29/21 03:18 Dose: 4 mg Documented by: Sodium Chloride (Sodium Chloride 0.9% 10ml Flush) 30 ml IV Q24H [facility] Stop: 10/03/21 23:16 Last Admin: 10/01/21 22:13 Dose: 30 ml Documented by: PG Care Time/CCT Total # of Minutes Spent Total Time Spent with Patient: Total time spent is greater than 50% in coordination of care (as documented) at patient's floor/unit and/or counseling patient: Critical Care Time: Yes Total Critical Care Time: 42 Coding Level of Care Code None Diagnoses Paroxysmal atrial fibrillation I48.0 Hypertension I10 Hypertension type: essential hypertension Tobacco abuse Z72.0 GI bleed K92.2 Acute blood loss anemia D62 Hemorrhagic shock R57.8 Additional Codes Critical Care Time - Critical Care Time: Yes ([id number]) Time Spent (min) 42 (1) Hypertension Hypertension type: essential hypertension Qualified Code(s): I10 - Essential (primary) hypertension
[2021-10-02 16:42] LABS: Phosphorus 4.5 mg/dl (2.5-4.9)
[2021-10-02] MEDS ORDERED: OCTREOTIDE ACETATE 100 MCG in SYRINGE 9 ML IV ONE (17:00)
[2021-10-02] MEDS: PANTOprazole 40 MG in DEXTROSE 5% 100 ML IV SCH ×2 (17:13→23:03)
--- NOTE | 2021-10-02 17:44 | Critical Care Progress Note ---
Date of Service October 02, 2021 Assessment & Plan (1) Angioedema of tongue: (2) COVID-19: (3) Tobacco abuse: Plan: Impression: 71-year-old male with no history of trauma or sting. Patient presents with severe angioedema of the tongue. Suspected to be from increased dose of lisinopril. Patient denies any prior history to LARS inhibitor allergies or history of angioedema. Drug allergies include penicillin. Patient not subjected to penicillin recently. 24-hour events: In the afternoon patient had a vasovagal syncope and he lost pulse for a brief moment CODE BLUE was called. Recommendations: --Hemorrhagic shock Likely from GI bleed Patient has been started on Protonix drip Continue to monitor H&H. Keep the MAP greater than 65 GI has been consulted --A. fib with RVR S/p cardioversion x3 Continue with amiodarone drip Hold all beta-blockers given initial hypotension --Acute hypoxic respiratory failure Possible aspiration event on top of COPD Patient also has Covid-19 Continue with O2 supplementation to keep oxygen saturation between 90-92% Continue with incentive spirometry S/p remdesivir -- BELIA Likely from hypotensive episode Monitor BUN/creatinine Avoid nephrotoxic medications Strict ins and outs --Hypernatremia Sodium is 151 We will start the patient on D5 water at 100 mL an hour for 1.5 L Plan: There has been drop in hemoglobin. Patient is also started to drain coffee- ground from the NGT Patient was on dexamethasone as well as therapeutic Lovenox Possibility of upper GI bleed is there GI has been consulted Continue with Protonix drip Patient will be getting 2 units of PRBC. 2 units of FFP. I do not think there is any indication for Kcentra right now given the patient has hemodynamically stabilized For hyponatremia we will start the patient on D5 water 100 ml/hour I have personally spent 63 minutes of critical care time in the direct management of this patient. This is a life/limb threatening event. This includes time spent evaluating patient, direct bedside care, chart review, placing orders, interpretation of diagnostic studies, discussion with consultants, patient, and family members, as well as other required patient management activities. This time is exclusive of all separately billable procedures, and teaching time and separate from and in addition to any other critical care service time. Please note the above document was generated using voice recognition software. It may contain grammatical, syntax or spelling errors. Admission and Anticipated Discharge Date Admission Date: September 24, 2021 Subjective Patient is known to our service from before. He came into the hospital with angioedema. Patient developed A. fib with RVR while in the hospital He was on therapeutic Lovenox While he was on the commode patient had vasovagal which resulted into syncopal episode. It was brief and there was pulse appreciated but it was febrile. Patient went into A. fib with RVR at that time. He was cardioverted with 150 J x 2 followed by 200 J x 1 after being given 2 mg of midazolam. --> EKG post cardioversion showed sinus rhythm with no ST-T wave changes He also got 150 mg of amiodarone followed by drip Melanotic stools were appreciated in the commode. Patient was given 2 L of bolus. Blood pressure was systolic in the 100s with map in the 70s before I left. Patient saturation was 99-100% Dr. Jiménez was there to assist all throughout Review of Systems Review of Systems: Unobtainable due to reduced consciousness Physical Exam Physical Exam: Constitutional: No acute distress HEENT: EOMI, PERRLA, positive NGT Respiratory system: Decreased air entry bilaterally, no wheeze, no rhonchi, positive crackles bilateral lower lobes CVS: S1-S2 positive, no murmurs or gallops Abdomen: Soft, nontender, nondistended, positive bowel sounds x4 Extremities: +2 pulses bilaterally radialis/ dorsalis pedis, no cyanosis, no edema Neuro: Awake alert oriented to self Psych: Unable to assess G/U: No Barber Skin: no rashes, warm and dry Lymphatic: no cervical or axillary lymphadenopathy Results & Data Results & Data ([facility]) Vital Signs (Past 12 Hours) Vital Signs Temp Pulse Pulse Resp BP BP Pulse Ox 10/02/21 17:10 36.6 C 118 H 18 110/77 98 10/02/21 16:35 36.6 C 122 H 18 99/41 L 100 10/02/21 11:52 36.8 C 97 H 20 112/61 93 10/02/21 08:00 79 10/02/21 07:57 37.0 C 82 21 173/91 H 95 10/02/21 14:40 10/02/21 14:40 Coding Level of Care Code Critical Care 1st 30-74 mins Diagnoses Angioedema of tongue T78.3XXA COVID-19 U07.1 Tobacco abuse Z72.0 Time Spent (min) 63
[2021-10-02] MEDS ORDERED: DEXTROSE 5% 1,000 ML IV SCH (17:45)
[2021-10-02] MEDS: DEXTROSE 5% 1,000 ML IV SCH (18:03)
[2021-10-02] MEDS: PHENYLEPHRINE HCL 20 MG in DEXTROSE 5% 500 ML IV SCH (18:48)
[2021-10-02] MEDS: OCTREOTIDE ACETATE 500 MCG in 0.9 % SODIUM CHLORIDE 100 ML IV SCH (19:49)
[2021-10-02] MEDS: AMIODARONE / D5W 360 MG/200 ML BAG IV SCH (20:56)
--- NOTE | 2021-10-02 21:52 | Electrocardiogram Report ---
Test Reason : Blood Pressure : / mmHG Vent. Rate : 145 BPM Atrial Rate : 127 BPM P-R Int : 000 ms QRS Dur : 074 ms QT Int : 282 ms P-R-T Axes : 000 045 253 degrees QTc Int : 438 ms Atrial fibrillation with rapid ventricular response Abnormal ECG When compared with ECG of 07-JUN-2011 23:27, Atrial fibrillation has replaced Sinus rhythm HR has increased by 87 bpm Confirmed by Stefan Noland ([id number]) on 10/02/2021 9:52:30 PM Referred By: REFERRED SELF Confirmed By:Stefan Noland
[2021-10-02] MEDS: REMDESIVIR 100 MG in SODIUM CHLORIDE 0.9% 230 ML IV SCH (21:58)
[2021-10-02 22:02] LABS: Hematocrit (blood only) 28.7 % (42-52); Hemoglobin 9.4 g/dL (14.0-18.0)
[2021-10-02 22:07] LABS: Fibrinogen 299 mg/dl (184-400); INR 1.3 (0.9-1.1); Partial Thromboplastin Ratio 0.9; Partial Thromboplastin Time 23.4 Seconds (21.0-31.0)
[2021-10-02] MEDS: SODIUM CHLORIDE 0.9% 10ML FLUSH IV SCH (22:58)
[2021-10-03] MEDS: PANTOprazole 40 MG in DEXTROSE 5% 100 ML IV SCH ×3 (00:23→09:53)
[2021-10-03] MEDS: INSULIN ASPART PER UNIT SC SCH ×4 (00:49→17:46)
[2021-10-03 01:41] LABS: Hematocrit (blood only) 29.5 % (42-52); Hemoglobin 9.7 g/dL (14.0-18.0); Mean Corpuscular Hemoglobin 30.4 pg (25-34); Mean Corpuscular Hgb Conc 32.9 g/dL (32-36); Mean Corpuscular Volume 92.5 fL (80-100); Mean Platelet Volume 12.4 fL (7.4-10.4); Platelet Count 154 K/uL (130-400); RDW Coefficient of Variation 14.6 % (11.5-14.5); RDW Standard Deviation 49.3 fL (36.4-46.3); Red Blood Count 3.19 M/uL (4.7-6.1); White Blood Count 13.88 K/uL (4.8-10.8)
[2021-10-03 02:13] LABS: Polychromasia 1+
[2021-10-03 02:15] LABS: ALC (manual) 3.47 K/uL (1.2-3.4); ANC (manual) 9.72 K/uL (1.4-6.5); Lymphocytes # (manual) 3.47 K/uL (1.2-3.4); Monocytes # (manual) 0.69 K/uL (0.11-0.59); Neutrophils # (manual) 9.72 K/uL (1.4-6.5)
[2021-10-03] MEDS: OCTREOTIDE ACETATE 500 MCG in 0.9 % SODIUM CHLORIDE 100 ML IV SCH (04:26)
[2021-10-03] MEDS: PHENYLEPHRINE HCL 20 MG in DEXTROSE 5% 500 ML IV SCH (04:29)
[2021-10-03] MEDS: DEXTROSE 5% 1,000 ML IV SCH (06:40)
--- NOTE | 2021-10-03 07:48 | Anesthesiology Consultation ---
Date of Service October 03, 2021 Assessment & Plan (1) Encounter for pre-operative examination: Chart Review Chart Review: Acceptable Risk for Surgery and Patient NOT seen in Pre Admission Testing Consults Requested none Additional Notes COVID +, recent history of Afib with RVR requiring urgent cardioversion. P revious angioedema requiring intubation, has since extubated on 5L NC. History Surgery Operation Date: 10/03/21 08:30 Proposed Procedures p Esophagogastroduodenoscopy - Tj Alamo MD Height/Weight Height: 5 ft 9 in Weight: 82.6 kg Allergies Allergy/AdvReac Type Severity Reaction Status Date / Time LARS Inhibitors Allergy Severe Severe Verified 09/24/21 14:31 angioedema Penicillins Allergy Intermediate hives Verified 06/28/21 10:48 Medications Home Medications Medication Instructions Recorded Confirmed Last Taken aspirin 81 mg tablet,delayed 81 mg PO DAILY tab 03/24/19 09/24/21 09/24/21 release coenzyme Q10 100 mg capsule 100 mg PO DAILY cap 03/24/19 09/24/21 09/24/21 omega-3 acid ethyl esters 1 gram 2 cap PO DAILY cap 03/24/19 09/24/21 09/24/21 capsule metoprolol tartrate 50 mg tablet 50 mg PO BID #180 tab 01/29/21 09/24/21 09/24/21 atorvastatin 10 mg tablet 10 mg PO DAILY #90 tab 02/19/21 09/24/21 09/23/21 lisinopril 5 mg tablet 10 mg PO DAILY 09/24/21 09/24/21 09/24/21 Active Medications Generic Name Dose Route Start Last Admin Trade Name Ronni PRN Reason Stop Dose Admin Ceftriaxone Sodium 2,000 mg/ 70 mls @ 100 mls/hr 09/29/21 12:00 10/02/21 13:56 Dextrose IV 10/03/21 12:41 Infused DAILY@1200 ANGELA Infusion Protocol Dexamethasone 6 mg/ Syringe 1.5 mls @ 1 mls/min 09/29/21 23:30 10/02/21 08:06 IV 10/29/21 23:29 1 mls/min DAILY ANGELA Administration Remdesivir 100 mg/ Sodium 250 mls @ 250 mls/hr 09/30/21 20:00 10/02/21 22:58 Chloride IV 10/03/21 20:59 Infused Q24H ANGELA Infusion Protocol Amiodarone HCl/Dextrose 360 mg in 200 mls @ 16.667 mls/hr 10/02/21 20:45 10/02/21 20:56 Nexterone / D5w IV 11/01/21 20:44 0.5 mg/min .Q12H ANGELA 16.7 mls/hr Administration 0.5 MG/MIN Phenylephrine HCl 20 mg/ 502 mls @ 37.906 mls/hr 10/02/21 15:00 10/03/21 04:29 Dextrose IV 11/01/21 14:59 Not Given .[id number] ANGELA Protocol 0.3 MCG/KG/MIN Pantoprazole Sodium 40 mg/ 100 mls @ 20 mls/hr 10/02/21 16:00 10/03/21 04:26 Dextrose IV 11/01/21 15:59 8 mg/hr Q5H ANGELA 20 mls/hr Administration 8 MG/HR Dextrose 1,000 mls @ 80 mls/hr 10/02/21 16:30 10/03/21 06:40 D5w IV 11/01/21 16:29 80 mls/hr .[id number] ANGELA Administration Octreotide Acetate 500 mcg/ 105 mls @ 10.5 mls/hr 10/02/21 16:45 10/03/21 04:26 Sodium Chloride IV 11/01/21 16:44 50 mcg/hr .Q10H ANGELA 10.5 mls/hr Administration 50 MCG/HR Insulin Aspart 0 units 09/28/21 12:00 10/03/21 06:40 Insulin Aspart Per Unit SC 10/28/21 11:59 1 units Q6 ANGELA Administration Miscellaneous 1 ea 09/30/21 08:59 10/02/21 08:08 Remove Nicoderm Patch N/A 10/30/21 08:58 1 ea DAILY@0859 ANGELA Administration Nicotine 7 mg 09/29/21 13:45 10/02/21 08:07 Nicotine 7 Mg/24 Hr Tdsy TD 10/29/21 13:44 7 mg QAM ANGELA Administration Ondansetron HCl 4 mg 09/28/21 14:10 09/29/21 03:18 Ondansetron Inj 2 Mg/Ml 2 Ml Vial IV 10/28/21 14:09 4 mg Q4H PRN Administration Nausea Sodium Chloride 30 ml 09/29/21 23:15 10/02/21 22:58 Sodium Chloride 0.9% 10ml Flush IV 10/03/21 23:16 30 ml Q24H ANGELA Administration NPO Date Last Intake of Fluids: 10/02/21 Time Last Intake of Fluids: 19:00 Date Last Intake of Solids: 10/02/21 Time Last Intake of Solids: 19:00 Past Medical History Medical History Bladder tumor COVID-19 Encounter for pre-operative examination Erectile dysfunction Hyperlipidemia Hypertension Paroxysmal atrial fibrillation Prediabetes Tobacco abuse Past Family History Family History Father Cardiac disorder Myocardial infarction Coronary heart disease Sister Myocardial infarction Diabetes Mother Hypertension Denies family history of Ovarian cancer Prostate cancer Breast cancer Colorectal cancer Past Surgical History Surgical History No significant past surgical history Social History Smoking Status: Current every day smoker tobacco type: cigarettes Smoking cigarettes per day: 1/2 ppd Do You Dip or Chew Tobacco: No Hx Alcohol Use: No Hx Substance Use: No Physical Exam Vital Signs Last Vital Signs Temp 97.9 F 10/03/21 06:39 Pulse 112 H 10/03/21 06:39 Resp 16 10/03/21 06:39 BP 125/84 10/03/21 06:39 Pulse Ox 96 10/03/21 06:39 Testing Laboratory Results 10/03/21 01:26 10/02/21 14:40 PT 13.0 Seconds (9.0-12.0) H 10/02/21 21:31 INR 1.3 (0.9-1.1) H 10/02/21 21:31 APTT 23.4 Seconds (21.0-31.0) 10/02/21 21:31 Hemoglobin A1c 6.2 % (4.5-5.6) H 09/24/21 08:46 Blood Type B Positive 10/02/21 14:40 Antibody Screen NEGATIVE 10/02/21 14:40 09/26/21 10:45 Gram Stain - Final Sputum,Vent Suction Sputum Culture - Final Light normal ricki. 10/03/21 10/02/21 10/02/21 05:58 23:59 19:56 POC Glucose 164 H 209 H 194 H Electrocardiogram Date: 10/02/21 Findings: + NSR @ and + pertinent finding Sinus rhythm with short IA ST & T wave abnormality, consider inferolateral is chemia Abnormal ECG When compared with ECG of 01-OCT-2021 21:08, (unconfirmed) IA interval has decreased ST now depressed in Anterolateral leads T wave inversion less evident in Lateral leads Chest X-Ray Date: 09/30/21 IMPRESSION: Interval improvement on the right with persistent left lower lobe atelectasis/collapse and left lower lobe alveolar opacity. There is also suspicion of small left pleural effusion. Echocardiogram Date: 10/01/21 EF: 60-65 LV Function: normal Valvular Disease: + no significant valvular disease
[2021-10-03] MEDS ORDERED: METOPROLOL TARTRATE 1 MG/ML VIAL IV STA (08:04)
[2021-10-03] MEDS: dexAMETHasone 6 MG in SYRINGE 0 ML IV SCH (08:09)
[2021-10-03] MEDS: NICOTINE 7 MG/24 HR TDSY TD SCH (08:10)
[2021-10-03] MEDS: AMIODARONE / D5W 360 MG/200 ML BAG IV SCH ×2 (08:12→20:05)
--- NOTE | 2021-10-03 08:31 | XRay Report ---
XR chest 1V portable CLINICAL HISTORY: Resp failure. Follow-up lower lobe alveolar opacities COMPARISON STUDY: 09/30/2021 TECHNIQUE: 1 view of the chest FINDINGS: Single frontal view of the chest demonstrates the cardiomediastinal silhouette to be within normal li mits. Compared to the previous examination, there has been almost complete resolution of left lower l obe alveolar opacity and atelectasis. No definite pleural effusion is seen at the current time as wel l. The remainder the lungs are clear. There is no right pleural effusion. There is no evidence for va scular congestion. There is no acute osseous pathology. IMPRESSION: Almost complete interval resolution of left lower lobe alveolar opacity and atelectasis. No left pleural effusion. ACT 112: Negative or not required by law. Electronically signed by: Bernardo Muhammad M.D. 10/03/2021 8:30 AM
[2021-10-03 08:47] LABS: Hematocrit (blood only) 29.8 % (42-52); Hemoglobin 9.9 g/dL (14.0-18.0)
[2021-10-03] MEDS ORDERED: amLODIPine BESYLATE 5 MG TAB PO SCH (09:00)
--- NOTE | 2021-10-03 09:09 | Hospitalist Progress Note ---
Date of Service October 03, 2021 Assessment & Plan (1) GI bleed: Plan: on 10/02 Hb down to 9.6, BUN up to 76 very large bloody BM on 10/02/21, this was first time he moved his bowels did have scant amount of coffee ground fluid in NGT in morning on 10/02, then had several hundred mL in the evening NPO, Protonix drip stop full dose Lovenox (last dose was evening 10/01) and aspirin give 2 units of PRBC since he was hypotensive with afib RVR, want to avoid heart strain his EF was 65% on echo so should do fine with volume, can give Lasix if needed Hb is 9.9 this morning, hypertensive plan for EGD with Dr. Alamo this morning (2) Acute blood loss anemia: Plan: Hb down to 9.6 from 11.8, was 13 on 09/30 transfused 2 units of PRBC on 10/02 Hb is 9.9 this morning, no bloody drainage from NGT and BP is elevated no further need for blood at this time follow H/H (3) Acute kidney injury: Plan: Cr bumped to 1.8 yesterday, making urine, awaiting repeat this morning follow up on potassium level and sodium was high at 150, on D5W for free water likely from anemia, hypotension, hemorrhagic shock mcdaniel in place, making urine got 2 one liter boluses, 2 units of PRBC, 4 units of FFP and fluids going at 80cc/hr all night consider a dose of Lasix today but see how he does with EGD first (4) Atrial fibrillation with rapid ventricular response: Plan: went into RVR 130-150's on 09/30 converted to sinus rhythm with Diltiazem drip increase Lopressor to 50mg BID, stopped Diltiazem Lovenox BID for full anticoagulation echo done, EF is 65% appreciate consult from Dr. Noland rapid response on 10/02, RVR in 160's and hypotensive after large bloody BM required cardioversion x 3, finally converted to NSR in 80's then back to afib RVR Amiodarone 150mg IV bolus and drip initiated during ACLS protocol HR 120's this morning, hypertensive, gave Lopressor 5mg IV with good response after EGD can resume his Metoprolol PO for rate control (5) Angioedema of tongue: Plan: Likely secondary to recently increased dose of lisinopril No NSAID use reportedly and no other signs of anaphylaxis to suggest allergic reaction C4 level is normal/high which rules out hereditary angioedema Intubated for airway protection due to extremely large tongue. 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 Pulmonology recommends follow-up with blending tank tender as an outpatient after discharge failed bedside swallow, strict NPO still and will need to wait until at least tomorrow, maybe the next day (6) COVID-19: Plan: Was asymptomatic other than angioedema at the time of presentation Oxygenating well Keep on Covid airborne precautions continue dexamethasone, stop Remdesivir was breathing well on room air yesterday prior to the rapid response might discontinue dexamethasone if he gets back to room air as steroids might have made him more prone to ulcer, await EGD results (7) Hyperlipidemia: Plan: hold atorvastatin (8) Hypertension: Plan: Discontinue lisinopril stop Clonidine patch for possible allergic reaction hypertensive again today after hypotensive yesterday getting EGD this morning can add back Norvasc and metoprolol if there are no signs of active bleeding Plan: DVT prophylaxis: hold now with bleeding, order SCD Admission and Anticipated Discharge Date Admission Date: September 24, 2021 Subjective patient doing well this morning, minimal drainage from NGT this morning, really nothing in the past few hours no abdominal pain, he had another melanotic stool this morning BP is 160's, HR is afib in 110's Hb is 9.9 this morning, he got 2 units of PRBC and 4 units of FFP last night Cr is pending, it was 1.8 last night I spoke with GI, they will take him for EGD this morning I updated his daughter Angelia, let her know he is stable this morning, will call her after the EGD patient is gruff again which is his baseline, he says he is going to go home by [place] no matter what he wants to go home today Review of Systems Review of Systems: All systems reviewed & are unremarkable except as noted in Subjective Constitutional: + fatigue and + weakness; no fever Respiratory: + cough; no dyspnea and no dyspnea on exertion Cardiovascular: no chest pain, no palpitations and no edema Gastrointestinal: + melena; no abdominal pain, no nausea, no vomiting, no constipation and no diarrhea/loose stools Physical Exam Physical Exam: General: well developed, well nourished, comfortable EENT: far less swelling of lips and tongue, NGT in place Neck: supple, trachea midline, normal thyroid Lungs: clear to auscultation bilaterally, + tachypnea, no accessory muscle use, no distress Heart: irregular irregular tachycardic S1 S2, no murmur, peripheral pulses weak but palpable, capillary refill normal, no edema Abdomen: soft, slightly distended, normoactive bowel sounds, tympanic to percussion Extremities: normal in appearance, no cyanosis, no petechiae, strength is 5/5 bilaterally Neuro: awake, cooperative, moves all extremities, no focal motor deficits, CN II-XII intact, sensation in extremities intact, normal speech Skin: warm, dry, no rash, normal turgor Psych: Awake, alert oriented x 3, agitated affect Results & Data Results & Data ([facility]) Vital Signs (Past 12 Hours) Vital Signs Temp Pulse Pulse Resp BP BP Pulse Ox 10/03/21 08:30 97 H 10/03/21 08:12 123 H 167/96 H 10/03/21 06:39 36.6 C 112 H 16 125/84 96 10/03/21 06:15 106 H 95 10/03/21 06:00 112 H 146/82 H 97 10/03/21 05:45 106 H 95 10/03/21 05:30 122 H 114/77 93 10/03/21 05:15 116 H 91 10/03/21 05:00 117 H 142/105 H 91 10/03/21 04:45 115 H 90 10/03/21 04:30 104 H 140/91 95 10/03/21 04:15 95 H 96 10/03/21 04:00 104 H 93 10/03/21 03:45 104 H 94 10/03/21 03:30 99 H 97 10/03/21 03:15 107 H 96 10/03/21 03:07 36.6 C 112 H 20 163/92 H 98 10/03/21 03:00 105 H 134/86 96 10/03/21 02:45 102 H 97 10/03/21 02:30 108 H 138/84 96 10/03/21 02:15 108 H 96 10/03/21 02:00 107 H 94 10/03/21 01:45 107 H 94 10/03/21 01:39 36.6 C 94 H 16 140/82 98 10/03/21 01:30 115 H 132/88 96 10/03/21 01:20 115 H 98 10/03/21 01:10 108 H 98 10/03/21 01:00 113 H 10/03/21 00:50 104 H 97 10/03/21 00:40 97 H 99 10/03/21 00:30 104 H 155/97 H 95 10/03/21 00:20 101 H 97 10/03/21 00:10 103 H 97 10/03/21 00:00 97 H 96 10/02/21 23:50 103 H 94 10/02/21 23:40 107 H 94 10/02/21 23:30 100 H 95 10/02/21 23:20 110 H 95 10/02/21 23:10 105 H 95 10/02/21 23:00 93 H 97 10/02/21 22:57 36.9 C 98 H 19 137/86 97 10/02/21 22:50 107 H 95 10/02/21 22:40 105 H 98 10/02/21 22:30 101 H 136/79 96 10/02/21 22:20 106 H 97 10/02/21 22:10 106 H 94 10/02/21 22:00 110 H 93 10/02/21 21:50 102 H 95 10/02/21 21:40 98 H 106/87 93 10/02/21 21:30 102 H 98 10/02/21 21:20 107 H 142/91 H 99 10/02/21 21:10 94 H 94 10/02/21 21:00 105 H 98 Laboratory Results Laboratory Results - last 24 hr 10/02/21 10/02/21 10/02/21 07:14 10:42 11:52 WBC RBC Hgb Hct MCV MCH MCHC RDW Std Deviation RDW Coeff of Jimbo Plt Count MPV Immature Gran % (Auto) Neut % (Auto) Lymph % (Auto) [place] % (Auto) Eos % (Auto) Baso % (Auto) Neut # (Auto) Lymph # (Auto) [place] # (Auto) Eos # (Auto) Baso # (Auto) Immature Gran # (Auto) Absolute Nucleated RBC Nucleated RBC % (auto) Neutrophils % (Manual) Lymphocytes % (Manual) Monocytes % (Manual) Neutrophils # (Manual) Total Absolute Neuts Lymphocytes # (Manual) Total Abs Lymphocytes Monocytes # (Manual) Polychromasia PT INR APTT PTT Ratio Fibrinogen Sodium 150 H Potassium 4.1 Chloride 117 H Carbon Dioxide 26 Anion Gap 7.0 BUN 64 H D Creatinine 1.43 H Est Cr Clr Drug Dosing 48.1 Est GFR ( Amer) 57.1 Est GFR (Non-Af Amer) 49.3 BUN/Creatinine Ratio 45.0 H Glucose 162 H POC Glucose 156 H Lactate Calcium 8.4 L Phosphorus 2.9 Magnesium 2.5 H Total Bilirubin AST ALT Alkaline Phosphatase Troponin I Total Protein Albumin Globulin Albumin/Globulin Ratio Blood Type Antibody Screen Crossmatch 10/02/21 10/02/21 10/02/21 14:40 14:40 14:40 WBC 16.25 H RBC 3.26 L Hgb 9.6 L Hct 31.3 L MCV 96.0 MCH 29.4 MCHC 30.7 L RDW Std Deviation 47.0 H RDW Coeff of Jimbo 13.3 Plt Count 271 MPV 12.3 H Immature Gran % (Auto) 1.0 Neut % (Auto) 74.7 Lymph % (Auto) 19.9 [place] % (Auto) 4.2 Eos % (Auto) 0.0 Baso % (Auto) 0.2 Neut # (Auto) 12.15 H Lymph # (Auto) 3.23 [place] # (Auto) 0.68 H Eos # (Auto) 0.00 Baso # (Auto) 0.03 Immature Gran # (Auto) 0.16 H Absolute Nucleated RBC 0.02 H Nucleated RBC % (auto) 0.1 Neutrophils % (Manual) Lymphocytes % (Manual) Monocytes % (Manual) Neutrophils # (Manual) Total Absolute Neuts Lymphocytes # (Manual) Total Abs Lymphocytes Monocytes # (Manual) Polychromasia PT INR APTT PTT Ratio Fibrinogen Sodium 151 H Potassium 3.9 Chloride 117 H Carbon Dioxide 21 Anion Gap 13.0 H BUN 76 H Creatinine 1.81 H D Est Cr Clr Drug Dosing 38.0 Est GFR ( Amer) 42.9 Est GFR (Non-Af Amer) 37.1 BUN/Creatinine Ratio 41.7 H Glucose 207 H POC Glucose Lactate Calcium 8.8 Phosphorus 4.5 D Magnesium 3.0 H Total Bilirubin 0.2 AST 29 ALT 56 Alkaline Phosphatase 61 Troponin I 0.020 Total Protein 6.0 L Albumin 2.2 L Globulin 3.8 Albumin/Globulin Ratio 0.6 L Blood Type B Positive Antibody Screen NEGATIVE Crossmatch See Detail 10/02/21 10/02/21 10/02/21 16:22 19:56 21:31 WBC RBC Hgb Hct MCV MCH MCHC RDW Std Deviation RDW Coeff of Jimbo Plt Count MPV Immature Gran % (Auto) Neut % (Auto) Lymph % (Auto) [place] % (Auto) Eos % (Auto) Baso % (Auto) Neut # (Auto) Lymph # (Auto) [place] # (Auto) Eos # (Auto) Baso # (Auto) Immature Gran # (Auto) Absolute Nucleated RBC Nucleated RBC % (auto) Neutrophils % (Manual) Lymphocytes % (Manual) Monocytes % (Manual) Neutrophils # (Manual) Total Absolute Neuts Lymphocytes # (Manual) Total Abs Lymphocytes Monocytes # (Manual) Polychromasia PT 13.0 H INR 1.3 H APTT 23.4 PTT Ratio 0.9 Fibrinogen 299 Sodium Potassium Chloride Carbon Dioxide Anion Gap BUN Creatinine Est Cr Clr Drug Dosing Est GFR ( Amer) Est GFR (Non-Af Amer) BUN/Creatinine Ratio Glucose POC Glucose 194 H Lactate 2.4 H* Calcium Phosphorus Magnesium Total Bilirubin AST ALT Alkaline Phosphatase Troponin I Total Protein Albumin Globulin Albumin/Globulin Ratio Blood Type Antibody Screen Crossmatch 10/02/21 10/02/21 10/02/21 21:31 21:31 23:59 WBC RBC Hgb 9.4 L Hct 28.7 L MCV MCH MCHC RDW Std Deviation RDW Coeff of Jimbo Plt Count MPV Immature Gran % (Auto) Neut % (Auto) Lymph % (Auto) [place] % (Auto) Eos % (Auto) Baso % (Auto) Neut # (Auto) Lymph # (Auto) [place] # (Auto) Eos # (Auto) Baso # (Auto) Immature Gran # (Auto) Absolute Nucleated RBC Nucleated RBC % (auto) Neutrophils % (Manual) Lymphocytes % (Manual) Monocytes % (Manual) Neutrophils # (Manual) Total Absolute Neuts Lymphocytes # (Manual) Total Abs Lymphocytes Monocytes # (Manual) Polychromasia PT INR APTT PTT Ratio Fibrinogen Sodium Potassium Chloride Carbon Dioxide Anion Gap BUN Creatinine Est Cr Clr Drug Dosing Est GFR ( Amer) Est GFR (Non-Af Amer) BUN/Creatinine Ratio Glucose POC Glucose 209 H Lactate 1.0 Calcium Phosphorus Magnesium Total Bilirubin AST ALT Alkaline Phosphatase Troponin I Total Protein Albumin Globulin Albumin/Globulin Ratio Blood Type Antibody Screen Crossmatch 10/03/21 10/03/21 10/03/21 01:26 05:58 08:07 WBC 13.88 H RBC 3.19 L Hgb 9.7 L Hct 29.5 L MCV 92.5 MCH 30.4 MCHC 32.9 RDW Std Deviation 49.3 H RDW Coeff of Jimbo 14.6 H Plt Count 154 MPV 12.4 H Immature Gran % (Auto) Neut % (Auto) Lymph % (Auto) [place] % (Auto) Eos % (Auto) Baso % (Auto) Neut # (Auto) Lymph # (Auto) [place] # (Auto) Eos # (Auto) Baso # (Auto) Immature Gran # (Auto) Absolute Nucleated RBC Nucleated RBC % (auto) Neutrophils % (Manual) 70.0 Lymphocytes % (Manual) 25.0 Monocytes % (Manual) 5.0 Neutrophils # (Manual) 9.72 H Total Absolute Neuts 9.72 H Lymphocytes # (Manual) 3.47 H Total Abs Lymphocytes 3.47 H Monocytes # (Manual) 0.69 H Polychromasia 1+ PT INR APTT PTT Ratio Fibrinogen Sodium Pending Potassium Pending Chloride Pending Carbon Dioxide Pending Anion Gap Pending BUN Pending Creatinine Pending Est Cr Clr Drug Dosing Pending Est GFR ( Amer) Pending Est GFR (Non-Af Amer) Pending BUN/Creatinine Ratio Pending Glucose Pending POC Glucose 164 H Lactate Calcium Pending Phosphorus Pending Magnesium Pending Total Bilirubin AST ALT Alkaline Phosphatase Troponin I Total Protein Albumin Globulin Albumin/Globulin Ratio Blood Type Antibody Screen Crossmatch 10/03/21 08:07 WBC RBC Hgb 9.9 L Hct 29.8 L MCV MCH MCHC RDW Std Deviation RDW Coeff of Jimbo Plt Count MPV Immature Gran % (Auto) Neut % (Auto) Lymph % (Auto) [place] % (Auto) Eos % (Auto) Baso % (Auto) Neut # (Auto) Lymph # (Auto) [place] # (Auto) Eos # (Auto) Baso # (Auto) Immature Gran # (Auto) Absolute Nucleated RBC Nucleated RBC % (auto) Neutrophils % (Manual) Lymphocytes % (Manual) Monocytes % (Manual) Neutrophils # (Manual) Total Absolute Neuts Lymphocytes # (Manual) Total Abs Lymphocytes Monocytes # (Manual) Polychromasia PT INR APTT PTT Ratio Fibrinogen Sodium Potassium Chloride Carbon Dioxide Anion Gap BUN Creatinine Est Cr Clr Drug Dosing Est GFR ( Amer) Est GFR (Non-Af Amer) BUN/Creatinine Ratio Glucose POC Glucose Lactate Calcium Phosphorus Magnesium Total Bilirubin AST ALT Alkaline Phosphatase Troponin I Total Protein Albumin Globulin Albumin/Globulin Ratio Blood Type Antibody Screen Crossmatch Medications Administered Current Inpatient Medications Dextrose (Dextrose 50% 50 Ml Syringe) 25 - 50 ml IV UD PRN; Protocol PRN Reason: Hypoglycemia Protocol Stop: 10/28/21 15:44 Glucagon (Glucagon For Inj 1 Mg Vial) 1 mg IM UD PRN; Protocol PRN Reason: Hypoglycemia Protocol Stop: 10/28/21 15:44 Glucose (Glucose 40% Gel 15 Gm Tube) 15 - 30 gm PO UD PRN; Protocol PRN Reason: Hypoglycemia Protocol Stop: 10/28/21 15:44 Glucose (Glucose 10 Tabs/Tube) 4 - 8 tabs PO UD PRN; Protocol PRN Reason: Hypoglycemia Protocol Stop: 10/28/21 15:44 Ceftriaxone Sodium 2,000 mg/ (Dextrose) 70 mls @ 100 mls/hr IV DAILY@1200 ANGELA; Protocol Stop: 10/03/21 12:41 Last Infusion: 10/02/21 13:56 Dose: Infused Documented by: Dexamethasone 6 mg/ Syringe 1.5 mls @ 1 mls/min IV DAILY ANGELA Stop: 10/29/21 23:29 Last Admin: 10/03/21 08:09 Dose: 1 mls/min Documented by: Remdesivir 100 mg/ Sodium (Chloride) 250 mls @ 250 mls/hr IV Q24H ANGELA; Protocol Stop: 10/03/21 20:59 Last Infusion: 10/02/21 22:58 Dose: Infused Documented by: Amiodarone HCl/Dextrose (Nexterone / D5w) 360 mg in 200 mls @ 16.667 mls/hr IV .Q12H ANGELA Stop: 11/01/21 20:44 Last Admin: 10/03/21 08:12 Dose: 0.5 mg/min, 16.7 mls/hr Documented by: Phenylephrine HCl 20 mg/ (Dextrose) 502 mls @ 37.906 mls/hr IV .[id number] [facility]; Protocol Stop: 11/01/21 14:59 Last Admin: 10/03/21 04:29 Dose: Not Given Documented by: Pantoprazole Sodium 40 mg/ (Dextrose) 100 mls @ 20 mls/hr IV Q5H [facility] Stop: 11/01/21 15:59 Last Admin: 10/03/21 04:26 Dose: 8 mg/hr, 20 mls/hr Documented by: Dextrose (D5w) 1,000 mls @ 80 mls/hr IV .[id number] [facility] Stop: 11/01/21 16:29 Last Admin: 10/03/21 06:40 Dose: 80 mls/hr Documented by: Octreotide Acetate 500 mcg/ (Sodium Chloride) 105 mls @ 10.5 mls/hr IV .Q10H [facility] Stop: 11/01/21 16:44 Last Admin: 10/03/21 04:26 Dose: 50 mcg/hr, 10.5 mls/hr Documented by: Insulin Aspart (Insulin Aspart Per Unit) 0 units SC Q6 [facility] Stop: 10/28/21 11:59 Last Admin: 10/03/21 06:40 Dose: 1 units Documented by: Miscellaneous (Carbohydrates For Hypoglycemia ) 15 - 30 gm PO UD PRN PRN Reason: Hypoglycemia Treatment Stop: 10/28/21 15:44 Miscellaneous (Remove Nicoderm Patch) 1 ea N/A DAILY@0859 [facility] Stop: 10/30/21 08:58 Last Admin: 10/03/21 08:10 Dose: 1 ea Documented by: Nicotine (Nicotine 7 Mg/24 Hr Tdsy) 7 mg TD QAM [facility] Stop: 10/29/21 13:44 Last Admin: 10/03/21 08:10 Dose: 7 mg Documented by: Ondansetron HCl (Ondansetron Inj 2 Mg/Ml 2 Ml Vial) 4 mg IV Q4H PRN PRN Reason: Nausea Stop: 10/28/21 14:09 Last Admin: 09/29/21 03:18 Dose: 4 mg Documented by: Sodium Chloride (Sodium Chloride 0.9% 10ml Flush) 30 ml IV Q24H [facility] Stop: 10/03/21 23:16 Last Admin: 12/21/21 22:58 Dose: 30 ml Documented by: PG Care Time/CCT Total # of Minutes Spent Total Time Spent with Patient: Total time spent is greater than 50% in coordination of care (as documented) at patient's floor/unit and/or counseling patient: Coding Level of Care Code 09831 Subseq Hosp Care Lvl 3 Diagnoses GI bleed K92.2 Acute blood loss anemia D62 Atrial fibrillation with rapid ventricular response I48.91 Angioedema of tongue T78.3XXA COVID-19 U07.1 Hyperlipidemia E78.5 Hypertension I10 Hypertension type: essential hypertension Acute kidney injury N17.9 (1) Hypertension Hypertension type: essential hypertension Qualified Code(s): I10 - Essential (primary) hypertension
--- NOTE | 2021-10-03 09:16 | History & Physical Bridge Note ---
Date of Service October 03, 2021 History & Physical Bridge Note I have examined the patient, reviewed the History & Physical and in the interval since the performance of the History & Physical I have noted the following changes of clinical significance: Patient developed passage of dark red, loose stool in significant volume on 10/02 in the evening. H/H dropped to 9.9/29.8. Patient NPO. -Keep NPO & proceed with EGD this AM -IV Protonix drip recommended at present -Continue to monitor H/H -Supportive care per primary team
--- NOTE | 2021-10-03 09:20 | Gastrointestinal Consultation ---
Date of Consultation October 03, 2021 Assessment & Plan (1) GI bleed: (2) Acute blood loss anemia: -Continue IV Protonix gtt -Keep NPO for EGD today Supervising Physician Co-Signing Physician Notes I personally evaluated the patient and agree with the findings as documented by BERYL Saenz Exam: abd: soft, nt, nd Proceed with EGD. risks/benefits and procedure discussed with patient, who agrees to proceed History of Present Illness Reason for Consultation: GI bleeding Attending Physician: Kiel Jiménez DO History of Present Illness Patient is a 71 yo male with BELIA, COVID19 infection, paroxysmal A fib, angioedema of the tongue, HLD, & HTN. GI was consulted for GI bleeding which started as a scant amount of dark coffee ground material in the NG tube. His Hemoglobin yesterday was 11.8. Overnight, he developed more rudy bleeding. He began experiencing dark red blood per rectum. H/H dropped to 9..9/29.8. BP 167/96. 36.6 He has been on Aspirin 81 mg and Lovenox. No known history of GI bleeding. Patient was extubated on 09/28 after being intubated for airway protection given angioedema. Allergies Allergy/AdvReac Type Severity Reaction Status Date / Time LARS Inhibitors Allergy Severe Severe Verified 09/24/21 14:31 angioedema Penicillins Allergy Intermediate hives Verified 06/28/21 10:48 Home Medications Medication Instructions Recorded Confirmed Type aspirin 81 mg tablet,delayed 81 mg PO DAILY tab 03/24/19 09/24/21 History release coenzyme Q10 100 mg capsule 100 mg PO DAILY cap 03/24/19 09/24/21 History omega-3 acid ethyl esters 1 gram 2 cap PO DAILY cap 03/24/19 09/24/21 History capsule metoprolol tartrate 50 mg tablet 50 mg PO BID #180 tab 01/29/21 09/24/21 Rx atorvastatin 10 mg tablet 10 mg PO DAILY #90 tab 02/19/21 09/24/21 Rx lisinopril 5 mg tablet 10 mg PO DAILY 09/24/21 09/24/21 History Patient History Medical History Bladder tumor COVID-19 Encounter for pre-operative examination Erectile dysfunction Hyperlipidemia Hypertension Paroxysmal atrial fibrillation Prediabetes Tobacco abuse Surgical History No significant past surgical history Family History Father Cardiac disorder Myocardial infarction Coronary heart disease Sister Myocardial infarction Diabetes Mother Hypertension Denies family history of Ovarian cancer Prostate cancer Breast cancer Colorectal cancer Social History Smoking Status: Current every day smoker Tobacco Type: Cigarettes Age Started Using Tobacco: 17; packs per day: 0.5; Cigarettes Per Day: 1/2 ppd; Second Hand Exposure: No; Hx Alcohol Use: No Hx Substance Use: No Preferred Language: Bur[place]ian Communication Ability: Effective Visual Impairment: No Limitations Hearing Ability: Hard of Hearing Commercial Kitchen Service Technician Required: No Beliefs That Will Affect Care: None marital status: Current Living Situation: Spouse current occupational status: retired 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 Feels Safe at Home: Yes Childhood Exposure to Second-Hand Smoke: Yes caffeine: Yes Dental Care, Regularly: No Physical Activity Frequency: Daily Seatbelt Use: always Sunscreen Use: No Assistive Devices: Oxygen - Continuous Review of Systems Gastrointestinal: + blood in stools Physical Exam Constitutional: no acute distress Respiratory: no respiratory distress Cardiovascular: Rate/Rhythm: + tachycardic Gastrointestinal (Abdomen): Inspection/Auscultation: abdomen normal to inspection Musculoskeletal: Head/Neck/Chest: normocephalic Psychiatric: Orientation: alert Results & Data ([facility]) Vital Signs (Past 12 Hours) Vital Signs Temp Pulse Pulse Resp BP BP Pulse Ox 10/03/21 08:30 97 H 10/03/21 08:12 123 H 167/96 H 10/03/21 06:39 36.6 C 112 H 16 125/84 96 10/03/21 06:15 106 H 95 10/03/21 06:00 112 H 146/82 H 97 10/03/21 05:45 106 H 95 10/03/21 05:30 122 H 114/77 93 10/03/21 05:15 116 H 91 10/03/21 05:00 117 H 142/105 H 91 10/03/21 04:45 115 H 90 10/03/21 04:30 104 H 140/91 95 10/03/21 04:15 95 H 96 10/03/21 04:00 104 H 93 10/03/21 03:45 104 H 94 10/03/21 03:30 99 H 97 10/03/21 03:15 107 H 96 10/03/21 03:07 36.6 C 112 H 20 163/92 H 98 10/03/21 03:00 105 H 134/86 96 10/03/21 02:45 102 H 97 10/03/21 02:30 108 H 138/84 96 10/03/21 02:15 108 H 96 10/03/21 02:00 107 H 94 10/03/21 01:45 107 H 94 10/03/21 01:39 36.6 C 94 H 16 140/82 98 10/03/21 01:30 115 H 132/88 96 10/03/21 01:20 115 H 98 10/03/21 01:10 108 H 98 10/03/21 01:00 113 H 10/03/21 00:50 104 H 97 10/03/21 00:40 97 H 99 10/03/21 00:30 104 H 155/97 H 95 10/03/21 00:20 101 H 97 10/03/21 00:10 103 H 97 10/03/21 00:00 97 H 96 10/02/21 23:50 103 H 94 10/02/21 23:40 107 H 94 10/02/21 23:30 100 H 95 10/02/21 23:20 110 H 95 10/02/21 23:10 105 H 95 10/02/21 23:00 93 H 97 10/02/21 22:57 36.9 C 98 H 19 137/86 97 10/02/21 22:50 107 H 95 10/02/21 22:40 105 H 98 10/02/21 22:30 101 H 136/79 96 10/02/21 22:20 106 H 97 10/02/21 22:10 106 H 94 10/02/21 22:00 110 H 93 10/02/21 21:50 102 H 95 10/02/21 21:40 98 H 106/87 93 10/02/21 21:30 102 H 98 10/02/21 21:20 107 H 142/91 H 99 PG Care Time/CCT Total # of Minutes Spent Total Time Spent with Patient: Total time spent is greater than 50% in coordination of care (as documented) at patient's floor/unit and/or counseling patient: Coding Level of Care Code None Diagnoses GI bleed K92.2 Acute blood loss anemia D62
[2021-10-03] MEDS ORDERED: LIDOCAINE 2% 2 ML VIAL/AMP(20MG/ML) INFIL ONE (09:57)
[2021-10-03] MEDS ORDERED: PROPOFOL IV EMULSION 10 MG/ML 20 ML VIAL IV ONE ×2 (09:57→11:39)
[2021-10-03 10:23] LABS: BUN Creatinine Ratio 36.8 (10-20); Creatinine Clr Calc Pharmacy 50.5 ml/min; Est GFR (African American) 60.7 ml/min; Est GFR (Non-African American) 52.3 ml/min; Magnesium 2.3 mg/dl (1.8-2.4); Phosphorus 2.8 mg/dl (2.5-4.9); Potassium 3.8 mmol/L (3.5-5.1)
--- NOTE | 2021-10-03 10:56 | GI REPORT ---
Patient Name: Rolando Duran Procedure Date: 10/03/2021 10:33 AM Date of : 1950 Admit Type: Inpatient Age: 71 Gender: Male Attending MD: Tj Alamo MD Procedure: Upper GI endoscopy Providers: Tj Alamo MD Referring MD: Kiel Jiménez Indications: Coffee-ground emesis, Hematochezia, Melena Medicines: Monitored Anesthesia Care Complications: No immediate complications. Estimated blood loss: None. Estimated Blood Loss: Estimated blood loss: none. Procedure: Pre-Anesthesia Assessment: - Prior Anticoagulants: The patient has taken no previous anticoagulant or antiplatelet agents. - ASA Grade Assessment: IV - A patient with severe systemic disease that is a constant threat to life. After obtaining informed consent, the endoscope was passed under direct vision. Throughout the procedure, the patient's blood pressure, pulse, and oxygen saturations were monitored continuously. The Endoscope was introduced through the mouth, and advanced to the second part of duodenum. The upper GI endoscopy was accomplished without difficulty. The patient tolerated the procedure well. Findings: The examined esophagus was normal. Few non-bleeding cratered gastric ulcers with no stigmata of bleeding were found in the gastric antrum. One cratered duodenal ulcer with pigmented material was found in the duodenal bulb. Area was successfully injected with 4 mL of a 1:10,000 solution of epinephrine for hemostasis. Coagulation for hemostasis using bipolar probe was successful. Estimated blood loss: none. Impression: - Normal esophagus. - Non-bleeding gastric ulcers with no stigmata of bleeding. - Duodenal ulcer with pigmented material. Injected. Treated with bipolar cautery. - No specimens collected. Recommendation: - [facility] care. - Resume previous diet today. -protonix 40 mg IV BID for 3 months, then daily thereafter -hold eliquis for 10 days -supportive care, trend H/H daily Tj Alamo MD 10/03/2021 10:56:02 AM This report has been signed electronically. Note Initiated On: 10/03/2021 10:33 AM Number of Addenda: 0 I attest to the content of the Intraoperative Record and orders documented therein, exceptions below {[id number]}
--- NOTE | 2021-10-03 11:00 | Procedure Note ---
Procedure Note Date of Service October 03, 2021 Note GI brief procedure note EGD findings: large duodenal ulcer with pigmented spot, treated with epinephrine and bipolar. small antral ulcers, clean based. NG tube in place in the stomach. recs: protonix 40 mg IV BID for 3 months, then daily thereafter diet as tolerated supportive care, trend H/H daily Tj Alamo MD Gastroenterology Coding
[2021-10-03] MEDS: cefTRIAXone SODIUM 2,000 MG in DEXTROSE 5% 50 ML IV SCH (11:37)
[2021-10-03] MEDS ORDERED: PHENYLEPHRINE 100MCG/ML 5ML SYR ONE (11:39)
--- NOTE | 2021-10-03 11:54 | Critical Care Progress Note ---
Date of Service October 03, 2021 Assessment & Plan (1) Angioedema of tongue: (2) COVID-19: (3) Tobacco abuse: Plan: Impression: 71-year-old male with no history of trauma or sting. Patient presents with severe angioedema of the tongue. Suspected to be from increased dose of lisinopril. Patient denies any prior history to LARS inhibitor allergies or history of angioedema. Drug allergies include penicillin. Patient not subjected to penicillin recently. Recommendations: --S/p hemorrhagic shock Likely from GI bleed On PPI S/p 2 units PRBC and 2 units FFP Continue to monitor H&H. Keep the MAP greater than 65 GI has been consulted --A. fib with RVR S/p cardioversion x3 Continue with amiodarone drip --Acute hypoxic respiratory failure Possible aspiration event on top of COPD Patient also has Covid-19 Continue with O2 supplementation to keep oxygen saturation between 90-92% Continue with incentive spirometry -- BELIA Improving Likely from hypotensive episode Monitor BUN/creatinine Avoid nephrotoxic medications Strict ins and outs --Hypernatremia Sodium is 151 Continue with D5 water at 100 mL an hour for 2L Follow-up urine/serum osmolality. Urine sodium. --Prophylaxis GI: Pantoprazole VTE: IPC's Plan: In/out: +1.4 L, urine output 3900 Patient had EGD done today which showed large duodenal ulcer with pigmented stop. It was treated with epi. We will DC the IV Protonix drip. Start the patient on Protonix IV twice daily Continue to monitor H&H. I will get swallow eval for the patient as the patient is reluctant to put her another NG tube in. If the patient is able to swallow then will give free water to 50 mL p.o. For the hyponatremia continue with D5 water for another 2 L. Can gradually resume rate control medication. Continue to hold anticoagulation for the time being I have personally spent 31 minutes of critical care time in the direct management of this patient. This is a life/limb threatening event. This includes time spent evaluating patient, direct bedside care, chart review, placing orders, interpretation of diagnostic studies, discussion with consultants, patient, and family members, as well as other required patient management activities. This time is exclusive of all separately billable procedures, and teaching time and separate from and in addition to any other critical care service time. Please note the above document was generated using voice recognition software. It may contain grammatical, syntax or spelling errors. Admission and Anticipated Discharge Date Admission Date: September 24, 2021 Subjective Patient seen and family bedside. No acute distress, no adverse events overnight Patient systolic blood pressure was in the 140s at the time of examination He was on amiodarone drip. Denies any chest pain, no headache, no nausea, no vomiting He was complaining of pain in the left arm where he had an infiltration of one of the IVs. Review of Systems Review of Systems: All systems reviewed & are unremarkable except as noted in Subjective Physical Exam Physical Exam: Constitutional: No acute distress HEENT: EOMI, PERRLA, positive NGT Respiratory system: Decreased air entry bilaterally, no wheeze, no rhonchi, positive crackles bilateral lower lobes CVS: S1-S2 positive, no murmurs or gallops Abdomen: Soft, nontender, nondistended, positive bowel sounds x4 Extremities: +2 pulses bilaterally radialis/ dorsalis pedis, no cyanosis, no edema Neuro: Awake alert oriented x3 Psych: Normal mood and affect G/U: Positive Barber Skin: no rashes, warm and dry Lymphatic: no cervical or axillary lymphadenopathy Results & Data Results & Data ([facility]) Vital Signs (Past 12 Hours) Vital Signs Temp Pulse Pulse Pulse Resp BP BP 10/03/21 11:18 84 16 109/71 10/03/21 11:03 80 16 129/67 10/03/21 10:48 88 16 95/56 L 10/03/21 09:00 115 H 10/03/21 08:30 97 H 10/03/21 08:12 123 H 167/96 H 10/03/21 06:39 36.6 C 112 H 16 125/84 10/03/21 06:15 106 H 10/03/21 06:00 112 H 146/82 H 10/03/21 05:45 106 H 10/03/21 05:30 122 H 114/77 10/03/21 05:15 116 H 10/03/21 05:00 117 H 142/105 H 10/03/21 04:45 115 H 10/03/21 04:30 104 H 140/91 10/03/21 04:15 95 H 10/03/21 04:00 104 H 10/03/21 03:45 104 H 10/03/21 03:30 99 H 10/03/21 03:15 107 H 10/03/21 03:07 36.6 C 112 H 20 163/92 H 10/03/21 03:00 105 H 134/86 10/03/21 02:45 102 H 10/03/21 02:30 108 H 138/84 10/03/21 02:15 108 H 10/03/21 02:00 107 H 10/03/21 01:45 107 H 10/03/21 01:39 36.6 C 94 H 16 140/82 10/03/21 01:30 115 H 132/88 10/03/21 01:20 115 H 10/03/21 01:10 108 H 10/03/21 01:00 113 H 10/03/21 00:50 104 H 10/03/21 00:40 97 H 10/03/21 00:30 104 H 155/97 H 10/03/21 00:20 101 H 10/03/21 00:10 103 H 10/03/21 00:00 97 H 10/02/21 23:50 103 H Pulse Ox 10/03/21 11:18 96 10/03/21 11:03 94 10/03/21 10:48 95 10/03/21 09:00 10/03/21 08:30 10/03/21 08:12 10/03/21 06:39 96 10/03/21 06:15 95 10/03/21 06:00 97 10/03/21 05:45 95 10/03/21 05:30 93 10/03/21 05:15 91 10/03/21 05:00 91 10/03/21 04:45 90 10/03/21 04:30 95 10/03/21 04:15 96 10/03/21 04:00 93 10/03/21 03:45 94 10/03/21 03:30 97 10/03/21 03:15 96 10/03/21 03:07 98 10/03/21 03:00 96 10/03/21 02:45 97 10/03/21 02:30 96 10/03/21 02:15 96 10/03/21 02:00 94 10/03/21 01:45 94 10/03/21 01:39 98 10/03/21 01:30 96 10/03/21 01:20 98 10/03/21 01:10 98 10/03/21 01:00 10/03/21 00:50 97 10/03/21 00:40 99 10/03/21 00:30 95 10/03/21 00:20 97 10/03/21 00:10 97 10/03/21 00:00 96 10/02/21 23:50 94 10/03/21 08:07 10/03/21 08:07 Coding Level of Care Code Critical Care 1st 30-74 mins Diagnoses Angioedema of tongue T78.3XXA COVID-19 U07.1 Tobacco abuse Z72.0 Time Spent (min) 31
--- NOTE | 2021-10-03 12:36 | Anesthesiology Progress Note ---
Date of Service October 03, 2021 Anesthesia Post Procedure Vital Signs Vital Signs: Temp Pulse Pulse Pulse Resp BP BP 10/03/21 11:18 84 16 109/71 10/03/21 11:03 80 16 129/67 10/03/21 10:48 88 16 95/56 L 10/03/21 09:00 115 H 10/03/21 08:30 97 H 10/03/21 08:12 123 H 167/96 H 10/03/21 06:39 97.9 F 112 H 16 125/84 10/03/21 06:15 106 H 10/03/21 06:00 112 H 146/82 H 10/03/21 05:45 106 H 10/03/21 05:30 122 H 114/77 10/03/21 05:15 116 H 10/03/21 05:00 117 H 142/105 H 10/03/21 04:45 115 H 10/03/21 04:30 104 H 140/91 10/03/21 04:15 95 H 10/03/21 04:00 104 H 10/03/21 03:45 104 H 10/03/21 03:30 99 H 10/03/21 03:15 107 H 10/03/21 03:07 97.9 F 112 H 20 163/92 H 10/03/21 03:00 105 H 134/86 10/03/21 02:45 102 H 10/03/21 02:30 108 H 138/84 10/03/21 02:15 108 H 10/03/21 02:00 107 H 10/03/21 01:45 107 H 10/03/21 01:39 97.9 F 94 H 16 140/82 10/03/21 01:30 115 H 132/88 10/03/21 01:20 115 H 10/03/21 01:10 108 H 10/03/21 01:00 113 H 10/03/21 00:50 104 H 10/03/21 00:40 97 H 10/03/21 00:30 104 H 155/97 H 10/03/21 00:20 101 H 10/03/21 00:10 103 H 10/03/21 00:00 97 H 10/02/21 23:50 103 H 10/02/21 23:40 107 H 10/02/21 23:30 100 H 10/02/21 23:20 110 H 10/02/21 23:10 105 H 10/02/21 23:00 93 H 10/02/21 22:57 98.4 F 98 H 19 137/86 10/02/21 22:50 107 H 10/02/21 22:40 105 H 10/02/21 22:30 101 H 136/79 10/02/21 22:20 106 H 10/02/21 22:10 106 H 10/02/21 22:00 110 H 10/02/21 21:50 102 H 10/02/21 21:40 98 H 106/87 10/02/21 21:30 102 H 10/02/21 21:20 107 H 142/91 H 10/02/21 21:10 94 H 10/02/21 21:00 105 H 10/02/21 20:50 110 H 10/02/21 20:40 101 H 143/86 H 10/02/21 20:30 112 H 10/02/21 20:20 108 H 113/95 10/02/21 20:15 97.9 F 113 H 18 113/85 10/02/21 20:10 104 H 138/95 10/02/21 20:09 97.9 F 103 H 16 139/84 10/02/21 20:00 109 H 139/84 10/02/21 19:50 103 H 136/84 10/02/21 19:40 107 H 10/02/21 19:30 111 H 10/02/21 19:20 108 H 10/02/21 19:15 98.1 F 111 H 16 126/53 L 10/02/21 19:10 108 H 126/93 10/02/21 19:00 99 H 147/91 H 10/02/21 18:50 92 H 139/84 10/02/21 18:40 97.7 F 116 H 20 115/83 10/02/21 18:30 108 H 10/02/21 18:20 107 H 10/02/21 18:10 109 H 10/02/21 18:00 106 H 10/02/21 17:45 101 H 10/02/21 17:30 119 H 115/83 10/02/21 17:26 97.9 F 10/02/21 17:15 121 H 10/02/21 17:10 97.9 F 118 H 18 110/77 10/02/21 17:00 126 H 10/02/21 16:45 10/02/21 16:35 97.9 F 122 H 18 99/41 L 10/02/21 16:30 122 H 10/02/21 16:15 117 H 10/02/21 16:00 80 10/02/21 15:45 97 H 10/02/21 15:30 90 28 H 10/02/21 15:15 81 34 H 10/02/21 15:01 77 35 H 10/02/21 14:45 83 36 H 85/54 L 10/02/21 14:39 153 H 53 H 10/02/21 14:15 89 31 H 10/02/21 14:00 91 H 28 H 10/02/21 13:45 91 H 29 H 10/02/21 13:30 86 23 10/02/21 13:15 81 33 H 10/02/21 13:00 91 H 32 H 10/02/21 12:45 87 34 H Pulse Ox 10/03/21 11:18 96 10/03/21 11:03 94 10/03/21 10:48 95 10/03/21 09:00 10/03/21 08:30 10/03/21 08:12 10/03/21 06:39 96 10/03/21 06:15 95 10/03/21 06:00 97 10/03/21 05:45 95 10/03/21 05:30 93 10/03/21 05:15 91 10/03/21 05:00 91 10/03/21 04:45 90 10/03/21 04:30 95 10/03/21 04:15 96 10/03/21 04:00 93 10/03/21 03:45 94 10/03/21 03:30 97 10/03/21 03:15 96 10/03/21 03:07 98 10/03/21 03:00 96 10/03/21 02:45 97 10/03/21 02:30 96 10/03/21 02:15 96 10/03/21 02:00 94 10/03/21 01:45 94 10/03/21 01:39 98 10/03/21 01:30 96 10/03/21 01:20 98 10/03/21 01:10 98 10/03/21 01:00 2221 00:50 97 22/21 00:40 99 2221 00:30 95 2221 00:20 97 2221 00:10 97 21 00:00 96 21 23:50 94 21 23:40 94 2121 23:30 95 2121 23:20 95 21 23:10 95 21 23:00 97 21 22:57 97 21 22:50 95 21 22:40 98 21 22:30 96 10/02/21 22:20 97 10/02/21 22:10 94 10/02/21 22:00 93 10/02/21 21:50 95 10/02/21 21:40 93 10/02/21 21:30 98 10/02/21 21:20 99 10/02/21 21:10 94 10/02/21 21:00 98 10/02/21 20:50 10/02/21 20:40 97 10/02/21 20:30 83 L 10/02/21 20:20 96 10/02/21 20:15 98 10/02/21 20:10 97 10/02/21 20:09 98 10/02/21 20:00 95 10/02/21 19:50 98 10/02/21 19:40 76 L 10/02/21 19:30 98 10/02/21 19:20 95 10/02/21 19:15 98 10/02/21 19:10 98 10/02/21 19:00 98 2121 18:50 100 21 18:40 99 2121 18:30 97 21 18:20 98 10/02/21 18:10 98 10/02/21 18:00 98 21 17:45 100 21 17:30 95 21 17:26 10/02/21 17:15 100 21 17:10 98 21 17:00 99 21 16:45 99 21 16:35 100 10/02/21 16:30 99 10/02/21 16:15 100 10/02/21 16:00 10/02/21 15:45 87 L 10/02/21 15:30 10/02/21 15:15 100 10/02/21 15:01 100 10/02/21 14:45 97 10/02/21 14:39 10/02/21 14:15 91 10/02/21 14:00 97 10/02/21 13:45 97 10/02/21 13:30 94 10/02/21 13:15 94 10/02/21 13:00 95 10/02/21 12:45 95 Transfer of Care Handoff Completed per policy Notes Mental Status: alert / awake / arousable and participated in evaluation Patient Amnestic to Procedure: Yes Nausea / Vomiting: adequately controlled Pain: adequately controlled Airway Patency, RR, SpO2: stable & adequate BP & HR: stable & adequate Hydration State: stable & adequate Anesthetic Complications: no major complications apparent and Pt Satisfied with anesthetic care
--- NOTE | 2021-10-03 13:07 | Cardiology Progress Note ---
Date of Service October 03, 2021 Assessment & Plan (1) Paroxysmal atrial fibrillation: (2) Hemorrhagic shock: (3) GI bleed: (4) Acute blood loss anemia: (5) Hypertension: (6) Tobacco abuse: Plan: ASSESSMENT/PLAN: 1. Paroxysmal AFib: AFib with RVR recurred 10/02/21 after large bloody bowel movement. Underwent cardioversion emergently as he was hypotensive/unstable. Reverted once again to AFib shortly thereafter. Remains in AFib but asymptomatic. Heart rate acceptable. Continue amiodarone drip as he is not taking p.o.. When able to take p.o., would recommend resuming oral beta- felipe. Would then likely convert amiodarone to p.o., especially if he converts in the meantime. Resume anticoagulation in the future when safe from a GI bleeding standpoint. 2. Hemorrhagic shock/GI bleed/acute blood loss anemia: Significant GI bleed. Underwent treatment of duodenal ulcer. Also found to have nonbleeding gastric ulcers. Underwent PRBC transfusion x2 on 10/02/2021. As per GI. 3. Hypertension: Blood pressure mostly normotensive or mildly hypertensive today. Resume oral beta-felipe when able to swallow pills safely. Lisinopril discontinued for angioedema. 4. Tobacco abuse: Smoking cessation. 5. Disposition: Cardiology will continue to follow along. Patient care communicated with Dr. Jiménez of the primary hospitalist service. Admission and Anticipated Discharge Date Admission Date: September 24, 2021 Subjective He denies chest pain, shortness of breath, syncope, near-syncope, palpitations, or recurrent bleeding. Nursing staff confirms that he has not had any significant bloody bowel movement thus far today. He underwent EGD this morning was found to have a large to wall no ulcer which was treated with epinephrine. He also had small gastric ulcers which were nonbleeding. Review of systems: As above. Physical Exam Physical Exam: Gen.: No acute distress. Alert. HEENT: Anicteric sclera. Neck: No JVD. Cardiac: PMI was nondisplaced. No ventricular heave. Irregularly irregular. Normal S1-S2. 1/6 systolic murmur. No rubs or gallops. Pulmonary: Clear to auscultation bilaterally without wheezes, rales, or rhonchi. Abdomen: Soft, nontender, nondistended, with normoactive bowel sounds. No bruits noted. Extremities: 2+ radial pulses bilaterally. 2+ posterior tibialis pulses bilaterally. No edema or cyanosis. Results & Data ([facility]) Vital Signs (Past 12 Hours) Vital Signs Temp Pulse Pulse Pulse Resp BP BP 10/03/21 11:18 84 16 109/71 10/03/21 11:03 80 16 129/67 10/03/21 10:48 88 16 95/56 L 10/03/21 09:00 115 H 10/03/21 08:30 97 H 10/03/21 08:12 123 H 167/96 H 10/03/21 06:39 36.6 C 112 H 16 125/84 10/03/21 06:15 106 H 10/03/21 06:00 112 H 146/82 H 10/03/21 05:45 106 H 10/03/21 05:30 122 H 114/77 10/03/21 05:15 116 H 10/03/21 05:00 117 H 142/105 H 10/03/21 04:45 115 H 10/03/21 04:30 104 H 140/91 10/03/21 04:15 95 H 10/03/21 04:00 104 H 10/03/21 03:45 104 H 10/03/21 03:30 99 H 10/03/21 03:15 107 H 10/03/21 03:07 36.6 C 112 H 20 163/92 H 10/03/21 03:00 105 H 134/86 10/03/21 02:45 102 H 10/03/21 02:30 108 H 138/84 10/03/21 02:15 108 H 10/03/21 02:00 107 H 10/03/21 01:45 107 H 10/03/21 01:39 36.6 C 94 H 16 140/82 10/03/21 01:30 115 H 132/88 10/03/21 01:20 115 H 10/03/21 01:10 108 H Pulse Ox 10/03/21 11:18 96 10/03/21 11:03 94 10/03/21 10:48 95 10/03/21 09:00 10/03/21 08:30 10/03/21 08:12 10/03/21 06:39 96 10/03/21 06:15 95 10/03/21 06:00 97 10/03/21 05:45 95 10/03/21 05:30 93 10/03/21 05:15 91 10/03/21 05:00 91 10/03/21 04:45 90 10/03/21 04:30 95 10/03/21 04:15 96 10/03/21 04:00 93 10/03/21 03:45 94 10/03/21 03:30 97 10/03/21 03:15 96 10/03/21 03:07 98 10/03/21 03:00 96 10/03/21 02:45 97 10/03/21 02:30 96 10/03/21 02:15 96 10/03/21 02:00 94 10/03/21 01:45 94 10/03/21 01:39 98 10/03/21 01:30 96 10/03/21 01:20 98 10/03/21 01:10 98 Laboratory Results Laboratory Results - last 24 hr 10/02/21 10/02/21 10/02/21 14:40 14:40 14:40 WBC 16.25 H RBC 3.26 L Hgb 9.6 L Hct 31.3 L MCV 96.0 MCH 29.4 MCHC 30.7 L RDW Std Deviation 47.0 H RDW Coeff of Jimbo 13.3 Plt Count 271 MPV 12.3 H Immature Gran % (Auto) 1.0 Neut % (Auto) 74.7 Lymph % (Auto) 19.9 [place] % (Auto) 4.2 Eos % (Auto) 0.0 Baso % (Auto) 0.2 Neut # (Auto) 12.15 H Lymph # (Auto) 3.23 [place] # (Auto) 0.68 H Eos # (Auto) 0.00 Baso # (Auto) 0.03 Immature Gran # (Auto) 0.16 H Absolute Nucleated RBC 0.02 H Nucleated RBC % (auto) 0.1 Neutrophils % (Manual) Lymphocytes % (Manual) Monocytes % (Manual) Neutrophils # (Manual) Total Absolute Neuts Lymphocytes # (Manual) Total Abs Lymphocytes Monocytes # (Manual) Polychromasia PT INR APTT PTT Ratio Fibrinogen Sodium 151 H Potassium 3.9 Chloride 117 H Carbon Dioxide 21 Anion Gap 13.0 H BUN 76 H Creatinine 1.81 H D Est Cr Clr Drug Dosing 38.0 Est GFR ( Amer) 42.9 Est GFR (Non-Af Amer) 37.1 BUN/Creatinine Ratio 41.7 H Glucose 207 H POC Glucose Lactate Calcium 8.8 Phosphorus 4.5 D Magnesium 3.0 H Total Bilirubin 0.2 AST 29 ALT 56 Alkaline Phosphatase 61 Troponin I 0.020 Total Protein 6.0 L Albumin 2.2 L Globulin 3.8 Albumin/Globulin Ratio 0.6 L Blood Type B Positive Antibody Screen NEGATIVE Crossmatch See Detail 10/02/21 10/02/21 10/02/21 16:22 19:56 21:31 WBC RBC Hgb Hct MCV MCH MCHC RDW Std Deviation RDW Coeff of Jimbo Plt Count MPV Immature Gran % (Auto) Neut % (Auto) Lymph % (Auto) [place] % (Auto) Eos % (Auto) Baso % (Auto) Neut # (Auto) Lymph # (Auto) [place] # (Auto) Eos # (Auto) Baso # (Auto) Immature Gran # (Auto) Absolute Nucleated RBC Nucleated RBC % (auto) Neutrophils % (Manual) Lymphocytes % (Manual) Monocytes % (Manual) Neutrophils # (Manual) Total Absolute Neuts Lymphocytes # (Manual) Total Abs Lymphocytes Monocytes # (Manual) Polychromasia PT 13.0 H INR 1.3 H APTT 23.4 PTT Ratio 0.9 Fibrinogen 299 Sodium Potassium Chloride Carbon Dioxide Anion Gap BUN Creatinine Est Cr Clr Drug Dosing Est GFR ( Amer) Est GFR (Non-Af Amer) BUN/Creatinine Ratio Glucose POC Glucose 194 H Lactate 2.4 H* Calcium Phosphorus Magnesium Total Bilirubin AST ALT Alkaline Phosphatase Troponin I Total Protein Albumin Globulin Albumin/Globulin Ratio Blood Type Antibody Screen Crossmatch 10/02/21 10/02/21 10/02/21 21:31 21:31 23:59 WBC RBC Hgb 9.4 L Hct 28.7 L MCV MCH MCHC RDW Std Deviation RDW Coeff of Jimbo Plt Count MPV Immature Gran % (Auto) Neut % (Auto) Lymph % (Auto) [place] % (Auto) Eos % (Auto) Baso % (Auto) Neut # (Auto) Lymph # (Auto) [place] # (Auto) Eos # (Auto) Baso # (Auto) Immature Gran # (Auto) Absolute Nucleated RBC Nucleated RBC % (auto) Neutrophils % (Manual) Lymphocytes % (Manual) Monocytes % (Manual) Neutrophils # (Manual) Total Absolute Neuts Lymphocytes # (Manual) Total Abs Lymphocytes Monocytes # (Manual) Polychromasia PT INR APTT PTT Ratio Fibrinogen Sodium Potassium Chloride Carbon Dioxide Anion Gap BUN Creatinine Est Cr Clr Drug Dosing Est GFR ( Amer) Est GFR (Non-Af Amer) BUN/Creatinine Ratio Glucose POC Glucose 209 H Lactate 1.0 Calcium Phosphorus Magnesium Total Bilirubin AST ALT Alkaline Phosphatase Troponin I Total Protein Albumin Globulin Albumin/Globulin Ratio Blood Type Antibody Screen Crossmatch 10/03/21 10/03/21 10/03/21 01:26 05:58 08:07 WBC 13.88 H RBC 3.19 L Hgb 9.7 L Hct 29.5 L MCV 92.5 MCH 30.4 MCHC 32.9 RDW Std Deviation 49.3 H RDW Coeff of Jimbo 14.6 H Plt Count 154 MPV 12.4 H Immature Gran % (Auto) Neut % (Auto) Lymph % (Auto) [place] % (Auto) Eos % (Auto) Baso % (Auto) Neut # (Auto) Lymph # (Auto) [place] # (Auto) Eos # (Auto) Baso # (Auto) Immature Gran # (Auto) Absolute Nucleated RBC Nucleated RBC % (auto) Neutrophils % (Manual) 70.0 Lymphocytes % (Manual) 25.0 Monocytes % (Manual) 5.0 Neutrophils # (Manual) 9.72 H Total Absolute Neuts 9.72 H Lymphocytes # (Manual) 3.47 H Total Abs Lymphocytes 3.47 H Monocytes # (Manual) 0.69 H Polychromasia 1+ PT INR APTT PTT Ratio Fibrinogen Sodium 151 H Potassium 3.8 Chloride 118 H Carbon Dioxide 29 Anion Gap 4.0 BUN 50 H Creatinine 1.36 D Est Cr Clr Drug Dosing 50.5 Est GFR ( Amer) 60.7 Est GFR (Non-Af Amer) 52.3 BUN/Creatinine Ratio 36.8 H Glucose 156 H POC Glucose 164 H Lactate Calcium 8.0 L Phosphorus 2.8 D Magnesium 2.3 Total Bilirubin AST ALT Alkaline Phosphatase Troponin I Total Protein Albumin Globulin Albumin/Globulin Ratio Blood Type Antibody Screen Crossmatch 10/03/21 10/03/21 08:07 11:30 WBC RBC Hgb 9.9 L Hct 29.8 L MCV MCH MCHC RDW Std Deviation RDW Coeff of Jimbo Plt Count MPV Immature Gran % (Auto) Neut % (Auto) Lymph % (Auto) [place] % (Auto) Eos % (Auto) Baso % (Auto) Neut # (Auto) Lymph # (Auto) [place] # (Auto) Eos # (Auto) Baso # (Auto) Immature Gran # (Auto) Absolute Nucleated RBC Nucleated RBC % (auto) Neutrophils % (Manual) Lymphocytes % (Manual) Monocytes % (Manual) Neutrophils # (Manual) Total Absolute Neuts Lymphocytes # (Manual) Total Abs Lymphocytes Monocytes # (Manual) Polychromasia PT INR APTT PTT Ratio Fibrinogen Sodium Potassium Chloride Carbon Dioxide Anion Gap BUN Creatinine Est Cr Clr Drug Dosing Est GFR ( Amer) Est GFR (Non-Af Amer) BUN/Creatinine Ratio Glucose POC Glucose 193 H Lactate Calcium Phosphorus Magnesium Total Bilirubin AST ALT Alkaline Phosphatase Troponin I Total Protein Albumin Globulin Albumin/Globulin Ratio Blood Type Antibody Screen Crossmatch Diagnostic Findings Telemetry personally reviewed: Atrial fibrillation with heart rate mostly 90s to low 100s. EGD report reviewed from 10/03/2021 as noted above. Medications Administered Current Inpatient Medications Dextrose (Dextrose 50% 50 Ml Syringe) 25 - 50 ml IV UD PRN; Protocol PRN Reason: Hypoglycemia Protocol Stop: 10/28/21 15:44 Glucagon (Glucagon For Inj 1 Mg Vial) 1 mg IM UD PRN; Protocol PRN Reason: Hypoglycemia Protocol Stop: 10/28/21 15:44 Glucose (Glucose 40% Gel 15 Gm Tube) 15 - 30 gm PO UD PRN; Protocol PRN Reason: Hypoglycemia Protocol Stop: 10/28/21 15:44 Glucose (Glucose 10 Tabs/Tube) 4 - 8 tabs PO UD PRN; Protocol PRN Reason: Hypoglycemia Protocol Stop: 10/28/21 15:44 Dexamethasone 6 mg/ Syringe 1.5 mls @ 1 mls/min IV DAILY ANGELA Stop: 10/29/21 23:29 Last Admin: 10/03/21 08:09 Dose: 1 mls/min Documented by: Remdesivir 100 mg/ Sodium (Chloride) 250 mls @ 250 mls/hr IV Q24H ANGELA; Protocol Stop: 10/03/21 20:59 Last Infusion: 10/02/21 22:58 Dose: Infused Documented by: Amiodarone HCl/Dextrose (Nexterone / D5w) 360 mg in 200 mls @ 16.667 mls/hr IV .Q12H ANGELA Stop: 11/01/21 20:44 Last Admin: 10/03/21 08:12 Dose: 0.5 mg/min, 16.7 mls/hr Documented by: Dextrose (D5w) 1,000 mls @ 125 mls/hr IV .Q8H [facility] Stop: 10/03/21 15:30 Last Admin: 10/03/21 06:40 Dose: 80 mls/hr Documented by: Pantoprazole Sodium 40 mg/ (Syringe) 10 mls @ 5 mls/min IV BID [facility] Stop: 11/02/21 11:59 Insulin Aspart (Insulin Aspart Per Unit) 0 units SC Q6 [facility] Stop: 10/28/21 11:59 Last Admin: 10/03/21 11:37 Dose: 2 units Documented by: Miscellaneous (Carbohydrates For Hypoglycemia ) 15 - 30 gm PO UD PRN PRN Reason: Hypoglycemia Treatment Stop: 10/28/21 15:44 Miscellaneous (Remove Nicoderm Patch) 1 ea N/A DAILY@0859 [facility] Stop: 10/30/21 08:58 Last Admin: 10/03/21 08:10 Dose: 1 ea Documented by: Nicotine (Nicotine 7 Mg/24 Hr Tdsy) 7 mg TD QAM [facility] Stop: 10/29/21 13:44 Last Admin: 10/03/21 08:10 Dose: 7 mg Documented by: Ondansetron HCl (Ondansetron Inj 2 Mg/Ml 2 Ml Vial) 4 mg IV Q4H PRN PRN Reason: Nausea Stop: 10/28/21 14:09 Last Admin: 09/29/21 03:18 Dose: 4 mg Documented by: Sodium Chloride (Sodium Chloride 0.9% 10ml Flush) 30 ml IV Q24H [facility] Stop: 10/03/21 23:16 Last Admin: 10/02/21 22:58 Dose: 30 ml Documented by: PG Care Time/CCT Total # of Minutes Spent Total Time Spent with Patient: Total time spent is greater than 50% in coordination of care (as documented) at patient's floor/unit and/or counseling patient: Coding Level of Care Code 93675 Subseq Hosp Care Lvl 3 Diagnoses Paroxysmal atrial fibrillation I48.0 Hemorrhagic shock R57.8 GI bleed K92.2 Acute blood loss anemia D62 Hypertension I10 Hypertension type: essential hypertension Tobacco abuse Z72.0 (1) Hypertension Hypertension type: essential hypertension Qualified Code(s): I10 - Essential (primary) hypertension
[2021-10-03 14:12] LABS: Hematocrit (blood only) 29.8 % (42-52); Hemoglobin 9.7 g/dL (14.0-18.0)
[2021-10-03] MEDS: PANTOprazole 40 MG in SYRINGE 0 ML IV SCH ×2 (15:22→20:08)
[2021-10-03] MEDS ORDERED: LORazepam 0.5 MG/1 ML VIAL IV STA (15:36)
[2021-10-03 18:36] LABS: Creatinine Urine Random 62.6 mg/dl; Potassium Random Urine 44.3 mmol/L; Uric Acid Urine Random 43.3 mg/dl
[2021-10-03] MEDS: REMDESIVIR 100 MG in SODIUM CHLORIDE 0.9% 230 ML IV SCH (20:04)
[2021-10-03] MEDS: SODIUM CHLORIDE 0.9% 10ML FLUSH IV SCH (20:04)
[2021-10-03] MEDS: METOPROLOL TARTRATE 25 MG TAB PO SCH (20:07)
[2021-10-04] MEDS: INSULIN ASPART PER UNIT SC SCH ×6 (00:16→20:12)
--- NOTE | 2021-10-04 05:56 | Electrocardiogram Report ---
Test Reason : Blood Pressure : / mmHG Vent. Rate : 068 BPM Atrial Rate : 068 BPM P-R Int : 156 ms QRS Dur : 078 ms QT Int : 408 ms P-R-T Axes : -08 027 217 degrees QTc Int : 433 ms Normal sinus rhythm T wave abnormality, consider anterior ischemia Abnormal ECG When compared with ECG of 30-SEP-2021 15:38, Sinus rhythm has replaced Atrial fibrillation Vent. rate has decreased BY [address] no longer depressed in Inferior leads ST no longer depressed in Anterolateral leads Nonspecific T wave abnormality has replaced inverted T waves in Inferior leads Confirmed by Stefan Noland ([id number]) on 10/04/2021 5:55:43 AM Referred By: REFERRED SELF Confirmed By:Stefan Noland
--- NOTE | 2021-10-04 06:01 | Electrocardiogram Report ---
Test Reason : Blood Pressure : / mmHG Vent. Rate : 068 BPM Atrial Rate : 068 BPM P-R Int : 154 ms QRS Dur : 082 ms QT Int : 392 ms P-R-T Axes : 005 015 133 degrees QTc Int : 416 ms Normal sinus rhythm Nonspecific T wave abnormality Abnormal ECG When compared with ECG of 01-OCT-2021 18:26, T wave inversion no longer evident in Anterior leads Confirmed by Stefan Noland ([id number]) on 10/04/2021 6:00:54 AM Referred By: REFERRED SELF Confirmed By:Stefan Noland
--- NOTE | 2021-10-04 06:41 | Electrocardiogram Report ---
Test Reason : Blood Pressure : / mmHG Vent. Rate : 086 BPM Atrial Rate : 086 BPM P-R Int : 108 ms QRS Dur : 080 ms QT Int : 358 ms P-R-T Axes : 034 044 176 degrees QTc Int : 428 ms Sinus rhythm with short [place] Abnormal ECG When compared with ECG of 01-OCT-2021 21:08, [place] interval has decreased ST now depressed in Anterolateral leads Confirmed by Stefan Noland ([id number]) on 10/04/2021 6:41:02 AM Referred By: REFERRED SELF Confirmed By:Stefan Noland
[2021-10-04] MEDS: NICOTINE 7 MG/24 HR TDSY TD SCH (08:09)
[2021-10-04] MEDS: METOPROLOL TARTRATE 25 MG TAB PO SCH ×2 (08:09→20:12)
[2021-10-04] MEDS: PANTOprazole 40 MG in SYRINGE 0 ML IV SCH ×2 (08:10→20:11)
[2021-10-04] MEDS: dexAMETHasone 6 MG in SYRINGE 0 ML IV SCH (08:18)
[2021-10-04] MEDS: AMIODARONE / D5W 360 MG/200 ML BAG IV SCH (08:22)
[2021-10-04 08:31] LABS: Mean Corpuscular Hgb Conc 33.1 g/dL (32-36); Nucleated RBC # (auto) 0.12 K/uL (0-0); Nucleated RBC % (auto) 0.6 %
[2021-10-04 08:45] LABS: Hematocrit (blood only) 31.1 % (42-52); Hemoglobin 10.3 g/dL (14.0-18.0); Mean Corpuscular Hemoglobin 29.9 pg (25-34); Mean Corpuscular Volume 90.4 fL (80-100); RDW Standard Deviation 46.2 fL (36.4-46.3); Red Blood Count 3.44 M/uL (4.7-6.1); White Blood Count 18.84 K/uL (4.8-10.8)
[2021-10-04 09:09] LABS: Calcium 8.3 mg/dl (8.5-10.1); Creatinine Clr Calc Pharmacy 44.6 ml/min; Est GFR (African American) 52.2 ml/min; Potassium 3.9 mmol/L (3.5-5.1)
[2021-10-04 09:28] LABS: Mean Platelet Volume 12.9 fL (7.4-10.4); Platelet Count 158 K/uL (130-400)
[2021-10-04 09:29] LABS: Platelet Estimate Decreased (Normal)
--- NOTE | 2021-10-04 10:00 | Communication Note ---
Date of Service: October 04, 2021 Patient is a 71 yo male who underwent an EGD on 10/03/21 after developing a rapid onset of GI bleeding. He underwent an EGD on 10/03/21 that indicated s everal gastric ulcers and 1 large cratered duodenal ulcer that was injected and clipped. He is on PPI therapy. H/H is 10.3/31.1. No further episodes of GI bleeding noted. -Continue to monitor H/H -Monitor for further GI bleeding -Protonix 40 mg BID x 3 months, then once daily indefinitely
--- NOTE | 2021-10-04 12:28 | Hospitalist Progress Note ---
Date of Service October 04, 2021 Assessment & Plan (1) GI bleed: Plan: on 10/02 Hb down to 9.6, BUN up to 76 very large bloody BM on 10/02/21, this was first time he moved his bowels did have scant amount of coffee ground fluid in NGT in morning on 10/02, then had several hundred mL in the evening NPO, Protonix drip stop full dose Lovenox (last dose was evening 10/01) and aspirin 2 units of PRBC and 4 units FFP on 10/02 in evening EGD on 10/[address] Alamo: large cratered duodenal ulcer, epinephrine and clip Protonix BID x 3 months and then daily hold anticoagulation for 10 days Hb is 10 today, BUN trending down to 43 from 76, no melena monitor for any further bleeding through tomorrow but all signs indicate bleeding is over H/H in morning regular diet (2) Acute blood loss anemia: Plan: Hb down to 9.6 on 10/02 but he was actively bleeding at the time transfused 2 units of PRBC on 10/02 Hb is 10.3 this morning no further need for blood at this time follow H/H (3) Acute kidney injury: Plan: Cr bumped to 1.8 10/02, making urine Cr down to 1.5 today, mcdaniel removed got 2 one liter boluses, 2 units of PRBC, 4 units of FFP and fluids going at 80cc/hr the evening of 10/02 (4) Atrial fibrillation with rapid ventricular response: Plan: went into RVR 130-150's on 09/30 converted to sinus rhythm with Diltiazem drip increase Lopressor to 50mg BID, stopped Diltiazem Lovenox BID for full anticoagulation echo done, EF is 65% appreciate consult from Dr. Noland rapid response on 10/02, RVR in 160's and hypotensive after large bloody BM required cardioversion x 3, finally converted to NSR in 80's then back to afib RVR Amiodarone 150mg IV bolus and drip initiated during ACLS protocol converted to NSR this morning on amiodarone drip and Lopressor 25mg BID changed to Amiodarone 200mg BID went back into Afib rates 120-130 in evening on 10/04, treated with Lopressor 5mg IV and increased PO to 50mg plan: discharge on Amiodarone 200mg BID and Lopressor 50mg BID start on Eliquis 5mg BID 10 days from EGD (10/13/21) follow up with Dr. Noland patient's daughter Angelia is CCU nurse at [employer], she will be with him after discharge could likely use a PRN dose of Lopressor 25mg if he goes fast at home he will be reluctant to come back to hospital (5) Angioedema of tongue: Plan: Likely secondary to recently increased dose of lisinopril No NSAID use reportedly and no other signs of anaphylaxis to suggest allergic reaction C4 level is normal/high which rules out hereditary angioedema Intubated for airway protection due to extremely large tongue. 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 after discharge finally passed bedside swallow on 10/03, eating and drinking well, taking pills today (6) COVID-19: Plan: Was asymptomatic other than angioedema at the time of presentation Oxygenating well Keep on Covid airborne precautions stop dexamethasone, stop Remdesivir breathing well on room air (7) Hyperlipidemia: Plan: hold atorvastatin (8) Hypertension: Plan: Discontinue lisinopril metoprolol 50mg BID could add Norvasc if he gets hypertensive Plan: DVT prophylaxis: hold now with bleeding, order SCD discharge to home in the morning on 10/05 send on Protonix 40mg BID x 3 months then daily Amiodarone 200mg BID, Lopressor 50mg BID with PRN 25mg dose for tachycardia (his daughter can monitor him) Eliquis 5mg BID but do not start until 10/13/21 NO LISINOPRIL or ARB due to angioedema follow up with Dr. Noland in a few weeks follow up with Dr. Alamo/Caro Palomo in 1-2 weeks Admission and Anticipated Discharge Date Admission Date: September 24, 2021 Subjective patient doing well, eating and taking his pills he is still frustrated at being in the hospital he converted to NSR and remained in NSR until late this evening, flipped to Afib rates in 120-130 treated with Lopressor 5mg IV and 25mg PO in addition to the 25mg he will get at 9pm discussed with his daughter Angelia, he should be stable from GI bleed perspective to go home tomorrow patient very happy at the idea of going home d/w Dr. Noland, appreciate his input Review of Systems Review of Systems: All systems reviewed & are unremarkable except as noted in Subjective Physical Exam Physical Exam: General: well developed, well nourished, comfortable EENT: far less swelling of lips and tongue, NGT in place Neck: supple, trachea midline, normal thyroid Lungs: clear to auscultation bilaterally, normal effort, no accessory muscle use, no distress Heart: irregular irregular tachycardic S1 S2, no murmur, peripheral pulses weak but palpable, capillary refill normal, no edema Abdomen: soft, slightly distended, normoactive bowel sounds, tympanic to percussion Extremities: normal in appearance, no cyanosis, no petechiae, strength is 5/5 bilaterally Neuro: awake, cooperative, moves all extremities, no focal motor deficits, CN II-XII intact, sensation in extremities intact, normal speech Skin: warm, dry, no rash, normal turgor Psych: Awake, alert oriented x 3, agitated affect Results & Data Results & Data ([facility]) Vital Signs (Past 12 Hours) Vital Signs Temp Pulse Pulse Resp BP BP Pulse Ox 10/04/21 08:48 36.8 C 75 18 135/87 97 10/04/21 07:00 79 98 10/04/21 06:42 36.7 C 82 20 155/92 H 97 10/04/21 06:30 79 97 10/04/21 06:04 81 98 10/04/21 05:30 89 96 10/04/21 05:00 91 H 98 10/04/21 04:30 77 94 10/04/21 04:00 69 134/62 96 10/04/21 03:30 66 122/85 99 10/04/21 03:00 64 99 10/04/21 02:52 36.8 C 68 19 137/58 L 99 10/04/21 02:30 62 100 10/04/21 02:00 71 117/54 L 97 10/04/21 01:30 73 98 10/04/21 01:00 95 H 99 10/04/21 00:30 103 H 97 Laboratory Results Laboratory Results - last 24 hr 10/03/21 10/04/21 10/04/21 23:51 05:53 06:25 WBC 18.84 H RBC 3.44 L Hgb 10.3 L Hct 31.1 L MCV 90.4 MCH 29.9 MCHC 33.1 RDW Std Deviation 46.2 RDW Coeff of Jimbo 14.0 Plt Count 158 MPV 12.9 H Absolute Nucleated RBC 0.12 H Nucleated RBC % (auto) 0.6 Platelet Estimate Decreased L Sodium Potassium Chloride Carbon Dioxide Anion Gap BUN Creatinine Est Cr Clr Drug Dosing Est GFR ( Amer) Est GFR (Non-Af Amer) BUN/Creatinine Ratio Glucose POC Glucose 103 H 111 H Calcium 10/04/21 10/04/21 10/04/21 06:25 11:57 16:48 WBC RBC Hgb Hct MCV MCH MCHC RDW Std Deviation RDW Coeff of Jimbo Plt Count MPV Absolute Nucleated RBC Nucleated RBC % (auto) Platelet Estimate Sodium 143 D Potassium 3.9 Chloride 112 H Carbon Dioxide 25 Anion Gap 6.0 BUN 43 H Creatinine 1.54 H Est Cr Clr Drug Dosing 44.6 Est GFR ( Amer) 52.2 Est GFR (Non-Af Amer) 45.0 BUN/Creatinine Ratio 28.0 H Glucose 108 H POC Glucose 125 H 96 Calcium 8.3 L 10/04/21 20:10 WBC RBC Hgb Hct MCV MCH MCHC RDW Std Deviation RDW Coeff of Jimbo Plt Count MPV Absolute Nucleated RBC Nucleated RBC % (auto) Platelet Estimate Sodium Potassium Chloride Carbon Dioxide Anion Gap BUN Creatinine Est Cr Clr Drug Dosing Est GFR ( Amer) Est GFR (Non-Af Amer) BUN/Creatinine Ratio Glucose POC Glucose 115 H Calcium PG Care Time/CCT Total # of Minutes Spent Total Time Spent: 36 Total Time Spent with Patient: Total time spent is greater than 50% in coordination of care (as documented) at patient's floor/unit and/or counseling patient: Coding Level of Care Code 94794 Subseq Hosp Care Lvl 3 (25 - SIGNIFICANT, SEPARATELY IDENTIFIABLE ) Diagnoses GI bleed K92.2 Acute blood loss anemia D62 Acute kidney injury N17.9 Atrial fibrillation with rapid ventricular response I48.91 Angioedema of tongue T78.3XXA COVID-19 U07.1 Hyperlipidemia E78.5 Hypertension I10 Hypertension type: essential hypertension (1) Hypertension Hypertension type: essential hypertension Qualified Code(s): I10 - Essential (primary) hypertension
[2021-10-04] MEDS ORDERED: AMIODARONE 200 MG TAB PO ONE (12:30)
--- NOTE | 2021-10-04 17:07 | Cardiology Progress Note ---
Date of Service October 04, 2021 Assessment & Plan (1) Paroxysmal atrial fibrillation: (2) Hemorrhagic shock: (3) GI bleed: (4) Acute blood loss anemia: (5) Hypertension: (6) Tobacco abuse: Plan: ASSESSMENT/PLAN: 1. Paroxysmal AFib: First diagnosed during this hospital stay. After brief episode, spontaneously converted to sinus rhythm. He then developed recurrence of AFib with RVR on 10/02/21 after large bloody bowel movement. Underwent cardioversion emergently as he was hypotensive/unstable. Amiodarone began intravenously. Reverted once again to AFib shortly thereafter. 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 Currently in sinus rhythm. Amiodarone IV discontinued in favor of amiodarone 200 mg p.o. b.i.d.. Continue this for next couple of weeks and then likely can reduce to 200 mg once daily. Would continue amiodarone for at least a month, and can consider long-term as an outpatient. Can continue beta-felipe. If safe in the future, resume anticoagulation for stroke risk reduction, but currently recovering from significant GI bleed with hemorrhagic shock, requiring PRBC x 2. 2. Hemorrhagic shock/GI bleed/acute blood loss anemia: No further bleeding. Underwent treatment of duodenal ulcer on 10/03/2021. Also found to have nonblee ding gastric ulcers. Underwent PRBC transfusion x2 on 10/02/2021. As per GI. 3. Hypertension: Blood pressure mostly normotensive or mildly hypertensive today. Continue beta-felipe. Lisinopril discontinued for angioedema. 4. Tobacco abuse: Smoking cessation. 5. Hypernatremia: Sodium level has improved. As per primary service. 6. Disposition: Cardiology will sign off at this time. Please call on-call splitting machine feeder with any other questions or concerns. Recommend follow-up in the cardiology office in approximately 2 weeks. Patient care communicated with Dr. Jiménez of the primary hospitalist service. Admission and Anticipated Discharge Date Admission Date: September 24, 2021 Subjective Patient was seen earlier today. He feels much better today. He denies chest pain, shortness of breath, palpitations, syncope, or abdominal pain. He denies any bleeding. Review of systems: As above. Physical Exam Physical Exam: Gen.: No acute distress. Alert. HEENT: Anicteric sclera. Neck: No JVD. Cardiac: PMI was nondisplaced. No ventricular heave. Regular. Normal S1-S2. 1/6 systolic murmur. No rubs or gallops. Pulmonary: Clear to auscultation bilaterally without wheezes, rales, or rhonchi. Abdomen: Soft, nontender, nondistended, with normoactive bowel sounds. No bruits noted. Extremities: 2+ radial pulses bilaterally. 2+ posterior tibialis pulses bilaterally. No edema or cyanosis. Results & Data ([facility]) Vital Signs (Past 12 Hours) Vital Signs Temp Pulse Pulse Resp BP BP Pulse Ox 10/04/21 16:16 36.8 C 86 18 147/92 H 97 10/04/21 12:00 36.5 C 66 16 150/86 H 94 10/04/21 08:48 36.8 C 75 18 135/87 97 10/04/21 08:00 36.7 C 72 16 135/87 94 10/04/21 07:00 79 98 10/04/21 06:42 36.7 C 82 20 155/92 H 97 10/04/21 06:30 79 97 10/04/21 06:04 81 98 10/04/21 05:30 89 96 Laboratory Results Laboratory Results - last 24 hr 10/03/21 10/03/21 10/03/21 17:51 17:51 23:51 WBC RBC Hgb Hct MCV MCH MCHC RDW Std Deviation RDW Coeff of Jimbo Plt Count MPV Absolute Nucleated RBC Nucleated RBC % (auto) Platelet Estimate Sodium Potassium Chloride Carbon Dioxide Anion Gap BUN Creatinine Est Cr Clr Drug Dosing Est GFR ( Amer) Est GFR (Non-Af Amer) BUN/Creatinine Ratio Glucose POC Glucose 103 H Calcium Urine Osmolality 540 Ur Random Creatinine 62.6 Ur Random Sodium 55 Ur Random Potassium 44.3 Ur Random Chloride 48 Ur Random Uric Acid 43.3 10/04/21 10/04/21 10/04/21 05:53 06:25 06:25 WBC 18.84 H RBC 3.44 L Hgb 10.3 L Hct 31.1 L MCV 90.4 MCH 29.9 MCHC 33.1 RDW Std Deviation 46.2 RDW Coeff of Jimbo 14.0 Plt Count 158 MPV 12.9 H Absolute Nucleated RBC 0.12 H Nucleated RBC % (auto) 0.6 Platelet Estimate Decreased L Sodium 143 D Potassium 3.9 Chloride 112 H Carbon Dioxide 25 Anion Gap 6.0 BUN 43 H Creatinine 1.54 H Est Cr Clr Drug Dosing 44.6 Est GFR ( Amer) 52.2 Est GFR (Non-Af Amer) 45.0 BUN/Creatinine Ratio 28.0 H Glucose 108 H POC Glucose 111 H Calcium 8.3 L Urine Osmolality Ur Random Creatinine Ur Random Sodium Ur Random Potassium Ur Random Chloride Ur Random Uric Acid 10/04/21 10/04/21 11:57 16:48 WBC RBC Hgb Hct MCV MCH MCHC RDW Std Deviation RDW Coeff of Jimbo Plt Count MPV Absolute Nucleated RBC Nucleated RBC % (auto) Platelet Estimate Sodium Potassium Chloride Carbon Dioxide Anion Gap BUN Creatinine Est Cr Clr Drug Dosing Est GFR ( Amer) Est GFR (Non-Af Amer) BUN/Creatinine Ratio Glucose POC Glucose 125 H 96 Calcium Urine Osmolality Ur Random Creatinine Ur Random Sodium Ur Random Potassium Ur Random Chloride Ur Random Uric Acid Diagnostic Findings Telemetry personally reviewed: Atrial fibrillation converted to sinus rhythm on 10/04/2021 at 1:13 a.m.. Has remained in sinus rhythm. Medications Administered Current Inpatient Medications Amiodarone HCl (Amiodarone 200 Mg Tab) 200 mg PO BIDM [facility] Stop: 11/03/21 16:59 Dextrose (Dextrose 50% 50 Ml Syringe) 25 - 50 ml IV UD PRN; Protocol PRN Reason: Hypoglycemia Protocol Stop: 10/28/21 15:44 Glucagon (Glucagon For Inj 1 Mg Vial) 1 mg IM UD PRN; Protocol PRN Reason: Hypoglycemia Protocol Stop: 10/28/21 15:44 Glucose (Glucose 40% Gel 15 Gm Tube) 15 - 30 gm PO UD PRN; Protocol PRN Reason: Hypoglycemia Protocol Stop: 10/28/21 15:44 Glucose (Glucose 10 Tabs/Tube) 4 - 8 tabs PO UD PRN; Protocol PRN Reason: Hypoglycemia Protocol Stop: 10/28/21 15:44 Dexamethasone 6 mg/ Syringe 1.5 mls @ 1 mls/min IV DAILY ANGELA Stop: 10/29/21 23:29 Last Admin: 10/04/21 08:18 Dose: 1 mls/min Documented by: Pantoprazole Sodium 40 mg/ (Syringe) 10 mls @ 5 mls/min IV BID ANGELA Stop: 11/02/21 11:59 Last Admin: 10/04/21 08:10 Dose: 5 mls/min Documented by: Insulin Aspart (Insulin Aspart Per Unit) 0 units SC ACHS [facility] Stop: 11/03/21 12:29 Last Admin: 10/04/21 12:50 Dose: 4 units Documented by: Metoprolol Tartrate (Metoprolol Tartrate 25 Mg Tab) 25 mg PO BID [facility] Stop: 11/02/21 20:59 Last Admin: 10/04/21 08:09 Dose: 25 mg Documented by: Miscellaneous (Carbohydrates For Hypoglycemia ) 15 - 30 gm PO UD PRN PRN Reason: Hypoglycemia Treatment Stop: 10/28/21 15:44 Miscellaneous (Remove Nicoderm Patch) 1 ea N/A DAILY@0859 [facility] Stop: 10/30/21 08:58 Last Admin: 10/04/21 08:08 Dose: 1 ea Documented by: Nicotine (Nicotine 7 Mg/24 Hr Tdsy) 7 mg TD QAM [facility] Stop: 10/29/21 13:44 Last Admin: 10/04/21 08:09 Dose: 7 mg Documented by: Ondansetron HCl (Ondansetron Inj 2 Mg/Ml 2 Ml Vial) 4 mg IV Q4H PRN PRN Reason: Nausea Stop: 10/28/21 14:09 Last Admin: 09/29/21 03:18 Dose: 4 mg Documented by: PG Care Time/CCT Total # of Minutes Spent Total Time Spent with Patient: Total time spent is greater than 50% in coordination of care (as documented) at patient's floor/unit and/or counseling patient: Coding Level of Care Code 62742 Subseq Hosp Care Lvl 3 Diagnoses Paroxysmal atrial fibrillation I48.0 Hemorrhagic shock R57.8 GI bleed K92.2 Acute blood loss anemia D62 Hypertension I10 Hypertension type: essential hypertension Tobacco abuse Z72.0 (1) Hypertension Hypertension type: essential hypertension Qualified Code(s): I10 - Essential (primary) hypertension
[2021-10-04] MEDS: AMIODARONE 200 MG TAB PO SCH (17:14)
[2021-10-04] MEDS ORDERED: METOPROLOL TARTRATE 1 MG/ML VIAL IV STA (18:47)
[2021-10-04] MEDS ORDERED: METOPROLOL TARTRATE 1 MG/ML VIAL IV ONE (18:51)
[2021-10-04] MEDS ORDERED: METOPROLOL TARTRATE 25 MG TAB PO ONE (19:15)
[2021-10-05] MEDS: NICOTINE 7 MG/24 HR TDSY TD SCH (08:32)
[2021-10-05] MEDS: PANTOprazole 40 MG in SYRINGE 0 ML IV SCH (08:34)
[2021-10-05] MEDS: INSULIN ASPART PER UNIT SC SCH (08:37)
[2021-10-05] MEDS ORDERED: METOPROLOL TARTRATE 50 MG TAB PO SCH (09:00)
[2021-10-05] MEDS: AMIODARONE 200 MG TAB PO SCH (09:07)
--- NOTE | 2021-10-05 10:23 | Electrocardiogram Report ---
Test Reason : Blood Pressure : / mmHG Vent. Rate : 123 BPM Atrial Rate : 178 BPM P-R Int : 000 ms QRS Dur : 074 ms QT Int : 350 ms P-R-T Axes : 000 047 000 degrees QTc Int : 501 ms Probable Atrial fibrillation with rapid ventricular response Nonspecific ST abnormality Abnormal ECG When compared with ECG of 02-OCT-2021 14:41, Atrial fibrillation has replaced Sinus rhythm T wave inversion no longer evident in Lateral leads Confirmed by Jose Aburto ([id number]) on 10/05/2021 10:23:27 AM Referred By: REFERRED SELF Confirmed By:Jose Aburto
--- NOTE | 2021-10-05 10:24 | Discharge Summary ---
Date of Service October 05, 2021 Admission HPI Per Admitting Provider 71 yo male with PMH described below arrives to the ED with swollen tongue. Patient recently had an increase to his lars inhibitor. Patient is having difficulty swallowing. History obtained from ED chart. At time of interview, patient already intubated and sedated. Principal Diagnosis Angioedema secondary to LARS inhibitor Covid-19 GI bleed secondary to duodenal ulcer Acute blood loss anemia Discharge Exam Constitutional WD/WN, vitals as above Eyes PERRL, conjunctivae normal, anicteric sclerae ENMT external ear and nose normal, oropharynx normal Neck trachea midline, no thyromegaly Respiratory normal respiratory effort, lungs clear to auscultation Cardiovascular RRR, no murmur, no edema Chest (Breasts) Chest: normal inspection of chest Gastrointestinal (Abdomen) normal bowel sounds, soft, nontender, no hepatosplenomegaly Musculoskeletal Extremities: extremities normal to inspection; no cyanosis and no clubbing Skin no rashes, warm and dry Neurologic moves all extremities and awake; no focal motor deficits Psychiatric A+Ox3, euthymic affect Lymphatic no lymphedema Discharge Data Allergies Allergy/AdvReac Type Severity Reaction Status Date / Time LARS Inhibitors Allergy Severe Severe Verified 09/24/21 14:31 angioedema Penicillins Allergy Intermediate hives Verified 06/28/21 10:48 Consultations 09/24/21 10:22 ED Decision to Admit Stat 09/24/21 11:56 Consult Hide Examiner Routine 10/01/21 09:46 Consult Cardiology Routine 10/02/21 09:08 Consult Gastroenterology Routine Procedures Performed Operation Date: 10/03/21 08:30 Actual Procedures p EGD Hemostasis - Tj Alamo MD Hospital Course (1) Angioedema of tongue: Likely secondary to recently increased dose of lisinopril No NSAID use reportedly and no other signs of anaphylaxis to suggest allergic reaction C4 level is normal/high which rules out hereditary angioedema Intubated for airway protection due to extremely large tongue. Received FFP, diphenhydramine and dexamethasone x1 dose in the ER Extubated on 08/29, tongue swelling is resolved and doing very well Discontinue lars inhibitor permanently Appreciate pattern vault clerk management Pulmonology recommends follow-up with embalmer/funeral director as an outpatient after discharge finally passed bedside swallow on 10/03, eating and drinking well, taking pills without difficulty (2) GI bleed: on 10/02 Hb down to 9.6, BUN up to 76 very large bloody BM on 10/02/21, this was first time he moved his bowels did have scant amount of coffee ground fluid in NGT in morning on 10/02, then had several hundred mL in the evening He was made NPO, Protonix drip was started His full dose Lovenox was held (last dose was evening 10/01) and aspirin held 2 units of PRBC and 4 units FFP on 10/02 in evening EGD on 10/[address] Alamo: large cratered duodenal ulcer, epinephrine and clip Protonix BID x 3 months and then daily after discharge hold anticoagulation for 10 days and can restart after that as long as no further bleeding Hb is 10 and stable prior to discharge, BUN trending down to 43 from 76, no further melena or hematochezia Tolerating regular diet Stable for discharge (3) Acute blood loss anemia: Hb down to 9.6 on 10/02 but he was actively bleeding at the time transfused 2 units of PRBC on 10/02 Hb is 10.3 prior to discharge no further need for blood at this time Follow CBC as an outpatient (4) Acute kidney injury: Cr bumped to 1.8 10/02, making urine Cr down to 1.5 and his mcdaniel was removed got 2 one liter boluses, 2 units of PRBC, 4 units of FFP and fluids going at 80cc/hr the evening of 10/02 (5) Atrial fibrillation with rapid ventricular response: went into RVR 130-150's on 09/30 converted to sinus rhythm with Diltiazem drip increase Lopressor to 50mg BID, stopped Diltiazem Lovenox BID for full anticoagulation which was then held due to GI bleed as above echo done, EF is 65% appreciate consult from Dr. Noland rapid response on 10/02, RVR in 160's and hypotensive after large bloody BM required cardioversion x 3, finally converted to NSR in 80's then back to afib RVR Amiodarone 150mg IV bolus and drip initiated during ACLS protocol converted to NSR on amiodarone drip and Lopressor 25mg BID changed to Amiodarone 200mg BID went back into Afib rates 120-130 in evening on 10/04, treated with Lopressor 5mg IV and increased PO to 50mg plan: discharge on Amiodarone 200mg BID and Lopressor 50mg BID start on Eliquis 5mg BID 10 days from EGD (10/13/21) follow up with Dr. Noland of cardiology as an outpatient patient's daughter Angelia is CCU nurse at [employer], she will be with him after discharge could likely use a PRN dose of Lopressor 25mg if he goes fast at home he will be reluctant to come back to hospital (6) COVID-19: Was asymptomatic other than angioedema at the time of presentation Oxygenating well and continued to have no symptoms of this throughout his hospitalization Was kept on Covid airborne precautions stopped dexamethasone, stopped Remdesivir breathing well on room air (7) Hyperlipidemia: Continue atorvastatin (8) Hypertension: Discontinue lisinopril permanently metoprolol 50mg BID DVT prophylaxis: SCDs only given GI bleeding Disposition-discharge to home follow up with Dr. Noland of cardiology in a few weeks follow up with Dr. Alamo/Caro Palomo of gastroenterology in 1-2 weeks Total Time Total Time Spent Total Time Spent (In Minutes): 45 minutes Discharge Plan Discharge Items Patient Disposition: Home - Home Health Services Reason For Visit: ANGIOEDEMA Discharge Diagnosis: Angioedema, GI bleed secondary to peptic ulcer disease, Acute kidney injury, Rapid atrial fibrillation, COVID-19 Condition on Discharge: Fair Activity: As commented below Lifting: Gradually increase as tolerated Bathing: No limitations Exercise/Sports: Gradually increase as tolerated Non-emergency contact: Primary Care Provider, Shift Commander and Therapeutic Recreation Director Call non-emergency contact if: you have any medication questions, your symptoms worsen and you have a fever Follow-up/Referrals: Sebastian Jane MD [Primary Care Provider] - (Follow up within 1-2 weeks) Stefan Noland MD [Physician] - 10/22/21 3:30 pm Tj Alamo MD [Physician] - 10/17/21 9:20 am (Please follow up with Dr. Alamo on Friday10/17/21 at 9:20 am. Please arrive to the office at 9:05 am for your appointment. If you are unable to keep this appointment, please call the office to reschedule at [phone].) Diet: Heart Healthy Addtl Attending Provider Instructions: You were admitted with tongue swelling caused by your lisinopril. This medication was STOPPED and you should never take it or anything related to it ever again. You also had ulcers that were bleeding in your stomach and small intestine that required a procedure to fix. You should continue on the protonix 40mg twice daily x 3 months, and then once daily after that. Follow up with the GI doctor in 2 weeks for this. You also had a rapid irregular heart rhythm called atrial fibrillation. This was treated with shocking of your heart back to a normal rhythm, as well as medications called amiodarone and metoprolol. Please continue on these medications as prescribed and follow up with the Shift Commander. You will need to start a blood thinner called Eliquis on 10/13/21 to prevent stroke associated with atrial fibrillation. Do NOT start the blood thinner until then due to your recent GI bleeding. You had COVID but fortunately did not have any issues with this. You are able to come out of quarantine at this point as you are beyond 10 days from the time of diagnosis. Follow up with your PCP within 1-2 weeks. Pending Studies at Discharge: No Stand-Alone Forms: My [facility], Smoking Cessation Medications and DC Order Prescriptions: New amiodarone 200 mg Tablet 200 mg PO BIDM Qty: 42 RF: 0 Eliquis 5 mg tablet 5 mg PO BID Qty: 60 RF: 0 pantoprazole [Protonix] 40 mg tablet,delayed release (DR/EC) 40 mg PO BID Qty: 60 RF: 2 Continued atorvastatin 10 mg tablet 10 mg PO DAILY Qty: 90 RF: 3 omega-3 acid ethyl esters 1 gram capsule 2 cap PO DAILY RF: 0 coenzyme Q10 100 mg capsule 100 mg PO DAILY RF: 0 metoprolol tartrate 50 mg tablet 50 mg PO BID Qty: 180 RF: 3 Discontinued aspirin 81 mg tablet,delayed release (DR/EC) 81 mg PO DAILY RF: 0 lisinopril 5 mg tablet 10 mg PO DAILY RF: 0 Discharge Orders: Discharge Order (Routine); Ordered 10/05/21 Ordered By: Leti Sanchez/Other Patient Handouts: Prediabetes, 5 Steps for Eating Healthier Admission Data Admit Date/Time: 09/24/21 11:56 Attending Provider: Tussey,Leti B. Admit Provider: Jovani Obando Primary Care Provider: Sebastian Jane Other Providers: Jovani Obando ; Sheldon Connolly ; Jose Aburto ; Tj Alamo Other Interventions: Discharge Summary Assessment (RN) Last Done: 10/05/21 10:25 Coding Level of Care Code D/C DAY MANAGEMENT >30 MINS Diagnoses GI bleed K92.2 Acute blood loss anemia D62 Acute kidney injury N17.9 Atrial fibrillation with rapid ventricular response I48.91 Angioedema of tongue T78.3XXA COVID-19 U07.1 Hyperlipidemia E78.5 Hypertension I10 Hypertension type: essential hypertension
== END 2021-10-05 11:27 | disposition home health service (06) | DRG 915 ==
LOC: ED 08:27 → SUATTDRO 11:56 → 2E 11:56

== ENCOUNTER 2022-04-03 18:44 | Inpatient (IN) ==
[2022-04-03] MEDS ORDERED: ACETAMINOPHEN 500 MG TAB PO STA (19:17)
[2022-04-03] MEDS ORDERED: CEFEPIME 2,000 MG/20 ML VIAL IV STA (19:17)
--- NOTE | 2022-04-03 19:26 | Emergency Department Note ---
Impression & Plan Sepsis, Acute urinary retention, Leukocytosis, Acute UTI ED Provider Note NAME: CRIS CHURCHILL AGE: 72 SEX: M : 1950 ARRIVES VIA: Walk-In INFORMANT: [Patient][daughter] ED PROVIDER(S): [Silverio Goldman MD] CHIEF COMPLAINT: Urinary symptoms HISTORY OF PRESENT ILLNESS: He is a 72-year-old male who had a urologic procedure 6 days ago. 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 The patient then had a thoracentesis on the right the following day. The patient was doing well up until this morning when he had a hard time with his urinary stream. Throughout the day, he has not been able to urinate and then developed a low-grade fever. He has a lot of pain and pressure in the bladder. The pain is moderate to severe. The patient was able to provide a urine sample as an outpatient. The patient was prescribed Cipro as an outpatient. He has taken 1 dose. As things were escalating, he presents to the ER for further evaluation. REVIEW OF SYSTEMS: See HPI for pertinent positives and negatives. A total of ten systems were r eviewed and were otherwise negative. PMHx/PSHx: See Below SOCIAL HISTORY: See Below. PHYSICAL EXAM: GENERAL: Patient is in mild distress from pain. HEENT: No acute trauma, normocephalic atraumatic, mucous membranes moist, no nasal congestion, no scleral icterus. NECK: No stridor, no adenopathy, no meningismus, trachea is midline. LUNGS: Diminished breath sounds on the right when compared to the left. No whee zing or respiratory distress. HEART: Without murmurs gallops or rubs, regular rate and rhythm. ABDOMEN: Soft, moderately tender over the area of the bladder, no peritonitis. EXTREMITIES: No cyanosis or edema, full range of motion of all the joints without pain or difficulty, no signs for acute trauma. NEUROLOGIC: Oriented x 3, no acute motor or sensory deficits, no focal weakness. SKIN: No rash, no jaundice, no diaphoresis. DIFFERENTIAL DIAGNOSIS: Sepsis, UTI, pyelonephritis, urinary retention, hydronephrosis, pneumonia, metabolic abnormality, electrolyte abnormalities, cardiac sources, cellulitis, bacteremia, intracerebral event, toxicologic etiology, neurologic event, as well as other pathologies. EMERGENCY DEPARTMENT COURSE/PROCEDURES: ECG: Indication was potential sepsis. The ECG shows a sinus tachycardia with a rate of 105. There is some subtle ST depression along the inferior and lateral leads. No ST elevation. No PVCs P the QTc is 428. Continuous Cardiac Monitoring: An order was placed for continuous cardiac monitoring. The monitor shows a rate of 96 with normal sinus rhythm. Critical Care Note: I have personally spent 53 minutes of critical care time in the direct management of this patient. This includes bedside care, interpretation of diagnostic studies, and testing, discussion with consultants, patient, and family members, and other required patient management activities. This 53 minutes is in excess of all separately billable procedures. MEDICAL DECISION MAKING: There is a significant leukocytosis at 29,000, this would be consistent with infection. A very mild anemia was noted. There was a normal platelet count. INR was slightly elevated, likely from his Eliquis use. Sodium somewhat low at 129. No renal failure. Lactic acid level was not elevated making severe sepsis less likely. Magnesium was low at 1.6. No concerning liver enzyme elevation. Procalcitonin level was elevated consistent with bacterial infection. ECG shows a sinus tachycardia, no obvious ischemia. Cardiac enzyme testing x1 is not consistent with acute cardiac injury. Urinalysis is consistent with infection. COVID test returned negative. Chest x-ray shows congestion of the right lung which has been seen before. No pneumothorax. On exam, the patient was uncomfortable. He had over 700 cc of urine by bladder scan. He was febrile and tachycardic. Abdominal and pelvis CT did not show any hydronephrosis or acute surgical process. The Barber was within the bladder. The patient received oral Tylenol, IV cefepime and IV magnesium. He was given IV saline about 2 L. He was given IV vancomycin. The patient did have a Barber catheter placed. This relieved the urinary pressure and he felt markedly improved. The patient is in need of a hospital stay. He is a septic from a UTI. He just had a urologic procedure. He has a very high white blood cell count and presents tachycardic. I spoke with the patient and his family, I spoke with case management. The on- call hospitalist was consulted. Past Med/Surg History Medical History Angioedema of tongue September 2021 at [facility] from an allergy to lisinopril. Treated through the Emergency Room at [facility]. Placed on a ventilator at that time- while inpatient tested positive for covid-19 and then developed rectal bleeding where an ulcer perforation had been found and repaired. Pt did follow up with an heating technician s/p angioedema Anxiety Bladder tumor Recently diagnosed within the last year () Duodenal ulcer 09/2021 with perforation. treated while inpatient at [facility] Erectile dysfunction History of COVID-19 Tested positive 09/24/21 during inpatient stay- asymptomatic at that time- may have had covid in August 2021 when was ill with Covid. Hyperlipidemia Hypertension Lung mass Recently diagnosed- awaiting further testing Mediastinal lymphadenopathy Recently diagnosed- awaiting further testing On anticoagulant therapy Paroxysmal atrial fibrillation - September 2021, reason for blood thinner - Rapid response 09/2021- "RVR in 160s and hypotensive after large bloody BM. Required cardioversion x 3, finally converted to NSR in 80s and then back to a fib with RVR. Amiodarone IV bolus and drip initiated per ACLS protocol. Converted to NSR- treated later with Lopressor. Discharged on Amiodarone, Lopressor and Eliquis. Pleural effusion, right Thoracentesis scheduled 03/29/22 Prediabetes Diet controlled Surgical History History of esophagogastroduodenoscopy (EGD) with repair of ulcer perforation in september 2021/oct 2021 Family History Father Coronary heart disease Cardiac disorder Myocardial infarction Sister Diabetes Myocardial infarction Mother Hypertension Other No family history of adverse response to anesthesia Denies family history of Ovarian cancer Prostate cancer Crohn's disease Breast cancer Colorectal cancer Ulcerative colitis Social History Smoking Status: Former smoker Tobacco Type: Cigarettes Age Started Using Tobacco: 17; packs per day: 0.5; Cigarettes Per Day: 1/2 ppd; Second Hand Exposure: Yes (hx); Hx Alcohol Use: No Hx Substance Use: No Preferred Language: Polish Communication Ability: Effective Visual Impairment: No Limitations Hearing Ability: Hard of Hearing Emergency Crew Supervisor Required: No Beliefs That Will Affect Care: None marital status: Current Living Situation: Spouse current occupational status: retired 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 Feels Safe at Home: Yes Childhood Exposure to Second-Hand Smoke: Yes caffeine: Yes Dental Care, Regularly: No Physical Activity Frequency: Daily Seatbelt Use: always Sunscreen Use: No Allergies Allergies Allergy/AdvReac Type Severity Reaction Status Date / Time LARS Inhibitors Allergy Severe Severe Verified 04/03/22 20:20 angioedema Penicillins Allergy Intermediate hives Verified 04/03/22 20:20 IV Contrast Allergy Intermediate Rash and Uncoded 04/03/22 20:[address] scan with contrast Home Meds Home Medications Medication Instructions Recorded Confirmed coenzyme Q10 100 mg capsule 100 mg PO QPM cap 03/24/19 04/03/22 amlodipine 5 mg tablet 5 mg PO QAM 03/27/22 04/03/22 atorvastatin 10 mg tablet 10 mg PO QPM 03/27/22 04/03/22 lorazepam 0.5 mg tablet 0.5 mg PO BID PRN 03/27/22 04/03/22 pantoprazole 40 mg tablet,delayed 40 mg PO QAM 03/27/22 04/03/22 release (Protonix) apixaban 5 mg tablet 5 mg PO BID 03/29/22 04/03/22 diphenhydramine HCl 25 mg capsule 25 mg PO DIRECTED PRN 04/03/22 04/03/22 (Benadryl) omega-3 fatty acids 1,000 mg 1,000 mg PO DAILY 04/03/22 04/03/22 capsule Previous Rx's Medication Instructions Recorded metoprolol tartrate 50 mg tablet 50 mg PO BID #180 tab 01/18/22 docusate sodium 100 mg capsule 100 mg PO BID #10 cap 03/28/22 (Col-Rite) methylprednisolone 4 mg tablets in See Rx Instructions .ROUTE 03/30/22 a dose pack .COMPLEX #21 ea ciprofloxacin HCl 250 mg tablet 250 mg PO BID #10 tab 04/03/22 Results & Data (ED) Vital Signs Vital Signs - 24 hr 04/03/22 18:49 04/03/22 19:45 04/03/22 20:43 Temperature 37.6 C H Temperature Source Temporal Artery Scan Pulse Rate 116 H Pulse Rate [Apical] 96 H 94 H Pulse Rhythm Regular Pulse Strength Normal Respiratory Rate 20 24 16 Respiratory Effort / Characteristics Non-Labored Spontaneous Non-Labored Spontaneous Respiratory Depth Normal Respiratory Pattern Regular Blood Pressure 161/84 H Blood Pressure [Right Arm] 144/71 H 98/70 L Blood Pressure Mean 109 Blood Pressure Mean [Right Arm] 95 79 Blood Pressure Position Sitting Pulse Oximetry 96 94 95 Oxygen Delivery Method Room Air Room Air Room Air Sepsis Recent Fever Within 48 Hours No Sepsis New/Unexplained Change in Mental Status No Sepsis Action Taken by Nursing No Action Required Home Medications Current Medication List: was personally reviewed by me Laboratory Data Attestation: I reviewed the patient's lab results. Result diagrams: 04/03/22 19:35 04/03/22 19:35 Lab Results 04/03/22 04/03/22 04/03/22 Range/Units 19:35 19:35 19:35 WBC 29.91 H (4.8-10.8) K/uL RBC 4.52 L (4.7-6.1) M/uL Hgb 13.1 L (14.0-18.0) g/dL Hct 39.0 L (42-52) % MCV 86.3 (80-100) fL MCH 29.0 (25-34) pg MCHC 33.6 (32-36) g/dL RDW Std Deviation 44.7 (36.4-46.3) fL RDW Coeff of Jimbo 14.1 (11.5-14.5) % Plt Count 240 (130-400) K/uL MPV 10.9 H (7.4-10.4) fL Immature Gran % (Auto) 0.8 % Neut % (Auto) 84.7 % Lymph % (Auto) 7.6 % Morgan % (Auto) 6.8 % Eos % (Auto) 0.0 % Baso % (Auto) 0.1 % Neut # (Auto) 25.37 H (1.4-6.5) K/uL Lymph # (Auto) 2.26 (1.2-3.4) K/uL Morgan # (Auto) 2.02 H (0.11-0.59) K/uL Eos # (Auto) 0.01 (0-0.5) K/uL Baso # (Auto) 0.02 (0-0.2) K/uL Immature Gran # (Auto) 0.23 H (0.00-0.02) K/uL PT 14.6 H (9.0-12.0) Seconds INR 1.4 H (0.9-1.1) APTT 33.4 H (21.0-31.0) Seconds PTT Ratio 1.2 Sodium 129 L (136-145) mmol/L Potassium 3.6 (3.5-5.1) mmol/L Chloride 96 L (98-107) mmol/L Carbon Dioxide 22 (21-32) mmol/L Anion Gap 11 (3-11) BUN 23 (6-23) mg/dl Creatinine 1.27 (0.6-1.4) mg/dl Est Cr Clr Drug Dosing 53.3 ml/min Est GFR ( Amer) 65.4 ml/min Est GFR (Non-Af Amer) 56.5 ml/min BUN/Creatinine Ratio 18.1 (10-20) Glucose 128 H (70-99(Fasting)) mg/dl Lactate (0.4-2.0) mmol/L Calcium 8.8 (8.5-10.1) mg/dl Magnesium 1.6 L (1.7-2.4) mg/dl Total Bilirubin 0.8 (0.2-1.0) mg/dl AST 14 (13-39) U/L ALT 35 (7-52) U/L Alkaline Phosphatase 63 (34-104) U/L Troponin I High Sens 15.6 (0-20) pg/ml Total Protein 7.1 (6.0-8.3) gm/dl Albumin 3.8 (3.4-5.0) gm/dl Globulin 3.3 (2.5-4.0) gm/dl Albumin/Globulin Ratio 1.2 (0.9-2) Procalcitonin (0-0.5) ng/ml Urine Color Urine Appearance (Clear) Urine pH (4.5-7.5) Ur Specific [place] (1.000-1.030) Urine Protein (Negative) Urine Glucose (UA) (Negative) Urine Ketones (Negative) Urine Blood (Negative) Urine Nitrite (Negative) Urine Bilirubin (Negative) Urine Urobilinogen (Negative) Ur Leukocyte Esterase (Negative) Urine WBC (Auto) (0-5) /hpf Urine RBC (Auto) (0-4) /hpf U Hyaline Cast (Auto) (0-5) /lpf U Epithel Cells (Auto) (0-5) /lpf Urine Bacteria (Auto) (Negative) SARS-CoV-2, RNA, NAAT (NEGATIVE) 04/03/22 04/03/22 04/03/22 Range/Units 19:35 19:35 19:35 WBC (4.8-10.8) K/uL RBC (4.7-6.1) M/uL Hgb (14.0-18.0) g/dL Hct (42-52) % MCV (80-100) fL MCH (25-34) pg MCHC (32-36) g/dL RDW Std Deviation (36.4-46.3) fL RDW Coeff of Jimbo (11.5-14.5) % Plt Count (130-400) K/uL MPV (7.4-10.4) fL Immature Gran % (Auto) % Neut % (Auto) % Lymph % (Auto) % Morgan % (Auto) % Eos % (Auto) % Baso % (Auto) % Neut # (Auto) (1.4-6.5) K/uL Lymph # (Auto) (1.2-3.4) K/uL Morgan # (Auto) (0.11-0.59) K/uL Eos # (Auto) (0-0.5) K/uL Baso # (Auto) (0-0.2) K/uL Immature Gran # (Auto) (0.00-0.02) K/uL PT (9.0-12.0) Seconds INR (0.9-1.1) APTT (21.0-31.0) Seconds PTT Ratio Sodium (136-145) mmol/L Potassium (3.5-5.1) mmol/L Chloride (98-107) mmol/L Carbon Dioxide (21-32) mmol/L Anion Gap (3-11) BUN (6-23) mg/dl Creatinine (0.6-1.4) mg/dl Est Cr Clr Drug Dosing ml/min Est GFR ( Amer) ml/min Est GFR (Non-Af Amer) ml/min BUN/Creatinine Ratio (10-20) Glucose (70-99(Fasting)) mg/dl Lactate 1.1 (0.4-2.0) mmol/L Calcium (8.5-10.1) mg/dl Magnesium (1.7-2.4) mg/dl Total Bilirubin (0.2-1.0) mg/dl AST (13-39) U/L ALT (7-52) U/L Alkaline Phosphatase (34-104) U/L Troponin I High Sens (0-20) pg/ml Total Protein (6.0-8.3) gm/dl Albumin (3.4-5.0) gm/dl Globulin (2.5-4.0) gm/dl Albumin/Globulin Ratio (0.9-2) Procalcitonin 0.53 H (0-0.5) ng/ml Urine Color Urine Appearance (Clear) Urine pH (4.5-7.5) Ur Specific [place] (1.000-1.030) Urine Protein (Negative) Urine Glucose (UA) (Negative) Urine Ketones (Negative) Urine Blood (Negative) Urine Nitrite (Negative) Urine Bilirubin (Negative) Urine Urobilinogen (Negative) Ur Leukocyte Esterase (Negative) Urine WBC (Auto) (0-5) /hpf Urine RBC (Auto) (0-4) /hpf U Hyaline Cast (Auto) (0-5) /lpf U Epithel Cells (Auto) (0-5) /lpf Urine Bacteria (Auto) (Negative) SARS-CoV-2, RNA, NAAT NEGATIVE (NEGATIVE) 04/03/22 Range/Units 19:40 WBC (4.8-10.8) K/uL RBC (4.7-6.1) M/uL Hgb (14.0-18.0) g/dL Hct (42-52) % MCV (80-100) fL MCH (25-34) pg MCHC (32-36) g/dL RDW Std Deviation (36.4-46.3) fL RDW Coeff of Jimbo (11.5-14.5) % Plt Count (130-400) K/uL MPV (7.4-10.4) fL Immature Gran % (Auto) % Neut % (Auto) % Lymph % (Auto) % Morgan % (Auto) % Eos % (Auto) % Baso % (Auto) % Neut # (Auto) (1.4-6.5) K/uL Lymph # (Auto) (1.2-3.4) K/uL Morgan # (Auto) (0.11-0.59) K/uL Eos # (Auto) (0-0.5) K/uL Baso # (Auto) (0-0.2) K/uL Immature Gran # (Auto) (0.00-0.02) K/uL PT (9.0-12.0) Seconds INR (0.9-1.1) APTT (21.0-31.0) Seconds PTT Ratio Sodium (136-145) mmol/L Potassium (3.5-5.1) mmol/L Chloride (98-107) mmol/L Carbon Dioxide (21-32) mmol/L Anion Gap (3-11) BUN (6-23) mg/dl Creatinine (0.6-1.4) mg/dl Est Cr Clr Drug Dosing ml/min Est GFR ( Amer) ml/min Est GFR (Non-Af Amer) ml/min BUN/Creatinine Ratio (10-20) Glucose (70-99(Fasting)) mg/dl Lactate (0.4-2.0) mmol/L Calcium (8.5-10.1) mg/dl Magnesium (1.7-2.4) mg/dl Total Bilirubin (0.2-1.0) mg/dl AST (13-39) U/L ALT (7-52) U/L Alkaline Phosphatase (34-104) U/L Troponin I High Sens (0-20) pg/ml Total Protein (6.0-8.3) gm/dl Albumin (3.4-5.0) gm/dl Globulin (2.5-4.0) gm/dl Albumin/Globulin Ratio (0.9-2) Procalcitonin (0-0.5) ng/ml Urine Color Yellow Urine Appearance Clear (Clear) Urine pH 7.0 (4.5-7.5) Ur Specific [place] 1.016 (1.000-1.030) Urine Protein 2+ H (Negative) Urine Glucose (UA) Negative (Negative) Urine Ketones Negative (Negative) Urine Blood 2+ H (Negative) Urine Nitrite Negative (Negative) Urine Bilirubin Negative (Negative) Urine Urobilinogen Negative (Negative) Ur Leukocyte Esterase 2+ H (Negative) Urine WBC (Auto) >30 H (0-5) /hpf Urine RBC (Auto) >30 H (0-4) /hpf U Hyaline Cast (Auto) 1-5 (0-5) /lpf U Epithel Cells (Auto) 0-5 (0-5) /lpf Urine Bacteria (Auto) 4+ H (Negative) SARS-CoV-2, RNA, NAAT (NEGATIVE) Administered Medications Discontinued Medications Acetaminophen (Acetaminophen 500 Mg Tab) 1,000 mg PO NOW STA Stop: 04/03/22 19:18 Last Admin: 04/03/22 19:41 Dose: 1,000 mg Documented by: [id number] Sodium Chloride (Nss 1000ml) 1,000 mls @ 999 mls/hr IV .[id number] ANGELA Stop: 04/03/22 20:30 Last Infusion: 04/03/22 21:31 Dose: 0 mls/hr Documented by: [id number] Admin: 04/03/22 19:44 Dose: 999 mls/hr Documented by: [id number] Cefepime HCl (Maxipime) 2,000 mg in 20 mls @ 5 mls/min IV NOW STA; Protocol Stop: 04/03/22 19:20 Last Admin: 04/03/22 19:44 Dose: 5 mls/min Documented by: [id number] Magnesium Sulfate/Dextrose (Magnesium Sulfate / D5w) 1 gm in 100 mls @ 100 mls/hr IV NOW STA Stop: 04/03/22 21:30 Last Admin: 04/03/22 20:52 Dose: 100 mls/hr Documented by: [id number] Imaging Data Radiologist's Impression: Chest X-Ray 04/03/22 19:17 XR chest 1V portable CLINICAL HISTORY: SEPSIS. COMPARISON STUDY: 03/29/2022 TECHNIQUE: 1 view of the chest FINDINGS: Single frontal view of the chest demonstrates the cardiomediastinal silhouette to be within normal limits. Patchy nodular densities are again seen involving the right hemithorax which were reported to be present on previous CT. The left hemithorax is clear. There is blunting of the right costophrenic angle suspicious for small right pleural effusion. There is no evidence for left pleural effusion. There is no evidence for vascular congestion. There is no acute osseous pathology. IMPRESSION: 1. Patchy nodular densities are again seen involving the right hemithorax with evidence for small right pleural effusion. ACT 112: Negative or not required by law. Electronically signed by: Bernardo Muhammad M.D. 04/03/2022 8:18 PM Abdomen/Pelvis CT 04/03/22 19:26 CT abd pelvis wo con CLINICAL HISTORY: Lower abdominal/pelvic pain. Patient reports inability to urinate. Bladder surgery last week. COMPARISON STUDY: 03/05/2022 CT DOSE: 464.09 mGy.cm TECHNIQUE: Standard CT of the Abdomen and Pelvis was performed without IV contrast. The patient did not receive oral contrast. A dose lowering technique was utilized adhering to the principles of ALARA. FINDINGS: Lung base: There is again a small to moderate size right pleural effusion. Numerous noncalcified pulmonary nodules are again seen involving the right hemithorax. Abdominal cavity: There is no evidence for abdominal mass, adenopathy or ascites. Liver: The liver is homogeneous in attenuation on these limited noncontrast images.. Spleen: The spleen is homogeneous in attenuation on these limited noncontrast images. Pancreas: The pancreas is homogeneous in attenuation on these limited noncontrast images. Gall Bladder: The gallbladder is well distended with no evidence for cholelithiasis, wall thickening or pericholecystic edema.. Adrenal glands: The adrenal glands are normal in size and attenuation on these limited noncontrast images. Kidneys: The kidneys are homogeneous in attenuation on these limited noncontrast images. There is no evidence for gross renal mass, calculus or hydronephrosis bilaterally. Renal vascular calcification is present bilaterally. Bowel: The bowel loops are normally placed within the abdomen and pelvis without evidence for dilatation or obstruction. There is no evidence for mass lesion. There are no inflammatory changes present. There is no evidence for free air. Bladder: Barber catheter is in place. : There is no evidence for pelvic mass or adenopathy. The prostate is moderately enlarged. Vasculature: There is no evidence for focal aneurysmal dilatation of the abdominal aorta. Extensive atherosclerotic calcification is present. Osseous structures: There is no acute osseous pathology. Degenerative changes are seen within the spine. IMPRESSION: 1. No evidence for hydronephrosis bilaterally. 2. Barber catheter within the bladder. 3. Small to moderate size right pleural effusion is again seen along with noncalcified pulmonary nodules within the right lung. 4. No other evidence for acute intra-abdominal or pelvic abnormality. 5. Additional nonacute findings are delineated above. ACT 112: Negative or not required by law. Electronically signed by: Bernardo Muhammad M.D. 04/03/2022 8:37 PM Discharge Plan Visit Data Chief Complaint: Urinary Symptoms Stated Complaint: URINARY SYMPTOMS ED Provider: Silverio Goldman Discharge Problem: Sepsis, Acute urinary retention, Leukocytosis, Acute UTI Patient Disposition: Admitted As Inpatient Condition: Fair Forms Stand Alone Forms: My [facility] Prescriptions Prescriptions: No Action metoprolol tartrate 50 mg tablet 50 mg PO BID Qty: 180 RF: 3 methylprednisolone 4 mg tablets,dose pack See Rx Instructions .Route .COMPLEX Qty: 21 RF: 0 ciprofloxacin HCl 250 mg tablet 250 mg PO BID Qty: 10 RF: 0 coenzyme Q10 100 mg capsule 100 mg PO QPM RF: 0 apixaban 5 mg Tablet 5 mg PO BID RF: 0 atorvastatin 10 mg tablet 10 mg PO QPM RF: 0 amlodipine 5 mg tablet 5 mg PO QAM RF: 0 pantoprazole [Protonix] 40 mg tablet,delayed release (DR/EC) 40 mg PO QAM RF: 0 lorazepam 0.5 mg Tablet 0.5 mg PO BID PRN (Reason: Anxiety) RF: 0 docusate sodium [Col-Rite] 100 mg capsule 100 mg PO BID Qty: 10 RF: 0 omega-3 fatty acids 1,000 mg Capsule 1,000 mg PO DAILY RF: 0 diphenhydramine HCl [Benadryl] 25 mg Capsule 25 mg PO DIRECTED PRN (Reason: WHEN NEEDED PER FAMILY) RF: 0 Referrals Referrals: Sebastian Jane MD [Primary Care Provider] -
[2022-04-03] MEDS ORDERED: SODIUM CHLORIDE 0.9% 1000ML 1,000 ML IV SCH (19:30)
[2022-04-03 19:51] LABS: Hemoglobin 13.1 g/dL (14.0-18.0); Mean Corpuscular Hgb Conc 33.6 g/dL (32-36); Mean Corpuscular Volume 86.3 fL (80-100); Mean Platelet Volume 10.9 fL (7.4-10.4); Platelet Count 240 K/uL (130-400); RDW Coefficient of Variation 14.1 % (11.5-14.5); RDW Standard Deviation 44.7 fL (36.4-46.3); Red Blood Count 4.52 M/uL (4.7-6.1); White Blood Count 29.91 K/uL (4.8-10.8)
[2022-04-03 19:54] LABS: Appearance Urine Clear (Clear); Bacteria Urine Automated 4+ (Negative); Bilirubin Urine Negative (Negative); Blood Urine 2+ (Negative); Color Urine Yellow; Epithelial Cell Urine Auto 0-5 /lpf (0-5); Glucose Urine UA Negative (Negative); Ketones Urine Negative (Negative); Leukocyte Esterase Urine 2+ (Negative); Nitrite Urine Negative (Negative); Protein Urine 2+ (Negative); RBC Urine Automated >30 /hpf (0-4); Specific Gravity Urine 1.016 (1.000-1.030); Urobilinogen Urine Negative (Negative); WBC Urine Automated >30 /hpf (0-5)
[2022-04-03 20:16] LABS: INR 1.4 (0.9-1.1); Partial Thromboplastin Ratio 1.2; Partial Thromboplastin Time 33.4 Seconds (21.0-31.0); Prothrombin Time 14.6 Seconds (9.0-12.0)
[2022-04-03 20:18] LABS: Troponin I High Sensitivity 15.6 pg/ml (0-20)
--- NOTE | 2022-04-03 20:20 | XRay Report ---
XR chest 1V portable CLINICAL HISTORY: SEPSIS. COMPARISON STUDY: 03/29/2022 TECHNIQUE: 1 view of the chest FINDINGS: Single frontal view of the chest demonstrates the cardiomediastinal silhouette to be within normal li mits. Patchy nodular densities are again seen involving the right hemithorax which were reported to b e present on previous CT. The left hemithorax is clear. There is blunting of the right costophrenic a ngle suspicious for small right pleural effusion. There is no evidence for left pleural effusion. The re is no evidence for vascular congestion. There is no acute osseous pathology. IMPRESSION: 1. Patchy nodular densities are again seen involving the right hemithorax with evidence for small rig ht pleural effusion. ACT 112: Negative or not required by law. Electronically signed by: Bernardo Muhammad M.D. 04/03/2022 8:18 PM
[2022-04-03 20:22] LABS: Albumin Globulin Ratio 1.2 (0.9-2); Albumin Level 3.8 gm/dl (3.4-5.0); BUN Creatinine Ratio 18.1 (10-20); Bilirubin,Total 0.8 mg/dl (0.2-1.0); Calcium 8.8 mg/dl (8.5-10.1); Creatinine Clr Calc Pharmacy 53.3 ml/min; Est GFR (African American) 65.4 ml/min; Est GFR (Non-African American) 56.5 ml/min; Globulin 3.3 gm/dl (2.5-4.0); Magnesium 1.6 mg/dl (1.7-2.4); Potassium 3.6 mmol/L (3.5-5.1); Total Protein 7.1 gm/dl (6.0-8.3)
[2022-04-03 20:26] LABS: Basophils # (auto) 0.02 K/uL (0-0.2); Basophils % (auto) 0.1 %; Eosinophils # (auto) 0.01 K/uL (0-0.5); Immature Granulocytes # (auto) 0.23 K/uL (0.00-0.02); Immature Granulocytes % (auto) 0.8 %; Lymphocytes # (auto) 2.26 K/uL (1.2-3.4); Lymphocytes % (auto) 7.6 %; Monocytes # (auto) 2.02 K/uL (0.11-0.59); Monocytes % (auto) 6.8 %; Neutrophils # (auto) 25.37 K/uL (1.4-6.5); Neutrophils % (auto) 84.7 %
[2022-04-03] MEDS ORDERED: MAGNESIUM SULFATE / D5W 1 GM/100 ML BAG IV STA (20:31)
[2022-04-03] MEDS ORDERED: SODIUM CHLORIDE 0.9% 1000ML 500 ML IV ONE ×2 (20:32→20:47)
--- NOTE | 2022-04-03 20:39 | CT Scan Report ---
CT abd pelvis wo con CLINICAL HISTORY: Lower abdominal/pelvic pain. Patient reports inability to urinate. Bladder surgery last week. COMPARISON STUDY: 03/05/2022 CT DOSE: 464.09 mGy.cm TECHNIQUE: Standard CT of the Abdomen and Pelvis was performed without IV contrast. The patient did not receive oral contrast. A dose lowering technique was utilized adhering to the principles of MICHEAL Tabares. FINDINGS: Lung base: There is again a small to moderate size right pleural effusion. Numerous noncalcified pulm onary nodules are again seen involving the right hemithorax. Abdominal cavity: There is no evidence for abdominal mass, adenopathy or ascites. Liver: The liver is homogeneous in attenuation on these limited noncontrast images.. Spleen: The spleen is homogeneous in attenuation on these limited noncontrast images. Pancreas: The pancreas is homogeneous in attenuation on these limited noncontrast images. Gall Bladder: The gallbladder is well distended with no evidence for cholelithiasis, wall thickening or pericholecystic edema.. Adrenal glands: The adrenal glands are normal in size and attenuation on these limited noncontrast im ages. Kidneys: The kidneys are homogeneous in attenuation on these limited noncontrast images. There is no evidence for gross renal mass, calculus or hydronephrosis bilaterally. Renal vascular calcification i s present bilaterally. Bowel: The bowel loops are normally placed within the abdomen and pelvis without evidence for dilatat ion or obstruction. There is no evidence for mass lesion. There are no inflammatory changes present. There is no evidence for free air. Bladder: Barber catheter is in place. : There is no evidence for pelvic mass or adenopathy. The prostate is moderately enlarged. Vasculature: There is no evidence for focal aneurysmal dilatation of the abdominal aorta. Extensive a therosclerotic calcification is present. Osseous structures: There is no acute osseous pathology. Degenerative changes are seen within the spi ne. IMPRESSION: 1. No evidence for hydronephrosis bilaterally. 2. Barber catheter within the bladder. 3. Small to moderate size right pleural effusion is again seen along with noncalcified pulmonary nodu les within the right lung. 4. No other evidence for acute intra-abdominal or pelvic abnormality. 5. Additional nonacute findings are delineated above. ACT 112: Negative or not required by law. Electronically signed by: Bernardo Muhammad M.D. 04/03/2022 8:37 PM
[2022-04-03] MEDS ORDERED: VANCOMYCIN CONSULT ACTIVE PRN (20:47)
[2022-04-03] MEDS ORDERED: VANCOMYCIN HCL 2,000 MG in SODIUM CHLORIDE 0.9% 500 ML IV ONE (20:47)
--- NOTE | 2022-04-03 21:12 | History & Physical Report ---
Date of Service April 03, 2022 Assessment & Plan (1) Urinary retention: Plan: 72yo male with a PMH including ureter tumor s/p resection (six days ago), HTN, HLD, right pleural effusion, and paroxysmal atrial fibrillation presents with a one-day history of fever, abdominal pain, suprapubic pressure, and urinary retention. Sepsis secondary to complicated UTI in the setting of recent TURBT (03/28/22) On admission, patient was hypertensive to 160s/80s, tachycardic to 116, vitals otherwise stable, though patient was febrile prior to admission (Tmax 100.8) Labs notable for leukocytosis to 29.9 (neutrophilic predominant), hyponatremia to 129, procal of 0.53, hypomagnesemia to 1.6; notably, lactic acid not elevated UA notable for 2+ protein, 2+ blood, 2+ leuk esterase, WBC>30, 4+ bacteria; culture pending CT a/p: mcdaniel within bladder, no hydronephrosis or acute process Suspect complicated UTI is related to recent cystoscopy and TURBT Patient felt immediate symptom relief with mcdaniel placement in ED Received vanc and cefepime in ED; will discontinue vancomycin, will also hold home cipro (patient had only taken one dose so far) Continue cefepime 2g IV q12h for presumed complicated UTI with MDR risk factors (inpatient stay, recent fluoroquinolone use) Admit to PCU Urology consulted, recommendations appreciated Pressures became a bit soft after admission, but improved with a total of 3L NSS boluses in ED LR @ 125mL/hr (x2 bags) Trend daily CBC, CMP APAP, zofran prn Hyponatremia Sodium 129 on admission, down from 136 (03/28/22) Differential includes SIADH 2/2 urologic malignancy +/- pulmonary disease, recent TURBT, poor PO intake, vomiting Anticipate spontaneous resolution with fluid resuscitation Trend daily BMP Pleural effusion Patient with recurrent pleural effusions, most recently underwent right thoracentesis (03/29/[address] Darby) CXR showing small right pleural effusion as well as redemonstrating right hemithorax patchy nodular densities Unlikely contributing to current clinical picture Outpatient follow-up recommended HTN Initially hypertensive to 160s/80s on admission, later fell to 90s/40s, improved with fluid boluses Holding home metoprolol, amlodipine Continue to monitor Atrial fibrillation EKG on admission showing sinus tachychardia Holding home metoprolol due to episode of hypotension; restart when pressures are consistently adequate Continue home eliquis Daily EKG Hypomagnesemia Magnesium 1.6 on admission Received mag sulfate 1g IV in ED, will give an additional 1g IV Recheck mag level in AM Elevated INR INR 1.4 on admission suspected secondary to eliquis therapy Hgb stable, no evidence of ongoing bleed; no intervention indicated at this time Anxiety: continue home lorazepam HLD: continue home atorvastatin FEN: heart healthy diet, LR @ 125mL/hr (x2 bags) Code status: full code DVT ppx: home eliquis Held home meds: metoprolol tartrate, ciprofloxacin, amlodipine Isolation: none Consults: urology PT/OT: ordered Dispo: PCU (2) Bladder tumor: (3) Hypertension: (4) Hyperlipidemia: (5) Paroxysmal atrial fibrillation: History of Present Illness Primary Care Provider: Sebastian Jane MD 72yo male with a PMH including ureter tumor s/p resection (six days ago), HTN, HLD, right pleural effusion, and paroxysmal atrial fibrillation presents with a one-day history of fever, abdominal pain, suprapubic pressure, and urinary retention. Patient underwent a cystoscopy and TURBT six days ago, and had a right-sided thoracentesis the following day. Patient had been doing well until this morning when he developed urinary retention. This worsened throughout the day, and patient developed suprapubic pressure, abdominal pain, and fever (Tmax 100.8). Patient had one episode of nausea and vomiting but this has resolved. Patient called one of his providers this morning, who prescribed cipro; patient took one dose, but his symptoms continued to worsen, prompting his presentation to the ED. Patient denies chills, headache, CP, SOB, diarrhea, lightheadedness, dizziness, or other symptoms. Allergies Allergy/AdvReac Type Severity Reaction Status Date / Time LARS Inhibitors Allergy Severe Severe Verified 04/03/22 20:20 angioedema Iodinated Contrast Media Allergy Intermediate Rash and Verified 04/03/22 21:[address] scan with contrast Penicillins Allergy Intermediate hives Verified 04/03/22 20:20 Home Medications Medication Instructions Recorded Confirmed Type coenzyme Q10 100 mg capsule 100 mg PO QPM cap 03/24/19 04/03/22 History metoprolol tartrate 50 mg tablet 50 mg PO BID #180 tab 01/18/22 04/03/22 Rx amlodipine 5 mg tablet 5 mg PO QAM 03/27/22 04/03/22 History atorvastatin 10 mg tablet 10 mg PO QPM 03/27/22 04/03/22 History lorazepam 0.5 mg tablet 0.5 mg PO BID PRN 03/27/22 04/03/22 History pantoprazole 40 mg tablet,delayed 40 mg PO QAM 03/27/22 04/03/22 History release (Protonix) docusate sodium 100 mg capsule 100 mg PO BID #10 cap 03/28/22 04/03/22 Rx (Col-Rite) apixaban 5 mg tablet 5 mg PO BID 03/29/22 04/03/22 History methylprednisolone 4 mg tablets in See Rx Instructions .ROUTE 03/30/22 04/03/22 Rx a dose pack .COMPLEX #21 ea ciprofloxacin HCl 250 mg tablet 250 mg PO BID #10 tab 04/03/22 04/03/22 Rx diphenhydramine HCl 25 mg capsule 25 mg PO DIRECTED PRN 04/03/22 04/03/22 History (Benadryl) omega-3 fatty acids 1,000 mg 1,000 mg PO DAILY 04/03/22 04/03/22 History capsule Past Med/Surg History Medical History Angioedema of tongue September 2021 at [facility] from an allergy to lisinopril. Treated through the Emergency Room at [facility]. Placed on a ventilator at that time- while inpatient tested positive for covid-19 and then developed rectal bleeding where an ulcer perforation had been found and repaired. Pt did follow up with an construction stonemason s/p angioedema Anxiety Bladder tumor Recently diagnosed within the last year () Duodenal ulcer 09/2021 with perforation. treated while inpatient at [facility] Erectile dysfunction History of COVID-19 Tested positive 09/24/21 during inpatient stay- asymptomatic at that time- may have had covid in August 2021 when was ill with Covid. Hyperlipidemia Hypertension Lung mass Recently diagnosed- awaiting further testing Mediastinal lymphadenopathy Recently diagnosed- awaiting further testing On anticoagulant therapy Paroxysmal atrial fibrillation - September 2021, reason for blood thinner - Rapid response 09/2021- "RVR in 160s and hypotensive after large bloody BM. Required cardioversion x 3, finally converted to NSR in 80s and then back to a fib with RVR. Amiodarone IV bolus and drip initiated per ACLS protocol. Converted to NSR- treated later with Lopressor. Discharged on Amiodarone, Lopressor and Eliquis. Pleural effusion, right Thoracentesis scheduled 03/29/22 Prediabetes Diet controlled Surgical History History of esophagogastroduodenoscopy (EGD) with repair of ulcer perforation in september 2021/oct 2021 Family History Father Coronary heart disease Cardiac disorder Myocardial infarction Sister Diabetes Myocardial infarction Mother Hypertension Other No family history of adverse response to anesthesia Denies family history of Ovarian cancer Prostate cancer Crohn's disease Breast cancer Colorectal cancer Ulcerative colitis Social History Smoking Status: Former smoker Tobacco Type: Cigarettes Age Started Using Tobacco: 17; packs per day: 0.5; Cigarettes Per Day: 1/2 ppd; Second Hand Exposure: No; Do You Dip or Chew Tobacco: No; Tobacco Cessation Education Requested by Patient: No Hx Alcohol Use: Yes Alcohol Intake Frequency Comment: rarely Hx Substance Use: No Preferred Language: Sami Communication Ability: Effective Visual Impairment: No Limitations Hearing Ability: Hard of Hearing Automation Control Technician Required: No Beliefs That Will Affect Care: None marital status: Current Living Situation: Spouse current occupational status: retired 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 Other Information That Helps Us Care for You: No Feels Safe at Home: Yes Safety Concerns: Feels Safe At This Time Childhood Exposure to Second-Hand Smoke: Yes caffeine: Yes Dental Care, Regularly: No Physical Activity Frequency: Daily Seatbelt Use: always Sunscreen Use: No Assistive Devices: None Physical Exam Physical Exam: Constitutional: sleeping but arousable, no acute distress HEENT: MM slightly dry CV: regular rhythm, no murmur appreciated, extremities well-perfused, no LE edema Resp: scattered mild rhonchi that improve with coughing, no crackles or wheezes, breathing nonlabored GI: soft, nondistended, nontender, BS normoactive MSK: no gross deformities appreciated Neuro: alert, oriented, no focal neurologic deficit appreciated Results & Data Results & Data ([facility]) Vital Signs (Past 12 Hours) Vital Signs Temp Pulse Pulse Resp BP BP Pulse Ox 04/03/22 20:43 94 H 16 98/70 L 95 04/03/22 19:45 96 H 24 144/71 H 94 04/03/22 18:49 37.6 C H 116 H 20 161/84 H 96 Supervising Physician Co-Signing Physician Notes Attending addendum: I have physically seen this patient, have supervised the medical residents activities, and agree with the H&P unless as otherwise noted. Assessment and Plan: Sepsis due to complicated UTI/status post TURBT on 03/28/2022- Follow urine culture sensitivity Continue cefepime 2 g IV every 12 hours IV fluids, LR at 125 MLS per hour x2 L Hyponatremia- Likely secondary to decreased intake Placing on IV fluids and recheck labs in a.m. Hypomagnesemia- Magnesium 1.6 on admission Replace IV, recheck labs in a.m. Pleural effusion- History of recurrence was Recent right thoracentesis on 03/29/[address] Quiñones Follow clinical examination as receiving IV fluids Remaining orders and notations as noted Resident Activity Tracking Resident Involvement: Resident Care Provided and General Counsel Coverage Note Care Provided: Adult Hospital Medicine (1) Hypertension Hypertension type: essential hypertension Qualified Code(s): I10 - Essential (primary) hypertension
[2022-04-03] MEDS ORDERED: SODIUM CHLORIDE 0.9% 1000ML 1,000 ML IV ONE (21:40)
[2022-04-04] MEDS ORDERED: MAGNESIUM SULFATE / D5W 1 GM/100 ML BAG IV ONE (00:56)
[2022-04-04] MEDS ORDERED: ONDANSETRON INJ 2 MG/ML 2 ML VIAL IV PRN (00:56)
[2022-04-04] MEDS ORDERED: LORazepam 0.5 MG TAB PO PRN ×2 (00:56→17:32)
[2022-04-04] MEDS ORDERED: ACETAMINOPHEN 325 MG TAB PO PRN (00:56)
[2022-04-04] MEDS: LACTATED RINGER'S 1,000 ML IV SCH ×2 (01:58→09:16)
[2022-04-04] MEDS: methylPREDNISolone 4 MG TAB PO SCH ×2 (02:11→07:56)
--- NOTE | 2022-04-04 05:07 | Urology Consultation ---
Date of Consultation April 04, 2022 Assessment & Plan (1) Urinary retention: Patient has been admitted on the hospitalist service. We recommend proceeding as follows: Continue intravenous fluids in the setting of possible sepsis Continue broad-spectrum antibiotics. The patient is receiving cefepime. Blood and urine cultures have been sent we recommend following these cultures at which time his antibiotics can be tailored based on these results. Concerning his urinary retention would recommend continuous Mcdaniel catheter for the present time for bladder decompression. A voiding trial can subsequently be tried at a later date. We will continue to follow along with the patient is hospitalized Supervising Physician Co-Signing Physician Notes I have agree with the above documentation. 72 yo male s/p TURP and thoracentesis, now with sepsis and evidence of urinary tract infection. Maintain maximal drainage of the bladder with mcdaniel catheter in place and continue broad spectrum antibiotics. As culture data becomes available, antibiotics can be narrowed. Urology will follow along. History of Present Illness Reason for Consultation: Sepsis following urologic procedure Urinary retention Attending Physician: Oracio Austin MD History of Present Illness This is 72-year-old male who underwent a transurethral resection of a bladder tumor on by Dr. Valle. Should be noted that the patient also underwent a right thoracentesis the day following this procedure. The patient notes that he was doing well until the morning of 04/03/2022 when he noted he had a difficulty urinating. In addition the patient noted a low-grade fever and he reported bladder/suprapubic pressure. He did report some intermittent nausea vomiting which is since resolved. He called his urologic providers who prescribed him Cipro but his symptoms persisted. Because of this he presented to the emergency department. Since arrival to the emergency department admission the patient has had labs and imaging which independent reviewed. He did have a chest x-ray showed nodular densities in the right hemithorax with a probable small right pleural effusion. CT scan of the abdomen and pelvis showed no evidence of hydronephrosis. His b ladder was decompressed with a Mcdaniel catheter. The study did show at least a moderate size right pleural effusion. There is moderate enlargement of the prostate gland noted. Labs including CBC were white blood cell count was 29.9. Hemoglobin and hematocrit were 13 point while at 39.0. Platelet count was noted to be normal. His INR is 1.4. Chemistry profile showed sodium was 129. Potassium was 3.6. BUN and creatinine were both normal. Urinalysis showed 2+ blood and was negative for nitrites but had 2+ leukocyte Estrace and greater than 30 white blood cells per high-power field. There is 4+ bacteria noted on the study. COVID test was negative. Since arrival to the emergency department patient has had a Mcdaniel catheter placed at which time in excess of 700 cc of urine have been drained. He has been started on broad-spectrum antibiotics in form of cefepime. He is also been initiated on intravenous fluids. Blood and urine cultures have been obtained. At the time of my interview the patient was resting comfortably in bed and he was in no distress. Allergies Allergy/AdvReac Type Severity Reaction Status Date / Time LARS Inhibitors Allergy Severe Severe Verified 04/03/22 20:20 angioedema Iodinated Contrast Media Allergy Intermediate Rash and Verified 04/03/22 21:[address] scan with contrast Penicillins Allergy Intermediate hives Verified 04/03/22 20:20 Home Medications Medication Instructions Recorded Confirmed Type coenzyme Q10 100 mg capsule 100 mg PO QPM cap 03/24/19 04/03/22 History metoprolol tartrate 50 mg tablet 50 mg PO BID #180 tab 01/18/22 04/03/22 Rx amlodipine 5 mg tablet 5 mg PO QAM 03/27/22 04/03/22 History atorvastatin 10 mg tablet 10 mg PO QPM 03/27/22 04/03/22 History lorazepam 0.5 mg tablet 0.5 mg PO BID PRN 03/27/22 04/03/22 History pantoprazole 40 mg tablet,delayed 40 mg PO QAM 03/27/22 04/03/22 History release (Protonix) docusate sodium 100 mg capsule 100 mg PO BID #10 cap 03/28/22 04/03/22 Rx (Col-Rite) apixaban 5 mg tablet 5 mg PO BID 03/29/22 04/03/22 History methylprednisolone 4 mg tablets in See Rx Instructions .ROUTE 03/30/22 04/03/22 Rx a dose pack .COMPLEX #21 ea ciprofloxacin HCl 250 mg tablet 250 mg PO BID #10 tab 04/03/22 04/03/22 Rx diphenhydramine HCl 25 mg capsule 25 mg PO DIRECTED PRN 04/03/22 04/03/22 History (Benadryl) omega-3 fatty acids 1,000 mg 1,000 mg PO DAILY 04/03/22 04/03/22 History capsule Patient History Medical History Angioedema of tongue September 2021 at [facility] from an allergy to lisinopril. Treated through the Emergency Room at [facility]. Placed on a ventilator at that time- while inpatient tested positive for covid-19 and then developed rectal bleeding where an ulcer perforation had been found and repaired. Pt did follow up with an microbiology professor s/p angioedema Anxiety Bladder tumor Recently diagnosed within the last year () Duodenal ulcer 09/2021 with perforation. treated while inpatient at [facility] Erectile dysfunction History of COVID-19 Tested positive 09/24/21 during inpatient stay- asymptomatic at that time- may have had covid in August 2021 when was ill with Covid. Hyperlipidemia Hypertension Lung mass Recently diagnosed- awaiting further testing Mediastinal lymphadenopathy Recently diagnosed- awaiting further testing On anticoagulant therapy Paroxysmal atrial fibrillation - September 2021, reason for blood thinner - Rapid response 09/2021- "RVR in 160s and hypotensive after large bloody BM. Required cardioversion x 3, finally converted to NSR in 80s and then back to a fib with RVR. Amiodarone IV bolus and drip initiated per ACLS protocol. Converted to NSR- treated later with Lopressor. Discharged on Amiodarone, Lopressor and Eliquis. Pleural effusion, right Thoracentesis scheduled 03/29/22 Prediabetes Diet controlled Surgical History History of esophagogastroduodenoscopy (EGD) with repair of ulcer perforation in september 2021/oct 2021 Family History Father Coronary heart disease Cardiac disorder Myocardial infarction Sister Diabetes Myocardial infarction Mother Hypertension Other No family history of adverse response to anesthesia Denies family history of Ovarian cancer Prostate cancer Crohn's disease Breast cancer Colorectal cancer Ulcerative colitis Social History Smoking Status: Former smoker Tobacco Type: Cigarettes Age Started Using Tobacco: 17; packs per day: 0.5; Cigarettes Per Day: 1/2 ppd; Second Hand Exposure: No; Do You Dip or Chew Tobacco: No; Tobacco Cessation Education Requested by Patient: No Hx Alcohol Use: Yes Alcohol Intake Frequency Comment: rarely Hx Substance Use: No Preferred Language: [place] Communication Ability: Effective Visual Impairment: No Limitations Hearing Ability: Hard of Hearing Bowling Ball Assembler Required: No Beliefs That Will Affect Care: None marital status: Current Living Situation: Spouse current occupational status: retired 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 Other Information That Helps Us Care for You: No Feels Safe at Home: Yes Safety Concerns: Feels Safe At This Time Childhood Exposure to Second-Hand Smoke: Yes caffeine: Yes Dental Care, Regularly: No Physical Activity Frequency: Daily Seatbelt Use: always Sunscreen Use: No Assistive Devices: None Review of Systems Constitutional: + fever Eyes: no diplopia Ear, Nose, Mouth, Throat: no ear pain Respiratory: no cough Cardiovascular: no chest pain Gastrointestinal: + abdominal pain (Suprapubic discomfort), + nausea and + vomiting Genitourinary: + as per Subjective / HPI Musculoskeletal: no back pain Integumentary: no rash Neurologic: no localized weakness Physical Exam Constitutional: WD/WN, vitals as above Eyes: no conjunctival abnormality ENMT: Ears: no hearing impairment Mouth: no oropharynx abnormality Neck: trachea midline Respiratory: normal respiratory effort; no respiratory distress and no labored breathing Cardiovascular: Rate/Rhythm: regular rate and regular rhythm Gastrointestinal (Abdomen): Soft, nontender, nondistended Musculoskeletal: No calf tenderness Skin: no rashes Neurologic: moves all extremities Psychiatric: A+Ox3, euthymic affect Genitourinary: Mcdaniel catheter is in place draining adeel-colored urine Results & Data ([facility]) Vital Signs (Past 12 Hours) Vital Signs Temp Pulse Pulse Resp BP BP Pulse Ox 04/04/22 04:02 37.1 C 72 16 147/54 H 95 04/04/22 02:05 37.6 C H 04/04/22 01:50 88 04/04/22 01:20 37.8 C H 87 18 155/76 H 97 04/04/22 00:51 155/76 H 04/04/22 00:39 90 12 04/04/22 00:30 86 39 H 119/56 L 04/04/22 00:00 83 37 H 111/69 04/03/22 23:30 82 30 H 160/95 H 97 04/03/22 23:01 81 25 H 158/78 H 95 04/03/22 23:00 81 38 H 96 04/03/22 22:46 78 24 127/69 95 04/03/22 22:30 78 32 H 127/69 94 04/03/22 22:00 81 24 131/63 96 04/03/22 21:30 87 19 99/47 L 04/03/22 21:00 87 24 112/47 L 04/03/22 20:43 94 H 16 98/70 L 95 04/03/22 20:42 93 H 24 98/70 L 04/03/22 20:40 91 H 22 04/03/22 19:45 99 H 96 H 24 144/71 H 144/71 H 94 04/03/22 19:42 102 H 18 96 04/03/22 18:49 37.6 C H 116 H 20 161/84 H 96 PG Care Time/CCT Total # of Minutes Spent Total Time Spent with Patient: Total time spent is greater than 50% in coordination of care (as documented) at patient's floor/unit and/or counseling patient: Coding Level of Care Code 46602 Inpt Consult Level 5 Diagnoses Urinary retention R33.9
--- NOTE | 2022-04-04 05:54 | Hospitalist Progress Note ---
Date of Service April 04, 2022 Assessment & Plan (1) Urinary retention: Plan: 72yo male with a PMH including bladder tumor resection on 03/28/22, HTN, HLD, right pleural effusion s/p thoracentesis 03/29/22, and paroxysmal atrial fibrillation on Eliquis presents with a one-day history of fever, abdominal pain, suprapubic pressure, and urinary retention. Sepsis secondary to complicated UTI in the setting of recent TURBT On admission, patient was hypertensive to 160s/80s, tachycardic to 116, vitals otherwise stable, though patient was febrile prior to admission (Tmax 100.8) Labs notable for leukocytosis to 29.9 (neutrophilic predominant), procal of 0.53; notably, lactic acid not elevated UA notable for 2+ protein, 2+ blood, 2+ leuk esterase, WBC>30, 4+ bacteria; culture pending, w/ prelim >100k cfu gram neg bacilli, sensitivities pending CT a/p: mcdaniel within bladder, no hydronephrosis or acute pelvic process Symptom relief s/p mcdaniel placement Received vanc and cefepime in ED; Continue cefepime (for empiric urinary coverage in setting of recent fluoroquinolone use). Add flagyl (to empirically cover pulmonary source given lung cancer and pleural effusion; nasal MRSA neg). Dose of cefepime appropriate to cover pseudomonas (pulmonary) when renally dosed. Pressures slightly soft after admission, but improved with a total of 3L NSS boluses in ED S/p gentle hydration, since discontinued Daily CBC Pleural effusion Patient with recurrent pleural effusions, most recently underwent right thoracentesis (03/29/[address] Darby) CXR showing small right pleural effusion as well as redemonstrating right hemithorax patchy nodular densities pleural fluid: pos light's criteria. 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 Outpatient follow-up recommended Hyponatremia, resolved Sodium 129 on admission, down from 136 (03/28/22). Improved to 137 on subsequent day's lab w/ gentle fluids (NSS) Differential includes SIADH 2/2 urologic malignancy +/- pulmonary disease, recent TURBT, poor PO intake, vomiting Follow BMP Bladder mass bladder biopsy: low grade papillary carcinoma. Further outpatient workup per urology. HTN Initially hypertensive to 160s/80s on admission, later fell to 90s/40s, improved with fluid boluses Holding home amlodipine; will restart home metoprolol Atrial fibrillation EKG on admission showing sinus tachycardia Restarting home metoprolol Continue home eliquis Hypomagnesemia, repleted Anxiety: prn ativan, half of home dose regimen, HLD: continue home atorvastatin FEN: heart healthy diet, Code status: full code DVT ppx: home eliquis Dispo: PCU (2) Bladder tumor: (3) Hypertension: (4) Hyperlipidemia: (5) Paroxysmal atrial fibrillation: Admission and Anticipated Discharge Date Admission Date: April 03, 2022 Supervising Physician Co-Signing Physician Notes I personally examined the patient and verified all cannon points of history and exam, discussed case, and agree with decision making with Dr Sandoval. Feeling better. Very much wants to go home. After we discussed his sepsis and the need to ensure accuracy of antibiotic therapy, he reluctantly agrees to stay. Vitals noted, in general he is awake and alert pleasant no distress. HEENT normocephalic atraumatic mucous membranes moist. Breathing unlabored no accessory muscle use good effort. Skin shows no rashes no pallor or icterus. Neuro without focal deficits. UTI with sepsisstatus post TURBTcontinue current antibiotics pending sensitivities. Hopefully home on p.o. antibiotics once a safe oral regimen can be determined. Subjective No complaints. Feeling much better after mcdaniel. Yesterday, had acute urinary retention, could not urinate. Afterwards, felt ill and had groin pain. mcdaniel was removed 3 days ago as outpatient. no f/c, n/v, diarr. Per daughter and at bedside, some wheezing and sight dyspnea yesterday. In ED, w/ concern of possible resp infection. Was supposed to have dx'd inhaler for copd during prev admission, but had not started. Afternoon update: Patient is feeling great. States 99.9% back to baseline. Review of Systems Review of Systems: All systems reviewed & are unremarkable except as noted in HPI & below Physical Exam Physical Exam: General: Grossly A&O. NAD. Cooperative. HEENT: Atraumatic, normocephalic. EOMI Pulm: CTAB. -wheezes, -rales, -rhonchi. Mild transmitted upper airway sounds. No respiratory distress. Cardiac: RRR, -mrg. No LE edema. R ankle slightly puffy appearing. Abdominal: Nontender, nondistended, soft. : mcdaniel draining yellow. Results & Data Results & Data ([facility]) Vital Signs (Past 12 Hours) Vital Signs Temp Pulse Pulse Resp BP BP Pulse Ox 04/04/22 04:02 37.1 C 72 16 147/54 H 95 04/04/22 02:05 37.6 C H 04/04/22 01:50 88 04/04/22 01:20 37.8 C H 87 18 155/76 H 97 04/04/22 00:51 155/76 H 04/04/22 00:39 90 12 04/04/22 00:30 86 39 H 119/56 L 04/04/22 00:00 83 37 H 111/69 04/03/22 23:30 82 30 H 160/95 H 97 04/03/22 23:01 81 25 H 158/78 H 95 04/03/22 23:00 81 38 H 96 04/03/22 22:46 78 24 127/69 95 04/03/22 22:30 78 32 H 127/69 94 04/03/22 22:00 81 24 131/63 96 04/03/22 21:30 87 19 99/47 L 04/03/22 21:00 87 24 112/47 L 04/03/22 20:43 94 H 16 98/70 L 95 04/03/22 20:42 93 H 24 98/70 L 04/03/22 20:40 91 H 22 04/03/22 19:45 99 H 96 H 24 144/71 H 144/71 H 94 04/03/22 19:42 102 H 18 96 04/03/22 18:49 37.6 C H 116 H 20 161/84 H 96 Resident Activity Tracking Resident Involvement: Resident Care Provided Care Provided: Adult Hospital Medicine (1) Hypertension Hypertension type: essential hypertension Qualified Code(s): I10 - Essential (primary) hypertension
[2022-04-04 06:38] LABS: Hematocrit (blood only) 34.8 % (42-52); Hemoglobin 11.6 g/dL (14.0-18.0); Mean Corpuscular Hemoglobin 29.1 pg (25-34); Mean Corpuscular Hgb Conc 33.3 g/dL (32-36); Mean Corpuscular Volume 87.2 fL (80-100); Mean Platelet Volume 11.1 fL (7.4-10.4); Platelet Count 226 K/uL (130-400); RDW Coefficient of Variation 14.4 % (11.5-14.5); RDW Standard Deviation 45.8 fL (36.4-46.3); Red Blood Count 3.99 M/uL (4.7-6.1); White Blood Count 27.76 K/uL (4.8-10.8)
[2022-04-04 06:57] LABS: INR 1.4 (0.9-1.1)
[2022-04-04 07:08] LABS: Basophils # (auto) 0.02 K/uL (0-0.2); Basophils % (auto) 0.1 %; Eosinophils # (auto) 0.02 K/uL (0-0.5); Eosinophils % (auto) 0.1 %; Immature Granulocytes # (auto) 0.21 K/uL (0.00-0.02); Immature Granulocytes % (auto) 0.8 %; Lymphocytes # (auto) 0.83 K/uL (1.2-3.4); Monocytes # (auto) 2.26 K/uL (0.11-0.59); Monocytes % (auto) 8.1 %; Neutrophils # (auto) 24.42 K/uL (1.4-6.5); Neutrophils % (auto) 87.9 %
[2022-04-04 07:13] LABS: BUN Creatinine Ratio 15.5 (10-20); Creatinine Clr Calc Pharmacy 58.4 ml/min; Magnesium 2.4 mg/dl (1.7-2.4); Phosphorus 3.4 mg/dl (2.5-4.9); Potassium 3.9 mmol/L (3.5-5.1)
[2022-04-04] MEDS: CEFEPIME 2,000 MG in SYRINGE 0 ML IV SCH ×2 (07:56→20:28)
[2022-04-04] MEDS: APIXABAN 5 MG TABLET PO SCH ×2 (07:57→20:29)
[2022-04-04] MEDS: PANTOprazole 40 MG TAB PO SCH (07:57)
[2022-04-04] MEDS: metroNIDAZOLE 500 MG/100 ML BAG IV SCH ×2 (13:00→20:28)
--- NOTE | 2022-04-04 18:12 | Billing Data ---
Date of Service April 04, 2022 Coding Level of Care Code 87922 Subseq Hosp Care Lvl 3
[2022-04-04] MEDS: METOPROLOL TARTRATE 50 MG TAB PO SCH (20:29)
[2022-04-04] MEDS ORDERED: ATORVASTATIN 10 MG TAB PO SCH (21:00)
--- NOTE | 2022-04-04 21:19 | Billing Data ---
Date of Service April 04, 2022 Coding Level of Care Code 91127 Initial Inpt Care Lvl 3
[2022-04-05] MEDS: metroNIDAZOLE 500 MG/100 ML BAG IV SCH (04:44)
[2022-04-05 06:31] LABS: Hematocrit (blood only) 34.3 % (42-52); Hemoglobin 11.2 g/dL (14.0-18.0); Mean Corpuscular Hemoglobin 27.9 pg (25-34); Mean Corpuscular Hgb Conc 32.7 g/dL (32-36); Mean Corpuscular Volume 85.3 fL (80-100); Mean Platelet Volume 10.9 fL (7.4-10.4); Platelet Count 223 K/uL (130-400); RDW Coefficient of Variation 14.4 % (11.5-14.5); RDW Standard Deviation 44.6 fL (36.4-46.3); Red Blood Count 4.02 M/uL (4.7-6.1); White Blood Count 23.51 K/uL (4.8-10.8)
--- NOTE | 2022-04-05 06:42 | Hospitalist Progress Note ---
Date of Service April 05, 2022 Assessment & Plan (1) Urinary retention: Plan: 72yo male with a PMH including bladder tumor resection on 03/28/22, HTN, HLD, right pleural effusion s/p thoracentesis 03/29/22, and paroxysmal atrial fibrillation on Eliquis presents with a one-day history of fever, abdominal pain, suprapubic pressure, and urinary retention in the context of recent TURBT, found to be septic - suspect secondary to complicated UTI Sepsis secondary to complicated UTI in the setting of recent TURBT ; possible secondary pulmonary source On arrival - tachycardic, febrile, leukocytosis (30, left shift), elevated procal, infected UA - c/w sepsis secondary to UTI CT a/p: mcdaniel within bladder, no hydronephrosis or acute pelvic process Symptoms improving following Mcdaniel placement, Continue cefepime (for empiric urinary coverage in setting of recent fluoroquinolone use) Continue Flagyl (to empirically cover pulmonary source given lung cancer and pleural effusion; nasal MRSA neg) Daily CBC Pleural effusion Patient with recurrent pleural effusions, most recently underwent right thoracentesis (03/29/[address] Darby) CXR showing small right pleural effusion as well as redemonstrating right hemithorax patchy nodular densities Pleural fluid: pos light's criteria. 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 Outpatient follow-up recommended Hyponatremia -- resolved Sodium 129 on admission, down from 136 (03/28/22). Improved to 137 on subsequent day's lab w/ gentle fluids (NSS) Differential includes SIADH 2/2 urologic malignancy +/- pulmonary disease, recent TURBT, poor PO intake, vomiting Follow BMP Bladder mass bladder biopsy: low grade papillary carcinoma. Further outpatient workup per urology. HTN Initially hypertensive to 160s/80s on admission, later fell to 90s/40s, improved with fluid boluses Holding home amlodipine; will restart home metoprolol Atrial fibrillation EKG on admission showing sinus tachycardia Restarting home metoprolol Continue home Eliquis Hypomagnesemia, repleted Anxiety: prn ativan, half of home dose regimen, HLD: continue home atorvastatin FEN: heart healthy diet, Code status: full code DVT ppx: home eliquis Dispo: PCU (2) Bladder tumor: (3) Hypertension: (4) Hyperlipidemia: (5) Paroxysmal atrial fibrillation: Admission and Anticipated Discharge Date Admission Date: April 03, 2022 Review of Systems Review of Systems: as per HPI Physical Exam Physical Exam: General: []-year old [] who is alert, oriented, and appears in no acute distress. HEENT: NCAT. - Eyes - Sclera are white, anicteric, and without injection. - Mouth - MMM - Neck - supple, no appreciable JVD Cardiac: Normal rate and regular rhythm; S1 and S2 present with no murmurs, rubs, or gallops. Pulmonary: Good respiratory effort with symmetric expansion of the chest. No use of accessory muscles. Lungs were clear to auscultation bilaterally with no crackles or wheezes. Abdominal: Normoactive bowel sounds. Abdomen was soft, nondistended, and non- tender to palpation. Extremities: Upper and lower extremities are warm and well perfused. [] peripheral edema in the lower extremities bilaterally Psych: Well-developed, well-nourished, appropriately dressed for occasion. Behavior is cooperative and appropriate. Affect is WNL. Insight is appropriate. Results & Data Results & Data ([facility]) Vital Signs (Past 12 Hours) Vital Signs Temp Pulse Pulse Resp BP Pulse Ox 04/05/22 03:36 37.3 C 72 20 151/84 H 97 04/05/22 00:14 37.4 C 71 20 155/81 H 96 04/04/22 22:22 82 04/04/22 20:17 37.1 C 87 20 129/75 96 Resident Activity Tracking Resident Involvement: Resident Care Provided Care Provided: Adult Hospital Medicine (1) Hypertension Hypertension type: essential hypertension Qualified Code(s): I10 - Essential (primary) hypertension
[2022-04-05 06:51] LABS: Basophils # (auto) 0.02 K/uL (0-0.2); Basophils % (auto) 0.1 %; Eosinophils # (auto) 0.25 K/uL (0-0.5); Eosinophils % (auto) 1.1 %; Immature Granulocytes # (auto) 0.12 K/uL (0.00-0.02); Immature Granulocytes % (auto) 0.5 %; Lymphocytes # (auto) 1.36 K/uL (1.2-3.4); Lymphocytes % (auto) 5.8 %; Monocytes # (auto) 1.22 K/uL (0.11-0.59); Monocytes % (auto) 5.2 %; Neutrophils # (auto) 20.54 K/uL (1.4-6.5); Neutrophils % (auto) 87.3 %
[2022-04-05 06:54] LABS: BUN Creatinine Ratio 19.3 (10-20); Calcium 8.3 mg/dl (8.5-10.1); Creatinine Clr Calc Pharmacy 56.9 ml/min; Est GFR (African American) 70.8 ml/min; Est GFR (Non-African American) 61.1 ml/min; Magnesium 2.1 mg/dl (1.7-2.4); Potassium 3.6 mmol/L (3.5-5.1)
--- NOTE | 2022-04-05 07:03 | Electrocardiogram Report ---
Test Reason : Blood Pressure : / mmHG Vent. Rate : 105 BPM Atrial Rate : 105 BPM P-R Int : 130 ms QRS Dur : 066 ms QT Int : 324 ms P-R-T Axes : 047 028 060 degrees QTc Int : 428 ms Sinus tachycardia Nonspecific ST abnormality Abnormal ECG When compared with ECG of 04-OCT-2021 18:20, Sinus rhythm has replaced Atrial fibrillation Confirmed by Stefan Noland ([id number]) on 04/05/2022 7:03:09 AM Referred By: REFERRED SELF Confirmed By:Stefan Noland
[2022-04-05] MEDS: PANTOprazole 40 MG TAB PO SCH (08:12)
[2022-04-05] MEDS: APIXABAN 5 MG TABLET PO SCH (08:12)
[2022-04-05] MEDS: CEFEPIME 2,000 MG in SYRINGE 0 ML IV SCH (08:12)
--- NOTE | 2022-04-05 08:13 | Urology Progress Note ---
Date of Service April 05, 2022 Assessment & Plan (1) Complicated UTI (urinary tract infection): (2) Urinary retention: Plan: 72yo male s/p TURBT on and thoracentesis 03/29/22 admitted with sepsis secondary to complicated UTI, possible secondary pulmonary source. - Afebrile, hemodynamically stable. - Labs reviewed - White count downtrending, renal function normal. - UCx preliminary with pseudomonas, repeat pending; Blood cultures preliminary no growth x24 hours - Continues on IV Cefepime and Flagyl, follow cultures. - Barber catheter intact, draining clear yellow urine. - Continue supportive care and antibiotic therapy - Maintain Barber catheter for maximum drainage of the bladder - Plan to keep f/u with urology next Thursday 04/12 as scheduled. Will also do a voiding trial at that time. - Urology will sign off. Please contact us with any further questions, concerns, or changes in patient status. Admission and Anticipated Discharge Date Admission Date: April 03, 2022 Supervising Physician Co-Signing Physician Notes I have discussed Mr. Duran' case with MARIA L Damno and agree with the above documentation. Maintain Barber catheter for now. We will follow-up as an outpatient and do a voiding trial at that time. Subjective Pt examined at bedside this AM. Asleep on arrival, awakened to name. No acute distress. Feels fatigued, but otherwise is feeling much better. No reported pain. Barber catheter intact, draining clear yellow urine. Review of Systems Constitutional: as per Subjective / HPI Genitourinary: + as per Subjective / HPI Physical Exam Constitutional: no acute distress Respiratory: no respiratory distress and no labored breathing Gastrointestinal (Abdomen): Inspection/Auscultation: abdomen normal to inspection Neurologic: awake Psychiatric: A+Ox3, euthymic affect Genitourinary: Barber catheter intact, draining clear yellow urine Results & Data ([facility]) Vital Signs (Past 12 Hours) Vital Signs Temp Pulse Pulse Resp BP Pulse Ox 04/05/22 03:36 37.3 C 72 20 151/84 H 97 04/05/22 00:14 37.4 C 71 20 155/81 H 96 04/04/22 22:22 82 04/04/22 20:17 37.1 C 87 20 129/75 96 PG Care Time/CCT Total # of Minutes Spent Total Time Spent with Patient: Total time spent is greater than 50% in coordination of care (as documented) at patient's floor/unit and/or counseling patient: Coding Level of Care Code 47734 Subseq Hosp Care Lvl 2 Diagnoses Complicated UTI (urinary tract infection) N39.0 Urinary retention R33.9
[2022-04-05] MEDS: METOPROLOL TARTRATE 50 MG TAB PO SCH (08:15)
--- NOTE | 2022-04-05 09:23 | Discharge Summary ---
Date of Service April 05, 2022 Admission HPI Per Admitting Provider 72yo male with a PMH including ureter tumor s/p resection (six days ago), HTN, HLD, right pleural effusion, and paroxysmal atrial fibrillation presents with a one-day history of fever, abdominal pain, suprapubic pressure, and urinary retention. Patient underwent a cystoscopy and TURBT six days ago, and had a right-sided thoracentesis the following day. Patient had been doing well until this morning when he developed urinary retention. This worsened throughout the day, and patient developed suprapubic pressure, abdominal pain, and fever (Tmax 100.8). Patient had one episode of nausea and vomiting but this has resolved. Patient called one of his providers this morning, who prescribed cipro; patient took one dose, but his symptoms continued to worsen, prompting his presentation to the ED. Patient denies chills, headache, CP, SOB, diarrhea, lightheadedness, dizziness, or other symptoms. Admission Exam Per Admitting Provider Constitutional: sleeping but arousable, no acute distress HEENT: MM slightly dry CV: regular rhythm, no murmur appreciated, extremities well-perfused, no LE edema Resp: scattered mild rhonchi that improve with coughing, no crackles or wheezes, breathing nonlabored GI: soft, nondistended, nontender, BS normoactive MSK: no gross deformities appreciated Neuro: alert, oriented, no focal neurologic deficit appreciated Principal Diagnosis Sepsis secondary to complicated UTI Discharge Exam General: 72-year old male who is alert, oriented, and appears in no acute distress. HEENT: NCAT. - Eyes - Sclera are white, anicteric, and without injection. - Mouth - MMM - Neck - supple, no appreciable JVD Cardiac: Normal rate and regular rhythm; S1 and S2 present with no murmurs, rubs, or gallops. Pulmonary: Good respiratory effort with symmetric expansion of the chest. No use of accessory muscles. Lungs were clear to auscultation bilaterally with no crackles or wheezes. Abdominal: Normoactive bowel sounds. Abdomen was soft, nondistended, and non- tender to palpation. Mcdaniel in place. Extremities: Upper and lower extremities are warm and well perfused. [] peripheral edema in the lower extremities bilaterally Psych: Well-developed, well-nourished, appropriately dressed for occasion. Behavior is cooperative and appropriate. Affect is WNL. Insight is appropriate. Discharge Data Allergies Allergy/AdvReac Type Severity Reaction Status Date / Time LARS Inhibitors Allergy Severe Severe Verified 04/03/22 20:20 angioedema Iodinated Contrast Media Allergy Intermediate Rash and Verified 04/03/22 21:[address] scan with contrast Penicillins Allergy Intermediate hives Verified 04/03/22 20:20 Consultations 04/03/22 20:49 ED Decision to Admit Stat 04/04/22 00:56 Consult Urology Routine " Patient has been admitted on the hospitalist service. We recommend proceeding as follows: Continue intravenous fluids in the setting of possible sepsis Continue broad-spectrum antibiotics. The patient is receiving cefepime. Blood and urine cultures have been sent we recommend following these cultures at which time his antibiotics can be tailored based on these results. Concerning his urinary retention would recommend continuous Mcdaniel catheter for the present time for bladder decompression. A voiding trial can subsequently be tried at a later date. We will continue to follow along with the patient is hospitalized" Ordered Studies 04/03/22 19:26 CT abd pelvis wo con Stat "IMPRESSION: 1. No evidence for hydronephrosis bilaterally. 2. Mcdaniel catheter within the bladder. 3. Small to moderate size right pleural effusion is again seen along with noncalcified pulmonary nodules within the right lung. 4. No other evidence for acute intra-abdominal or pelvic abnormality. 5. Additional nonacute findings are delineated above." Hospital Course (1) Urinary retention: 72yo male with a PMH including bladder tumor resection on 03/28/22, HTN, HLD, right pleural effusion s/p thoracentesis 03/29/22, and paroxysmal atrial fibrillation on Eliquis presents with a one-day history of fever, abdominal pain, suprapubic pressure, and urinary retention in the context of recent TURBT, found to be septic - suspect secondary to complicated UTI Sepsis secondary to complicated UTI in the setting of recent TURBT ; possible secondary pulmonary source On arrival - tachycardic, febrile, leukocytosis (30, left shift), elevated procal, infected UA - c/w sepsis secondary to UTI --> Noted that patient was placed on ciprofloxacin 250 bid prior to arrival; however, only took [address] a/p: mcdaniel within bladder, no hydronephrosis or acute pelvic process Symptoms improving following Mcdaniel placement, antibiotics UCX: Pseudomonas Transitioned from cefepime (was also initially on Flagyl to cover for pulmonary source while picture was being clarified, subsequently discontinued) - > ciprofloxacin 500 bid prior to discharge (end 04/17) Check CBC in 3-4 days post-discharge (23.5 at time of discharge) Pleural effusion Patient with recurrent pleural effusions, most recently underwent right thoracentesis (03/29/[address] Darby) CXR showing small right pleural effusion as well as redemonstrating right hemithorax patchy nodular densities Pleural fluid: pos light's criteria. 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 Outpatient follow-up recommended Hyponatremia -- resolved Sodium 129 on admission, down from 136 (03/28/22). Improved to 137 on subsequent day's lab w/ gentle fluids (NSS) Differential includes SIADH 2/2 urologic malignancy +/- pulmonary disease, recent TURBT, poor PO intake, vomiting Bladder mass bladder biopsy: low grade papillary carcinoma. Further outpatient workup per urology. HTN Initially hypertensive to 160s/80s on admission, later fell to 90s/40s, improved with fluid boluses Holding home amlodipine; will restart home metoprolol Atrial fibrillation EKG on admission showing sinus tachycardia Restarting home metoprolol Continue home Eliquis Hypomagnesemia, repleted Anxiety: prn ativan, half of home dose regimen, HLD: continue home atorvastatin Code status: full code (2) Bladder tumor: (3) Hypertension: (4) Hyperlipidemia: (5) Paroxysmal atrial fibrillation: Total Time Total Time Spent Total Time Spent (In Minutes): 30 Discharge Plan Discharge Items Patient Disposition: Home - Self-Care Reason For Visit: SEPSIS SECONDARY TO UROLOGIC INFECTION Discharge Diagnosis: sepsis secondary to complicated urinary tract infection Condition on Discharge: Fair Activity: Per Instructions section Non-emergency contact: Primary Care Provider and Urologist Call non-emergency contact if: your symptoms worsen, your pain is worsening and your temperature is above 101 Follow-up/Referrals: Sebastian Jane MD [Primary Care Provider] - Rikki Valle MD [Physician] - 04/12/22 8:50 am Diet: Heart Healthy Ambulatory Orders: Complete Blood Count with Diff (Routine) Timeframe: 3 Days Location: Determined by Patient Ordered By: Tobias Stephenson Addtl Attending Provider Instructions: You were seen in [facility] for evaluation of fatigue, abdominal discomfort, and urinary symptoms. Upon your arrival here, you under went several tests to determine the cause of your symptoms. You were found to have laboratory evidence of inflammation secondary to an infection (this is called "sepsis "). We suspect that this infection came from the urinary tract. You were treated with antibiotics and demonstrated persistent and excellent improvement prior to discharge. On your discharge, please note the following medication changes/additions/deletions: Ciprofloxacin 500mg, taken twice daily (AM/PM), for 12 days Please follow-up with your primary care physician within 1 week to review this visit. Further, make sure you have close follow-up with your urologist (you should be scheduled for next week). Please obtain a blood test within the next 3-4 days (lab order will be provided at discharge). At that time, please discuss your LENGTH of ciprofloxacin treatment, as well as how long to keep your Mcdaniel in (you will be discharged with this in per recommendations of urology). If you begin experiencing worsening fevers, chills, sweats, chest pain, palpitations, shortness of breath, recurrence of urinary pain, urinary retention, or other worrisome symptoms, please seek medical attention; if your symptoms are severe, please report to the ER. Is a pleasure for caring for you while here, we wish you all the best in your recovery. Pending Studies at Discharge: No Stand-Alone Forms: [facility], Smoking Cessation Medications and DC Order Prescriptions: New ciprofloxacin HCl 500 mg Tablet 500 mg PO BID 12 Days Qty: 24 RF: 0 Continued metoprolol tartrate 50 mg tablet 50 mg PO BID Qty: 180 RF: 3 methylprednisolone 4 mg tablets,dose pack See Rx Instructions .Route .COMPLEX Qty: 21 RF: 0 coenzyme Q10 100 mg capsule 100 mg PO QPM RF: 0 apixaban 5 mg Tablet 5 mg PO BID RF: 0 atorvastatin 10 mg tablet 10 mg PO QPM RF: 0 amlodipine 5 mg tablet 5 mg PO QAM RF: 0 pantoprazole [Protonix] 40 mg tablet,delayed release (DR/EC) 40 mg PO QAM RF: 0 lorazepam 0.5 mg Tablet 0.5 mg PO BID PRN (Reason: Anxiety) RF: 0 docusate sodium [Col-Rite] 100 mg capsule 100 mg PO BID Qty: 10 RF: 0 omega-3 fatty acids 1,000 mg Capsule 1,000 mg PO DAILY RF: 0 diphenhydramine HCl [Benadryl] 25 mg Capsule 25 mg PO DIRECTED PRN (Reason: WHEN NEEDED PER FAMILY) RF: 0 Discontinued ciprofloxacin HCl 250 mg tablet 250 mg PO BID Qty: 10 RF: 0 Discharge Orders: Discharge Order (Routine); Ordered 04/05/22 Ordered By: Tobias Stephenson Admission Data Admit Date/Time: 04/03/22 22:10 Attending Provider: Tobias Rogers Admit Provider: Cullen Streeter Primary Care Provider: Sebastian Jane Other Providers: Oracio Austin ; Rikki Valle Other Interventions: Discharge Summary Assessment (RN) Last Done: 04/05/22 10:43 Supervising Physician Co-Signing Physician Notes I personally examined the patient and verified all cannon points of history and exam, discussed case, and agree with decision making with Dr Stephenson was feeling better -very anxious to leave. Case was discussed with Dr. Stephenson, sandra delgado actually left before I was able to see him. As above UTI with sepsisstatus post TURBTPseudomonasHome on Cipro, continue close urology follow-up, otherwise as above Resident Activity Tracking Resident Involvement: Resident Care Provided Care Provided: Adult Hospital Medicine
[2022-04-05] MEDS ORDERED: CIPROFLOXACIN 500 MG TAB PO SCH (21:00)
== END 2022-04-05 11:45 | disposition home or self-care (01) | DRG 698 ==
LOC: ED 18:44 → 2E 22:10 → SUATTDRO 22:10 → 2E 04-04 00:31

== ENCOUNTER 2022-12-09 09:42 | Inpatient (IN) ==
[2022-12-09] MEDS ORDERED: ALBUTEROL 0.083% NEBU SOLN 3 ML VIAL NEB STA (10:03)
[2022-12-09] MEDS ORDERED: CEFEPIME 2,000 MG/20 ML VIAL IV STA (10:03)
--- NOTE | 2022-12-09 10:07 | Emergency Department Note ---
Impression & Plan Respiratory failure, Hypoxia, Anemia, Leukopenia ED Provider Note NAME: CRIS CHURCHILL AGE: 72 SEX: M : 1950 ARRIVES VIA: Walk-In INFORMANT: Patient ED PROVIDER(S): Tobias Odell DO CHIEF COMPLAINT:cough, weak and fever HPI: Patient is a 72-year-old male with a past medical history of bladder cancer, lung cancer, hypertension, hyperlipidemia who presents to the ER for cough, congestion, and weakness as well as fevers and shortness of breath which have been present since last in the Friday. Fevers have been as high as 102. Patient is receiving chemo with last dose Friday. Denies any belly pain, nausea, vomiting, or diarrhea. No dysuria, urgency, or frequency. No other exacerbating or remitting factors. PAST MEDICAL HISTORY:See Below PAST SURGICAL HISTORY:See Below FAMILY HISTORY:See Below SOCIAL HISTORY:See Below HOME MEDICATIONS:See Below ALLERGIES:See Below VITALS:See Below PHYSICAL EXAMINATION: GENERAL: Sitting up in bed, alert, conically ill-appearing, disheveled, on nasal cannula EYE EXAM: normal conjunctiva. PERRL and EOM's grossly intact. OROPHARYNX: mucous membranes are moist NECK: supple, no nuchal rigidity, no adenopathy, non-tender LUNGS: Mild wheezing bilaterally. Normal chest wall mechanics HEART: no murmurs, S1 normal and S2 normal ABDOMEN: abdomen soft, non-tender, normo-active bowel sounds, no masses, no rebound or guarding. UPPER EXTREMITIES: upper extremities are grossly normal. LOWER EXTREMITIES: No pitting edema. NEURO EXAM: Normal sensorium, cranial nerves II-XII grossly intact, normal speech, no gross weakness of arms, no gross weakness of legs. MEDICAL DECISION MAKING: Patient is a 72-year-old male who presents the ER for cough congestion and weakness which has been going on for the past 4 days. He is currently undergoing chemo. Last dose of chemo 7 days ago. IV was established blood work was obtained. Labs show mild anemia at 7.6 and a leukopenia at 2.6. Mild thrombocytopenia at 128. BMP with a hyponatremia 128. Creatinine was slightly up at 1.8 from baseline of 1.3. T. bili 1.3. LFTs were unremarkable. Troponin was mildly up at 30.5. Pro-Adolfo was elevated at 6. Chest x-ray with likely pneumonia. He was hypoxic and on OxyMask. Normally does not wear oxygen. He was given neb treatment steroids and IV antibiotics. External records were reviewed. He was updated bedside. Discussed with the hospitalist admitted for further work-up. external records were reviewed. Triage Nursing notes reviewed. Limited review of prior medical records performed Vital Signs: reviewed and remarkable for Hypoxic Differential diagnosis: Differential diagnoses includes but is not limited to pneumonia, bronchitis, COPD/Asthma exacerbation, pneumothorax, pulmonary embolism, congestive heart failure, acute coronary syndrome ER treatment provided: See below Diagnostics interpreted by me include EKG and cardiac monitoring as listed below: -Cardiac Monitoring: An order was placed for continuous cardiac monitoring. The monitor shows a rate of 92 with sinus rhythm. -ECG: Sinus rhythm rate 93 Normal axis No PVCs QTc 4247 -Laboratory studies:Interpreted by me as stated above in MDM and shown below. Imaging studies: Xrays: As interpreted by me: Chest x-ray shows a right lower lobe effusion per my read Per radiology chest x-ray suggest pneumonia and effusion CTs show: none Consultation(s): Discussed with the hospitalist for further evaluation management and treatment Procedures:none Critical Care: I have personally spent 32 minutes of critical care time in the direct management of this patient. This includes bedside care, interpretation of diagnostic studies, and testing, discussion with consultants, patient, and family members, and other required patient management activities. This 32 minutes is in excess of all separately billable procedures. Past Med/Surg History Medical History (Updated 12/09/22 @ 15:06 by Tobias Odell DO) Angioedema of tongue September 2021 at [facility] from an allergy to lisinopril. Treated through the Emergency Room at [facility]. Placed on a ventilator at that time- while inpatient tested positive for covid-19 and then developed rectal bleeding where an ulcer perforation had been found and repaired. Pt did follow up with an electrotyper s/p angioedema Anxiety Bladder tumor Recently diagnosed within the last year () COVID-19 Duodenal ulcer 09/2021 with perforation. treated while inpatient at [facility] Erectile dysfunction GI bleed History of COVID-19 Tested positive 09/24/21 during inpatient stay- asymptomatic at that time- may have had covid in August 2021 when was ill with Covid. Hyperlipidemia Hypertension Lung cancer Lung mass Recently diagnosed- awaiting further testing Mediastinal lymphadenopathy Recently diagnosed- awaiting further testing On anticoagulant therapy Paroxysmal atrial fibrillation - September 2021, reason for blood thinner - Rapid response 09/2021- "RVR in 160s and hypotensive after large bloody BM. Required cardioversion x 3, finally converted to NSR in 80s and then back to a fib with RVR. Amiodarone IV bolus and drip initiated per ACLS protocol. Converted to NSR- treated later with Lopressor. Discharged on Amiodarone, Lopressor and Eliquis. Pleural effusion, right Thoracentesis scheduled 03/29/22 Prediabetes Diet controlled Surgical History History of cystoscopy with TURBT large 03/28/22 History of esophagogastroduodenoscopy (EGD) with repair of ulcer perforation in september 2021/oct 2021 History of thoracentesis US guided catheter thoracentesis 03/29/22 Family History Father Coronary heart disease Cardiac disorder Myocardial infarction Sister Diabetes Myocardial infarction Mother Hypertension Other No family history of adverse response to anesthesia Denies family history of Ovarian cancer Prostate cancer Crohn's disease Breast cancer Colorectal cancer Ulcerative colitis Social History Smoking Status: Current some day smoker Tobacco Type: Cigarettes Age Started Using Tobacco: 17; packs per day: 0.5; Cigarettes Per Day: 1/2 ppd; Second Hand Exposure: Yes; Hx Alcohol Use: No Hx Substance Use: No Preferred Language: Romansh Communication Ability: Effective Visual Impairment: No Limitations Hearing Ability: Hard of Hearing Animated Cartoons Painter Required: No Beliefs That Will Affect Care: None marital status: Current Living Situation: Spouse current occupational status: retired 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 Other Information That Helps Us Care for You: No Feels Safe at Home: Yes Safety Concerns: Feels Safe At This Time Childhood Exposure to Second-Hand Smoke: Yes caffeine: Yes Dental Care, Regularly: No Physical Activity Frequency: Daily Seatbelt Use: always Sunscreen Use: No Assistive Devices: Glasses Allergies Allergies Allergy/AdvReac Type Severity Reaction Status Date / Time LARS Inhibitors Allergy Severe Severe Verified 10/22/22 12:12 angioedema Iodinated Contrast Media Allergy Intermediate Rash and Verified 10/22/22 12:[address] scan with contrast Penicillins Allergy Intermediate hives Verified 10/22/22 12:12 Home Meds Home Medications Medication Instructions Recorded Confirmed atorvastatin 10 mg tablet 10 mg PO QPM 03/27/22 12/09/22 Previous Rx's Medication Instructions Recorded amlodipine 5 mg tablet 5 mg PO QAM #90 tabs 09/09/22 pantoprazole 40 mg tablet,delayed 40 mg PO QAM #90 tabs 10/31/22 release (Protonix) metoprolol tartrate 50 mg tablet 50 mg PO BID #180 tabs 12/02/22 apixaban 5 mg tablet 5 mg PO BID #90 tabs 12/03/22 Results & Data (ED) Vital Signs Vital Signs - 24 hr 12/09/22 09:48 12/09/22 10:05 12/09/22 10:37 Temperature 37.0 C Temperature Source Temporal Artery Scan Pulse Rate 94 H 83 Pulse Rate from SpO2 Sensor Respiratory Rate 18 Respiratory Effort / Characteristics Non-Labored Respiratory Depth Normal Blood Pressure 112/71 Blood Pressure Mean 84 Blood Pressure Position Sitting Pulse Oximetry 86 L 92 Oxygen Delivery Method Room Air Nasal Cannula Oxygen Flow Rate 4.5 Sepsis Recent Fever Within 48 Hours Yes Sepsis New/Unexplained Change in Mental Status No Sepsis Action Taken by Nursing No Action Required 12/09/22 10:05 12/09/22 10:10 12/09/22 10:20 Temperature Temperature Source Pulse Rate 83 81 83 Pulse Rate from SpO2 Sensor 83 81 84 Respiratory Rate 24 41 H 23 Respiratory Effort / Characteristics Respiratory Depth Blood Pressure Blood Pressure Mean Blood Pressure Position Pulse Oximetry 90 91 94 Oxygen Delivery Method Oxygen Flow Rate Sepsis Recent Fever Within 48 Hours Sepsis New/Unexplained Change in Mental Status Sepsis Action Taken by Nursing 12/09/22 10:30 12/09/22 10:40 12/09/22 10:50 Temperature Temperature Source Pulse Rate 89 91 H 92 H Pulse Rate from SpO2 Sensor 89 91 H 92 H Respiratory Rate 32 H 36 H 31 H Respiratory Effort / Characteristics Respiratory Depth Blood Pressure Blood Pressure Mean Blood Pressure Position Pulse Oximetry 90 91 90 Oxygen Delivery Method Oxygen Flow Rate Sepsis Recent Fever Within 48 Hours Sepsis New/Unexplained Change in Mental Status Sepsis Action Taken by Nursing 12/09/22 11:00 12/09/22 11:02 12/09/22 11:02 Temperature Temperature Source Pulse Rate 93 H 93 H Pulse Rate from SpO2 Sensor 93 H 93 H Respiratory Rate 37 H 25 H Respiratory Effort / Characteristics Respiratory Depth Blood Pressure 123/66 Blood Pressure Mean 85 Blood Pressure Position Pulse Oximetry 88 L 88 L Oxygen Delivery Method Oxygen Flow Rate Sepsis Recent Fever Within 48 Hours Sepsis New/Unexplained Change in Mental Status Sepsis Action Taken by Nursing 12/09/22 11:10 12/09/22 11:20 12/09/22 11:30 Temperature Temperature Source Pulse Rate 94 H 94 H 94 H Pulse Rate from SpO2 Sensor 94 H 94 H 95 H Respiratory Rate 33 H 37 H 31 H Respiratory Effort / Characteristics Respiratory Depth Blood Pressure Blood Pressure Mean Blood Pressure Position Pulse Oximetry 88 L 88 L 87 L Oxygen Delivery Method Oxygen Flow Rate Sepsis Recent Fever Within 48 Hours Sepsis New/Unexplained Change in Mental Status Sepsis Action Taken by Nursing 12/09/22 11:40 12/09/22 11:50 12/09/22 12:00 Temperature Temperature Source Pulse Rate 94 H 93 H 93 H Pulse Rate from SpO2 Sensor 95 H 94 H 93 H Respiratory Rate 38 H 39 H 38 H Respiratory Effort / Characteristics Respiratory Depth Blood Pressure Blood Pressure Mean Blood Pressure Position Pulse Oximetry 87 L 87 L 88 L Oxygen Delivery Method Oxygen Flow Rate Sepsis Recent Fever Within 48 Hours Sepsis New/Unexplained Change in Mental Status Sepsis Action Taken by Nursing 12/09/22 12:10 Temperature Temperature Source Pulse Rate 92 H Pulse Rate from SpO2 Sensor 92 H Respiratory Rate 34 H Respiratory Effort / Characteristics Respiratory Depth Blood Pressure Blood Pressure Mean Blood Pressure Position Pulse Oximetry 93 Oxygen Delivery Method Oxygen Flow Rate Sepsis Recent Fever Within 48 Hours Sepsis New/Unexplained Change in Mental Status Sepsis Action Taken by Nursing Laboratory Data 12/09/22 10:00 12/09/22 11:18 Lab Results 12/09/22 12/09/22 12/09/22 Range/Units 10:00 10:00 10:00 WBC 2.65 L (4.8-10.8) K/ul RBC 2.27 L (4.70-6.10) M/uL Hgb 7.6 L (14.0-18.0) g/dl Hct 21.9 L (42.0-52.0) % MCV 96.5 (80.0-100.0) fL MCH 33.5 (25.0-34.0) pg MCHC 34.7 (32.0-36.0) g/dL RDW Std Deviation 56.7 H (36.4-46.3) fL RDW Coeff of Jimbo 15.9 H (11.5-14.5) % Plt Count 128 L (130-400) K/uL MPV 11.6 (9.4-12.4) fL Immature Gran % (Auto) 4.5 % Neut % (Auto) 82.2 % Lymph % (Auto) 7.2 % [place] % (Auto) 5.3 % Eos % (Auto) 0.0 % Baso % (Auto) 0.8 % Neut # (Auto) 2.18 (1.40-6.50) K/uL Lymph # (Auto) 0.19 L (1.2-3.4) K/uL [place] # (Auto) 0.14 (0.11-0.59) K/uL Eos # (Auto) 0.00 (0-0.50) K/uL Baso # (Auto) 0.02 (0-0.2) K/uL Immature Gran # (Auto) 0.12 (0.01-0.20) K/uL Hypersegmented Neuts 1+ Polychromasia 1+ Sodium 128 L (136-145) mmol/L Potassium TNP Chloride 91 L (98-107) mmol/L Carbon Dioxide 23 (21-32) mmol/L Anion Gap 14 H (3-11) BUN 23 (6-23) mg/dl Creatinine 1.89 H (0.6-1.4) mg/dl Est Cr Clr Drug Dosing 35.8 ml/min Est GFR ( Amer) 40.5 ml/min Est GFR (Non-Af Amer) 34.9 ml/min BUN/Creatinine Ratio 12.2 (10-20) Glucose 195 H (70-99(Fasting)) mg/dl Lactate (0.4-2.0) mmol/L Calcium 9.0 (8.5-10.1) mg/dl Magnesium 1.6 L (1.7-2.4) mg/dl Total Bilirubin 1.3 H (0.2-1.0) mg/dl Direct Bilirubin TNP AST TNP ALT 37 (7-52) U/L Alkaline Phosphatase 73 (34-104) U/L Troponin I High Sens 30.5 H (0-20) pg/ml Total Protein 7.4 (6.0-8.3) gm/dl Albumin 3.3 L (3.4-5.0) gm/dl Procalcitonin Cancelled SARS-CoV-2 (PCR) (Negative) Influenza Type A (PCR) (Neg) Influenza Type B (PCR) (Neg) RSV (RT-PCR) (Neg) 12/09/22 12/09/22 12/09/22 Range/Units 10:13 10:43 11:18 WBC (4.8-10.8) K/ul RBC (4.70-6.10) M/uL Hgb (14.0-18.0) g/dl Hct (42.0-52.0) % MCV (80.0-100.0) fL MCH (25.0-34.0) pg MCHC (32.0-36.0) g/dL RDW Std Deviation (36.4-46.3) fL RDW Coeff of Jimbo (11.5-14.5) % Plt Count (130-400) K/uL MPV (9.4-12.4) fL Immature Gran % (Auto) % Neut % (Auto) % Lymph % (Auto) % [place] % (Auto) % Eos % (Auto) % Baso % (Auto) % Neut # (Auto) (1.40-6.50) K/uL Lymph # (Auto) (1.2-3.4) K/uL [place] # (Auto) (0.11-0.59) K/uL Eos # (Auto) (0-0.50) K/uL Baso # (Auto) (0-0.2) K/uL Immature Gran # (Auto) (0.01-0.20) K/uL Hypersegmented Neuts Polychromasia Sodium (136-145) mmol/L Potassium Chloride (98-107) mmol/L Carbon Dioxide (21-32) mmol/L Anion Gap (3-11) BUN (6-23) mg/dl Creatinine (0.6-1.4) mg/dl Est Cr Clr Drug Dosing ml/min Est GFR ( Amer) ml/min Est GFR (Non-Af Amer) ml/min BUN/Creatinine Ratio (10-20) Glucose (70-99(Fasting)) mg/dl Lactate 2.2 H* (0.4-2.0) mmol/L Calcium (8.5-10.1) mg/dl Magnesium (1.7-2.4) mg/dl Total Bilirubin (0.2-1.0) mg/dl Direct Bilirubin AST ALT (7-52) U/L Alkaline Phosphatase (34-104) U/L Troponin I High Sens (0-20) pg/ml Total Protein (6.0-8.3) gm/dl Albumin (3.4-5.0) gm/dl Procalcitonin 6.17 H SARS-CoV-2 (PCR) NEGATIVE (Negative) Influenza Type A (PCR) Negative (Neg) Influenza Type B (PCR) Negative (Neg) RSV (RT-PCR) Negative (Neg) 12/09/22 12/09/22 Range/Units 11:18 12:29 WBC (4.8-10.8) K/ul RBC (4.70-6.10) M/uL Hgb (14.0-18.0) g/dl Hct (42.0-52.0) % MCV (80.0-100.0) fL MCH (25.0-34.0) pg MCHC (32.0-36.0) g/dL RDW Std Deviation (36.4-46.3) fL RDW Coeff of Jimbo (11.5-14.5) % Plt Count (130-400) K/uL MPV (9.4-12.4) fL Immature Gran % (Auto) % Neut % (Auto) % Lymph % (Auto) % [place] % (Auto) % Eos % (Auto) % Baso % (Auto) % Neut # (Auto) (1.40-6.50) K/uL Lymph # (Auto) (1.2-3.4) K/uL [place] # (Auto) (0.11-0.59) K/uL Eos # (Auto) (0-0.50) K/uL Baso # (Auto) (0-0.2) K/uL Immature Gran # (Auto) (0.01-0.20) K/uL Hypersegmented Neuts Polychromasia Sodium (136-145) mmol/L Potassium 3.3 L Chloride (98-107) mmol/L Carbon Dioxide (21-32) mmol/L Anion Gap (3-11) BUN (6-23) mg/dl Creatinine (0.6-1.4) mg/dl Est Cr Clr Drug Dosing ml/min Est GFR ( Amer) ml/min Est GFR (Non-Af Amer) ml/min BUN/Creatinine Ratio (10-20) Glucose (70-99(Fasting)) mg/dl Lactate 1.3 (0.4-2.0) mmol/L Calcium (8.5-10.1) mg/dl Magnesium (1.7-2.4) mg/dl Total Bilirubin (0.2-1.0) mg/dl Direct Bilirubin 0.6 H AST 30 ALT (7-52) U/L Alkaline Phosphatase (34-104) U/L Troponin I High Sens (0-20) pg/ml Total Protein (6.0-8.3) gm/dl Albumin (3.4-5.0) gm/dl Procalcitonin SARS-CoV-2 (PCR) (Negative) Influenza Type A (PCR) (Neg) Influenza Type B (PCR) (Neg) RSV (RT-PCR) (Neg) Administered Medications Discontinued Medications Albuterol (Albuterol 0.083% Nebu Soln 3 Ml Vial) 2.5 mg NEB NOW STA; Protocol Stop: 12/09/22 10:04 Last Admin: 12/09/22 10:13 Dose: 2.5 mg Documented By: KHANH Cefepime HCl (Maxipime) 2,000 mg in 20 mls @ 5 mls/min IV NOW STA; Protocol Stop: 12/09/22 10:06 Last Admin: 12/09/22 11:03 Dose: 5 mls/min Documented By: REYNALDO Sodium Chloride (Nss 1000ml) 1,000 mls @ 999 mls/hr IV .Q1H1M ONE Stop: 12/09/22 12:48 Last Infusion: 12/09/22 13:16 Dose: 0 mls/hr Documented By: Admin: 12/09/22 12:15 Dose: 999 mls/hr Documented By: REYNALDO Methylprednisolone (Methylprednisolone 40 Mg/Ml Vial) 40 mg IV NOW STA Stop: 12/09/22 10:04 Last Admin: 12/09/22 10:13 Dose: 40 mg Documented By: OL Imaging Data Radiologist's Impression: Chest X-Ray 12/09/22 10:04 XR chest 1V portable HISTORY: Sepsis COMPARISON: Chest 04/03/2022. FINDINGS: No pneumothorax. The heart is normal in size. Small to moderate right pleural effusion has progressed. Right upper lobe medial irregular mass like density is again noted. Progressive patchy airspace opacities within the periphery of the left lung. Right basilar densities persist. There is mild central pulmonary vascular congestion again noted. IMPRESSION: 1. Interval progression of the small to moderate right pleural effusion. 2. Mild pulmonary vascular congestion again noted. 3. Progressive patchy airspace opacity within the periphery of the left lung. This could represent a pneumonia. 4. Right upper lobe medial masslike density again noted. ACT 112: Negative or not required by law. Electronically signed by: Lit Nino M.D. 12/09/2022 10:18 AM Discharge Plan Visit Data Chief Complaint: Illness Stated Complaint: SICK FOR 3 DAYS, FEVERS, WHEEZING LUNGS ED Provider: Tobias Odell Discharge Problem: Respiratory failure, Hypoxia, Anemia, Leukopenia Patient Disposition: Admitted As Inpatient Discharge Instructions Interventions: ED Discharge Assessment Last Done: 12/09/22 14:23
--- NOTE | 2022-12-09 10:20 | XRay Report ---
XR chest 1V portable HISTORY: Sepsis COMPARISON: Chest 04/03/2022. FINDINGS: No pneumothorax. The heart is normal in size. Small to moderate right pleural effusion has progressed. Right upper lobe medial irregular mass like density is again noted. Progressive patchy ai rspace opacities within the periphery of the left lung. Right basilar densities persist. There is mil d central pulmonary vascular congestion again noted. IMPRESSION: 1. Interval progression of the small to moderate right pleural effusion. 2. Mild pulmonary vascular congestion again noted. 3. Progressive patchy airspace opacity within the periphery of the left lung. This could represent a pneumonia. 4. Right upper lobe medial masslike density again noted. ACT 112: Negative or not required by law. Electronically signed by: Lit Nino M.D. 12/09/2022 10:18 AM
[2022-12-09 11:19] LABS: Influenza A virus by PCR Negative (Neg); Influenza B virus by PCR Negative (Neg); RSV by PCR Negative (Neg); SARS CoV2 RNA(COVID-19) Ceph NEGATIVE (Negative)
[2022-12-09 11:28] LABS: Hematocrit (blood only) 21.9 % (42.0-52.0); Hemoglobin 7.6 g/dl (14.0-18.0); Mean Corpuscular Hemoglobin 33.5 pg (25.0-34.0); Mean Corpuscular Hgb Conc 34.7 g/dL (32.0-36.0); Mean Corpuscular Volume 96.5 fL (80.0-100.0); Mean Platelet Volume 11.6 fL (9.4-12.4); Platelet Count 128 K/uL (130-400); RDW Coefficient of Variation 15.9 % (11.5-14.5); RDW Standard Deviation 56.7 fL (36.4-46.3); Red Blood Count 2.27 M/uL (4.70-6.10); White Blood Count 2.65 K/ul (4.8-10.8)
[2022-12-09 11:29] LABS: Basophils # (auto) 0.02 K/uL (0-0.2); Basophils % (auto) 0.8 %; Hypersegmented Neutrophils 1+; Immature Granulocytes # (auto) 0.12 K/uL (0.01-0.20); Immature Granulocytes % (auto) 4.5 %; Lymphocytes # (auto) 0.19 K/uL (1.2-3.4); Lymphocytes % (auto) 7.2 %; Monocytes # (auto) 0.14 K/uL (0.11-0.59); Monocytes % (auto) 5.3 %; Neutrophils # (auto) 2.18 K/uL (1.40-6.50); Neutrophils % (auto) 82.2 %; Polychromasia 1+
[2022-12-09 11:30] LABS: Alanine Aminotransferase 37 U/L (7-52); Albumin Level 3.3 gm/dl (3.4-5.0); Alkaline Phosphatase 73 U/L (34-104); Anion Gap 14 (3-11); BUN Creatinine Ratio 12.2 (10-20); Bilirubin,Total 1.3 mg/dl (0.2-1.0); Blood Urea Nitrogen 23 mg/dl (6-23); Carbon Dioxide 23 mmol/L (21-32); Chloride 91 mmol/L (98-107); Creatinine Clr Calc Pharmacy 35.8 ml/min; Est GFR (African American) 40.5 ml/min; Est GFR (Non-African American) 34.9 ml/min; Glucose 195 mg/dl (70-99(Fasting)); Magnesium 1.6 mg/dl (1.7-2.4); Sodium 128 mmol/L (136-145); Total Protein 7.4 gm/dl (6.0-8.3); Troponin I High Sensitivity 30.5 pg/ml (0-20)
[2022-12-09] MEDS ORDERED: SODIUM CHLORIDE 0.9% 1000ML 1,000 ML IV ONE (11:48)
[2022-12-09 11:57] LABS: Bilirubin Direct 0.6 mg/dl (0-0.2); Potassium 3.3 mmol/L (3.5-5.1)
--- NOTE | 2022-12-09 12:10 | History & Physical Report ---
Date of Service December 09, 2022 Assessment & Plan (1) Sepsis: Plan: Increased respiratory rate, heart rate, decreased white blood count with pneumonia source. Lactate 2.2 -> 1.3 Follow up blood cultures (2) Pneumonia: Plan: Cefepime IV (renally dosed) + azithromycin IV 500mg Sputum culture Cepheid negative for influenza, COVID and RSV MRSA nasal swab pending - add vancomycin if positive Incentive spirometry Flutter valve CT chest without contrast - will consider pulmonology consult pending result of this given complicated history of pleural effusion and stage IV lung cancer with differential diagnosis including pleomorphic carcinoma of pulmonary origin, large cell carcinoma of pulmonary origin and poorly differentiated adenocarcinoma of pulmonary origin. (3) Hypoxia: Plan: Secondary to pneumonia in the setting of pleural effusion and lung cancer Low suspicion of pulmonary embolism since he is already on Eliquis Aim O2 sats greater than 90% At baseline he is not on oxygen (4) Pancytopenia due to chemotherapy: Plan: Transufse 1 unit packed RBCs as below. Repeat CBC in AM. Neutrophil count > 1.5 currently (5) Anemia: Plan: Hemoglobin 7.6. MCV normal. Patient has intermittent blood transfusions due to chemotherapy Transfuse 1 unit packed red blood cells to aim hemoglobin greater than 8 in the setting of sepsis. (6) Elevated serum creatinine: Plan: Suspect dehydrated in the setting of pneumonia and increased Cr from baseline however risk of worsening respiratory status with continued IV fluids. NSS bolus given in the ER which normalized lactate. Repeat BMP in AM. (7) Hyperlipidemia: Plan: Continue atorvastatin 10 mg p.o. 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 (10) Hypertension: Plan: Continue metoprolol tartrate 50 mg p.o. twice daily Hold amlodipine pending serial blood pressure measurements to make sure they are well controlled. (11) Lung cancer: Plan: Metastatic carcinoma with differential diagnosis including pleomorphic carcinoma of pulmonary origin, large cell carcinoma of pulmonary origin and poorly differentiated adenocarcinoma pulmonary origin. Remains on maintenance pemetrexed/pembrolizumab chemotherapy Plan VTE prophylaxis -Eliquis Diet -regular Disposition -admit to PCU Admission and Anticipated Discharge Date Admission Date: December 09, 2022 History of Present Illness Chief Complaint: Shortness of breath, cough Primary Care Provider: Sebastian Jane MD Rolando Duran is a 72-year-old male on maintenance chemotherapy for lung cancer who presents to the ER with shortness of breath and cough. He thinks his initial symptoms started when he went to a sporting events last weekend when he was exposed to flulike symptoms. Much worse on Friday/ with fevers, generalized weakness, shortness of breath and cough. Cough productive of "snot", unknown color. He continued to have chills all weekend and yesterday had a fever of 102 F. He reports his sinuses and ears had been feeling full although this has been improving and not currently present. He does not use oxygen at baseline. His daughter recommended he came to the ER last night but he refused. Allergies Allergy/AdvReac Type Severity Reaction Status Date / Time LARS Inhibitors Allergy Severe Severe Verified 10/22/22 12:12 angioedema Iodinated Contrast Media Allergy Intermediate Rash and Verified 10/22/22 12:[address] scan with contrast Penicillins Allergy Intermediate hives Verified 10/22/22 12:12 Home Medications Medication Instructions Recorded Confirmed Type atorvastatin 10 mg tablet 10 mg PO QPM 03/27/22 12/09/22 History amlodipine 5 mg tablet 5 mg PO QAM #90 tabs 09/09/22 12/09/22 Rx pantoprazole 40 mg tablet,delayed 40 mg PO QAM #90 tabs 10/31/22 12/09/22 Rx release (Protonix) metoprolol tartrate 50 mg tablet 50 mg PO BID #180 tabs 12/02/22 12/09/22 Rx apixaban 5 mg tablet 5 mg PO BID #90 tabs 12/03/22 12/09/22 Rx Past Med/Surg History Medical History (Updated 12/10/22 @ 07:01 by Steve Singer MD) Angioedema of tongue September 2021 at [facility] from an allergy to lisinopril. Treated through the Emergency Room at [facility]. Placed on a ventilator at that time- while inpatient tested positive for covid-19 and then developed rectal bleeding where an ulcer perforation had been found and repaired. Pt did follow up with an residential interior designer s/p angioedema Anxiety Bladder tumor Recently diagnosed within the last year () COVID-19 Duodenal ulcer 09/2021 with perforation. treated while inpatient at [facility] Erectile dysfunction GI bleed History of COVID-19 Tested positive 09/24/21 during inpatient stay- asymptomatic at that time- may have had covid in August 2021 when was ill with Covid. Hyperlipidemia Hypertension Lung cancer Lung mass Recently diagnosed- awaiting further testing Mediastinal lymphadenopathy Recently diagnosed- awaiting further testing On anticoagulant therapy Paroxysmal atrial fibrillation - September 2021, reason for blood thinner - Rapid response 09/2021- "RVR in 160s and hypotensive after large bloody BM. Required cardioversion x 3, finally converted to NSR in 80s and then back to a fib with RVR. Amiodarone IV bolus and drip initiated per ACLS protocol. Converted to NSR- treated later with Lopressor. Discharged on Amiodarone, Lopressor and Eliquis. Pleural effusion, right Thoracentesis scheduled 03/29/22 Prediabetes Diet controlled Surgical History History of cystoscopy with TURBT large 03/28/22 History of esophagogastroduodenoscopy (EGD) with repair of ulcer perforation in september 2021/oct 2021 History of thoracentesis US guided catheter thoracentesis 03/29/22 Family History Father Coronary heart disease Cardiac disorder Myocardial infarction Sister Diabetes Myocardial infarction Mother Hypertension Other No family history of adverse response to anesthesia Denies family history of Ovarian cancer Prostate cancer Crohn's disease Breast cancer Colorectal cancer Ulcerative colitis Social History Smoking Status: Current some day smoker Tobacco Type: Cigarettes Age Started Using Tobacco: 17; packs per day: 0.5; Cigarettes Per Day: 1/2 ppd; Second Hand Exposure: Yes; Hx Alcohol Use: No Hx Substance Use: No Preferred Language: Kittitian Communication Ability: Effective Visual Impairment: No Limitations Hearing Ability: Hard of Hearing Offbearer Sewer Pipe Required: No Beliefs That Will Affect Care: None marital status: Current Living Situation: Spouse current occupational status: retired 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 Other Information That Helps Us Care for You: No Feels Safe at Home: Yes Safety Concerns: Feels Safe At This Time Childhood Exposure to Second-Hand Smoke: Yes caffeine: Yes Dental Care, Regularly: No Physical Activity Frequency: Daily Seatbelt Use: always Sunscreen Use: No Assistive Devices: Glasses Review of Systems Review of Systems: All systems reviewed & are unremarkable except as noted in HPI & below Physical Exam Constitutional: WD/WN, vitals as above no acute distress Eyes: + anicteric sclerae; normal pupil size ENMT: external ear and nose normal, oropharynx normal Ears: + hearing impairment Mouth: oral mucous membranes not dry Neck: trachea midline, no thyromegaly Respiratory: normal respiratory effort; no respiratory distress, no labored breathing, does not use accessory muscles and expiratory phase not prolonged Auscultation: + breath sounds absent (right base) and + rhonchi (b/l throughout); no diminished lung sounds and no wheezes Cardiovascular: RRR, no murmur, no edema Gastrointestinal (Abdomen): normal bowel sounds, soft, nontender, no hepatosplenomegaly Musculoskeletal: no cyanosis or clubbing, extremities motor strength 5/5 Skin: no rashes, warm and dry Neurologic: moves all extremities and awake; no focal motor deficits and not confused Psychiatric: A+Ox3, euthymic affect Genitourinary: no CVA tenderness Results & Data Results & Data ([facility]) Vital Signs (Past 12 Hours) Vital Signs Temp Pulse Resp BP Pulse Ox O2 Del Method O2 Flow Rate 12/09/22 10:37 92 Nasal Cannula 4.5 12/09/22 10:05 83 12/09/22 09:48 37.0 C 94 H 18 112/71 86 L Room Air Laboratory Results Abnormal lab results 12/09/22 12/09/22 12/09/22 Range/Units 10:00 10:00 10:43 WBC 2.65 L (4.8-10.8) K/ul RBC 2.27 L (4.70-6.10) M/uL Hgb 7.6 L (14.0-18.0) g/dl Hct 21.9 L (42.0-52.0) % RDW Std Deviation 56.7 H (36.4-46.3) fL RDW Coeff of Jimbo 15.9 H (11.5-14.5) % Plt Count 128 L (130-400) K/uL Lymph # (Auto) 0.19 L (1.2-3.4) K/uL Sodium 128 L (136-145) mmol/L Potassium (3.5-5.1) mmol/L Chloride 91 L (98-107) mmol/L Anion Gap 14 H (3-11) Creatinine 1.89 H (0.6-1.4) mg/dl Glucose 195 H (70-99(Fasting)) mg/dl Lactate 2.2 H* (0.4-2.0) mmol/L Magnesium 1.6 L (1.7-2.4) mg/dl Total Bilirubin 1.3 H (0.2-1.0) mg/dl Direct Bilirubin (0-0.2) mg/dl Troponin I High Sens 30.5 H (0-20) pg/ml Albumin 3.3 L (3.4-5.0) gm/dl 12/09/22 Range/Units 11:18 WBC (4.8-10.8) K/ul RBC (4.70-6.10) M/uL Hgb (14.0-18.0) g/dl Hct (42.0-52.0) % RDW Std Deviation (36.4-46.3) fL RDW Coeff of Jimbo (11.5-14.5) % Plt Count (130-400) K/uL Lymph # (Auto) (1.2-3.4) K/uL Sodium (136-145) mmol/L Potassium 3.3 L (3.5-5.1) mmol/L Chloride (98-107) mmol/L Anion Gap (3-11) Creatinine (0.6-1.4) mg/dl Glucose (70-99(Fasting)) mg/dl Lactate (0.4-2.0) mmol/L Magnesium (1.7-2.4) mg/dl Total Bilirubin (0.2-1.0) mg/dl Direct Bilirubin 0.6 H (0-0.2) mg/dl Troponin I High Sens (0-20) pg/ml Albumin (3.4-5.0) gm/dl Diagnostic Findings XR chest 1V portable HISTORY: Sepsis COMPARISON: Chest 04/03/2022. FINDINGS: No pneumothorax. The heart is normal in size. Small to moderate right pleural effusion has progressed. Right upper lobe medial irregular mass like density is again noted. Progressive patchy airspace opacities within the periphery of the left lung. Right basilar densities persist. There is mild central pulmonary vascular congestion again noted. IMPRESSION: 1. Interval progression of the small to moderate right pleural effusion. 2. Mild pulmonary vascular congestion again noted. 3. Progressive patchy airspace opacity within the periphery of the left lung. This could represent a pneumonia. 4. Right upper lobe medial masslike density again noted. Medications Administered ER medications given: Normal saline 1 L bolus DuoNeb 2.5 mg neb Solu-Medrol 40 mg IV Cefepime 2 g IV ECG Indication: chest pain Rate (beats per minute): 93 Rhythm: normal sinus Findings: no acute ischemic change Comparison ECG Date: from (April 03, 2022) Change: no significant change Code Status & VTE Plan Code Status Full VTE Prophylaxis Plan VTE Prophylaxis will be ordered: Yes PG Care Time/CCT Total # of Minutes Spent Total Time Spent with Patient: Total time spent is greater than 50% in coordination of care (as documented) at patient's floor/unit and/or counseling patient: Coding Level of Care Code 65994 INT INP/OBS CARE 3/75MIN Diagnoses Sepsis A41.9 Pneumonia J18.9 Hypoxia R09.02 Pancytopenia due to chemotherapy D61.810 Anemia D64.9 Elevated serum creatinine R79.89 Hyperlipidemia E78.5 Paroxysmal atrial fibrillation I48.0 Bladder carcinoma C67.9 Hypertension I10 Hypertension type: essential hypertension Lung cancer C34.90 (10) Hypertension Hypertension type: essential hypertension Qualified Code(s): I10 - Essential (primary) hypertension
--- NOTE | 2022-12-09 12:47 | Electrocardiogram Report ---
Test Reason : Blood Pressure : / mmHG Vent. Rate : 093 BPM Atrial Rate : 093 BPM P-R Int : 130 ms QRS Dur : 078 ms QT Int : 344 ms P-R-T Axes : 046 020 045 degrees QTc Int : 427 ms Normal sinus rhythm Normal ECG When compared with ECG of 03-APR-2022 19:34, No significant change was found Confirmed by Jose Aburto ([id number]) on 12/09/2022 12:46:51 PM Referred By: Confirmed By:Jose Aburto
[2022-12-09] MEDS ORDERED: SODIUM CHLORIDE 0.9% 250 ML IV PRN (14:41)
[2022-12-09] MEDS: MAGNESIUM SULFATE / D5W 1 GM/100 ML BAG IV SCH ×2 (15:38→17:51)
[2022-12-09] MEDS: AZITHROMYCIN 500 MG in DEXTROSE 5% 250 ML IV SCH (15:38)
[2022-12-09] MEDS ORDERED: POTASSIUM CHLORIDE CRTAB 20 MEQ TABCR PO STA (15:59)
--- NOTE | 2022-12-09 17:12 | CT Scan Report ---
CT chest diagnostic wo con CT DOSE: 346.41 mGycm CLINICAL HISTORY: 72 years-old Male with Lung cancer. PNA. Pleural effusions. Follow-up study in a p atient with history of lung cancer. TECHNIQUE: Multiaxial CT images of the chest were performed without contrast. A dose lowering techni que was utilized adhering to the principles of ALARA. COMPARISON: PET CT 09/04/2022, chest CT 07/04/2022 FINDINGS: Multinodular thyroid redemonstrated. 8 mm right tracheoesophageal recess lymph node on imag e 46 most recently measured 6 mm on the prior PET. Right hilar conglomerate adenopathy measuring 1.8 x 1.9 cm on image 106 appears stable. Stable subcarinal lymphadenopathy, 1.3 cm. Heart is normal in s ize with trace pericardial effusion. Moderate coronary artery calcifications. Atherosclerosis of the aorta with ectasia measuring up to 3.9 cm. Moderate sized right pleural effusion with pleural thickening is stable from prior. Subpleural predom inant groundglass with intermixed consolidative opacities are noted throughout the left greater than right lungs which are new from the prior exam. Mild intralobular septal thickening. Right upper lobe mass measuring up to approximately 1.6 cm in transverse dimension on image 93 previously measured at 3.3 cm on the 07/04/2022 exam and 1.9 cm on the prior PET. Mild emphysema. No acute process of the imaged upper abdomen. Hepatic cysts are again noted. Unremarkable soft tissue s. No acute fracture identified. No new osseous lesion is seen. Scattered sclerotic osseous foci again noted. IMPRESSION: 1. Left greater than right subpleural predominant groundglass and intermixed consolidative opacities are suggestive of an infectious or inflammatory pneumonitis such as viral pneumonia. 2. Chronic moderate right pleural effusion. 3. Stable to slightly decreased size of the right upper lobe lesion. 4. 8 mm right tracheoesophageal recess lymph node has increased in size from the prior study. Attenti on at follow-up recommended. The remainder of the mediastinal lymphadenopathy is stable. 5. Unchanged sclerotic foci of the spine. No new lesions are identified. ACT 112: Negative or not required by law. Electronically signed by: Ethan Chavez M.D. 12/09/2022 5:09 PM
[2022-12-09] MEDS: ALBUT/IPRATROP 3MG/0.5MG NEB 3 ML VIAL NEB PRN ×2 (17:26→19:41)
[2022-12-09 18:16] LABS: Appearance Urine Clear (Clear); Bacteria Urine Automated Negative (Negative); Bilirubin Urine Negative (Negative); Blood Urine 1+ (Negative); Color Urine Yellow; Epithelial Cell Urine Auto >30 /lpf (0-5); Glucose Urine UA Negative (Negative); Ketones Urine Negative (Negative); Leukocyte Esterase Urine Negative (Negative); Nitrite Urine Negative (Negative); Protein Urine 2+ (Negative); RBC Urine Automated 0-4 /hpf (0-4); Specific Gravity Urine 1.012 (1.000-1.030); Urobilinogen Urine Negative (Negative)
[2022-12-09 18:31] LABS: Amorphous Sediment Urine Present (None Prsent)
[2022-12-09] MEDS: METOPROLOL TARTRATE 50 MG TAB PO SCH (20:01)
[2022-12-09] MEDS: ATORVASTATIN 10 MG TAB PO SCH (20:02)
[2022-12-09] MEDS ORDERED: APIXABAN 5 MG TABLET PO SCH (21:00)
[2022-12-09 22:00] LABS: Hematocrit (blood only) 22.9 % (42.0-52.0); Hemoglobin 7.8 g/dl (14.0-18.0)
[2022-12-09] MEDS: CEFEPIME 2,000 MG in SYRINGE 0 ML IV SCH (23:25)
[2022-12-10] MEDS: ALBUT/IPRATROP 3MG/0.5MG NEB 3 ML VIAL NEB PRN ×2 (00:05→02:28)
[2022-12-10] MEDS: ACETAMINOPHEN 325 MG TAB PO PRN (00:57)
[2022-12-10] MEDS ORDERED: ALBUT/IPRATROP 3MG/0.5MG NEB 3 ML VIAL NEB PRN (02:55)
[2022-12-10] MEDS: ALBUT/IPRATROP 3MG/0.5MG NEB 3 ML VIAL NEB SCH ×6 (03:22→22:47)
[2022-12-10] MEDS: METOPROLOL TARTRATE 1 MG/ML VIAL IV PRN ×2 (05:26→07:57)
[2022-12-10 07:25] LABS: Albumin Globulin Ratio 0.9 (0.9-2); BUN Creatinine Ratio 17.1 (10-20); Bilirubin,Total 1.8 mg/dl (0.2-1.0); Calcium 8.8 mg/dl (8.5-10.1); Creatinine Clr Calc Pharmacy 33.1 ml/min; Est GFR (African American) 36.7 ml/min; Est GFR (Non-African American) 31.7 ml/min; Globulin 3.5 gm/dl (2.5-4.0); Potassium 3.1 mmol/L (3.5-5.1); Total Protein 6.5 gm/dl (6.0-8.3)
[2022-12-10 08:42] LABS: Hemoglobin 7.3 g/dl (14.0-18.0); Mean Corpuscular Hemoglobin 32.9 pg (25.0-34.0); Mean Corpuscular Hgb Conc 34.8 g/dL (32.0-36.0); Mean Corpuscular Volume 94.6 fL (80.0-100.0); Platelet Count 74 K/uL (130-400); RDW Coefficient of Variation 16.1 % (11.5-14.5); RDW Standard Deviation 55.7 fL (36.4-46.3); Red Blood Count 2.22 M/uL (4.70-6.10); White Blood Count 4.32 K/ul (4.8-10.8)
[2022-12-10 08:53] LABS: Acanthocytes 1+; Basophils # (auto) 0.02 K/uL (0-0.2); Basophils % (auto) 0.5 %; Dohle Bodies 2+; Hypersegmented Neutrophils 2+; Immature Granulocytes # (auto) 0.17 K/uL (0.01-0.20); Immature Granulocytes % (auto) 3.9 %; Lymphocytes # (auto) 0.17 K/uL (1.2-3.4); Lymphocytes % (auto) 3.9 %; Monocytes # (auto) 0.28 K/uL (0.11-0.59); Monocytes % (auto) 6.5 %; Neutrophils # (auto) 3.68 K/uL (1.40-6.50); Neutrophils % (auto) 85.2 %; Toxic Granulation 2+; Toxic Vacuolation 2+
[2022-12-10] MEDS: METOPROLOL TARTRATE 50 MG TAB PO SCH ×2 (08:54→20:10)
[2022-12-10] MEDS ORDERED: PANTOprazole 40 MG TAB PO SCH (09:00)
[2022-12-10] MEDS ORDERED: POTASSIUM CHLORIDE CRTAB 20 MEQ TABCR PO STA (09:25)
[2022-12-10] MEDS ORDERED: STAT IV Infusion **Titration per Protocol STA (09:26)
[2022-12-10] MEDS: POTASSIUM CHLORIDE / WTR 10 MEQ/100 ML PLCT IV SCH ×2 (09:43→12:05)
[2022-12-10] MEDS: dilTIAZem HCL 125 MG in DEXTROSE 5% 100 ML IV SCH ×3 (09:53→20:16)
--- NOTE | 2022-12-10 09:57 | XRay Report ---
XR chest 1V portable CLINICAL HISTORY: acute hypoxic resp failure, interval change TECHNIQUE: Single frontal radiograph of the chest was obtained. Comparison: Comparison is made to chest radiograph 12/09/2022 FINDINGS: No lines and tubes are seen. The cardiomediastinal silhouette is stable. Interval stability of bilate ral airspace opacities. Moderate right pleural effusion. IMPRESSION: Stable moderate right pleural effusion and diffuse bilateral airspace opacities compatible with aspir ation and/or pneumonia. ACT 112: Negative or not required by law. Electronically signed by: Kiel Aguirre M.D. 12/10/2022 9:56 AM
[2022-12-10 10:08] LABS: Adenovirus PCR Not Detected (NotDetected); Bordetella parapertussis PCR Not Detected (NotDetected); Bordetella pertussis PCR Not Detected (NotDetected); Chlamydia pneumoniae PCR Not Detected (NotDetected); Coronavirus 229E PCR Not Detected (NotDetected); Coronavirus CoV-2 (COVID19)PCR Not Detected (NotDetected); Coronavirus HKU1 PCR Not Detected (NotDetected); Coronavirus NL63 PCR Not Detected (NotDetected); Coronavirus OC43PCR Not Detected (NotDetected); Human Metapneumovirus PCR Not Detected (NotDetected); Influenza A PCR Not Detected (NotDetected); Influenza B PCR Not Detected (NotDetected); Mycoplasma pneumoniae PCR Not Detected (NotDetected); Parainfluenza Virus 1 PCR Not Detected (NotDetected); Parainfluenza Virus 2 PCR Not Detected (NotDetected); Parainfluenza Virus 3 PCR Not Detected (NotDetected); Parainfluenza Virus 4 PCR Not Detected (NotDetected); Respiratory Syncytial VirusPCR Not Detected (NotDetected); Rhinovirus/Enterovirus PCR Not Detected (NotDetected)
[2022-12-10] MEDS: CEFEPIME 2,000 MG in SYRINGE 0 ML IV SCH (11:31)
[2022-12-10] MEDS ORDERED: NICOTINE POLACRILEX 2 MG GUM MT PRN (12:29)
--- NOTE | 2022-12-10 12:32 | Hospitalist Progress Note ---
Date of Service December 10, 2022 Assessment & Plan (1) Acute respiratory failure with hypoxia: Plan: 2nd to suspected bacterial pneumonia. Moderate sized right-sided pleural effusion - likely malignant - probably also contributing to his resp failure. Doubt acute CHF. Doubt PE - is on Eliquis at home and is compliant with such. Cannot exclude pembrolizumab induced pneumonitis which, if present, would require high-dose steroids and discontinuation of that immune-based therapy. Would defer steroid initiation to pulmonary. (2) Sepsis: Plan: 2nd to b/l pneumonia. Follow blood cultures. Cont broad-spectrum IV abx including cefepime + zithromax. Respiratory BioFire fully negative including RSV/flu/COVID. Send legionella urine ag. Send sputum cx if able to produce a sample. Repeat cxr this am unchanged from last pm. Cont supportive care measures. (3) Pneumonia: Plan: Diffuse, b/l pneumonia. Elevated procal supportive of bacterial etiology. Respiratory BioFire fully negative. Cont cefepime + azithromycin IV. MRSA swab negative; hold on MRSA coverage. Cont pulm toilet with flutter valve/incentive lisa. Add robitussin 200mg qid. Cont bronchodilators. Send urine legionella ag. Send sputum cx. Follow blood cx's. Appreciate pulmonary consultation and any additional recommendations from their team. (4) Pancytopenia due to chemotherapy: Plan: s/p 1 unit PRBCs overnight. Despite such he had no response in his H/H. hemoglobin this evening 7 (without overt GI bleeding). [id number] will transfuse again with 1 unit of PRBCs. give lasix 20mg IV x 1 with such as he is significantly volume positive since presentation yesterday. repeat CBC in am. (5) BELIA (acute kidney injury): Plan: likely sepsis-associated serial BMPs check a bladder scan to ensure no retention place mcdaniel if needed (6) Atrial fibrillation with RVR: Plan: patient with past h/o PAF several years ago during a period of illness. converted to NSR after that episode and remained in NSR since. overnight converted to rapid a.fib. Low potassium, stress of illness, low mag, etc all to blame. echo obtained - normal EF, no WMA of LV. recent TSH wnl. despite IV & PO beta blockers his rate control was poor. despite PRBCs rate control continued to be poor. cardizem infusion initiated at 5mg/hr - titrate per protocol. 2nd unit of PRBCs for his anemia may help rate control. if rates do not improve could consider amiodarone infusion in light of preserved EF and chronic use of Eliquis. hold off on such unless BB + CCB fails to control him. replace low K. replace low mag. (7) Malignant pleural effusion: Plan: right-sided, chronic. pulmonary is giving consideration to thoracentesis for therapeutic purposes. Eliquis placed on hold by pulmonary due to the potential for interventioni. cxr today stable. repeat cxr in am. (8) Anemia: Plan: see #4 above check fecal occult blood to be complete check retic in am check LDH in am (9) Elevated serum creatinine: Plan: Likely sepsis-associated. Serial creatinine levels. Check a bladder scan to ensure no urinary retention. (10) Hyperlipidemia: Plan: Continue atorvastatin 10 mg p.o. daily (11) Paroxysmal atrial fibrillation: Plan: normally in NSR. he takes chronic Eliquis + metoprolol. now with rapid a.fib - see above. 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 follows with [facility] urology for ongoing management. (13) Hypertension: Plan: Continue metoprolol tartrate 50 mg p.o. BID Hold amlodipine (14) Lung cancer: Plan: stage 4 previous biopsy suggested the following -- pleomorphic carcinoma of pulmonary origin, large cell carcinoma of pulmonary origin, or poorly differentiated adenocarcinoma of pulmonary origin. Remains on maintenance pemetrexed/pembrolizumab chemotherapy. See discussion above re: possibility of pneumonitis from pembrolizumab therapy. previous imaging with bone mets, etc. (15) Personal history of tobacco use: Plan: offered nicorette gum prn despite long-standing tobacco use no formal dx of COPD (16) Hypokalemia: Plan: replace IV/PO repeat level late in the day to ensure normalization (17) Hypomagnesemia: Plan: replaced resolved (18) History of duodenal ulcer: Plan: 10/02 along with gastric ulcers I cannot say for certain if some of the H/H drop (and lack of response to PRBCs) couldn't be from occult GI bleeding Place on IV PPI twice daily serial H/H's (19) Dysphagia: Plan: in light of coughing with drinking thin liquids will ask speech therapy to evaluate him - r/o aspiration (20) Prediabetes: Plan: last documented Hba1c 09/2021 was <6.5% Plan DVT proph - eliquis, but to be placed on hold in the event he needs thoracentesis during that time period - if no bleeding issues - heparin drip for bridging purposes , 2 daughters extensively updated at bedside multiorgan dysfunction, worsening respiratory status requiring institution of NIPPV, Rx of rapid a.fib, etc total critical care time today over 2 visits = 80 minutes Admission and Anticipated Discharge Date Admission Date: December 09, 2022 Subjective multiple visits today to pt's bedside first visit was this am during rounds , 2 daughters at bedside; 1 of his daughters is an RN at [employer] patient reports ongoing cough - minimally productive of sputum he does feel short of breath appetite is fair he continues with high settings of HFNC is very tired - did not sleep overnight tele - was NSR, converting to rapid a.fib in the early AM hours today despite multiple doses of IV lopressor his rate control remained poor through the night thus, diltiazem infusion added this am pt follows with Dr [facility] at [facility]; last chemo about 1 week ago first fever from his illness was on Friday into of last week 2nd visit was between 1800 and 1830 pt with increasing respiratory rates and low-grade fever a.fib - on 15mg/hour of cardizem IV - still with rates >110 patient's family still at bedside patient still able to speak in full sentences he looks tired and he does have increased work of breathing with retractions (this is a change from earlier today) on exam he is very wheezy - also a new lung finding in comparison to first visit this am order given to change from HFNC to BIPAP respiratory therapy in to perform such duoneb being given as well updated pt's & 2 daughters with plan of care for tonight if any further worsening then Tx to ICU Review of Systems Review of Systems: gen - fevers, chills, feels poorly cv - no chest pain or chest tightness pulm - cough, congestion, minimal sputum, dyspnea GI - no abd pain, nausea, emesis or diarrhea psych - anxious Physical Exam 2 Physical Exam: gen - first visit this am - sick but nontoxic, talking in complete sentences neck - no JVD mouth - MMM, no thrush heart - tachy, s1 s2, irregularly irregular, no murmur lungs - b/l rales; decreased BS right base; no wheezes; no increased work of breathing abd - soft NT ND BS+ ext - no edema, pulses 2+ b/l psych - a/o x 3 skin - no rash 2nd visit early evening - gen - looks tired, anxious - but still able to talk in complete sentences; visible increased work of breathing neck - no JVD heart - tachy, s1 s2, irregularly irregular lungs - diffuse b/l wheezes, rales b/l, decreased BS right base; retractions, t achypnea, accessory muscle use; increased work of breathing improved following institution of BIPAP Results & Data Results & Data ([facility]) Vital Signs (Past 12 Hours) Vital Signs Temp Pulse Pulse Resp BP BP Pulse Ox 12/10/22 11:56 36.8 C 121 H 30 H 116/71 90 12/10/22 11:26 98 H 24 89 L 12/10/22 11:09 36.7 C 120 H 20 100/54 L 90 12/10/22 10:45 12/10/22 08:51 135 H 127/68 12/10/22 08:20 132 H 12/10/22 08:00 36.3 C L 163 H 27 H 107/76 99 12/10/22 07:57 163 H 107/75 12/10/22 07:13 113 H 20 99 12/10/22 05:37 102 H 21 99 12/10/22 05:26 136 H 144/106 H 12/10/22 04:59 36.3 C L 124 H 19 121/75 98 12/10/22 04:47 122 H 23 95 12/10/22 04:25 113 H 25 H 92 12/10/22 03:37 36.4 C L 120 H 19 103/67 94 12/10/22 02:57 36.7 C 75 20 114/67 95 12/10/22 02:29 77 24 92 12/10/22 01:35 36.9 C 88 19 120/69 91 12/10/22 00:44 38.1 C H 90 18 109/57 L 92 O2 Del Method O2 Flow Rate FiO2 12/10/22 11:56 High Flow Nasal Cannula 30 70 12/10/22 11:26 High Flow Nasal Cannula 30 70 12/10/22 11:09 High Flow Nasal Cannula 30 70 12/10/22 10:45 High Flow Nasal Cannula 30 70 12/10/22 08:51 12/10/22 08:20 12/10/22 08:00 High Flow Nasal Cannula 30 70 12/10/22 07:57 12/10/22 07:13 High Flow Nasal Cannula 30 80 12/10/22 05:37 High Flow Nasal Cannula 40 100 12/10/22 05:26 12/10/22 04:59 High Flow Nasal Cannula 40 100 12/10/22 04:47 High Flow Nasal Cannula 40 100 12/10/22 04:25 High Flow Nasal Cannula 40 100 12/10/22 03:37 High Flow Nasal Cannula 40 70 12/10/22 02:57 High Flow Nasal Cannula 70 12/10/22 02:29 High Flow Nasal Cannula 40 70 12/10/22 01:35 High Flow Nasal Cannula 14 12/10/22 00:44 High Flow Nasal Cannula 14 Laboratory Results Laboratory Results - last 24 hr 12/09/22 12/09/22 12/09/22 12:29 14:48 17:50 WBC RBC Hgb Hct MCV MCH MCHC RDW Std Deviation RDW Coeff of Jimbo Plt Count MPV Immature Gran % (Auto) Neut % (Auto) Lymph % (Auto) [place] % (Auto) Eos % (Auto) Baso % (Auto) Neut # (Auto) Lymph # (Auto) [place] # (Auto) Eos # (Auto) Baso # (Auto) Immature Gran # (Auto) Hypersegmented Neuts Blood Smear Review Toxic Granulation Toxic Vacuolation Dohle Bodies Acanthocytes (Spur) Sodium Potassium Chloride Carbon Dioxide Anion Gap BUN Creatinine Est Cr Clr Drug Dosing Est GFR ( Amer) Est GFR (Non-Af Amer) BUN/Creatinine Ratio Glucose Lactate 1.3 Calcium Magnesium Total Bilirubin AST ALT Alkaline Phosphatase Total Protein Albumin Globulin Albumin/Globulin Ratio Urine Color Urine Appearance Urine pH Ur Specific [place] Urine Protein Urine Glucose (UA) Urine Ketones Urine Blood Urine Nitrite Urine Bilirubin Urine Urobilinogen Ur Leukocyte Esterase Urine WBC (Auto) Urine RBC (Auto) U Hyaline Cast (Auto) U Epithel Cells (Auto) Urine Bacteria (Auto) Amorphous Sediment Urine Yeast Nasal Screen MRSA (PCR) Negative Adenovirus (PCR) A. phagocytophilum DNA B. pertussis DNA (PCR) B.parapertussis DNA PCR C. pneumoniae DNA (PCR) Coronavirus OC43 (PCR) Coronavirus HKU1 (PCR) Coronavirus 229E (PCR) SARS-CoV-2 (PCR) Coronavirus NL63 (PCR) Human Metapneumovir PCR Influenza Type A (PCR) Influenza Type B (PCR) Urine Legionella Ag M. pneumoniae (PCR) Parainfluenza 1 (PCR) Parainfluenza 2 (PCR) Parainfluenza 3 (PCR) Parainfluenza 4 (PCR) RSV (PCR) Entero/Rhino (PCR) Blood Type B Positive Antibody Screen NEGATIVE Crossmatch See Detail 12/09/22 12/09/22 12/10/22 18:00 21:42 06:06 WBC 4.32 L RBC 2.22 L Hgb 7.8 L 7.3 L Hct 22.9 L 21.0 L MCV 94.6 MCH 32.9 MCHC 34.8 RDW Std Deviation 55.7 H RDW Coeff of Jimbo 16.1 H Plt Count 74 L MPV 11.0 Immature Gran % (Auto) 3.9 Neut % (Auto) 85.2 Lymph % (Auto) 3.9 [place] % (Auto) 6.5 Eos % (Auto) 0.0 Baso % (Auto) 0.5 Neut # (Auto) 3.68 Lymph # (Auto) 0.17 L [place] # (Auto) 0.28 Eos # (Auto) 0.00 Baso # (Auto) 0.02 Immature Gran # (Auto) 0.17 Hypersegmented Neuts 2+ Blood Smear Review Toxic Granulation 2+ Toxic Vacuolation 2+ Dohle Bodies 2+ Acanthocytes (Spur) 1+ Sodium Potassium Chloride Carbon Dioxide Anion Gap BUN Creatinine Est Cr Clr Drug Dosing Est GFR ( Amer) Est GFR (Non-Af Amer) BUN/Creatinine Ratio Glucose Lactate Calcium Magnesium Total Bilirubin AST ALT Alkaline Phosphatase Total Protein Albumin Globulin Albumin/Globulin Ratio Urine Color Yellow Urine Appearance Clear Urine pH 6.0 Ur Specific [place] 1.012 Urine Protein 2+ H Urine Glucose (UA) Negative Urine Ketones Negative Urine Blood 1+ H Urine Nitrite Negative Urine Bilirubin Negative Urine Urobilinogen Negative Ur Leukocyte Esterase Negative Urine WBC (Auto) 1-5 Urine RBC (Auto) 0-4 U Hyaline Cast (Auto) 1-5 U Epithel Cells (Auto) >30 H Urine Bacteria (Auto) Negative Amorphous Sediment Present A Urine Yeast Not Reportable Nasal Screen MRSA (PCR) Adenovirus (PCR) A. phagocytophilum DNA B. pertussis DNA (PCR) B.parapertussis DNA PCR C. pneumoniae DNA (PCR) Coronavirus OC43 (PCR) Coronavirus HKU1 (PCR) Coronavirus 229E (PCR) SARS-CoV-2 (PCR) Coronavirus NL63 (PCR) Human Metapneumovir PCR Influenza Type A (PCR) Influenza Type B (PCR) Urine Legionella Ag M. pneumoniae (PCR) Parainfluenza 1 (PCR) Parainfluenza 2 (PCR) Parainfluenza 3 (PCR) Parainfluenza 4 (PCR) RSV (PCR) Entero/Rhino (PCR) Blood Type Antibody Screen Crossmatch 12/10/22 12/10/22 12/10/22 06:06 06:06 06:06 WBC RBC Hgb Hct MCV MCH MCHC RDW Std Deviation RDW Coeff of Jimbo Plt Count MPV Immature Gran % (Auto) Neut % (Auto) Lymph % (Auto) [place] % (Auto) Eos % (Auto) Baso % (Auto) Neut # (Auto) Lymph # (Auto) [place] # (Auto) Eos # (Auto) Baso # (Auto) Immature Gran # (Auto) Hypersegmented Neuts Blood Smear Review Toxic Granulation Toxic Vacuolation Dohle Bodies Acanthocytes (Spur) Sodium 131 L Potassium 3.1 L Chloride 98 Carbon Dioxide 22 Anion Gap 11 BUN 35 H Creatinine 2.05 H Est Cr Clr Drug Dosing 33.1 Est GFR ( Amer) 36.7 Est GFR (Non-Af Amer) 31.7 BUN/Creatinine Ratio 17.1 Glucose 138 H Lactate Calcium 8.8 Magnesium 2.0 Cancelled Total Bilirubin 1.8 H AST 33 ALT 28 Alkaline Phosphatase 57 Total Protein 6.5 Albumin 3.0 L Globulin 3.5 Albumin/Globulin Ratio 0.9 Urine Color Urine Appearance Urine pH Ur Specific [place] Urine Protein Urine Glucose (UA) Urine Ketones Urine Blood Urine Nitrite Urine Bilirubin Urine Urobilinogen Ur Leukocyte Esterase Urine WBC (Auto) Urine RBC (Auto) U Hyaline Cast (Auto) U Epithel Cells (Auto) Urine Bacteria (Auto) Amorphous Sediment Urine Yeast Nasal Screen MRSA (PCR) Adenovirus (PCR) A. phagocytophilum DNA Pending B. pertussis DNA (PCR) B.parapertussis DNA PCR C. pneumoniae DNA (PCR) Coronavirus OC43 (PCR) Coronavirus HKU1 (PCR) Coronavirus 229E (PCR) SARS-CoV-2 (PCR) Coronavirus NL63 (PCR) Human Metapneumovir PCR Influenza Type A (PCR) Influenza Type B (PCR) Urine Legionella Ag M. pneumoniae (PCR) Parainfluenza 1 (PCR) Parainfluenza 2 (PCR) Parainfluenza 3 (PCR) Parainfluenza 4 (PCR) RSV (PCR) Entero/Rhino (PCR) Blood Type Antibody Screen Crossmatch 12/10/22 12/10/22 08:55 12:00 WBC RBC Hgb Hct MCV MCH MCHC RDW Std Deviation RDW Coeff of Jimbo Plt Count MPV Immature Gran % (Auto) Neut % (Auto) Lymph % (Auto) [place] % (Auto) Eos % (Auto) Baso % (Auto) Neut # (Auto) Lymph # (Auto) [place] # (Auto) Eos # (Auto) Baso # (Auto) Immature Gran # (Auto) Hypersegmented Neuts Blood Smear Review Toxic Granulation Toxic Vacuolation Dohle Bodies Acanthocytes (Spur) Sodium Potassium Chloride Carbon Dioxide Anion Gap BUN Creatinine Est Cr Clr Drug Dosing Est GFR ( Amer) Est GFR (Non-Af Amer) BUN/Creatinine Ratio Glucose Lactate Calcium Magnesium Total Bilirubin AST ALT Alkaline Phosphatase Total Protein Albumin Globulin Albumin/Globulin Ratio Urine Color Urine Appearance Urine pH Ur Specific [place] Urine Protein Urine Glucose (UA) Urine Ketones Urine Blood Urine Nitrite Urine Bilirubin Urine Urobilinogen Ur Leukocyte Esterase Urine WBC (Auto) Urine RBC (Auto) U Hyaline Cast (Auto) U Epithel Cells (Auto) Urine Bacteria (Auto) Amorphous Sediment Urine Yeast Nasal Screen MRSA (PCR) Adenovirus (PCR) Not Detected A. phagocytophilum DNA B. pertussis DNA (PCR) Not Detected B.parapertussis DNA PCR Not Detected C. pneumoniae DNA (PCR) Not Detected Coronavirus OC43 (PCR) Not Detected Coronavirus HKU1 (PCR) Not Detected Coronavirus 229E (PCR) Not Detected SARS-CoV-2 (PCR) Not Detected Coronavirus NL63 (PCR) Not Detected Human Metapneumovir PCR Not Detected Influenza Type A (PCR) Not Detected Influenza Type B (PCR) Not Detected Urine Legionella Ag Pending M. pneumoniae (PCR) Not Detected Parainfluenza 1 (PCR) Not Detected Parainfluenza 2 (PCR) Not Detected Parainfluenza 3 (PCR) Not Detected Parainfluenza 4 (PCR) Not Detected RSV (PCR) Not Detected Entero/Rhino (PCR) Not Detected Blood Type Antibody Screen Crossmatch Diagnostic Findings Chest X-Ray 12/10/22 09:28 XR chest 1V portable CLINICAL HISTORY: acute hypoxic resp failure, interval change TECHNIQUE: Single frontal radiograph of the chest was obtained. Comparison: Comparison is made to chest radiograph 12/09/2022 FINDINGS: No lines and tubes are seen. The cardiomediastinal silhouette is stable. Interval stability of bilateral airspace opacities. Moderate right pleural effusion. IMPRESSION: Stable moderate right pleural effusion and diffuse bilateral airspace opacities compatible with aspiration and/or pneumonia. ACT 112: Negative or not required by law. Electronically signed by: Kiel Aguirre M.D. 12/10/2022 9:56 AM Echo: PG Care Time/CCT Total # of Minutes Spent Total Time Spent with Patient: Total time spent is greater than 50% in coordination of care (as documented) at patient's floor/unit and/or counseling patient: Critical Care Time: Yes Total Critical Care Time: 80 Coding Level of Care Code None Diagnoses Acute respiratory failure with hypoxia J96.01 Sepsis A41.9 Pneumonia J18.9 Pancytopenia due to chemotherapy D61.810 BELIA (acute kidney injury) N17.9 Atrial fibrillation with RVR I48.91 Malignant pleural effusion J91.0 Anemia D64.9 Elevated serum creatinine R79.89 Hyperlipidemia E78.5 Paroxysmal atrial fibrillation I48.0 Bladder carcinoma C67.9 Hypertension I10 Hypertension type: essential hypertension Lung cancer C34.90 Personal history of tobacco use Z87.891 Hypokalemia E87.6 Hypomagnesemia E83.42 History of duodenal ulcer Z87.19 Dysphagia R13.10 Prediabetes R73.03 Additional Codes Critical Care Time - Critical Care Time: Yes ([id number]) Time Spent (min) 80 Comment critical care time (13) Hypertension Hypertension type: essential hypertension Qualified Code(s): I10 - Essential (primary) hypertension
[2022-12-10] MEDS: guaiFENesin SUGAR FREE 100 MG/5 ML UDC PO SCH ×3 (13:12→21:17)
--- NOTE | 2022-12-10 13:51 | Pulmonary Consultation ---
Date of Consultation December 10, 2022 Assessment & Plan (1) Respiratory failure: (2) Hypoxia: (3) Lung cancer: (4) Lung mass: (5) Malignant pleural effusion: Plan IMPRESSION: 72-year-old male with stage IV metastatic lung cancer presenting with respiratory failure and hypoxia in the setting of multifocal groundglass opacities as well as large RIGHT-sided pleural effusion. RECOMMENDATIONS: 1. Pleural Effusion - * This has been present at the time of initial diagnosis in March of last year. Follow-up PET/CT in August 2022 showed persistent RIGHT-sided pleural effusion as well. * Will evaluate for possible therapeutic thoracentesis. * Will hold patient's Eliquis as his last dose was last evening prior to considering thoracentesis. * Patient is agreeable with this is an option. * This likely represents recurrent malignant pleural effusion. * Will send off pleural fluid culture and gram stain in the setting of superimposed ?? infiltrative findings. 2. Respiratory Failure with Hypoxia - * CT findings with multiple groundglass opacities noted. * Agree with broad-spectrum antibiotic coverage in the immunocompromised patient currently on chemotherapy. * Will expand the respiratory panel to evaluate for other possible viral etiologies. * Differential could be somewhat broad in the immunocompromised patient and include viral infection, organizing pneumonia, atypical/adventitious infections, inflammatory processes, pulmonary hemorrhage, or chemotherapy toxicity. That being said, the patient is presenting with a moderately elevated PCT likely reflecting infection of bacterial etiology. Would continue with broad spectrum antibiotics and reassess for clinical improvement. 3. Metastatic Lung Cancer - * [facility] 4. Hypoxia - * Likely multifactorial and related to #s 1-3. * Additional etiologies such as PE could certainly be on differential, however, patient is fully anticoagulated on Eliquis making this diagnosis much less likely, even in the patient with active CA. Imaging modalities are much more suspicious for infectious/inflammatory causes. * Continue to utilize HFNC as needed. * Continue w/ pulmonary toilet as you have been. Thank you for allowing me to participate in the care of this patient. We will continue to follow with this patient throughout his hospitalization. Supervising Physician Co-Signing Physician Notes Patient seen and examined. EMR reviewed. Images were independently reviewed. Discussed with patient daughter at bedside and with ASHER and agree with assessment plan as noted. Patient has multifactorial hypoxemia. His diffuse parenchymal infiltrates could represent infectious etiology or inflammatory etiologies. This could be related to his chemotherapy. Would continue antibiotics given his elevated procalcitonin and follow-up for now. The patient is at high risk for bronchoscopy given his significant oxygen requirement. If he failed to respond and wanted to pursue aggressive interventions, could consider bronchoscopy at that point time. The pleural effusion is chronic in nature. Given the possibility of infection, thoracentesis is warranted. Anticoagulation is being held. We will assess in the a.m. with ultrasound and possible thoracentesis to see if this offers improvement in his symptoms, improvement in oxygenation, and to evaluate for infection. Would defer steroids for now. Recommend discussing CODE STATUS. Given his advanced malignancy, I do not think CPR would likely result in an improvement in the patient's quality or quantity of life. Thanks for the opportunity of participating in the care of this patient. We will follow with you History of Present Illness Reason for Consultation: Pleural effusion, respiratory failure, hypoxia Requesting Physician: Dr. Singer Attending Physician: Steve Musa History of Present Illness Patient is a pleasant 72-year-old male with a significant past medical history of hypertension, hyperlipidemia, tobacco use history, bladder tumor, paroxysmal A-fib anticoagulated on Eliquis, and diagnosis of metastatic lung CA for which he is currently treated with Pembro + Pemetrexed maintenance therapy every 3 weeks. He reports that he has been handling his chemotherapy fairly well. He states that he typically receives his treatments on Friday and feels well on Friday and Friday, however and Friday he typically feels "washed out" and extremely weak. He reports bouncing back after that. He did receive his last treatment on Friday the . He states that rather than bouncing back, he has continued to feel poorly. He has felt weak, tired, and short of breath throughout the entire weekend. He has reported a cough which is nonproductive of sputum. This is all new for him. He was seen and evaluated in the emergency department and found to be hypoxic. He is now requiring high flow nasal cannula. Patient is noted to have a moderate size RIGHT-sided pleural effusion as well as bilateral groundglass consolidative changes present in the lung yadav. He is currently being treated with cefepime and azithromycin. Additionally, the patient has required escalating doses of antirheumatics in the setting of rapid A-fib. Upon evaluation at bedside in room 218, the patient is awake, alert, and oriented. He reports of shortness of breath which has slightly improved since presentation. He denies complaints of chest pain, palpitations, hemoptysis, nausea, vomiting, or abdominal discomfort. The patient had taken his last dose of Eliquis last evening upon admission. Allergies Allergy/AdvReac Type Severity Reaction Status Date / Time LARS Inhibitors Allergy Severe Severe Verified 10/22/22 12:12 angioedema Iodinated Contrast Media Allergy Intermediate Rash and Verified 10/22/22 12:[address] scan with contrast Penicillins Allergy Intermediate hives Verified 10/22/22 12:12 Home Medications Medication Instructions Recorded Confirmed Type atorvastatin 10 mg tablet 10 mg PO QPM 03/27/22 12/09/22 History amlodipine 5 mg tablet 5 mg PO QAM #90 tabs 09/09/22 12/09/22 Rx pantoprazole 40 mg tablet,delayed 40 mg PO QAM #90 tabs 10/31/22 12/09/22 Rx release (Protonix) metoprolol tartrate 50 mg tablet 50 mg PO BID #180 tabs 12/02/22 12/09/22 Rx apixaban 5 mg tablet 5 mg PO BID #90 tabs 12/03/22 12/09/22 Rx Patient History Medical History Angioedema of tongue September 2021 at [facility] from an allergy to lisinopril. Treated through the Emergency Room at [facility]. Placed on a ventilator at that time- while inpatient tested positive for covid-19 and then developed rectal bleeding where an ulcer perforation had been found and repaired. Pt did follow up with an flying ii instructor s/p angioedema Anxiety Bladder tumor Recently diagnosed within the last year () COVID-19 Duodenal ulcer 09/2021 with perforation. treated while inpatient at [facility] Erectile dysfunction GI bleed History of COVID-19 Tested positive 09/24/21 during inpatient stay- asymptomatic at that time- may have had covid in August 2021 when was ill with Covid. Hyperlipidemia Hypertension Lung cancer Lung mass Recently diagnosed- awaiting further testing Mediastinal lymphadenopathy Recently diagnosed- awaiting further testing On anticoagulant therapy Paroxysmal atrial fibrillation - September 2021, reason for blood thinner - Rapid response 09/2021- "RVR in 160s and hypotensive after large bloody BM. Required cardioversion x 3, finally converted to NSR in 80s and then back to a fib with RVR. Amiodarone IV bolus and drip initiated per ACLS protocol. Converted to NSR- treated later with Lopressor. Discharged on Amiodarone, Lopressor and Eliquis. Pleural effusion, right Thoracentesis scheduled 03/29/22 Prediabetes Diet controlled Surgical History History of cystoscopy with TURBT large 03/28/22 History of esophagogastroduodenoscopy (EGD) with repair of ulcer perforation in september 2021/oct 2021 History of thoracentesis US guided catheter thoracentesis 03/29/22 Family History Father Coronary heart disease Cardiac disorder Myocardial infarction Sister Diabetes Myocardial infarction Mother Hypertension Other No family history of adverse response to anesthesia Denies family history of Ovarian cancer Prostate cancer Crohn's disease Breast cancer Colorectal cancer Ulcerative colitis Social History Smoking Status: Current some day smoker Tobacco Type: Cigarettes Age Started Using Tobacco: 17; packs per day: 0.5; Cigarettes Per Day: 1/2 ppd; Second Hand Exposure: Yes; Hx Alcohol Use: No Hx Substance Use: No Preferred Language: Honduran Communication Ability: Effective Visual Impairment: No Limitations Hearing Ability: Hard of Hearing Purchaser Required: No Beliefs That Will Affect Care: None marital status: Current Living Situation: Spouse current occupational status: retired 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 All else were negative. Physical Exam Physical Exam: VITAL SIGNS - Vital signs and nursing notes were reviewed. GENERAL - 72-year-old male appearing his stated age who is in no acute distress. Communicates well with provider and answers questions appropriately. NOSE - Midline and without cyanosis. MOUTH/OROPHARYNX - Without perioral cyanosis. NECK - Neck with FROM. LUNGS -slight tachypnea at rest. Slight inspiratory wheezes noted at the lung apices. Decreased breath sounds noted to the RIGHT-sided lung field. CARDIAC - Irregularly irregular tachycardic rhythm. ABDOMEN - Abdominal contour flat without pulsations or visible masses. BS normoactive all four quadrants. No tenderness, palpable masses, hepatosplenomegaly, or ascites noted. EXTREMITIES - No clubbing or peripheral cyanosis. No pretibial edema present. +3/5 radial and dorsalis pedis pulses palpated throughout. NEUROLOGIC - Cranial nerves II through XII grossly intact. PSYCH - A&Ox3 and cooperates fully with examiner. Pt is very pleasant and interacts well with examiner. Results & Data Results & Data ([facility]) Vital Signs (Past 12 Hours) Vital Signs Temp Pulse Pulse Resp BP BP Pulse Ox 12/10/22 11:56 36.8 C 121 H 30 H 116/71 90 12/10/22 11:26 98 H 24 89 L 12/10/22 11:09 36.7 C 120 H 20 100/54 L 90 12/10/22 10:45 12/10/22 08:51 135 H 127/68 12/10/22 08:20 132 H 12/10/22 08:00 36.3 C L 163 H 27 H 107/76 99 12/10/22 07:57 163 H 107/75 12/10/22 07:13 113 H 20 99 12/10/22 05:37 102 H 21 99 12/10/22 05:26 136 H 144/106 H 12/10/22 04:59 36.3 C L 124 H 19 121/75 98 12/10/22 04:47 122 H 23 95 12/10/22 04:25 113 H 25 H 92 12/10/22 03:37 36.4 C L 120 H 19 103/67 94 12/10/22 02:57 36.7 C 75 20 114/67 95 12/10/22 02:29 77 24 92 12/10/22 01:35 36.9 C 88 19 120/69 91 O2 Del Method O2 Flow Rate FiO2 12/10/22 11:56 High Flow Nasal Cannula 30 70 12/10/22 11:26 High Flow Nasal Cannula 30 70 12/10/22 11:09 High Flow Nasal Cannula 30 70 12/10/22 10:45 High Flow Nasal Cannula 30 70 12/10/22 08:51 12/10/22 08:20 12/10/22 08:00 High Flow Nasal Cannula 30 70 12/10/22 07:57 12/10/22 07:13 High Flow Nasal Cannula 30 80 12/10/22 05:37 High Flow Nasal Cannula 40 100 12/10/22 05:26 12/10/22 04:59 High Flow Nasal Cannula 40 100 12/10/22 04:47 High Flow Nasal Cannula 40 100 12/10/22 04:25 High Flow Nasal Cannula 40 100 12/10/22 03:37 High Flow Nasal Cannula 40 70 12/10/22 02:57 High Flow Nasal Cannula 70 12/10/22 02:29 High Flow Nasal Cannula 40 70 12/10/22 01:35 High Flow Nasal Cannula 14 PG Care Time/CCT Total # of Minutes Spent Total Time Spent with Patient: Total time spent is greater than 50% in coordination of care (as documented) at patient's floor/unit and/or counseling patient: Coding Level of Care Code 34173 INT INP/OBS CARE 3/75MIN Diagnoses Respiratory failure J96.90 Hypoxia R09.02 Lung cancer C34.90 Lung mass R91.8 Malignant pleural effusion J91.0
--- NOTE | 2022-12-10 16:07 | XCELERA ---
[id number]
[2022-12-10] MEDS: AZITHROMYCIN 500 MG in DEXTROSE 5% 250 ML IV SCH (16:26)
[2022-12-10 16:35] LABS: Hematocrit (blood only) 20.2 % (42.0-52.0); Mean Corpuscular Hgb Conc 34.7 g/dL (32.0-36.0); Mean Corpuscular Volume 95.3 fL (80.0-100.0); RDW Coefficient of Variation 16.2 % (11.5-14.5); RDW Standard Deviation 56.1 fL (36.4-46.3); Red Blood Count 2.12 M/uL (4.70-6.10); White Blood Count 6.05 K/ul (4.8-10.8)
[2022-12-10 16:41] LABS: Mean Platelet Volume 11.6 fL (9.4-12.4); Platelet Count 65 K/uL (130-400)
[2022-12-10] MEDS ORDERED: SODIUM CHLORIDE 0.9% 250 ML IV PRN (17:01)
[2022-12-10] MEDS ORDERED: FUROSEMIDE INJ 20 MG/2 ML VIAL IV ONE (17:01)
[2022-12-10 17:25] LABS: BUN Creatinine Ratio 19.1 (10-20); Calcium 8.7 mg/dl (8.5-10.1); Est GFR (Non-African American) 32.8 ml/min; Potassium 4.1 mmol/L (3.5-5.1)
[2022-12-10] MEDS ORDERED: ACETAMINOPHEN 500 MG TAB PO STA (18:30)
[2022-12-10] MEDS ORDERED: ACETAMINOPHEN 500 MG TAB ONE (18:33)
[2022-12-10 19:22] LABS: Base Excess VBG -3.4 mEq/L; HCO3 VBG 20 mmol/L; Oxygen Saturation VBG < 60.0 %; PCO2 VBG 31 mmHg (38-50); PO2 VBG 32 mmHg; pH VBG 7.42 (7.36-7.41)
[2022-12-10] MEDS: ATORVASTATIN 10 MG TAB PO SCH (21:13)
[2022-12-10] MEDS: PANTOprazole 40 MG in SYRINGE 0 ML IV SCH (21:13)
[2022-12-10 23:10] LABS: Hematocrit (blood only) 22.1 % (42.0-52.0); Hemoglobin 7.6 g/dl (14.0-18.0)
[2022-12-11] MEDS: CEFEPIME 2,000 MG in SYRINGE 0 ML IV SCH ×2 (00:11→12:50)
[2022-12-11] MEDS: ALBUT/IPRATROP 3MG/0.5MG NEB 3 ML VIAL NEB SCH ×6 (02:01→22:28)
[2022-12-11 06:51] LABS: BUN Creatinine Ratio 18.6 (10-20); Bilirubin Direct 0.6 mg/dl (0-0.2); Bilirubin,Total 1.3 mg/dl (0.2-1.0); Creatinine Clr Calc Pharmacy 30.7 ml/min; Est GFR (African American) 33.5 ml/min; Est GFR (Non-African American) 28.9 ml/min; Potassium 3.7 mmol/L (3.5-5.1)
[2022-12-11 06:59] LABS: Hematocrit (blood only) 24.5 % (42.0-52.0); Hemoglobin 8.5 g/dl (14.0-18.0); Mean Corpuscular Hemoglobin 32.8 pg (25.0-34.0); Mean Corpuscular Hgb Conc 34.7 g/dL (32.0-36.0); Mean Corpuscular Volume 94.6 fL (80.0-100.0); Mean Platelet Volume 11.9 fL (9.4-12.4); Platelet Count 51 K/uL (130-400); RDW Coefficient of Variation 16.5 % (11.5-14.5); RDW Standard Deviation 57.1 fL (36.4-46.3); Red Blood Count 2.59 M/uL (4.70-6.10); White Blood Count 7.27 K/ul (4.8-10.8)
[2022-12-11 07:07] LABS: Acanthocytes 1+; Basophils # (auto) 0.04 K/uL (0-0.2); Basophils % (auto) 0.6 %; Dohle Bodies 1+; Immature Granulocytes # (auto) 0.24 K/uL (0.01-0.20); Immature Granulocytes % (auto) 3.3 %; Lymphocytes # (auto) 0.16 K/uL (1.2-3.4); Lymphocytes % (auto) 2.2 %; Monocytes # (auto) 0.36 K/uL (0.11-0.59); Neutrophils # (auto) 6.47 K/uL (1.40-6.50); Neutrophils % (auto) 88.9 %; Polychromasia 1+; Reticulocyte % 0.4 % (0.5-2.0); Reticulocytes # 0.01 10^6/uL (0.02-0.10); Toxic Granulation 2+; Toxic Vacuolation 1+
[2022-12-11] MEDS ORDERED: FUROSEMIDE 40 MG/4 ML VIAL IV ONE (08:30)
--- NOTE | 2022-12-11 09:02 | Pulmonology Progress Note ---
Date of Service December 11, 2022 Assessment & Plan (1) Respiratory failure: (2) Hypoxia: (3) Lung cancer: (4) Lung mass: (5) Malignant pleural effusion: Plan IMPRESSION: 72-year-old male with stage IV metastatic lung cancer presenting with respiratory failure and hypoxia in the setting of multifocal groundglass opacities as well as large RIGHT-sided pleural effusion. RECOMMENDATIONS: 1. Pleural Effusion - * Unfortunately, the patient's platelet count continues to drop and he actually required transfusion of 1 unit PRBC yesterday. While this is likely reflective of the patient's chemotherapy treatments and possibly related to consumptive coagulopathy in the setting of infection. * Given these concerns, we will hold off on thoracentesis at this time given the relative increased risk of bleeding, particularly in a patient who was also recently anticoagulated on Eliquis. * As noted previously, this has been present for an extended period of time and was actually noted on PET/CT in August 2022. The patient has likely been compensating for this for some time, but the associated lung infiltrative process has pushed his breathing over the edge. * We will reevaluate the patient tomorrow and assess his platelet count to consider if thoracentesis is an option. * Will send off pleural fluid culture and gram stain in the setting of superimposed ?? infiltrative findings. 2. Respiratory Failure with Hypoxia - * Unfortunately, this has appeared to worsen and the patient is now requiring BiPAP settings at 40% FiO2. * Will add repeat CXR to evaluate for worsening infiltrative process. * Did receive 1U PRBC last evening along with 20 mg IV Lasix. While less likely, transfusion reactions (e.g. TACO/TRALI) should be considered as well. Thankfully, he was without fever or other transfusion related reaction. Would continue with supportive respiratory care at this point. * Would favor CPAP over BiPAP in this patient as we are mainly treating hypoxia and looking to improve hydrostatic pressure in the lungs versus an underlying ventilatory issue. * Again, the differential could be somewhat broad in the immunocompromised patient and include viral infection, organizing pneumonia, atypical/adventitious infections, inflammatory processes, pulmonary hemorrhage, or chemotherapy toxicity. That being said, the patient is presenting with a moderately elevated PCT likely reflecting infection of bacterial etiology. Would continue with broad spectrum antibiotics and reassess for clinical improvement. * Ultimately, bronchoscopic evaluation would be helpful in establishing definitive diagnosis, however, the patient is too unstable from a pulmonary standpoint to consider this procedure at this time and, quite honestly, the patient is not interested in bronch at this time. * We will continue to treat correctable causes with antibiotics and Lasix. * Consideration for steroids, however would defer until we see if the patient shows improvement with current treatment outlined. 3. Metastatic Lung Cancer - * Follows with [facility]. 4. Hypoxia - * Likely multifactorial and related to #s 1-3. * Continue to utilize HFNC as needed. * Would encourage CPAP over BiPAP as discussed above. * Continue w/ pulmonary toilet as you have been. 5. Goals of Care Discussion - * I had a lengthy conversation with the patient and his family regarding current treatment course as well as his current trajectory. While we are aggressively managing the patient including broad-spectrum antibiotics, diuresis, and supplemental oxygen, the patient has shown a degree of decline over the last several hours. At this point, given the patient's underlying malignancy as well as worsening renal function and ongoing concerns with A-fib, we did discuss wishes in the event of cardiopulmonary collapse. The patient and his have had discussions recently regarding end-of-life wishes. We did discuss that in the event that the patient's heart were to stop beating or he would sustain an arrhythmia requiring aggressive ACLS measures, he would not wish to undergo chest compressions, defibrillation, or aggressive ACLS medications. Additionally, when we discussed if he would wish to undergo intubation in the setting that his pulmonary status were to decline, the patient reports that he would not wish to be intubated. We did discuss that certainly in the event that his symptoms were to decline and we were considering intubation, that we are likely nearing a process that would not be improved with prolonged intubation, and we would be concerned about the ability of eventually removing the breathing tube. He reports that he has thought about this for some time and would not wish to be intubated. We did discuss that DNR/DNI does not reflect that we discontinue care, it is simply that we have drawn a line in the sand to align his wishes. He acknowledges this and agrees that at this point, he feels comfortable making decision to be DNR/DNI moving forward. He is comfortable continuing with current treatment plan at this time. We will continue to keep the patient and family update with all information that we have available to us. All questions were answered to the best my capabilities. CODE STATUS updated in the computer to reflect this discussion. Thank you for allowing me to participate in the care of this patient. We will continue to follow with this patient throughout his hospitalization. Admission and Anticipated Discharge Date Admission Date: December 09, 2022 Supervising Physician Co-Signing Physician Notes Patient seen and examined. EMR reviewed. Images were independently reviewed. Discussed extensively with ASHER and agree with assessment plan as noted. Etiology of the patient's decompensation overnight is unclear although it is temporally related to receiving transfusion. There are no other associated symptoms to suggest transfusion associated lung injury and transfusion reaction panel was not sent. Suspect this may represent transfusion associated circulatory overload given the rapid improvement associated with noninvasive positive pressure ventilation and diuretics. Unfortunately his kidney function is deteriorating. This makes additional diuresis problematic. Discussed extensively with patient and family at bedside. Agree with their decision to not pursue aggressive interventions in the event of a cardiopulmonary arrest. His platelet counts are declining which makes thoracentesis higher risk and would defer for right now especially given his clinical improvement. Wall chemotherapeutic pulmonary toxicity remains on the differential, his fevers prior to admission and elevated procalcitonin would make infection higher on the list. The patient is too high risk currently to consider bronchoscopy. Based on this information, I would prefer holding on high-dose empiric steroids for now but these certainly could be started if the patient were to clinically deteriorate acknowledging the potential risk of steroids in concurrent infection. Overall prognosis is guarded at this point in time. I will see how he responds with treatment for potentially reversible etiologies. I think some of the family has an appropriate expectation for the overall outcome. Subjective Patient was seen and evaluated bedside this morning. The patient escalated oxygen requirement to utilization of CPAP overnight. He is utilizing an FiO2 of 40% at this time. It was reported that his respiratory rate had worsened and effort had worsened as well which prompted BiPAP placement. He was also transfused 1 unit PRBCs last evening. Patient reports increasing shortness of breath with exertion at this time. He denies any pain in his chest. He denies any worsening cough or hemoptysis Review of Systems Review of Systems: A complete 10 point review of systems was reviewed with the patient with pertinent positives and negatives as per history of present illness. All else were negative. Physical Exam Physical Exam: VITAL SIGNS - Vital signs and nursing notes were reviewed. GENERAL - 72-year-old male appearing his stated age who is in mild respiratory distress. Communicates well with provider and answers questions appropriately. NECK - Neck with FROM. LUNGS - Slight tachypnea at rest. Slight inspiratory wheezes noted at the lung apices. Decreased breath sounds noted to the RIGHT-sided lung field. CARDIAC - Irregularly irregular rhythm. ABDOMEN - Abdominal contour flat without pulsations or visible masses. BS normoactive all four quadrants. No tenderness, palpable masses, hepatosplenomegaly, or ascites noted. EXTREMITIES - No clubbing or peripheral cyanosis. No pretibial edema present. +3/5 radial and dorsalis pedis pulses palpated throughout. NEUROLOGIC - Cranial nerves II through XII grossly intact. PSYCH - A&Ox3 and cooperates fully with examiner. Pt is very pleasant and interacts well with examiner. Results & Data Results & Data ([facility]) Vital Signs (Past 12 Hours) Vital Signs Temp Pulse Pulse Resp BP BP BP 12/11/22 07:34 36.9 C 79 25 H 116/52 L 12/11/22 06:59 72 29 H 12/11/22 06:59 74 29 H 12/11/22 05:24 71 26 H 111/64 12/11/22 02:28 36.6 C 73 24 124/76 12/11/22 02:03 73 26 H 12/11/22 02:01 67 27 H 12/10/22 23:47 69 12/10/22 23:27 36.5 C 69 22 89/46 L 12/10/22 22:46 77 25 H 12/10/22 22:44 70 15 12/10/22 21:47 36.4 C L 81 23 110/68 12/10/22 21:09 36.4 C L 80 25 H 106/63 Pulse Ox O2 Del Method O2 Flow Rate FiO2 12/11/22 07:34 96 BiPAP 40 12/11/22 06:59 99 50 12/11/22 06:59 99 BiPAP 50 12/11/22 05:24 96 BiPAP 40 12/11/22 02:28 98 BiPAP 40 12/11/22 02:03 93 BiPAP 40 12/11/22 02:01 93 40 12/10/22 23:47 12/10/22 23:27 96 BiPAP 50 12/10/22 22:46 97 BiPAP 40 12/10/22 22:44 97 40 12/10/22 21:47 94 50 12/10/22 21:09 93 50 PG Care Time/CCT Total # of Minutes Spent Total Time Spent with Patient: Total time spent is greater than 50% in coordination of care (as documented) at patient's floor/unit and/or counseling patient: Coding Level of Care Code 16370 SUB INP/OBS CARE 3/50MIN Diagnoses Respiratory failure J96.90 Hypoxia R09.02 Lung cancer C34.90 Lung mass R91.8 Malignant pleural effusion J91.0
--- NOTE | 2022-12-11 09:07 | XRay Report ---
XR chest 1V portable CLINICAL HISTORY: hypoxia TECHNIQUE: Single frontal radiograph of the chest was obtained. Comparison: Comparison is made to chest radiograph 12/10/2022 FINDINGS: No lines and tubes are seen. The cardiomediastinal silhouette is stable. Bilateral airspace opacities are unchanged. Interval stability of moderate right pleural effusion. IMPRESSION: Interval stability of moderate right pleural effusion and bilateral airspace opacities. ACT 112: Negative or not required by law. Electronically signed by: Kiel Aguirre M.D. 12/11/2022 9:06 AM
[2022-12-11] MEDS: METOPROLOL TARTRATE 50 MG TAB PO SCH ×2 (09:21→20:35)
[2022-12-11] MEDS: PANTOprazole 40 MG in SYRINGE 0 ML IV SCH ×2 (09:21→20:35)
[2022-12-11] MEDS: guaiFENesin SUGAR FREE 100 MG/5 ML UDC PO SCH ×4 (09:23→20:34)
[2022-12-11 12:56] LABS: BUN Creatinine Ratio 18.7 (10-20); Creatinine Clr Calc Pharmacy 30.1 ml/min; Est GFR (African American) 32.8 ml/min; Est GFR (Non-African American) 28.3 ml/min; Potassium 3.8 mmol/L (3.5-5.1)
[2022-12-11 14:41] LABS: C Reactive Protein 47.5 mg/dl (0-0.5)
[2022-12-11] MEDS: AZITHROMYCIN 500 MG in DEXTROSE 5% 250 ML IV SCH (16:15)
[2022-12-11] MEDS: ATORVASTATIN 10 MG TAB PO SCH (20:35)
--- NOTE | 2022-12-11 21:16 | Hospitalist Progress Note ---
Date of Service December 11, 2022 Assessment & Plan (1) Acute respiratory failure with hypoxia: Plan: 2nd to suspected bacterial pneumonia. Mildly improved overall today with O2 requirement down to 15 L wall-mounted HFNC. Moderate sized right-sided pleural effusion - likely malignant - probably also contributing to his resp failure to a lesser degree. +/- acute diastolic CHF. Has responded to diuresis. Cannot exclude pembrolizumab induced pneumonitis which, if present, would require high-dose steroids and discontinuation of that immune-based therapy. CRP noted to be very high (45). Would defer steroid initiation to pulmonary. At this time they are holding off on such given mild clinical improvement today. Appreciate pulm consult & recs. (2) Sepsis: Plan: 2nd to b/l pneumonia. Negative blood cultures to date. Cont broad-spectrum IV abx including cefepime + zithromax. Respiratory BioFire fully negative including RSV/flu/COVID. legionella urine ag pending. sputum cx neg to date. Repeat cxr this am noted. Cont supportive care measures. (3) Pneumonia: Plan: Diffuse, b/l pneumonia. Clinically improved today with less Fio2 requirement. Elevated procal supportive of bacterial etiology. Respiratory BioFire fully negative. CRP very high as noted above. Cont cefepime + azithromycin IV. MRSA swab negative; holding on MRSA coverage. Cont pulm toilet with flutter valve/incentive lisa. Cont robitussin 200mg qid. Cont bronchodilators. await urine legionella ag. blood/sputum cx's thus far negative. Appreciate pulmonary consultation and any additional recommendations from their team. (4) Pancytopenia due to chemotherapy: Plan: s/p 2 unit PRBCs since admission with improved H/H today. NO overt GI bleeding. platelets again have trended down but again no bleeding from any location. wbc count stable. (5) BELIA (acute kidney injury): Plan: likely sepsis-associated +/- some rise from lasix diuresis serial BMPs mcdaniel now in place (6) Atrial fibrillation with RVR: Plan: patient with past h/o PAF several years ago during a period of illness. converted to NSR after that episode and remained in NSR since. Low potassium, stress of illness, low mag, etc all to blame. echo obtained - normal EF, no WMA of LV. recent TSH wnl. fortunately converted back to NSR overnight. even with maxed out cardizem drip + metoprolol rate control was poor; further, he does not do well while in rapid a.fib. consider amiodarone to maintain NSR. resume Eliquis when platelets are stable and no plans for procedures. (7) Malignant pleural effusion: Plan: right-sided, chronic. pulmonary is giving consideration to thoracentesis for therapeutic purposes but holding off at this time due to low platelets and tenuous status. Eliquis placed on hold by pulmonary due to the potential for intervention. repeat cxr in am. (8) Anemia: Plan: see #4 above check fecal occult blood to be complete retic count low LDH mildly high but no evidence of hemolysis (9) Hyperlipidemia: Plan: Continue atorvastatin 10 mg p.o. daily (10) Paroxysmal atrial fibrillation: Plan: normally in NSR. he takes chronic Eliquis + metoprolol. now with rapid a.fib - see above. (11) Bladder carcinoma: Plan: Low-grade papillary urothelial carcinoma s/p cystoscopy and TURBT. follows with [facility] urology for ongoing management. (12) Hypertension: Plan: Continue metoprolol tartrate 50 mg p.o. BID Cont to Hold amlodipine (13) Lung cancer: Plan: stage 4 previous biopsy suggested the following -- pleomorphic carcinoma of pulmonary origin, large cell carcinoma of pulmonary origin, or poorly differentiated adenocarcinoma of pulmonary origin. Remains on maintenance pemetrexed/pembrolizumab chemotherapy. See discussion above re: possibility of pneumonitis from pembrolizumab therapy. previous imaging with bone mets, etc. pulmonary spoke with pt re: code status - now DNR/DNI (14) Personal history of tobacco use: Plan: offered nicorette gum prn despite long-standing tobacco use no formal dx of COPD (15) Hypokalemia: Plan: replaced improved bmp in am (16) Hypomagnesemia: Plan: replaced resolved (17) History of duodenal ulcer: Plan: 10/02 along with gastric ulcers I cannot say for certain if some of the H/H drop (and lack of response to PRBCs) couldn't be from occult GI bleeding but doubt such cont IV PPI twice daily serial H/H's (18) Dysphagia: Plan: in light of coughing with drinking thin liquids speech therapy eval performed easy to chew diet due to poor dentition no other changes (19) Prediabetes: Plan: last documented Hba1c 09/2021 was <6.5% Plan DVT proph - eliquis - but placed on hold in the event he needs thoracentesis during that time period - if no bleeding issues - heparin drip for bridging purposes if necessary , 2 daughters extensively updated at bedside again today Admission and Anticipated Discharge Date Admission Date: December 09, 2022 Subjective patient feeling a little better today converted from rapid a.fib to NSR about 730pm last night remained in NSR since then wore BIPAP all night - tolerated such he did sleep still with cough but no worse than previous dyspnea a little better still wheezy eating very well no new complaints family at bedside Review of Systems Review of Systems: gen - no fevers; fatigued cv - no chest pain, no orthopnea pulm - dyspnea and JIMENEZ GI - no abd pain; no N/V Physical Exam Physical Exam: gen - looks better today, very talkative, NAD neck - no JVD mouth - MM a little dry heart - RRR, s1 s2, no murmur lungs - b/l rales worse on left (fine, dry); decreased BS right base; extensive wheezes b/l; no increased work of breathing abd - soft NT ND BS+ ext - no edema, pulses 2+ b/l psych - a/o x 3 Results & Data Results & Data ([facility]) Vital Signs (Past 12 Hours) Vital Signs Temp Pulse Pulse Resp BP BP Pulse Ox 12/11/22 20:31 30 H 91 12/11/22 20:30 37.1 C 90 28 H 121/65 95 12/11/22 19:10 27 H 91 12/11/22 18:08 20 90 12/11/22 14:00 12/11/22 17:15 36.6 C 89 22 131/86 90 12/11/22 15:00 78 12/11/22 15:20 80 20 90 12/11/22 12:22 12/11/22 11:56 36.7 C 83 20 125/68 91 12/11/22 11:05 71 22 93 12/11/22 09:30 81 132/70 Pulse Ox O2 Del Method O2 Del Method O2 Flow Rate O2 Flow Rate FiO2 12/11/22 20:31 CPAP 60 12/11/22 20:30 CPAP 12/11/22 19:10 60 12/11/22 18:08 High Flow Nasal Cannula 15 12/11/22 14:00 93 High Flow Nasal Cannula 14 12/11/22 17:15 Room Air 12/11/22 15:00 12/11/22 15:20 Nasal Cannula 15 12/11/22 12:22 High Flow Nasal Cannula 15 12/11/22 11:56 Nasal Cannula 15 12/11/22 11:05 Nasal Cannula 15 12/11/22 09:30 Laboratory Results Laboratory Results - last 24 hr 12/10/22 12/11/22 12/11/22 22:46 06:08 06:08 WBC 7.27 RBC 2.59 L Hgb 7.6 L 8.5 L Hct 22.1 L 24.5 L MCV 94.6 MCH 32.8 MCHC 34.7 RDW Std Deviation 57.1 H RDW Coeff of Jimbo 16.5 H Plt Count 51 L MPV 11.9 Immature Gran % (Auto) 3.3 Neut % (Auto) 88.9 Lymph % (Auto) 2.2 [place] % (Auto) 5.0 Eos % (Auto) 0.0 Baso % (Auto) 0.6 Reticulocyte % (Auto) 0.4 L Neut # (Auto) 6.47 Lymph # (Auto) 0.16 L [place] # (Auto) 0.36 Eos # (Auto) 0.00 Baso # (Auto) 0.04 Reticulocyte # 0.01 L Immature Gran # (Auto) 0.24 H Blood Smear Review Toxic Granulation 2+ Toxic Vacuolation 1+ Dohle Bodies 1+ Polychromasia 1+ Acanthocytes (Spur) 1+ Sodium Potassium Chloride Carbon Dioxide Anion Gap BUN Creatinine Est Cr Clr Drug Dosing Est GFR ( Amer) Est GFR (Non-Af Amer) BUN/Creatinine Ratio Glucose Calcium Total Bilirubin Direct Bilirubin AST ALT Alkaline Phosphatase Lactate Dehydrogenase 402 H C-Reactive Protein B-Natriuretic Peptide Total Protein Albumin 12/11/22 12/11/22 12/11/22 06:08 06:08 12:19 WBC RBC Hgb Hct MCV MCH MCHC RDW Std Deviation RDW Coeff of Jimbo Plt Count MPV Immature Gran % (Auto) Neut % (Auto) Lymph % (Auto) [place] % (Auto) Eos % (Auto) Baso % (Auto) Reticulocyte % (Auto) Neut # (Auto) Lymph # (Auto) [place] # (Auto) Eos # (Auto) Baso # (Auto) Reticulocyte # Immature Gran # (Auto) Blood Smear Review Toxic Granulation Toxic Vacuolation Dohle Bodies Polychromasia Acanthocytes (Spur) Sodium 131 L 130 L Potassium 3.7 3.8 Chloride 98 97 L Carbon Dioxide 22 20 L Anion Gap 11 13 H BUN 41 H 42 H Creatinine 2.21 H 2.25 H Est Cr Clr Drug Dosing 30.7 30.1 Est GFR ( Amer) 33.5 32.8 Est GFR (Non-Af Amer) 28.9 28.3 BUN/Creatinine Ratio 18.6 18.7 Glucose 107 H 135 H Calcium 9.0 9.0 Total Bilirubin 1.3 H Direct Bilirubin 0.6 H AST 59 H ALT 41 Alkaline Phosphatase 67 Lactate Dehydrogenase C-Reactive Protein Cancelled Cancelled 47.50 H B-Natriuretic Peptide Total Protein 7.0 Albumin 3.0 L 12/11/22 12:19 WBC RBC Hgb Hct MCV MCH MCHC RDW Std Deviation RDW Coeff of Jimbo Plt Count MPV Immature Gran % (Auto) Neut % (Auto) Lymph % (Auto) [place] % (Auto) Eos % (Auto) Baso % (Auto) Reticulocyte % (Auto) Neut # (Auto) Lymph # (Auto) [place] # (Auto) Eos # (Auto) Baso # (Auto) Reticulocyte # Immature Gran # (Auto) Blood Smear Review Toxic Granulation Toxic Vacuolation Dohle Bodies Polychromasia Acanthocytes (Spur) Sodium Potassium Chloride Carbon Dioxide Anion Gap BUN Creatinine Est Cr Clr Drug Dosing Est GFR ( Amer) Est GFR (Non-Af Amer) BUN/Creatinine Ratio Glucose Calcium Total Bilirubin Direct Bilirubin AST ALT Alkaline Phosphatase Lactate Dehydrogenase C-Reactive Protein B-Natriuretic Peptide 217 H Total Protein Albumin PG Care Time/CCT Total # of Minutes Spent Total Time Spent with Patient: Total time spent is greater than 50% in coordination of care (as documented) at patient's floor/unit and/or counseling patient: Coding Level of Care Code 53198 SUB INP/OBS CARE 3/50MIN Diagnoses Acute respiratory failure with hypoxia J96.01 Sepsis A41.9 Pneumonia J18.9 Pancytopenia due to chemotherapy D61.810 BELIA (acute kidney injury) N17.9 Atrial fibrillation with RVR I48.91 Malignant pleural effusion J91.0 Anemia D64.9 Hyperlipidemia E78.5 Paroxysmal atrial fibrillation I48.0 Bladder carcinoma C67.9 Hypertension I10 Hypertension type: essential hypertension Lung cancer C34.90 Personal history of tobacco use Z87.891 Hypokalemia E87.6 Hypomagnesemia E83.42 History of duodenal ulcer Z87.19 Dysphagia R13.10 Prediabetes R73.03 (12) Hypertension Hypertension type: essential hypertension Qualified Code(s): I10 - Essential (primary) hypertension
[2022-12-12] MEDS: METOPROLOL TARTRATE 1 MG/ML VIAL IV PRN ×2 (00:58→01:53)
[2022-12-12] MEDS: CEFEPIME 2,000 MG in SYRINGE 0 ML IV SCH ×2 (00:58→13:11)
[2022-12-12] MEDS: ALBUT/IPRATROP 3MG/0.5MG NEB 3 ML VIAL NEB SCH ×6 (02:50→22:55)
[2022-12-12] MEDS: dilTIAZem HCL 125 MG in DEXTROSE 5% 100 ML IV SCH ×3 (04:06→14:53)
[2022-12-12 08:24] LABS: Albumin Globulin Ratio 0.7 (0.9-2); Albumin Level 2.9 gm/dl (3.4-5.0); BUN Creatinine Ratio 19.3 (10-20); Bilirubin,Total 1.3 mg/dl (0.2-1.0); Creatinine Clr Calc Pharmacy 32.7 ml/min; Est GFR (African American) 36.3 ml/min; Est GFR (Non-African American) 31.3 ml/min; Potassium 3.2 mmol/L (3.5-5.1); Total Protein 6.9 gm/dl (6.0-8.3)
[2022-12-12] MEDS: METOPROLOL TARTRATE 50 MG TAB PO SCH ×2 (08:25→20:42)
[2022-12-12] MEDS: PANTOprazole 40 MG in SYRINGE 0 ML IV SCH ×2 (08:26→20:42)
[2022-12-12] MEDS: guaiFENesin SUGAR FREE 100 MG/5 ML UDC PO SCH ×4 (08:26→20:43)
[2022-12-12] MEDS ORDERED: POTASSIUM CHLORIDE CRTAB 20 MEQ TABCR PO STA (08:30)
[2022-12-12] MEDS ORDERED: AZITHROMYCIN 250 MG in DEXTROSE 5% 250 ML IV SCH (08:47)
--- NOTE | 2022-12-12 08:49 | Pulmonology Progress Note ---
Date of Service December 12, 2022 Assessment & Plan (1) Respiratory failure: (2) Hypoxia: (3) Lung cancer: (4) Lung mass: (5) Malignant pleural effusion: Plan IMPRESSION: 72-year-old male with stage IV metastatic lung cancer (large cell were pleomorphic or poorly differentiated adeno/malignant pleural effusion) presenting with respiratory failure and hypoxia in the setting of multifocal groundglass opacities as well as large RIGHT-sided pleural effusion. Differential for the opacities would include infectious etiologies (procalcitonin elevated), atypical pulmonary edema, transfusion associated circulatory overload, chemotherapeutic pulmonary toxicity and progression of mal ignancy. RECOMMENDATIONS: 1. Pleural Effusion -awaiting platelet count this morning. The effusion does not appear any bigger than it has been in quite some time however with the patient's compromised respiratory status unclear if this may be contributing. If his platelet count is acceptable (typically greater than 50-60,000) would consider thoracentesis. Discussed with patient and family at bedside placement of a pigtail catheter versus Pleurx catheter versus thoracentesis. He would like to just pursue an in and out thoracentesis to see if it offers some clinical relief. I think it is reasonable. Given the chronic nature of the effusion, it is likely the patient may have some component of trapped or entrapped lung. He is not a candidate for surgical intervention. 2. Diffuse pulmonary infiltrates with respiratory Failure with Hypoxia - multifactorial due to combinations of parenchymal lung disease with differential noted above as well as compressive atelectasis. Continue oxygen titrated to keep saturations at or above 88%. The patient states he felt better on BiPAP so we will place him on BiPAP 10/5 nightly. Patient's status is not amenable to bronchoscopy with BAL currently. Pembrolizumab pulmonary toxicity is typically a diagnosis of exclusion. Again the patient is too ill to consider bronchoscopy and empiric steroids may be considered acknowledging potential risk with underlying infection (methylprednisolone 2 to 4 mg/kg/day for grade 3 toxicity). If this is pembrolizumab pulmonary toxicity, it does carry a significant mortality. He is currently day #4 cefepime and azithromycin. We will decrease azithromycin to 250 mg daily. Await repeat procalcitonin today 3. Metastatic Lung Cancer -management per oncology 4. Atrial fibrillation with rapid ventricular response. This appears to be temporally related to his declining respiratory status. His respiratory status would do better with rate control or sinus rhythm. Holding anticoagulation for possible procedures as well as thrombocytopenia. Defer to primary service options for rate control. Discussed extensively with multiple family members and patient at bedside. Questions were answered to the best of my ability. They are in agreement with the plan as outlined. Admission and Anticipated Discharge Date Admission Date: December 09, 2022 Subjective Patient seen and examined. EMR reviewed. Discussed with nurse at bedside. The patient had a rough night. He is now back in atrial fibrillation. He became anxious with CPAP and reportedly tolerated BiPAP better at night. He is not coughing. He has been transitioned to high flow oxygen this morning. He is not having any chest pain syncope or presyncope. He does have some lower extremity edema. He is swallowing and no longer using straws. He has not had any recurrent aspiration events that he is aware of Labs this morning are currently pending Review of Systems Review of Systems: All systems reviewed & are unremarkable except as noted in Subjective Physical Exam Constitutional: + ill appearing and + frail appearing Neck: trachea midline, no thyromegaly Respiratory: + tachypneic; no respiratory distress, no labored breathing and no cough Auscultation: + diminished lung sounds and + crackles Diminished breath sounds with dullness to percussion at the right lung base. Crackles auscultated at the left lung yadav Cardiovascular: Rate/Rhythm: + tachycardic and + irregularly irregular Heart Sounds: normal S1 and normal S2; no murmur Extremities: + edema Gastrointestinal (Abdomen): normal bowel sounds, soft, nontender, no hepatosplenomegaly Musculoskeletal: Extremities: extremities normal to inspection Skin: no rashes, warm and dry Neurologic: Nonfocal exam Lymphatic: no cervical lymphadenopathy Results & Data Results & Data ([facility]) Vital Signs (Past 12 Hours) Vital Signs Temp Pulse Pulse Resp BP BP BP 12/12/22 07:18 134 H 20 12/12/22 06:43 36.4 C L 127 H 30 H 135/75 12/12/22 05:22 124 H 149/90 H 12/12/22 04:04 120 H 125/77 12/12/22 03:11 80 12/11/22 23:46 120 H 12/11/22 21:59 77 12/12/22 03:32 36.4 C L 67 20 130/81 12/12/22 02:50 127 H 26 H 03/02/23 01:53 131 H 132/67 12/12/22 01:49 131 H 132/67 12/12/22 00:58 135 H 134/75 12/12/22 00:56 140 H 30 H 134/75 12/11/22 22:59 36.2 C L 72 16 106/60 12/11/22 22:25 28 H 12/11/22 21:00 Pulse Ox O2 Del Method O2 Flow Rate FiO2 12/12/22 07:18 91 High Flow Nasal Cannula 40 90 12/12/22 06:43 100 CPAP 12/12/22 05:22 12/12/22 04:04 12/12/22 03:11 12/11/22 23:46 12/11/22 21:59 12/12/22 03:32 96 CPAP 12/12/22 02:50 97 50 12/12/22 01:53 12/12/22 01:49 12/12/22 00:58 12/12/22 00:56 91 CPAP 60 12/11/22 22:59 96 CPAP 12/11/22 22:25 95 50 12/11/22 21:00 CPAP, High Flow Nasal Cannula 15 Critical Care Results & Data Vital Signs (Past 12 Hours) Vital Signs Temp Pulse Pulse Resp BP BP BP 12/12/22 07:18 134 H 20 12/12/22 06:43 36.4 C L 127 H 30 H 135/75 12/12/22 05:22 124 H 149/90 H 12/12/22 04:04 120 H 125/77 12/12/22 03:11 80 12/11/22 23:46 120 H 12/11/22 21:59 77 12/12/22 03:32 36.4 C L 67 20 130/81 12/12/22 02:50 127 H 26 H 12/12/22 01:53 131 H 132/67 12/12/22 01:49 131 H 132/67 12/12/22 00:58 135 H 134/75 12/12/22 00:56 140 H 30 H 134/75 12/11/22 22:59 36.2 C L 72 16 106/60 12/11/22 22:25 28 H 12/11/22 21:00 Pulse Ox O2 Del Method O2 Flow Rate FiO2 12/12/22 07:18 91 High Flow Nasal Cannula 40 90 12/12/22 06:43 100 CPAP 12/12/22 05:22 12/12/22 04:04 12/12/22 03:11 12/11/22 23:46 12/11/22 21:59 12/12/22 03:32 96 CPAP 12/12/22 02:50 97 50 12/12/22 01:53 12/12/22 01:49 12/12/22 00:58 12/12/22 00:56 91 CPAP 60 12/11/22 22:59 96 CPAP 12/11/22 22:25 95 50 12/11/22 21:00 CPAP, High Flow Nasal Cannula 15 Lab & Micro Results (Past 24 Hours) No Data to Display Na 133 mmol/L (136-145) L 12/12/22 K 3.2 mmol/L (3.5-5.1) L 12/12/22 Cl 99 mmol/L (98-107) 12/12/22 CO2 22 mmol/L (21-32) 12/12/22 Anion Gap 12 (3-11) H 12/12/22 BUN 40 mg/dl (6-23) H 12/12/22 Creatinine 2.07 mg/dl (0.6-1.4) H 12/12/22 Estimated GFR ( Amer) 36.3 ml/min 12/12/22 Estimated GFR (Non-Af Amer) 31.3 ml/min 12/12/22 BUN/Creatinine Ratio 19.3 (10-20) 12/12/22 Glu 115 mg/dl (70-99(Fasting)) H 12/12/22 Ca 9.0 mg/dl (8.5-10.1) 12/12/22 Total Bilirubin 1.3 mg/dl (0.2-1.0) H 12/12/22 AST 60 U/L (13-39) H 12/12/22 ALT 52 U/L (7-52) 12/12/22 Alkaline Phosphatase 96 U/L (34-104) 12/12/22 TP 6.9 gm/dl (6.0-8.3) 12/12/22 Albumin 2.9 gm/dl (3.4-5.0) L 12/12/22 Globulin 4.0 gm/dl (2.5-4.0) 12/12/22 Albumin/Globulin Ratio 0.7 (0.9-2) L 12/12/22 Calcium Level 9.0 mg/dl (8.5-10.1) 12/12/22 07:24 Microbiology 12/10/22 18:15 Gram Stain - Final Sputum, Expectorated Sputum Culture - Preliminary Light normal ricki present, final report to follow. 12/09/22 18:00 Urine Culture - Final Urine,Clean Catch No growth - less than 1,000 colonies/mL. 12/09/22 10:43 Aerobic Blood Culture - Preliminary Blood No growth in Aerobic bottle after 48 hours. Anaerobic Blood Culture - Preliminary No growth in Anaerobic bottle after 48 hours. 12/09/22 10:43 Aerobic Blood Culture - Preliminary Blood No growth in Aerobic bottle after 48 hours. Anaerobic Blood Culture - Preliminary No growth in Anaerobic bottle after 48 hours. Diagnostic Findings (Past 24 Hours) Chest X-Ray 12/11/22 08:32 XR chest 1V portable CLINICAL HISTORY: hypoxia TECHNIQUE: Single frontal radiograph of the chest was obtained. Comparison: Comparison is made to chest radiograph 12/10/2022 FINDINGS: No lines and tubes are seen. The cardiomediastinal silhouette is stable. Bilateral airspace opacities are unchanged. Interval stability of moderate right pleural effusion. IMPRESSION: Interval stability of moderate right pleural effusion and bilateral airspace opacities. ACT 112: Negative or not required by law. Electronically signed by: Kiel Aguirre M.D. 12/11/2022 9:06 AM I & O Totals 24 Hours 12/11/22 12/12/22 12/13/22 06:59 06:59 06:59 Intake Total 1170.792 / 1170.792 826.875 / 826.875 . / Output Total 1000 / 1000 3375 / 3375 Balance 170.792 / 170.792 -2548.125 / -2548.125 / Cumulative 12/09/22 09:42 thru 12/12/22 07:58 Intake Total 6390.375 Output Total 5650 Balance 740.375 RT Ventilator Mngmt (Last Documented) Ventilator Ordered Settings Respiratory Rate 20 12/12/22 07:18 Fraction of Inspired Oxygen 90 12/12/22 07:18 Ventilator - PT Measurements Respiratory Rate 20 PG Care Time/CCT Total # of Minutes Spent Total Time Spent with Patient: Total time spent is greater than 50% in coordination of care (as documented) at patient's floor/unit and/or counseling patient: Coding Level of Care Code 21810 SUB INP/OBS CARE 3/50MIN Diagnoses Respiratory failure J96.90 Hypoxia R09.02 Lung cancer C34.90 Lung mass R91.8 Malignant pleural effusion J91.0
--- NOTE | 2022-12-12 08:50 | XRay Report ---
XR chest 1V portable HISTORY: 72 years-old Male f/u acute hypoxia with shortness of breath COMPARISON: Chest radiograph 12/11/2022 TECHNIQUE: AP view of the chest FINDINGS: Cardiac silhouette is enlarged. No pneumothorax. Right suprahilar lesion redemonstrated along with pu lmonary emphysema. No pneumothorax. Moderate layering right pleural effusion with right basilar conso lidation is stable. Peripheral predominant airspace opacities, notably within the left lung is mildly progressed. Diffuse interstitial coarsening. Bones appear grossly intact. IMPRESSION: 1. Mildly progressed peripheral predominant left greater than right pulmonary opacities suggestive of pneumonia, possible viral etiology. 2. Moderate right pleural effusion. 3. Right suprahilar lesion again noted. ACT 112: Negative or not required by law. The above report was generated using voice recognition software. It may contain grammatical, syntax o r spelling errors. Electronically signed by: Ethan Chavez M.D. 12/12/2022 8:49 AM
[2022-12-12 09:01] LABS: Hemoglobin 8.7 g/dl (14.0-18.0); Mean Corpuscular Hgb Conc 34.8 g/dL (32.0-36.0); Mean Corpuscular Volume 91.9 fL (80.0-100.0); RDW Coefficient of Variation 16.1 % (11.5-14.5); Red Blood Count 2.72 M/uL (4.70-6.10); White Blood Count 9.46 K/ul (4.8-10.8)
[2022-12-12 09:02] LABS: Basophils # (auto) 0.03 K/uL (0-0.2); Basophils % (auto) 0.3 %; Dohle Bodies 1+; Immature Granulocytes # (auto) 0.19 K/uL (0.01-0.20); Lymphocytes # (auto) 0.18 K/uL (1.2-3.4); Lymphocytes % (auto) 1.9 %; Mean Platelet Volume 12.8 fL (9.4-12.4); Monocytes # (auto) 0.32 K/uL (0.11-0.59); Monocytes % (auto) 3.4 %; Neutrophils # (auto) 8.74 K/uL (1.40-6.50); Neutrophils % (auto) 92.4 %; Platelet Count 40 K/uL (130-400); Toxic Granulation 1+
[2022-12-12] MEDS: POTASSIUM CHLORIDE / WTR 10 MEQ/100 ML PLCT IV SCH ×2 (09:19→10:37)
[2022-12-12] MEDS ORDERED: POTASSIUM CHLORIDE PWD 20 MEQ PACK PO ONE (09:30)
[2022-12-12 09:37] LABS: C Reactive Protein 40.85 mg/dl (0-0.5)
[2022-12-12] MEDS: methylPREDNISolone 80 MG in SYRINGE 0 ML IV SCH ×3 (10:46→22:32)
[2022-12-12] MEDS ORDERED: FUROSEMIDE 40 MG/4 ML VIAL IV ONE (14:32)
--- NOTE | 2022-12-12 20:07 | Hospitalist Progress Note ---
Date of Service December 12, 2022 Assessment & Plan (1) Acute respiratory failure with hypoxia: Plan: 2nd to suspected bacterial pneumonia. Moderate sized right-sided pleural effusion - likely malignant - probably also contributing to his resp failure but to a lesser degree. +/- acute diastolic CHF. Cannot exclude pembrolizumab induced pneumonitis which, if present, would require high-dose steroids and discontinuation of that immune-based therapy. CRP noted to be very high (40-45). Indeed high-dose solumedrol started today by pulmonary due to worsening overall status to treat for chemo-induced pneumonitis. Some consideration is being given to thoracentesis of right pleural effusion but this is on hold due to low platelets, tenuous respiratory status, etc. Appreciate pulm consult & recs. (2) Sepsis: Plan: 2nd to b/l pneumonia. Negative blood cultures to date. Cont broad-spectrum IV abx including cefepime + zithromax. Day #4 of abx. Respiratory BioFire fully negative including RSV/flu/COVID. legionella urine ag pending. sputum cx neg to date. Repeat cxr this am unchanged despite aggressive Rx of all possible components including volume overload. Cont supportive care measures. (3) Pneumonia: Plan: Diffuse, b/l pneumonia. Overall status is worse today perhaps due to rapid a.fib/cardiac issues. CXR unchanged. Elevated procal supportive of bacterial etiology. Respiratory BioFire fully negative. CRP very high as noted above. Cont cefepime + azithromycin IV. day #4 of such. MRSA swab negative; holding on MRSA coverage. Cont pulm toilet with flutter valve/incentive lisa. Cont robitussin 200mg qid. Cont bronchodilators. Steroids added - see above. await urine legionella ag. blood/sputum cx's thus far negative. Appreciate pulmonary consultation and recs. Cont BIPAP alternating with HFNC. Defer ongoing diuresis to pulmonary. (4) Pancytopenia due to chemotherapy: Plan: s/p 2 unit PRBCs since admission with improved and stable H/H. NO overt GI bleeding. platelets again have trended down to 40 but again no bleeding from any location. wbc count stable. cbc am. (5) BELIA (acute kidney injury): Plan: likely sepsis-associated +/- some rise from ongoing lasix diuresis serial BMPs mcdaniel (6) Atrial fibrillation with RVR: Plan: patient with past h/o PAF several years ago during a period of illness. converted to NSR after that episode and remained in NSR since. Low potassium, stress of illness, low mag, etc all to blame. echo obtained - normal EF, no WMA of LV. recent TSH wnl. he is back in a.fib - now on cardizem drip again + metoprolol. consider amiodarone to maintain NSR as he does very poorly when in rapid a.fib (respiratory distress worsens). consider cardiology consult for their opinion. resume Eliquis when platelets are stable and no plans for procedures. (7) Malignant pleural effusion: Plan: right-sided, chronic. pulmonary is giving consideration to thoracentesis for therapeutic purposes but holding off at this time due to low platelets and tenuous status. re-eval tomorrow. Eliquis placed on hold by pulmonary due to the potential for intervention. repeat cxr in am. (8) Anemia: Plan: see #4 above check fecal occult blood to be complete retic count low LDH mildly high but no evidence of hemolysis (9) Hyperlipidemia: Plan: Continue atorvastatin 10 mg p.o. daily (10) Paroxysmal atrial fibrillation: Plan: normally in NSR. he takes chronic Eliquis + metoprolol. now with rapid a.fib - see above. (11) Bladder carcinoma: Plan: Low-grade papillary urothelial carcinoma s/p cystoscopy and TURBT. follows with [facility] [place] urology for ongoing management. (12) Hypertension: Plan: Continue metoprolol tartrate 50 mg p.o. BID Cont to Hold amlodipine BPs controlled/stable although slightly low during rapid a.fib (13) Lung cancer: Plan: stage 4 previous biopsy suggested the following -- pleomorphic carcinoma of pulmonary origin, large cell carcinoma of pulmonary origin, or poorly differentiated adenocarcinoma of pulmonary origin. Remains on maintenance pemetrexed/pembrolizumab chemotherapy. See discussion above re: possibility of pneumonitis from pembrolizumab therapy. previous imaging with bone mets, etc. pulmonary spoke with pt re: code status - now DNR/DNI (14) Personal history of tobacco use: Plan: offered nicorette gum prn despite long-standing tobacco use no formal dx of COPD cont bronchodilators for wheezing (15) Hypokalemia: Plan: replaced bmp in am (16) Hypomagnesemia: Plan: replaced resolved (17) History of duodenal ulcer: Plan: 10/02 - along with gastric ulcers H/H stable x 48 hours now - doubt Gi bleeding cont PPI (18) Dysphagia: Plan: in light of coughing with drinking thin liquids speech therapy eval performed easy to chew diet due to poor dentition no other changes (19) Prediabetes: Plan: last documented Hba1c 09/2021 was <6.5% Plan DVT proph - eliquis - but placed on hold in the event he needs thoracentesis during that time period - if no bleeding issues - heparin drip for bridging purposes if necessary , 2 daughters extensively updated at bedside again today will discuss care w/ pulmonary Admission and Anticipated Discharge Date Admission Date: December 09, 2022 Subjective events of last 24 hours noted unfortunately converted back to rapid a.fib from NSR overnight requiring resumption of diltiazem drip rates fortunately have come down to <100 this am during the visit he was on BIPAP and wanted to rest he slept most of the visit 2 daughters & at bedside despite his illness he continues to eat decently alternating between HFNC and BIPAP Review of Systems Review of Systems: unable to obtain complete ROS today due to patient very sleepy Physical Exam Physical Exam: gen - BIPAP in place; sleeping; mild tachypnea noted but otherwise no distress neck - no JVD mouth - BIPAP mask in place heart - irregular, s1 s2, no murmur lungs - decreased BS right base; extensive wheezes b/l but good airation; tachypnea; fine rales bottom 1/2 of L lung posteriorly abd - soft NT ND BS+ ext - no edema, pulses 2+ b/l psych - a/o x 3 Results & Data Results & Data ([facility]) Vital Signs (Past 12 Hours) Vital Signs Temp Pulse Pulse Resp BP BP Pulse Ox 12/12/22 19:43 82 22 93 12/12/22 19:41 82 22 93 12/12/22 19:14 36.4 C L 94 H 20 125/73 92 12/12/22 14:19 79 12/12/22 15:14 36.6 C 94 H 20 119/73 98 12/12/22 15:05 128 H 26 H 94 12/12/22 14:54 94 H 117/76 12/12/22 11:59 36.6 C 83 36 H 99/64 L 98 12/12/22 11:11 91 H 26 H 93 12/12/22 11:11 91 H 26 H 93 O2 Del Method O2 Flow Rate FiO2 12/12/22 19:43 High Flow Nasal Cannula 30 90 12/12/22 19:41 High Flow Nasal Cannula 40 90 12/12/22 19:14 CPAP 12/12/22 14:19 12/12/22 15:14 CPAP 12/12/22 15:05 60 12/12/22 14:54 12/12/22 11:59 CPAP 12/12/22 11:11 BiPAP 60 12/12/22 11:11 60 Laboratory Results Laboratory Results - last 48 hr 12/11/22 12/11/22 12/11/22 06:08 06:08 06:08 WBC RBC Hgb Hct MCV MCH MCHC RDW Std Deviation RDW Coeff of Jimbo Plt Count MPV Immature Gran % (Auto) Neut % (Auto) Lymph % (Auto) [place] % (Auto) Eos % (Auto) Baso % (Auto) Neut # (Auto) Lymph # (Auto) [place] # (Auto) Eos # (Auto) Baso # (Auto) Immature Gran # (Auto) Blood Smear Review Toxic Granulation Dohle Bodies Sodium Potassium Chloride Carbon Dioxide Anion Gap BUN Creatinine Est Cr Clr Drug Dosing Est GFR ( Amer) Est GFR (Non-Af Amer) BUN/Creatinine Ratio Glucose Calcium Phosphorus Magnesium Total Bilirubin AST ALT Alkaline Phosphatase C-Reactive Protein Cancelled Cancelled B-Natriuretic Peptide Total Protein Albumin Globulin Albumin/Globulin Ratio Procalcitonin Blood Type Antibody Screen 12/11/22 12/11/22 12/12/22 12:19 12:19 07:24 WBC RBC Hgb Hct MCV MCH MCHC RDW Std Deviation RDW Coeff of Jimbo Plt Count MPV Immature Gran % (Auto) Neut % (Auto) Lymph % (Auto) [place] % (Auto) Eos % (Auto) Baso % (Auto) Neut # (Auto) Lymph # (Auto) [place] # (Auto) Eos # (Auto) Baso # (Auto) Immature Gran # (Auto) Blood Smear Review Toxic Granulation Dohle Bodies Sodium 130 L Potassium 3.8 Chloride 97 L Carbon Dioxide 20 L Anion Gap 13 H BUN 42 H Creatinine 2.25 H Est Cr Clr Drug Dosing 30.1 Est GFR ( Amer) 32.8 Est GFR (Non-Af Amer) 28.3 BUN/Creatinine Ratio 18.7 Glucose 135 H Calcium 9.0 Phosphorus Magnesium Total Bilirubin AST ALT Alkaline Phosphatase C-Reactive Protein 47.50 H B-Natriuretic Peptide 217 H Total Protein Albumin Globulin Albumin/Globulin Ratio Procalcitonin 4.99 H Blood Type Antibody Screen 12/12/22 12/12/22 12/12/22 07:24 07:24 07:24 WBC 9.46 RBC 2.72 L Hgb 8.7 L Hct 25.0 L MCV 91.9 MCH 32.0 MCHC 34.8 RDW Std Deviation 54.0 H RDW Coeff of Jimbo 16.1 H Plt Count 40 L MPV 12.8 H Immature Gran % (Auto) 2.0 Neut % (Auto) 92.4 Lymph % (Auto) 1.9 [place] % (Auto) 3.4 Eos % (Auto) 0.0 Baso % (Auto) 0.3 Neut # (Auto) 8.74 H Lymph # (Auto) 0.18 L [place] # (Auto) 0.32 Eos # (Auto) 0.00 Baso # (Auto) 0.03 Immature Gran # (Auto) 0.19 Blood Smear Review Toxic Granulation 1+ Dohle Bodies 1+ Sodium 133 L Potassium 3.2 L Chloride 99 Carbon Dioxide 22 Anion Gap 12 H BUN 40 H Creatinine 2.07 H Est Cr Clr Drug Dosing 32.7 Est GFR ( Amer) 36.3 Est GFR (Non-Af Amer) 31.3 BUN/Creatinine Ratio 19.3 Glucose 115 H Calcium 9.0 Phosphorus Magnesium 2.0 Cancelled Total Bilirubin 1.3 H AST 60 H ALT 52 Alkaline Phosphatase 96 C-Reactive Protein 40.85 H B-Natriuretic Peptide Total Protein 6.9 Albumin 2.9 L Globulin 4.0 Albumin/Globulin Ratio 0.7 L Procalcitonin Blood Type Antibody Screen Diagnostic Findings sputum cx + blood cx's negative PG Care Time/CCT Total # of Minutes Spent Total Time Spent with Patient: Total time spent is greater than 50% in coordination of care (as documented) at patient's floor/unit and/or counseling patient: Coding Level of Care Code 31286 SUB INP/OBS CARE 2/35MIN Diagnoses Acute respiratory failure with hypoxia J96.01 Sepsis A41.9 Pneumonia J18.9 Pancytopenia due to chemotherapy D61.810 BELIA (acute kidney injury) N17.9 Atrial fibrillation with RVR I48.91 Malignant pleural effusion J91.0 Anemia D64.9 Hyperlipidemia E78.5 Paroxysmal atrial fibrillation I48.0 Bladder carcinoma C67.9 Hypertension I10 Hypertension type: essential hypertension Lung cancer C34.90 Personal history of tobacco use Z87.891 Hypokalemia E87.6 Hypomagnesemia E83.42 History of duodenal ulcer Z87.19 Dysphagia R13.10 Prediabetes R73.03 (12) Hypertension Hypertension type: essential hypertension Qualified Code(s): I10 - Essential (primary) hypertension
[2022-12-12] MEDS: ATORVASTATIN 10 MG TAB PO SCH (20:42)
[2022-12-12] MEDS ORDERED: POTASSIUM CHLORIDE PWD 20 MEQ PACK PO SCH (21:00)
[2022-12-13] MEDS: CEFEPIME 2,000 MG in SYRINGE 0 ML IV SCH ×2 (01:34→13:42)
[2022-12-13] MEDS: ALBUT/IPRATROP 3MG/0.5MG NEB 3 ML VIAL NEB SCH ×6 (03:53→22:31)
--- NOTE | 2022-12-13 04:55 | Electrocardiogram Report ---
Test Reason : Blood Pressure : / mmHG Vent. Rate : 129 BPM Atrial Rate : 170 BPM P-R Int : 000 ms QRS Dur : 076 ms QT Int : 270 ms P-R-T Axes : 000 024 035 degrees QTc Int : 395 ms Poor data quality, interpretation may be adversely affected Atrial fibrillation with rapid ventricular response Abnormal ECG When compared with ECG of 09-DEC-2022 09:56, Atrial fibrillation has replaced Sinus rhythm Confirmed by Stefan Noland ([id number]) on 12/13/2022 4:54:44 AM Referred By: REFERRED SELF Confirmed By:Stefan Noland
[2022-12-13] MEDS: dilTIAZem HCL 125 MG in DEXTROSE 5% 100 ML IV SCH (06:24)
[2022-12-13 06:27] LABS: Hematocrit (blood only) 25.4 % (42.0-52.0); Hemoglobin 8.7 g/dl (14.0-18.0); Mean Corpuscular Hemoglobin 32.8 pg (25.0-34.0); Mean Corpuscular Hgb Conc 34.3 g/dL (32.0-36.0); Mean Corpuscular Volume 95.8 fL (80.0-100.0); Mean Platelet Volume 12.6 fL (9.4-12.4); Platelet Count 41 K/uL (130-400); RDW Standard Deviation 55.9 fL (36.4-46.3); Red Blood Count 2.65 M/uL (4.70-6.10); White Blood Count 6.78 K/ul (4.8-10.8)
[2022-12-13] MEDS: methylPREDNISolone 80 MG in SYRINGE 0 ML IV SCH ×3 (06:29→21:26)
[2022-12-13 06:51] LABS: Basophils # (auto) 0.02 K/uL (0-0.2); Basophils % (auto) 0.3 %; Immature Granulocytes # (auto) 0.11 K/uL (0.01-0.20); Immature Granulocytes % (auto) 1.6 %; Lymphocytes # (auto) 0.24 K/uL (1.2-3.4); Lymphocytes % (auto) 3.5 %; Monocytes # (auto) 0.23 K/uL (0.11-0.59); Monocytes % (auto) 3.4 %; Neutrophils # (auto) 6.18 K/uL (1.40-6.50); Neutrophils % (auto) 91.2 %; Toxic Granulation 1+
[2022-12-13 06:56] LABS: BUN Creatinine Ratio 20.7 (10-20); Calcium 9.2 mg/dl (8.5-10.1); Creatinine Clr Calc Pharmacy 26.5 ml/min; Est GFR (Non-African American) 24.2 ml/min; Magnesium 2.1 mg/dl (1.7-2.4); Potassium 4.3 mmol/L (3.5-5.1)
[2022-12-13] MEDS: guaiFENesin SUGAR FREE 100 MG/5 ML UDC PO SCH ×4 (08:58→21:28)
[2022-12-13] MEDS: METOPROLOL TARTRATE 50 MG TAB PO SCH ×2 (08:58→21:27)
--- NOTE | 2022-12-13 08:58 | XRay Report ---
XR chest 1V portable CLINICAL HISTORY: Follow-up study. Lung cancer. Pleural effusions. COMPARISON STUDY: Chest CT December 09, 2022 and chest radiograph December 12, 2022. FINDINGS: There is no pneumothorax. A moderate right pleural effusion is similar to prior exam. Inter stitial thickening and bilateral opacities have slightly improved. Cardiomediastinal silhouette is st able. A right suprahilar irregular density remains unchanged. IMPRESSION: 1. Mixed interstitial and alveolar opacities, slightly improved since prior exam. This favors an infe ctious process. Pulmonary edema could appear similar. 2. No change in a right pleural effusion. ACT 112: Negative or not required by law. Electronically signed by: Mahin Aviles M.D. 12/13/2022 8:10 AM
[2022-12-13] MEDS: PANTOprazole 40 MG in SYRINGE 0 ML IV SCH (08:59)
--- NOTE | 2022-12-13 09:22 | Pulmonology Progress Note ---
Date of Service December 13, 2022 Assessment & Plan (1) Respiratory failure: (2) Hypoxia: (3) Lung cancer: (4) Lung mass: (5) Malignant pleural effusion: Plan IMPRESSION: 72-year-old male with stage IV metastatic lung cancer (large cell vs pleomorphic or poorly differentiated adeno/malignant pleural effusion) presenting with respiratory failure and hypoxia in the setting of multifocal groundglass opacities as well as large RIGHT-sided pleural effusion. Differential for the opacities would include infectious etiologies (procalcitonin elevated), atypical pulmonary edema, transfusion associated circulatory overload, chemotherapeutic pulmonary toxicity and progression of malignancy. RECOMMENDATIONS: 1. Pleural Effusion -chest x-ray independently reviewed. The effusion has not significantly changed in size and has been chronic dating back for several months. We have discussed potentially intervening on the effusion to see if we can improve his breathing however his platelet count continues to be low enough to preclude thoracentesis. We could consider a platelet transfusion however given his prior episode of acute worsening of his respiratory status associated with administration of blood products, I am somewhat hesitant to pursue this approach. In addition, he is clinically slightly better today and I would recommend holding off. If the patient's platelet counts were to recover, could consider thoracentesis to see if it offers him any significant benefit at that time. 2. Diffuse pulmonary infiltrates with respiratory Failure with Hypoxia -multifactorial due to combinations of parenchymal lung disease with differential noted above as well as compressive atelectasis. Continue oxygen titrated to keep saturations at or above 90-92 %. Continue nightly BiPAP 10/5 nightly. Patient's status is not amenable to bronchoscopy with BAL currently. Pembrolizumab pulmonary toxicity is typically a diagnosis of exclusion. Given the patient's clinical worsening yesterday, elected to initiate steroids for potential pembrolizumab pulmonary toxicity (methylprednisolone 2 to 4 mg/kg/day for grade 3 toxicity). If this is pembrolizumab pulmonary toxicity, it does carry a significant mortality. Would continue steroids at current dose for the next 3 to 5 days and reassess. If he fails to respond, could consider alternative agents under the direction of hematology oncology. Typically steroids are tapered slowly over 4 to 6 weeks 3. Multilobar pneumonia: Patient is currently day #5 cefepime and azithromycin. Procalcitonin was elevated on presentation but has been decreasing. Would complete 7-day course of antimicrobial therapy and follow. 4. Metastatic Lung Cancer -management per oncology. Given the possibility of grade 3 pembrolizumab pulmonary toxicity would not recommend rechallenging with this agent. 5. Atrial fibrillation with rapid ventricular response. Per primary service. Would hold anticoagulation Discussed extensively with multiple family members, and patient at bedside. Questions were answered to the best of my ability. They are in agreement with the plan as outlined. Admission and Anticipated Discharge Date Admission Date: December 09, 2022 Subjective Patient seen and examined. EMR reviewed. Discussed with patient and family as well as nursing at bedside. Patient states that he is doing little bit better today. He was empirically started on steroids yesterday. He is coughing and expectorating small amounts of clear phlegm. His creatinine unfortunately is taken a slight turn for the worse. He is down to 70% 40 L/min on high flow. He denies chest pain or palpitations. No fevers chills or night sweats overnight. Review of Systems Review of Systems: All systems reviewed & are unremarkable except as noted in Subjective Physical Exam Constitutional: + ill appearing and + frail appearing Neck: trachea midline, no thyromegaly Respiratory: + tachypneic; no respiratory distress, no labored breathing and no cough Auscultation: + diminished lung sounds and + crackles Diminished breath sounds with dullness to percussion at the right lung base. Crackles auscultated at the left lung yadav Cardiovascular: Rate/Rhythm: + tachycardic and + irregularly irregular Heart Sounds: normal S1 and normal S2; no murmur Extremities: + edema Gastrointestinal (Abdomen): normal bowel sounds, soft, nontender, no hepatosplenomegaly Musculoskeletal: Extremities: extremities normal to inspection Skin: no rashes, warm and dry Neurologic: Nonfocal exam Lymphatic: no cervical lymphadenopathy Results & Data Results & Data ([facility] [place]) Vital Signs (Past 12 Hours) Vital Signs Temp Pulse Pulse Resp BP BP Pulse Ox 12/13/22 07:49 36.3 C L 83 20 136/79 92 12/13/22 07:14 99 H 22 75 L 12/13/22 07:04 81 22 93 12/12/22 21:59 95 H 12/13/22 03:54 85 91 12/13/22 02:48 36.3 C L 78 18 106/66 100 12/13/22 01:42 91 H 22 95 12/12/22 23:22 90 40 H 95 12/12/22 23:09 36.3 C L 87 20 124/71 95 12/12/22 22:57 94 H 22 97 12/12/22 22:55 94 H 22 97 O2 Del Method O2 Flow Rate FiO2 12/13/22 07:49 High Flow Nasal Cannula 40 75 12/13/22 07:14 High Flow Nasal Cannula 35 12/13/22 07:04 High Flow Nasal Cannula 85 12/12/22 21:59 12/13/22 03:54 High Flow Nasal Cannula 85 12/13/22 02:48 High Flow Nasal Cannula 40 12/13/22 01:42 High Flow Nasal Cannula 40 90 12/12/22 23:22 50 12/12/22 23:09 BiPAP 50 12/12/22 22:57 High Flow Nasal Cannula 40 90 12/12/22 22:55 High Flow Nasal Cannula 40 90 Laboratory Results 12/13/22 05:17 12/13/22 05:17 Diagnostic Findings Chest x-ray from today was independently reviewed. There are persistent patchy parenchymal opacities more prominent within the peripheral areas of the left lung. Right effusion appears essentially stable PG Care Time/CCT Total # of Minutes Spent Total Time Spent with Patient: Total time spent is greater than 50% in coordination of care (as documented) at patient's floor/unit and/or counseling patient: Coding Level of Care Code 43757 SUB INP/OBS CARE 3/50MIN Diagnoses Respiratory failure J96.90 Hypoxia R09.02 Lung cancer C34.90 Lung mass R91.8 Malignant pleural effusion J91.0
[2022-12-13] MEDS: POLYETHYLENE (MIRALAX) 17 GM PACK PO SCH (10:01)
[2022-12-13] MEDS ORDERED: STAT IV Infusion **Titration per Protocol STA (10:51)
[2022-12-13] MEDS ORDERED: 0.2 MICRON FILTER SET 1 EACH IV STA (10:51)
[2022-12-13] MEDS ORDERED: AMIODARONE / D5W 150 MG/100 ML BAG IV STA (10:51)
[2022-12-13] MEDS ORDERED: AMIODARONE IV BOLUS & DRIP IV STA (10:51)
[2022-12-13] MEDS ORDERED: AMIODARONE / D5W 360 MG/200 ML BAG IV ONE (11:02)
[2022-12-13] MEDS: SENNA 8.6 MG TAB PO SCH (11:04)
--- NOTE | 2022-12-13 11:55 | Electrocardiogram Report ---
Test Reason : Blood Pressure : / mmHG Vent. Rate : 067 BPM Atrial Rate : 067 BPM P-R Int : 168 ms QRS Dur : 082 ms QT Int : 418 ms P-R-T Axes : -09 018 033 degrees QTc Int : 441 ms Poor data quality, interpretation may be adversely affected Normal sinus rhythm Early repolarization Otherwise Normal ECG When compared with ECG of 12-DEC-2022 01:32, Sinus rhythm has replaced Atrial fibrillation Vent. rate has decreased BY 62 BPM Confirmed by Jose Aburto ([id number]) on 12/13/2022 11:54:58 AM Referred By: REFERRED SELF Confirmed By:Jose Aburto
[2022-12-13] MEDS: AMIODARONE / D5W 360 MG/200 ML BAG IV SCH (17:24)
--- NOTE | 2022-12-13 20:59 | Hospitalist Progress Note ---
Date of Service December 13, 2022 Assessment & Plan (1) Acute respiratory failure with hypoxia: Plan: Ongoing, with high o2 requirements. 2nd to bacterial pneumonia. +/- moderate sized right-sided pleural effusion - likely malignant - probably also contributing to his resp failure but to a lesser degree. +/- acute diastolic CHF. +/- pembrolizumab induced pneumonitis. Creatinine increased overnight with diuresis thus likely volume contracted at this point - stop further diuresis. Steroids for possible pneumonitis. Day #5 of IV abx for pneumonia. No intervention planned today for right sided pleural effusion (low platelets, tenuous respiratory status, and risks likely outweigh benefits of intervention). (2) Sepsis: Plan: 2nd to b/l pneumonia. Negative blood cultures from admission. Cont broad-spectrum IV abx including cefepime + zithromax. Day #5 of abx. Can stop zithromax after today's dose. Respiratory BioFire fully negative including RSV/flu/COVID. legionella urine ag pending. sputum cx negative. Repeat cxr this am essentially unchanged. Cont supportive care measures as in #1 above. (3) Pneumonia: Plan: Diffuse, b/l pneumonia. Overall status is unchanged. CXR unchanged. Elevated procal supportive of bacterial etiology. Respiratory BioFire fully negative. CRP very high as noted above. Cont cefepime + azithromycin IV. day #5 of such. stop zithromax today. MRSA swab negative; holding on MRSA coverage. Cont pulm toilet with flutter valve/incentive lisa. Cont robitussin 200mg qid. Cont bronchodilators. Cont solumedrol. await urine legionella ag. blood/sputum cx's negative. Appreciate pulmonary consultation and recs. Cont BIPAP alternating with HFNC. Stop diuresis in light of rising creatinine. (4) Pancytopenia due to chemotherapy: Plan: s/p 2 unit PRBCs since admission with improved and stable H/H. NO overt GI bleeding. platelets low but have remained about 40. wbc count stable. cbc am. (5) BELIA (acute kidney injury): Plan: sepsis-associated + diuresis w/ lasix hold further diuretics serial BMPs mcdaniel (6) Atrial fibrillation with RVR: Plan: has been going back/forth from rapid a.fib to NSR multiple times since admission. rate control has been challenging when in a.fib with BB + CCB. when he is in rapid a.fib he has considerable decompensation with worsening respiratory status. after conversion to NSR today elected to start IV amiodarone to try & maintain NSR. bolus then drip. I spoke informally with [facility] who agreed maintaining NSR is ideal given that we cannot anticoagulate him with his usual Eliquis and that he is unstable when in rapid a.fib. resume Eliquis when platelets are stable and no plans for procedures. (7) Malignant pleural effusion: Plan: right-sided, chronic. no change in size on serial cxrs. pulmonary had given consideration to thoracentesis for therapeutic purposes but holding off at this time due to low platelets and tenuous status. further, benefits likely outweighed by risks at this time. (8) Anemia: Plan: see #4 above fecal occult blood NEGATIVE retic count low LDH mildly high but no evidence of hemolysis cbc am for stability (9) Hyperlipidemia: Plan: Continue atorvastatin 10 mg p.o. daily (10) Paroxysmal atrial fibrillation: Plan: he takes chronic Eliquis + metoprolol. now with rapid a.fib - see above. baseline rhythm is typically sinus on chronic basis. (11) Bladder carcinoma: Plan: Low-grade papillary urothelial carcinoma s/p cystoscopy and TURBT. follows with [facility] for ongoing management. (12) Hypertension: Plan: Continue metoprolol tartrate 50 mg p.o. BID Cont to Hold amlodipine BPs controlled/stable (13) Lung cancer: Plan: stage 4 previous biopsy suggested the following -- pleomorphic carcinoma of pulmonary origin, large cell carcinoma of pulmonary origin, or poorly differentiated adenocarcinoma of pulmonary origin. Remains on maintenance pemetrexed/pembrolizumab chemotherapy. See discussion above re: possibility of pneumonitis from pembrolizumab therapy. previous imaging with bone mets, etc. there is concern for pembrolizumab induced pneumonitis thus high-dose IV steroids initiated day #2 of such (14) Personal history of tobacco use: Plan: offered nicorette gum prn despite long-standing tobacco use no formal dx of COPD cont bronchodilators for wheezing (15) Hypokalemia: Plan: replaced bmp in am (16) Hypomagnesemia: Plan: replaced resolved (17) History of duodenal ulcer: Plan: 10/02 - along with gastric ulcers H/H stable x 72 hours now - doubt Gi bleeding (and fecal occult is negative) cont PPI (18) Dysphagia: Plan: in light of coughing with drinking thin liquids speech therapy eval performed easy to chew diet due to poor dentition no other changes (19) Prediabetes: Plan: last documented Hba1c 09/2021 was <6.5% (20) Acute encephalopathy: Plan: metabolic from pneumonia, acute kidney injury, combo of factors? toxic from steroids? schedule melatonin at HS. defer on antipsychotics unless he becomes severely agitated, etc. supportive care. avoid sedatives. Plan DVT proph - eliquis - but placed on hold due to thrombocytopenia , 2 daughters extensively updated at bedside again today care d/w pulmonary care d/w cardiology (informally) patient's status is guarded Admission and Anticipated Discharge Date Admission Date: December 09, 2022 Subjective & 2 daughters at bedside during the visit tele overnight - rate-controlled a.fib, then spontaneously converted to NSR today has been in NSR since patient continues to oscillate between wall-mounted HFNC, vapotherm, and BIPAP he is becoming increasingly intolerant of BIPAP, using it less at night he has been very anxious and this is contributing to difficulty using it family reports confusion today with pressured, fast speech he has been resting/sleeping poorly minimal cough at this point no sputum episodes of dyspnea no orthopnea no chest pain appetite fair mentions a friend of his from his prior workplace and he was very distraught today by this Review of Systems Review of Systems: gen - very fatigued, weak - but did sit in chair for a period of time today; no fevers cv - no chest pain pulm - no sputum GI - no nausea or emesis; did have bowel movement today - mcdaniel remains in place Physical Exam Physical Exam: gen - VERY talkative today, jumping from 1 topic to the next; fast speech; NAD; looks exhausted neck - no JVD mouth - MMM; no thrush heart - RRR, s1 s2, no murmur lungs - decreased BS right base; wheezes b/l but good airation; tachypnea without retractions; extensive dry, fine rales left lung abd - soft NT ND BS+ ext - no edema, pulses 2+ b/l psych - slightly agitated, awake, alert, follows commands Results & Data Results & Data ([facility]) Vital Signs (Past 12 Hours) Vital Signs Temp Pulse Pulse Resp BP BP Pulse Ox 12/13/22 19:22 36.3 C L 71 24 110/61 97 12/13/22 17:30 93 12/13/22 16:38 77 24 96 12/13/22 16:26 36.3 C L 75 18 129/64 98 12/13/22 16:12 68 12/13/22 15:14 72 39 H 96 12/13/22 14:58 76 20 95 12/13/22 11:55 69 20 122/81 97 12/13/22 11:15 91 H 18 92 O2 Del Method O2 Flow Rate FiO2 12/13/22 19:22 High Flow Nasal Cannula 25 75 12/13/22 17:30 High Flow Nasal Cannula 25 75 12/13/22 16:38 High Flow Nasal Cannula 30 55 12/13/22 16:26 BiPAP 12/13/22 16:12 12/13/22 15:14 40 12/13/22 14:58 High Flow Nasal Cannula 15 12/13/22 11:55 High Flow Nasal Cannula 15 12/13/22 11:15 High Flow Nasal Cannula 15 Laboratory Results Laboratory Results - last 24 hr 12/13/22 12/13/22 12/13/22 05:17 05:17 05:17 WBC 6.78 RBC 2.65 L Hgb 8.7 L Hct 25.4 L MCV 95.8 MCH 32.8 MCHC 34.3 RDW Std Deviation 55.9 H RDW Coeff of Jimbo 16.0 H Plt Count 41 L MPV 12.6 H Immature Gran % (Auto) 1.6 Neut % (Auto) 91.2 Lymph % (Auto) 3.5 Dooly % (Auto) 3.4 Eos % (Auto) 0.0 Baso % (Auto) 0.3 Neut # (Auto) 6.18 Lymph # (Auto) 0.24 L Dooly # (Auto) 0.23 Eos # (Auto) 0.00 Baso # (Auto) 0.02 Immature Gran # (Auto) 0.11 Toxic Granulation 1+ Sodium 134 L Potassium 4.3 D Chloride 101 Carbon Dioxide 20 L Anion Gap 13 H BUN 53 H Creatinine 2.56 H D Est Cr Clr Drug Dosing 26.5 Est GFR ( Amer) 28.0 Est GFR (Non-Af Amer) 24.2 BUN/Creatinine Ratio 20.7 H Glucose 159 H Calcium 9.2 Phosphorus 4.0 Magnesium 2.1 Stool Occult Bld Scrn Blood Type B Positive Antibody Screen NEGATIVE 12/13/22 17:21 WBC RBC Hgb Hct MCV MCH MCHC RDW Std Deviation RDW Coeff of Jimbo Plt Count MPV Immature Gran % (Auto) Neut % (Auto) Lymph % (Auto) Dooly % (Auto) Eos % (Auto) Baso % (Auto) Neut # (Auto) Lymph # (Auto) Dooly # (Auto) Eos # (Auto) Baso # (Auto) Immature Gran # (Auto) Toxic Granulation Sodium Potassium Chloride Carbon Dioxide Anion Gap BUN Creatinine Est Cr Clr Drug Dosing Est GFR ( Amer) Est GFR (Non-Af Amer) BUN/Creatinine Ratio Glucose Calcium Phosphorus Magnesium Stool Occult Bld Scrn Negative Blood Type Antibody Screen PG Care Time/CCT Total # of Minutes Spent Total Time Spent with Patient: Total time spent is greater than 50% in coordination of care (as documented) at patient's floor/unit and/or counseling patient: Coding Level of Care Code 69316 SUB INP/OBS CARE 3/50MIN Diagnoses Acute respiratory failure with hypoxia J96.01 Sepsis A41.9 Pneumonia J18.9 Pancytopenia due to chemotherapy D61.810 BELIA (acute kidney injury) N17.9 Atrial fibrillation with RVR I48.91 Malignant pleural effusion J91.0 Anemia D64.9 Hyperlipidemia E78.5 Paroxysmal atrial fibrillation I48.0 Bladder carcinoma C67.9 Hypertension I10 Hypertension type: essential hypertension Lung cancer C34.90 Personal history of tobacco use Z87.891 Hypokalemia E87.6 Hypomagnesemia E83.42 History of duodenal ulcer Z87.19 Dysphagia R13.10 Prediabetes R73.03 Acute encephalopathy G93.40 (12) Hypertension Hypertension type: essential hypertension Qualified Code(s): I10 - Essential (primary) hypertension
[2022-12-13] MEDS: MELATONIN 3 MG TAB PO SCH (21:26)
[2022-12-13] MEDS: PANTOprazole 40 MG TAB PO SCH (21:26)
[2022-12-13] MEDS: ATORVASTATIN 10 MG TAB PO SCH (21:27)
[2022-12-14] MEDS: ALBUT/IPRATROP 3MG/0.5MG NEB 3 ML VIAL NEB SCH ×6 (02:28→22:37)
[2022-12-14] MEDS: CEFEPIME 1,000 MG in SYRINGE 0 ML IV SCH ×2 (02:30→13:14)
[2022-12-14] MEDS: AMIODARONE / D5W 360 MG/200 ML BAG IV SCH ×2 (05:12→16:46)
[2022-12-14] MEDS: methylPREDNISolone 80 MG in SYRINGE 0 ML IV SCH ×3 (05:13→21:50)
[2022-12-14 06:08] LABS: BUN Creatinine Ratio 25.5 (10-20); C Reactive Protein 28.54 mg/dl (0-0.5); Calcium 9.2 mg/dl (8.5-10.1); Creatinine Clr Calc Pharmacy 21.6 ml/min; Est GFR (African American) 21.9 ml/min; Est GFR (Non-African American) 18.9 ml/min; Potassium 4.5 mmol/L (3.5-5.1)
[2022-12-14 06:40] LABS: Basophils # (auto) 0.02 K/uL (0-0.2); Basophils % (auto) 0.3 %; Hematocrit (blood only) 24.1 % (42.0-52.0); Hemoglobin 8.3 g/dl (14.0-18.0); Immature Granulocytes # (auto) 0.12 K/uL (0.01-0.20); Immature Granulocytes % (auto) 1.8 %; Lymphocytes # (auto) 0.22 K/uL (1.2-3.4); Lymphocytes % (auto) 3.4 %; Mean Corpuscular Hemoglobin 32.2 pg (25.0-34.0); Mean Corpuscular Hgb Conc 34.4 g/dL (32.0-36.0); Mean Corpuscular Volume 93.4 fL (80.0-100.0); Mean Platelet Volume 13.1 fL (9.4-12.4); Monocytes % (auto) 1.5 %; Neutrophils # (auto) 6.05 K/uL (1.40-6.50); Platelet Count 41 K/uL (130-400); RDW Coefficient of Variation 14.6 % (11.5-14.5); RDW Standard Deviation 49.6 fL (36.4-46.3); Red Blood Count 2.58 M/uL (4.70-6.10); Toxic Granulation 1+; White Blood Count 6.51 K/ul (4.8-10.8)
[2022-12-14] MEDS: PANTOprazole 40 MG TAB PO SCH ×2 (09:04→21:51)
[2022-12-14] MEDS: guaiFENesin SUGAR FREE 100 MG/5 ML UDC PO SCH ×4 (09:04→21:52)
[2022-12-14] MEDS: METOPROLOL TARTRATE 50 MG TAB PO SCH ×2 (09:04→21:51)
[2022-12-14] MEDS: POLYETHYLENE (MIRALAX) 17 GM PACK PO SCH (09:04)
[2022-12-14] MEDS: SENNA 8.6 MG TAB PO SCH (09:05)
--- NOTE | 2022-12-14 13:17 | Pulmonology Progress Note ---
Date of Service December 14, 2022 Assessment & Plan (1) Respiratory failure: (2) Hypoxia: (3) Lung cancer: (4) Lung mass: (5) Malignant pleural effusion: Plan IMPRESSION: 72-year-old male with stage IV metastatic lung cancer (large cell vs pleomorphic or poorly differentiated adeno/malignant pleural effusion) presenting with respiratory failure and hypoxia in the setting of multifocal groundglass opacities as well as large RIGHT-sided pleural effusion. Differential for the opacities would include infectious etiologies (procalcitonin elevated), atypical pulmonary edema, transfusion associated circulatory overload, chemotherapeutic pulmonary toxicity and progression of malignancy. RECOMMENDATIONS: 1. Pleural Effusion -chest x-ray independently reviewed. The effusion has not significantly changed in size and has been chronic dating back for several months. We have discussed potentially intervening on the effusion to see if we can improve his breathing however his platelet count continues to be low enough to preclude thoracentesis. We could consider a platelet transfusion however given his prior episode of acute worsening of his respiratory status associated with administration of blood products, I am somewhat hesitant to pursue this approach. In addition, he is clinically slightly better today and I would recommend holding off. If the patient's platelet counts were to recover, could consider thoracentesis to see if it offers him any significant benefit at that time. 2. Diffuse pulmonary infiltrates with respiratory Failure with Hypoxia - multifactorial due to combinations of parenchymal lung disease with differential noted above as well as compressive atelectasis. Continue oxygen titrated to keep saturations at or above 90-92 %. Continue nightly BiPAP 10/5 nightly. Patient's status is not amenable to bronchoscopy with BAL currently. Pembro lizumab pulmonary toxicity is typically a diagnosis of exclusion. Given the patient's clinical worsening 3/3, elected to initiate steroids for potential pembrolizumab pulmonary toxicity (methylprednisolone 2 to 4 mg/kg/day for grade 3 toxicity). If this is pembrolizumab pulmonary toxicity, it does carry a significant mortality. Would continue steroids at current dose for the next 3 to 5 days and reassess. If he fails to respond, could consider alternative agents under the direction of hematology oncology. Typically steroids are tapered slowly over 4 to 6 weeks 3. Multilobar pneumonia: Patient is currently day #6 cefepime and azithromycin. Procalcitonin was elevated on presentation but has been decreasing. Would complete 7-day course of antimicrobial therapy and follow. 4. Metastatic Lung Cancer -management per oncology. Given the possibility of grade 3 pembrolizumab pulmonary toxicity would not recommend rechallenging with this agent. 5. Atrial fibrillation with rapid ventricular response. Per primary service. Defer anticoagulation to primary service but at this point time I do not see any invasive procedures from a pulmonary standpoint which are imminent for the pa tient so would not have any issues with resuming anticoagulation if it is felt to be necessary given his low platelet counts and atrial fibrillation. Would try to avoid amiodarone given his underlying lung disease. Alternative agents per cardiology. Discussed extensively with multiple family members, and patient at bedside. Questions were answered to the best of my ability. They are in a greement with the plan as outlined. Admission and Anticipated Discharge Date Admission Date: December 09, 2022 Subjective Patient seen and examined. EMR reviewed. The patient is sitting up in bed. He is been able to wean his oxygen intermittently over the last 24 hours. For period of time he was down to rigid wall. He was back on noninvasive positive pressure ventilation overnight for a brief period of time and has been transitioned back to heated high flow but his flow rates are down and the FiO2 is stable. Patient does not report any cough. He states he has been able to perform some self-care and get out of bed. He denies chest pain. He is complaining of some leg pain. Review of Systems Review of Systems: All systems reviewed & are unremarkable except as noted in Subjective Physical Exam Constitutional: + ill appearing and + frail appearing Neck: trachea midline, no thyromegaly Respiratory: + tachypneic; no respiratory distress, no labored breathing and no cough Auscultation: + diminished lung sounds and + crackles Cardiovascular: Rate/Rhythm: + tachycardic and + irregularly irregular Heart Sounds: normal S1 and normal S2; no murmur Extremities: + edema Gastrointestinal (Abdomen): normal bowel sounds, soft, nontender, no hepatosplenomegaly Musculoskeletal: Extremities: extremities normal to inspection Skin: no rashes, warm and dry Lymphatic: no cervical lymphadenopathy Results & Data Results & Data ([facility]) Vital Signs (Past 12 Hours) Vital Signs Temp Pulse Pulse Resp BP BP Pulse Ox 12/14/22 12:09 62 24 144/82 H 98 12/14/22 11:11 65 24 100 12/14/22 10:00 70 03/04/23 10:00 12/14/22 08:05 36.6 C 72 22 160/85 H 97 12/14/22 07:43 73 28 H 100 12/14/22 02:42 36.3 C L 66 22 135/75 94 12/14/22 02:28 61 30 H 92 O2 Del Method O2 Flow Rate FiO2 12/14/22 12:09 High Flow Nasal Cannula 25 80 12/14/22 11:11 High Flow Nasal Cannula 25 100 12/14/22 10:00 12/14/22 10:00 High Flow Nasal Cannula 25 80 12/14/22 08:05 High Flow Nasal Cannula 25 80 12/14/22 07:43 High Flow Nasal Cannula 25 100 12/14/22 02:42 High Flow Nasal Cannula 25 100 12/14/22 02:28 High Flow Nasal Cannula 25 100 Critical Care Results & Data Vital Signs (Past 12 Hours) Vital Signs Temp Pulse Pulse Resp BP BP Pulse Ox 12/14/22 12:09 62 24 144/82 H 98 12/14/22 11:11 65 24 100 12/14/22 10:00 70 12/14/22 10:00 12/14/22 08:05 36.6 C 72 22 160/85 H 97 12/14/22 07:43 73 28 H 100 12/14/22 02:42 36.3 C L 66 22 135/75 94 12/14/22 02:28 61 30 H 92 O2 Del Method O2 Flow Rate FiO2 12/14/22 12:09 High Flow Nasal Cannula 25 80 12/14/22 11:11 High Flow Nasal Cannula 25 100 12/14/22 10:00 12/14/22 10:00 High Flow Nasal Cannula 25 80 12/14/22 08:05 High Flow Nasal Cannula 25 80 12/14/22 07:43 High Flow Nasal Cannula 25 100 12/14/22 02:42 High Flow Nasal Cannula 25 100 12/14/22 02:28 High Flow Nasal Cannula 25 100 Lab & Micro Results (Past 24 Hours) RBC 2.58 M/uL (4.70-6.10) L 12/14/22 WBC 6.51 K/ul (4.8-10.8) 12/14/22 Hgb 8.3 g/dl (14.0-18.0) L 12/14/22 Hct 24.1 % (42.0-52.0) L 12/14/22 MCV 93.4 fL (80.0-100.0) 12/14/22 MCH 32.2 pg (25.0-34.0) 12/14/22 MCHC 34.4 g/dL (32.0-36.0) 12/14/22 RDW Standard Deviation 49.6 fL (36.4-46.3) H 12/14/22 RDW Coefficient of Variation 14.6 % (11.5-14.5) H 12/14/22 Plt Count 41 K/uL (130-400) L 12/14/22 MPV 13.1 fL (9.4-12.4) H 12/14/22 Neutrophils (%) (Auto) 93.0 % 12/14/22 Lymphocytes (%) (Auto) 3.4 % 12/14/22 Monocytes # (Auto) 0.10 K/uL (0.11-0.59) L 12/14/22 Eosinophils # (Auto) 0.00 K/uL (0-0.50) 12/14/22 Immature Granulocyte % (Auto) 1.8 % 12/14/22 Neutrophils # (Auto) 6.05 K/uL (1.40-6.50) 12/14/22 Lymphocytes # (Auto) 0.22 K/uL (1.2-3.4) L 12/14/22 Monocytes # (Auto) 0.10 K/uL (0.11-0.59) L 12/14/22 Eosinophils # (Auto) 0.00 K/uL (0-0.50) 12/14/22 Basophils # (Auto) 0.02 K/uL (0-0.2) 12/14/22 Immature Granulocyte # (Auto) 0.12 K/uL (0.01-0.20) 3 Toxic Granulation 1+ 12/14/22 Na 133 mmol/L (136-145) L 12/14/22 K 4.5 mmol/L (3.5-5.1) 12/14/22 Cl 100 mmol/L (98-107) 12/14/22 CO2 20 mmol/L (21-32) L 12/14/22 Anion Gap 13 (3-11) H 12/14/22 BUN 80 mg/dl (6-23) H 12/14/22 Creatinine 3.14 mg/dl (0.6-1.4) H 12/14/22 Estimated GFR ( Amer) 21.9 ml/min 12/14/22 Estimated GFR (Non-Af Amer) 18.9 ml/min 12/14/22 BUN/Creatinine Ratio 25.5 (10-20) H 12/14/22 Glu 152 mg/dl (70-99(Fasting)) H 12/14/22 Ca 9.2 mg/dl (8.5-10.1) 12/14/22 Calcium Level 9.2 mg/dl (8.5-10.1) 12/14/22 05:31 Microbiology 12/09/22 10:43 Aerobic Blood Culture - Final Blood No growth in Aerobic bottle after 5 days. Anaerobic Blood Culture - Final No growth in Anaerobic bottle after 5 days. 12/09/22 10:43 Aerobic Blood Culture - Final Blood No growth in Aerobic bottle after 5 days. Anaerobic Blood Culture - Final No growth in Anaerobic bottle after 5 days. I & O Totals 24 Hours 12/13/22 12/14/22 12/15/22 06:59 06:59 06:59 Intake Total 677.000 / 677.000 713.313 / 713.313 Output Total 2375 / 2375 801 / 801 Balance -1698.000 / -1698.000 -87.687 / -87.687 Cumulative 12/09/22 09:42 thru 12/14/22 05:43 Intake Total 7767.980 Output Total 8812 Balance -1058.020 RT Ventilator Mngmt (Last Documented) Ventilator Ordered Settings Respiratory Rate 24 12/14/22 12:09 Fraction of Inspired Oxygen 80 12/14/22 12:09 Ventilator - PT Measurements Respiratory Rate 24 PG Care Time/CCT Total # of Minutes Spent Total Time Spent with Patient: Total time spent is greater than 50% in coordination of care (as documented) at patient's floor/unit and/or counseling patient: Coding Level of Care Code 99899 SUB INP/OBS CARE 2/35MIN Diagnoses Respiratory failure J96.90 Hypoxia R09.02 Lung cancer C34.90 Lung mass R91.8 Malignant pleural effusion J91.0
[2022-12-14] MEDS: ACETAMINOPHEN 325 MG TAB PO PRN (15:01)
[2022-12-14] MEDS ORDERED: PRAMIPEXOLE DIHYDROCHLO 0.25 MG TAB PO SCH (21:00)
--- NOTE | 2022-12-14 21:05 | Hospitalist Progress Note ---
Date of Service December 14, 2022 Assessment & Plan (1) Acute encephalopathy: Plan: ongoing. metabolic from pneumonia, acute kidney injury, combo of factors? toxic from steroids? suspect all of the above. cont scheduled melatonin at HS. defer on antipsychotics - not certain he would tolerate such, but we may be forced to do so if he does not get rest soon. by report he has severe RLS type symptoms. will start tiny dose of mirapex - this may help him rest. avoid sedatives/benzos/etc. (2) Acute respiratory failure with hypoxia: Plan: Ongoing but O2 requirements improved. Now on oxymask. 2nd to bacterial pneumonia. +/- moderate sized right-sided pleural effusion - likely malignant - probably also contributing to his resp failure but to a lesser degree. +/- acute diastolic CHF. +/- pembrolizumab induced pneumonitis. Cont steroids for possible pneumonitis. Day #6 of IV abx for pneumonia. Plan 7 days then stop. No intervention planned for right sided pleural effusion (low platelets, tenuous respiratory status, and risks likely outweigh benefits of intervention). NO further diuresis given BELIA. (3) Sepsis: Plan: 2nd to b/l pneumonia. Negative blood cultures from admission. Cont broad-spectrum IV abx including cefepime + zithromax. Day #5 of abx. Can stop zithromax after today's dose. Respiratory BioFire fully negative including RSV/flu/COVID. legionella urine ag still pending. sputum cx negative. Cont supportive care measures as in #1 above. (4) Pneumonia: Plan: Diffuse, b/l pneumonia. Overall status is unchanged. CXR unchanged. Elevated procal supportive of bacterial etiology. Respiratory BioFire fully negative. CRP very high as noted above. Cont cefepime + azithromycin IV. day #6 of such. zithromax course completed. MRSA swab negative; MRSA coverage deferred. Cont pulm toilet with flutter valve/incentive lisa. Cont robitussin 200mg qid. Cont bronchodilators. Cont solumedrol. await urine legionella ag. blood/sputum cx's negative. Appreciate pulmonary consultation and recs. (5) Pancytopenia due to chemotherapy: Plan: s/p 2 unit PRBCs since admission with improved and stable H/H. NO overt GI bleeding. platelets low but have remained about 35-45. wbc count stable. cbc am. (6) BELIA (acute kidney injury): Plan: sepsis-associated + prerenal from diuresis w/ lasix hold further diuretics worse today fortunately he remains nonoliguric mcdaniel with no evidence of obstruction repeat BMP in am if PO intake is poor may need fluid challenge w/ any worsening Cr (7) Atrial fibrillation with RVR: Plan: has been going back/forth from rapid a.fib to NSR multiple times since admission. rate control has been challenging when in a.fib with BB + CCB. when he is in rapid a.fib he has considerable decompensation with worsening respiratory status. after conversion to NSR yesterday elected to start IV amiodarone to try & maintain NSR. he remains in NSR. stop amio drip tonight then convert to PO amio 200mg BID. (8) Malignant pleural effusion: Plan: right-sided, chronic. no change in size on serial cxrs. pulmonary had given consideration to thoracentesis for therapeutic purposes but holding off at this time due to low platelets and tenuous status. further, benefits likely outweighed by risks at this time. (9) Anemia: Plan: see #4 above fecal occult blood NEGATIVE retic count low LDH mildly high but no evidence of hemolysis cbc am for stability (10) Hyperlipidemia: Plan: Continue atorvastatin 10 mg p.o. daily recheck LFTs am (11) Paroxysmal atrial fibrillation: Plan: he takes chronic Eliquis + metoprolol. baseline rhythm is typically sinus on chronic basis. see above re: amiodarone (12) Bladder carcinoma: Plan: Low-grade papillary urothelial carcinoma s/p cystoscopy and TURBT. follows with [facility] for ongoing management. (13) Hypertension: Plan: Continue metoprolol tartrate 50 mg p.o. BID Cont to Hold amlodipine BPs controlled/stable (14) Lung cancer: Plan: stage 4 previous biopsy suggested the following -- pleomorphic carcinoma of pulmonary origin, large cell carcinoma of pulmonary origin, or poorly differentiated adenocarcinoma of pulmonary origin. Remains on maintenance pemetrexed/pembrolizumab chemotherapy. See discussion above re: possibility of pneumonitis from pembrolizumab therapy. previous imaging with bone mets, etc. there is concern for pembrolizumab induced pneumonitis thus high-dose IV steroids initiated day #3 of such (15) Personal history of tobacco use: Plan: offered nicorette gum prn despite long-standing tobacco use no formal dx of COPD cont bronchodilators for wheezing (16) Hypokalemia: Plan: replaced resolved (17) Hypomagnesemia: Plan: replaced resolved (18) History of duodenal ulcer: Plan: 10/02 - along with gastric ulcers H/H stable x 4 days -- doubt Gi bleeding (and fecal occult is negative) cont PPI (19) Dysphagia: Plan: in light of coughing with drinking thin liquids speech therapy eval performed easy to chew diet due to poor dentition no other changes (20) Prediabetes: Plan: last documented Hba1c 09/2021 was <6.5% Plan DVT proph - eliquis - but placed on hold due to thrombocytopenia , 2 daughters extensively updated at bedside again today other family members were also present care d/w cardiology (informally) patient's status is guarded DNR/DNI Admission and Anticipated Discharge Date Admission Date: December 09, 2022 Subjective patient VERY talkative throughout the visit in fact he did not stop talking for about 20 minutes straight often shifting from topic to topic family reports this has been present all day he did not sleep last pm he apparently has been shaky today and reports he "kicks and moves around the bed all night" at home (chronic) did not use BIPAP overnight no cough sat in chair today did not desat as long with the transfer but still with [facility] denies pain any location tele - no a.fib; NSR Review of Systems Review of Systems: gen - no fevers; very tired cv - no orthopnea, no edema of legs pulm - no cough; ongoing wheezing GI - no pain or n/v; no diarrhea Physical Exam Physical Exam: gen - VERY talkative again today, jumping from 1 topic to the next; fast speech; NAD; looks exhausted like previous visits neck - no JVD mouth - MM slightly dry; no thrush heart - RRR, s1 s2, no murmur lungs - decreased BS right base; wheezes b/l but good airation; no tachypnea or retractions today; less dry, fine rales of left lung abd - soft NT ND BS+ ext - no edema, pulses 2+ b/l psych - agitated and mildly confused with pressured speech Results & Data Results & Data ([place]) Vital Signs (Past 12 Hours) Vital Signs Temp Pulse Pulse Resp BP BP Pulse Ox 12/14/22 20:11 78 29 H 93 12/14/22 19:09 36.3 C L 72 24 137/70 100 12/14/22 17:14 92 12/14/22 16:05 65 24 138/81 96 12/14/22 16:00 68 12/14/22 15:50 95 12/14/22 15:37 66 26 H 97 12/14/22 14:31 12/14/22 14:31 99 12/14/22 12:09 62 24 144/82 H 98 12/14/22 11:11 65 24 100 12/14/22 10:00 70 12/14/22 10:00 O2 Del Method O2 Flow Rate FiO2 12/14/22 20:11 Oxymask 15 12/14/22 19:09 Oxymask 15 12/14/22 17:14 Oxymask 15 12/14/22 16:05 High Flow Nasal Cannula 25 12/14/22 16:00 12/14/22 15:50 30 60 12/14/22 15:37 High Flow Nasal Cannula 25 95 12/14/22 14:31 High Flow Nasal Cannula 25 65 12/14/22 14:31 High Flow Nasal Cannula 25 70 12/14/22 12:09 High Flow Nasal Cannula 25 80 12/14/22 11:11 High Flow Nasal Cannula 25 100 12/14/22 10:00 12/14/22 10:00 High Flow Nasal Cannula 25 80 Laboratory Results Laboratory Results - last 24 hr 12/10/22 12/14/22 12/14/22 06:06 05:31 05:31 WBC RBC Hgb Hct MCV MCH MCHC RDW Std Deviation RDW Coeff of Jimbo Plt Count MPV Immature Gran % (Auto) Neut % (Auto) Lymph % (Auto) [place] % (Auto) Eos % (Auto) Baso % (Auto) Neut # (Auto) Lymph # (Auto) [place] # (Auto) Eos # (Auto) Baso # (Auto) Immature Gran # (Auto) Toxic Granulation Sodium 133 L Potassium 4.5 Chloride 100 Carbon Dioxide 20 L Anion Gap 13 H BUN 80 H D Creatinine 3.14 H D Est Cr Clr Drug Dosing 21.6 Est GFR ( Amer) 21.9 Est GFR (Non-Af Amer) 18.9 BUN/Creatinine Ratio 25.5 H Glucose 152 H Calcium 9.2 Ammonia 29.0 C-Reactive Protein 28.54 H A. phagocytophilum DNA Negative 12/14/22 05:31 WBC 6.51 RBC 2.58 L Hgb 8.3 L Hct 24.1 L MCV 93.4 MCH 32.2 MCHC 34.4 RDW Std Deviation 49.6 H RDW Coeff of Jimbo 14.6 H Plt Count 41 L MPV 13.1 H Immature Gran % (Auto) 1.8 Neut % (Auto) 93.0 Lymph % (Auto) 3.4 [place] % (Auto) 1.5 Eos % (Auto) 0.0 Baso % (Auto) 0.3 Neut # (Auto) 6.05 Lymph # (Auto) 0.22 L [place] # (Auto) 0.10 L Eos # (Auto) 0.00 Baso # (Auto) 0.02 Immature Gran # (Auto) 0.12 Toxic Granulation 1+ Sodium Potassium Chloride Carbon Dioxide Anion Gap BUN Creatinine Est Cr Clr Drug Dosing Est GFR ( Amer) Est GFR (Non-Af Amer) BUN/Creatinine Ratio Glucose Calcium Ammonia C-Reactive Protein A. phagocytophilum DNA PG Care Time/CCT Total # of Minutes Spent Total Time Spent with Patient: Total time spent is greater than 50% in coordination of care (as documented) at patient's floor/unit and/or counseling patient: Coding Level of Care Code 68746 SUB INP/OBS CARE 3/50MIN Diagnoses Acute encephalopathy G93.40 Acute respiratory failure with hypoxia J96.01 Sepsis A41.9 Pneumonia J18.9 Pancytopenia due to chemotherapy D61.810 BELIA (acute kidney injury) N17.9 Atrial fibrillation with RVR I48.91 Malignant pleural effusion J91.0 Anemia D64.9 Hyperlipidemia E78.5 Paroxysmal atrial fibrillation I48.0 Bladder carcinoma C67.9 Hypertension I10 Hypertension type: essential hypertension Lung cancer C34.90 Personal history of tobacco use Z87.891 Hypokalemia E87.6 Hypomagnesemia E83.42 History of duodenal ulcer Z87.19 Dysphagia R13.10 Prediabetes R73.03 (13) Hypertension Hypertension type: essential hypertension Qualified Code(s): I10 - Essential (primary) hypertension
[2022-12-14] MEDS: AMIODARONE 200 MG TAB PO SCH (21:49)
[2022-12-14] MEDS: ATORVASTATIN 10 MG TAB PO SCH (21:50)
[2022-12-14] MEDS: MELATONIN 3 MG TAB PO SCH (21:51)
[2022-12-15] MEDS: CEFEPIME 1,000 MG in SYRINGE 0 ML IV SCH ×2 (01:23→13:50)
[2022-12-15] MEDS: ALBUT/IPRATROP 3MG/0.5MG NEB 3 ML VIAL NEB SCH ×3 (02:30→11:32)
[2022-12-15] MEDS: methylPREDNISolone 80 MG in SYRINGE 0 ML IV SCH ×3 (06:32→14:12)
[2022-12-15 06:45] LABS: Hematocrit (blood only) 24.4 % (42.0-52.0); Hemoglobin 8.5 g/dl (14.0-18.0); Mean Corpuscular Hemoglobin 32.7 pg (25.0-34.0); Mean Corpuscular Hgb Conc 34.8 g/dL (32.0-36.0); Mean Corpuscular Volume 93.8 fL (80.0-100.0); Mean Platelet Volume 13.4 fL (9.4-12.4); Platelet Count 37 K/uL (130-400); RDW Coefficient of Variation 15.6 % (11.5-14.5); RDW Standard Deviation 53.5 fL (36.4-46.3); White Blood Count 7.18 K/ul (4.8-10.8)
[2022-12-15 06:52] LABS: Appearance Urine Clear (Clear); Bilirubin Urine Negative (Negative); Blood Urine 2+ (Negative); Color Urine Yellow; Epithelial Cell Urine Auto >30 /lpf (0-5); Glucose Urine UA Negative (Negative); Ketones Urine Negative (Negative); Leukocyte Esterase Urine Negative (Negative); Nitrite Urine Negative (Negative); Protein Urine 2+ (Negative); RBC Urine Automated 0-4 /hpf (0-4); Specific Gravity Urine 1.011 (1.000-1.030); Urobilinogen Urine Negative (Negative); pH Urine 5.5 (4.5-7.5)
[2022-12-15 07:21] LABS: Bacteria Urine Automated 1+ (Negative); Mucus Urine Present (None Prsent)
[2022-12-15 07:41] LABS: Albumin Globulin Ratio 0.8 (0.9-2); BUN Creatinine Ratio 27.8 (10-20); Bilirubin,Total 1.1 mg/dl (0.2-1.0); Calcium 9.1 mg/dl (8.5-10.1); Creatinine Clr Calc Pharmacy 18.8 ml/min; Est GFR (African American) 18.6 ml/min; Globulin 3.8 gm/dl (2.5-4.0); Potassium 4.4 mmol/L (3.5-5.1); Total Protein 6.8 gm/dl (6.0-8.3)
--- NOTE | 2022-12-15 09:04 | Pulmonology Progress Note ---
Date of Service December 15, 2022 Assessment & Plan (1) Respiratory failure: (2) Hypoxia: (3) Lung cancer: (4) Lung mass: (5) Malignant pleural effusion: Plan IMPRESSION: 72-year-old male with stage IV metastatic lung cancer (large cell vs pleomorphic or poorly differentiated adeno/malignant pleural effusion) presenting with respiratory failure and hypoxia in the setting of multifocal groundglass opacities as well as chronic moderate right pleural effusion. Differential for the opacities would include infectious etiologies (procalcitonin elevated), atypical pulmonary edema, transfusion associated circulatory overload, chemotherapeutic pulmonary toxicity and progression of malignancy. Patient is being treated for all reversible causes. He has received diuretics but kidney function has worsened. He is completing course of broad-spectrum antibiotics. He has been started empirically on steroids for potential pembrolizumab pulmonary toxicity. He has had significant improvement in his oxygenation associated with empiric steroids. RECOMMENDATIONS: 1. Pleural Effusion -The effusion has not significantly changed in size and has been chronic dating back for several months. We have discussed potentially intervening on the effusion to see if we can improve his breathing however his platelet count continues to be low enough to preclude thoracentesis. We could consider a platelet transfusion however given his prior episode of acute worsening of his respiratory status associated with administration of blood products, I am somewhat hesitant to pursue this approach. In addition, he continues to show clinical improvement and I would recommend holding off. If t he patient's platelet counts were to recover, could consider thoracentesis to see if it offers him any significant benefit at that time. 2. Diffuse pulmonary infiltrates with respiratory Failure with Hypoxia - multifactorial due to combinations of parenchymal lung disease with differential noted above as well as compressive atelectasis. Continue oxygen titrated to keep saturations at or above 90-92 %. Continue nightly BiPAP 10/5 nightly as needed. Patient's status is not amenable to bronchoscopy with BAL currently. Pembrolizumab pulmonary toxicity is typically a diagnosis of exclusion. Given the patient's clinical worsening, 12/13/22 elected to initiate steroids for potential pembrolizumab pulmonary toxicity (methylprednisolone 2 to 4 mg/kg/day for grade 3 toxicity). If this is pembrolizumab pulmonary toxicity, it does carry a significant mortality. He appears to be improving so would continue Solu-Medrol for now. If he continues to show clinical improvement, can transition to oral prednisone with plans to taper over the next 2 to 3 months. 3. Multilobar pneumonia: Patient is currently day #7 cefepime and azithromycin. Procalcitonin was elevated on presentation but has been decreasing. Recheck procalcitonin in the a.m. and if continues to improve, can discontinue anti biotics 4. Metastatic Lung Cancer -management per oncology. Given the possibility of grade 3 pembrolizumab pulmonary toxicity would not recommend rechallenging with this agent. 5. Atrial fibrillation with rapid ventricular response. Per primary service. Discussed extensively with multiple family members, and patient at bedside. Questions were answered to the best of my ability. They are in agreement with the plan as outlined. Admission and Anticipated Discharge Date Admission Date: December 09, 2022 Subjective Patient seen and examined. EMR reviewed. The patient is a little more lethargic today. He apparently slept poorly overnight. He has had significant improvement in his oxygenation and has been weaned to a rigid wall facemask. He is not coughing or expectorating phlegm. He reportedly had some shaking episodes overnight of unclear etiology. This does not appear to be seizure activity. He denies rigors. He was not febrile. He denies chest pain palpitations or significant lower extremity edema Review of Systems Review of Systems: All systems reviewed & are unremarkable except as noted in Subjective Physical Exam Constitutional: + ill appearing and + frail appearing Neck: trachea midline, no thyromegaly Respiratory: + tachypneic; no respiratory distress, no labored breathing and no cough Auscultation: + diminished lung sounds and + crackles Cardiovascular: Rate/Rhythm: + tachycardic and + irregularly irregular Heart Sounds: normal S1 and normal S2; no murmur Extremities: + edema Gastrointestinal (Abdomen): normal bowel sounds, soft, nontender, no hepatosplenomegaly Musculoskeletal: Extremities: extremities normal to inspection Skin: no rashes, warm and dry Lymphatic: no cervical lymphadenopathy Results & Data Results & Data ([facility]) Vital Signs (Past 12 Hours) Vital Signs Temp Pulse Pulse Resp BP BP Pulse Ox 12/15/22 08:07 12/15/22 08:04 89 L 12/15/22 08:03 83 L 12/15/22 08:03 36.7 C 79 22 142/71 H 90 12/15/22 07:31 75 26 H 92 12/15/22 02:57 36.3 C L 66 24 156/83 H 92 12/15/22 02:31 77 30 H 97 12/14/22 22:01 77 12/14/22 22:57 36.3 C L 69 19 146/80 H 97 12/14/22 22:00 O2 Del Method O2 Flow Rate 12/15/22 08:07 Oxymask 13 12/15/22 08:04 Oxymask 13 12/15/22 08:03 Oxymask 11 12/15/22 08:03 Oxymask 11 12/15/22 07:31 Oxymask 11 12/15/22 02:57 Oxymask 15 12/15/22 02:31 Oxymask 15 12/14/22 22:01 12/14/22 22:57 Oxymask 15 12/14/22 22:00 Oxymask 15 Laboratory Results 12/15/22 06:28 12/15/22 06:28 Diagnostic Findings No new imaging PG Care Time/CCT Total # of Minutes Spent Total Time Spent with Patient: Total time spent is greater than 50% in coordination of care (as documented) at patient's floor/unit and/or counseling patient: Coding Level of Care Code 84127 SUB INP/OBS CARE 2/35MIN Diagnoses Respiratory failure J96.90 Hypoxia R09.02 Lung cancer C34.90 Lung mass R91.8 Malignant pleural effusion J91.0
[2022-12-15] MEDS: AMIODARONE 200 MG TAB PO SCH ×2 (09:27→21:48)
[2022-12-15] MEDS: PANTOprazole 40 MG TAB PO SCH ×2 (09:28→21:49)
[2022-12-15] MEDS: METOPROLOL TARTRATE 50 MG TAB PO SCH ×2 (09:28→21:49)
[2022-12-15] MEDS: guaiFENesin SUGAR FREE 100 MG/5 ML UDC PO SCH ×4 (09:28→21:49)
[2022-12-15] MEDS: SENNA 8.6 MG TAB PO SCH (09:28)
[2022-12-15] MEDS ORDERED: haloperidoL 1 MG TAB PO ONE (09:30)
[2022-12-15] MEDS ORDERED: SODIUM CHLORIDE 0.65% NA SOLN 45 ML (OCEAN) PRN (10:18)
[2022-12-15] MEDS: POLYETHYLENE (MIRALAX) 17 GM PACK PO SCH (10:22)
[2022-12-15] MEDS ORDERED: LACTATED RINGER'S 1,000 ML IV SCH (10:30)
[2022-12-15] MEDS ORDERED: MoRPHine SULFATE 10 MG/0.5 ML UDP PO ONE (11:10)
--- NOTE | 2022-12-15 13:25 | Hospitalist Progress Note ---
Date of Service December 15, 2022 Assessment & Plan (1) Acute encephalopathy: Plan: ongoing, worse than yesterday. severe agitated delirium. has not slept in 5+ days. multifactorial causes -- metabolic from pneumonia, acute kidney injury, hypoxia, etc. toxic from steroids. etc. no response to low-dose haldol this am. roxanol low-dose has no effect in helping his air hunger/dyspnea. cont scheduled melatonin at HS. cont to avoid sedatives/antihistamines/benzos/etc lengthy discussion held w/ pt's 2 daughters & . discussed options for Rx. will start zyprexa 2.5mg IM x 1 at HS tonight. if no response may need to repeat the dose. if delirium persists or focal neuro signs emerge - CT head; at risk of ICH due to low platelets, etc. I corresponded with Dr Connolly - we will lower his solumedrol starting today from 80mg IV TID to 40mg BID, then can lower further to prednisone 30mg daily (if he can take PO). (2) Acute respiratory failure with hypoxia: Plan: Ongoing. Worse today due to agitated delirium. Waxing/waning O2 requirements depending on his level of agitation. VBG checked - still no CO2 retention. If he needs NIPPV - use CPAP in sandra of BIPAP. resp failure 2nd to bacterial pneumonia. +/- moderate sized right-sided pleural effusion - likely malignant - probably also contributing to his resp failure but to a lesser degree. +/- acute diastolic CHF (resolved). +/- pembrolizumab induced pneumonitis (suspected). Cont steroids for possible pneumonitis but lowering the dose (will change solumedrol to 40mg BID today, then over to PO prednisone tomorrow). Day #7 of IV abx for pneumonia. STop cefepime this pm. No intervention planned for right sided pleural effusion (low platelets, tenuous respiratory status, and risks likely outweigh benefits of intervention). NO further diuresis given BELIA. repeat a cxr in am tomorrow. (3) Sepsis: Plan: 2nd to b/l pneumonia. Negative blood cultures from admission. Has completed 5 days zithromax + 7 days of cefepime. Respiratory BioFire fully negative including RSV/flu/COVID. legionella urine ag still pending. sputum cx negative. Cont supportive care measures as in #1 above. (4) Pneumonia: Plan: Diffuse, b/l pneumonia. Overall status is unchanged. CXR unchanged. Elevated procal supportive of bacterial etiology. Respiratory BioFire fully negative. CRP very high as noted above. Completed full course of abx as above. Wean steroids. Hold albuterol - might be contributing to agitation. await urine legionella ag. blood/sputum cx's negative. Appreciate pulmonary consultation and recs. (5) Pancytopenia due to chemotherapy: Plan: s/p 2 unit PRBCs since admission with improved and stable H/H. platelets low but have remained about 35-45 and there has been no overt bleeding. wbc count stable. cbc am. (6) BELIA (acute kidney injury): Plan: worse. sepsis-associated + prerenal from diuresis w/ lasix + volume depletion at this point due to poor PO intake hold further diuretics mcdaniel give LR x 1 liter repeat BMP this afternoon, then again in am BELIA likely contributing to his delirium as BUN is now 100 (7) Atrial fibrillation with RVR: Plan: resolved s/p amio drip now over to PO amio 200mg BID I do not think the amiodarone caused the LFT elevation - LFTs were already rising before amio was initiated (8) Malignant pleural effusion: Plan: right-sided, chronic. no change in size on serial cxrs. pulmonary had given consideration to thoracentesis for therapeutic purposes but holding off at this time due to low platelets and tenuous status. further, benefits likely outweighed by risks at this time. (9) Anemia: Plan: see #4 above fecal occult blood NEGATIVE retic count low LDH mildly high but no evidence of hemolysis cbc am for stability (10) Hyperlipidemia: Plan: Hold atorvastatin 10 mg p.o. daily due to abnormal LFTs (11) Paroxysmal atrial fibrillation: Plan: he takes chronic Eliquis + metoprolol. baseline rhythm is typically sinus on chronic basis. see above re: amiodarone (12) Bladder carcinoma: Plan: Low-grade papillary urothelial carcinoma s/p cystoscopy and TURBT. follows with [facility] urology for ongoing management. (13) Hypertension: Plan: Continue metoprolol tartrate 50 mg p.o. BID if able to take PO meds Cont to Hold amlodipine BPs acceptable (14) Lung cancer: Plan: stage 4 previous biopsy suggested the following -- pleomorphic carcinoma of pulmonary origin, large cell carcinoma of pulmonary origin, or poorly differentiated adenocarcinoma of pulmonary origin. Remains on maintenance pemetrexed/pembrolizumab chemotherapy. See discussion above re: possibility of pneumonitis from pembrolizumab therapy. previous imaging with bone mets, etc. there is concern for pembrolizumab induced pneumonitis thus high-dose IV steroi ds initiated day #3 of such (15) Personal history of tobacco use: Plan: nicorette gum prn despite long-standing tobacco use no formal dx of COPD cont bronchodilators prn (16) Hypokalemia: Plan: replaced resolved (17) Hypomagnesemia: Plan: replaced resolved (18) History of duodenal ulcer: Plan: 10/02 - along with gastric ulcers H/H stable heme neg stool cont PPI (19) Dysphagia: Plan: in light of coughing with drinking thin liquids speech therapy eval performed easy to chew diet due to poor dentition no other changes but appetite very poor due to above factors (20) Prediabetes: Plan: last documented Hba1c 09/2021 was <6.5% Plan DVT proph - eliquis - but placed on hold due to thrombocytopenia , 2 daughters extensively updated at bedside again today on multiple visits very lengthy discussion held with family this afternoon to try and refine goals of care for the next 24-48 hours in light of rapidly declining status family still in agreement re: DNR/DNI status and no escalation of care hopefully antipsychotics will help him rest tonight if no improvement by tomorrow we may need to initiate a palliative care pathway/comfort care measures total time today over multiple visits, complex care coordination, multiple discussions with family, etc - 85 min Admission and Anticipated Discharge Date Admission Date: December 09, 2022 Subjective patient very restless/agitated during my visit per staff he did not sleep at all overnight did not eat breakfast severe tremors constantly shifting in bed trying to get comfortable per family he is hallucinating, seeing bugs on the garcia, sheets, etc unable to tell staff where he is unable to provide any meaningful history/ros during my visit has been alternating between HFNC and oxymask despite rising creatinine his UOP has been satisfactory by report no cough this am gave small dose of PO haldol without any change in agitation small dose of roxanol also not effective tele - no a.fib, NSR only Review of Systems Review of Systems: Unobtainable due to cognitive status Physical Exam Physical Exam: gen - agitated delirium, shifting in bed constantly, looks uncomfortable, tachypneic/increased work of breathing neck - no JVD mouth - MM dry heart - RRR, s1 s2, no murmur lungs - decreased BS right base; wheezes b/l - no change from yesterday; tachypneic and distressed today; no rales either lung abd - soft NT ND BS+ ext - no edema, pulses 2+ b/l psych - agitated, confused - mcdaniel in place, urine is clear Results & Data Results & Data ([facility]) Vital Signs (Past 12 Hours) Vital Signs Temp Pulse Pulse Resp BP BP Pulse Ox 12/15/22 12:09 66 24 146/79 H 94 12/15/22 11:39 69 26 H 96 12/15/22 05:59 68 12/15/22 08:07 12/15/22 08:04 89 L 12/15/22 08:03 83 L 12/15/22 08:03 36.7 C 79 22 142/71 H 90 12/15/22 07:31 75 26 H 92 12/15/22 02:57 36.3 C L 66 24 156/83 H 92 12/15/22 02:31 77 30 H 97 O2 Del Method O2 Flow Rate 12/15/22 12:09 Oxymask 14 12/15/22 11:39 Oxymask 13 12/15/22 05:59 12/15/22 08:07 Oxymask 13 12/15/22 08:04 Oxymask 13 12/15/22 08:03 Oxymask 11 12/15/22 08:03 Oxymask 11 12/15/22 07:31 Oxymask 11 12/15/22 02:57 Oxymask 15 12/15/22 02:31 Oxymask 15 Laboratory Results Laboratory Results - last 24 hr 12/10/22 12/15/22 12/15/22 06:06 06:28 06:28 WBC 7.18 RBC 2.60 L Hgb 8.5 L Hct 24.4 L MCV 93.8 MCH 32.7 MCHC 34.8 RDW Std Deviation 53.5 H RDW Coeff of Jimbo 15.6 H Plt Count 37 L MPV 13.4 H Sodium 131 L Potassium 4.4 Chloride 99 Carbon Dioxide 19 L Anion Gap 13 H BUN 100 H D Creatinine 3.60 H D Est Cr Clr Drug Dosing 18.8 Est GFR ( Amer) 18.6 Est GFR (Non-Af Amer) 16.0 BUN/Creatinine Ratio 27.8 H Glucose 139 H Calcium 9.1 Total Bilirubin 1.1 H AST 122 H ALT 179 H Alkaline Phosphatase 105 H Total Protein 6.8 Albumin 3.0 L Globulin 3.8 Albumin/Globulin Ratio 0.8 L Urine Color Urine Appearance Urine pH Ur Specific [place] Urine Protein Urine Glucose (UA) Urine Ketones Urine Blood Urine Nitrite Urine Bilirubin Urine Urobilinogen Ur Leukocyte Esterase Urine WBC (Auto) Urine RBC (Auto) U Hyaline Cast (Auto) U Epithel Cells (Auto) Urine Bacteria (Auto) Ur Renal Epithelial Cell Urine Mucus Urine Yeast A. phagocytophilum DNA Negative 12/15/22 06:35 WBC RBC Hgb Hct MCV MCH MCHC RDW Std Deviation RDW Coeff of Jimbo Plt Count MPV Sodium Potassium Chloride Carbon Dioxide Anion Gap BUN Creatinine Est Cr Clr Drug Dosing Est GFR ( Amer) Est GFR (Non-Af Amer) BUN/Creatinine Ratio Glucose Calcium Total Bilirubin AST ALT Alkaline Phosphatase Total Protein Albumin Globulin Albumin/Globulin Ratio Urine Color Yellow Urine Appearance Clear Urine pH 5.5 Ur Specific [place] 1.011 Urine Protein 2+ H Urine Glucose (UA) Negative Urine Ketones Negative Urine Blood 2+ H Urine Nitrite Negative Urine Bilirubin Negative Urine Urobilinogen Negative Ur Leukocyte Esterase Negative Urine WBC (Auto) 5-10 H Urine RBC (Auto) 0-4 U Hyaline Cast (Auto) 5-10 H U Epithel Cells (Auto) >30 H Urine Bacteria (Auto) 1+ H Ur Renal Epithelial Cell Not Reportable Urine Mucus Present A Urine Yeast Not Reportable A. phagocytophilum DNA PG Care Time/CCT Total # of Minutes Spent Total Time Spent with Patient: Total time spent is greater than 50% in coordination of care (as documented) at patient's floor/unit and/or counseling patient: Prolonged Care Time Prolonged Care Time: Yes Total Prolonged Care Time: 85 Coding Level of Care Code 58296 SUB INP/OBS CARE 3/50MIN (25 - SIGNIFICANT, SEPARATELY IDENTIFIABLE ) Diagnoses Acute encephalopathy G93.40 Acute respiratory failure with hypoxia J96.01 Sepsis A41.9 Pneumonia J18.9 Pancytopenia due to chemotherapy D61.810 BELIA (acute kidney injury) N17.9 Atrial fibrillation with RVR I48.91 Malignant pleural effusion J91.0 Anemia D64.9 Hyperlipidemia E78.5 Paroxysmal atrial fibrillation I48.0 Bladder carcinoma C67.9 Hypertension I10 Hypertension type: essential hypertension Lung cancer C34.90 Personal history of tobacco use Z87.891 Hypokalemia E87.6 Hypomagnesemia E83.42 History of duodenal ulcer Z87.19 Dysphagia R13.10 Prediabetes R73.03 Additional Codes Prolonged Care Time - Prolonged Care Time: Yes ([id number]) (13) Hypertension Hypertension type: essential hypertension Qualified Code(s): I10 - Essential (primary) hypertension
[2022-12-15 15:34] LABS: Base Excess VBG -6.7 mEq/L; HCO3 VBG 17 mmol/L; Oxygen Saturation VBG 95.2 %; PCO2 VBG 30 mmHg (38-50); PO2 VBG 69 mmHg; pH VBG 7.37 (7.36-7.41)
[2022-12-15 15:54] LABS: BUN Creatinine Ratio 26.3 (10-20); C Reactive Protein 18.76 mg/dl (0-0.5); Calcium 8.8 mg/dl (8.5-10.1); Est GFR (African American) 17.6 ml/min; Est GFR (Non-African American) 15.2 ml/min; Potassium 4.5 mmol/L (3.5-5.1)
[2022-12-15] MEDS ORDERED: OLANZapine 10 MG/2.1 ML SDV IM ONE ×2 (20:00→23:43)
[2022-12-15] MEDS: methylPREDNISolone 40 MG in SYRINGE 0 ML IV SCH (20:30)
[2022-12-15] MEDS: MELATONIN 3 MG TAB PO SCH (21:49)
[2022-12-16] MEDS ORDERED: OLANZapine 10 MG/2.1 ML SDV IM STA (01:41)
[2022-12-16 07:04] LABS: Albumin Globulin Ratio 0.8 (0.9-2); Albumin Level 3.1 gm/dl (3.4-5.0); BUN Creatinine Ratio 26.5 (10-20); Bilirubin,Total 1.1 mg/dl (0.2-1.0); Creatinine Clr Calc Pharmacy 16.4 ml/min; Est GFR (African American) 15.8 ml/min; Est GFR (Non-African American) 13.6 ml/min; Globulin 3.9 gm/dl (2.5-4.0); Potassium 4.7 mmol/L (3.5-5.1)
[2022-12-16 07:24] LABS: Hemoglobin 8.6 g/dl (14.0-18.0); Mean Corpuscular Hemoglobin 32.3 pg (25.0-34.0); Mean Corpuscular Hgb Conc 35.8 g/dL (32.0-36.0); Mean Corpuscular Volume 90.2 fL (80.0-100.0); Platelet Count 30 K/uL (130-400); RDW Coefficient of Variation 16.1 % (11.5-14.5); RDW Standard Deviation 52.9 fL (36.4-46.3); Red Blood Count 2.66 M/uL (4.70-6.10); White Blood Count 6.31 K/ul (4.8-10.8)
[2022-12-16 07:27] LABS: Basophils # (auto) 0.02 K/uL (0-0.2); Basophils % (auto) 0.3 %; Immature Granulocytes # (auto) 0.12 K/uL (0.01-0.20); Immature Granulocytes % (auto) 1.9 %; Lymphocytes # (auto) 0.13 K/uL (1.2-3.4); Lymphocytes % (auto) 2.1 %; Monocytes # (auto) 0.05 K/uL (0.11-0.59); Monocytes % (auto) 0.8 %; Neutrophils # (auto) 5.99 K/uL (1.40-6.50); Neutrophils % (auto) 94.9 %; Polychromasia 1+; Target Cells 1+
--- NOTE | 2022-12-16 08:04 | XRay Report ---
SINGLE VIEW CHEST CLINICAL HISTORY: Pleural effusion. Pneumonia FINDINGS: An AP, portable, upright chest radiograph is compared to study dated 12/13/2022 and correlate d with chest CT dated 12/09/2022. The examination is degraded by portable technique and patient rotati on. The cardiomediastinal silhouette is unremarkable noting atherosclerotic calcification of the thor acic aorta. Volume loss and parenchymal scarring in the right lung is similar to previous., As is a p leural effusion the right lung base. There is increasing airspace consolidation throughout the left l santosh as compared to previous. No pneumothorax is seen. The skeletal structures are osteopenic. The bon y thorax is grossly intact. IMPRESSION: 1. There is increasing airspace consolidation throughout the left lung as compared to 12/13/2022. 2. A right pleural effusion with right basilar consolidation is similar to previous. ACT 112: Negative or not required by law. Electronically signed by: Silverio Szymanski M.D. 12/16/2022 8:03 AM
[2022-12-16] MEDS ORDERED: ONDANSETRON INJ 2 MG/ML 2 ML VIAL IV PRN (13:16)
[2022-12-16] MEDS ORDERED: HYDROmorphone BOLUS from BAG IV PRN ×3 (13:16→19:02)
[2022-12-16] MEDS ORDERED: LORazepam 0.5 MG TAB PO PRN (13:16)
[2022-12-16] MEDS ORDERED: GLYCOPYRROLATE 0.2 MG/ML VIAL IV PRN (13:16)
[2022-12-16] MEDS ORDERED: ONDANSETRON 4 MG OD TAB SL PRN (13:16)
[2022-12-16] MEDS ORDERED: LORazepam 2 MG/1 ML VIAL IV PRN ×2 (13:16→19:05)
--- NOTE | 2022-12-16 13:22 | Pulmonology Progress Note ---
Date of Service December 16, 2022 Assessment & Plan (1) Respiratory failure: (2) Hypoxia: (3) Lung cancer: (4) Lung mass: (5) Malignant pleural effusion: (6) End of life care: Plan IMPRESSION: 72-year-old male with stage IV metastatic lung cancer (large cell vs pleomorphic or poorly differentiated adeno/malignant pleural effusion) presenting with respiratory failure and hypoxia in the setting of multifocal groundglass opacities as well as chronic moderate right pleural effusion. Differential for the opacities would include infectious etiologies (procalcitonin elevated), atypical pulmonary edema, transfusion associated circulatory overload, chemotherapeutic pulmonary toxicity and progression of malignancy. Patient is being treated for all reversible causes. He has received diuretics but kidney function has worsened. He is completing course of broad-spectrum antibiotics. He has been started empirically on steroids for potential pembrolizumab pulmonary toxicity. RECOMMENDATIONS: The patient is gravely ill and has worsening renal function and delirium. His BUN continues to climb. His hypoxia has not significantly improved. His x-ray appears mildly worse today particularly with the left-sided infiltrates. He has not had a positive response to therapy. I had a lengthy discussion with the family. They wish to proceed with comfort measures only at this time which I think is reasonable. Discussed with hospitalist who is in agreement. I placed the comfort care order set. Admission and Anticipated Discharge Date Admission Date: December 09, 2022 Subjective I had a lengthy discussion with the patient's and daughter in the ICU waiting room. We discussed his goals of care and his quality of life. They indicated that his wishes would not be aggressive measures if his condition was determined to be poor or gravely ill. They indicated that he was a very active individual and would not want prolonging measures such as dialysis or mechanical ventilation. They note that he has been more more lethargic and at times when pressed he has been agitated. They wish to proceed with a comfort care order set and understand that he may progressively become comatose with the use of medications to improve his level of discomfort incision such as dilaudid. Review of Systems Review of Systems: All systems reviewed & are unremarkable except as noted in HPI & below Physical Exam Physical Exam: Patient seen. He appears to be resting comfortably on his right side. He remains on high flow oxygen. Rest of exam deferred. Results & Data Results & Data ([facility]) Vital Signs (Past 12 Hours) Vital Signs Temp Pulse Pulse Resp BP BP Pulse Ox 12/16/22 11:27 36.2 C L 88 24 163/77 H 98 12/16/22 10:32 80 12/16/22 10:07 12/16/22 07:54 36.2 C L 79 26 H 154/74 H 97 12/16/22 06:58 78 26 H 100 12/16/22 05:04 36.3 C L 79 22 157/78 H 96 12/16/22 02:13 65 96 O2 Del Method O2 Flow Rate FiO2 12/16/22 11:27 High Flow Nasal Cannula 30 85 12/16/22 10:32 12/16/22 10:07 High Flow Nasal Cannula 40 85 12/16/22 07:54 High Flow Nasal Cannula 12/16/22 06:58 High Flow Nasal Cannula 30 100 12/16/22 05:04 High Flow Nasal Cannula 30 100 12/16/22 02:13 High Flow Nasal Cannula 30 100 PG Care Time/CCT Total # of Minutes Spent Total Time Spent with Patient: Total time spent is greater than 50% in coordination of care (as documented) at patient's floor/unit and/or counseling patient: Coding Level of Care Code 83390 SUB INP/OBS CARE 3/50MIN Diagnoses Respiratory failure J96.90 Hypoxia R09.02 Lung cancer C34.90 Lung mass R91.8 Malignant pleural effusion J91.0 End of life care Z51.5
[2022-12-16] MEDS: AMIODARONE 200 MG TAB PO SCH (13:23)
[2022-12-16] MEDS: guaiFENesin SUGAR FREE 100 MG/5 ML UDC PO SCH ×2 (13:23→13:25)
[2022-12-16] MEDS: POLYETHYLENE (MIRALAX) 17 GM PACK PO SCH (13:24)
[2022-12-16] MEDS: SENNA 8.6 MG TAB PO SCH (13:24)
[2022-12-16] MEDS: METOPROLOL TARTRATE 50 MG TAB PO SCH (13:24)
[2022-12-16] MEDS: methylPREDNISolone 40 MG in SYRINGE 0 ML IV SCH (13:24)
[2022-12-16] MEDS: PANTOprazole 40 MG TAB PO SCH (13:24)
[2022-12-16] MEDS ORDERED: HYDROmorphone/NSS 100 MG/100 ML BAG IV SCH (13:30)
--- NOTE | 2022-12-16 13:59 | Hospitalist Progress Note ---
Date of Service December 16, 2022 Assessment & Plan (1) Palliative care status: Plan: multiple palliative care discussions over the last 48 hours due to worsening status. multi-organ dysfunction in the setting of lung cancer and multiple other medical problems. despite considerable supportive care - high dose steroids, diuresis, Rx of rapid a.fib, full course of IV antibiotics, BIPAP/CPAP/HFNC - respiratory status has remained tenuous for several days. clinical course complicated by worsening acute renal failure, abnormal LFTs, severe thrombocytopenia, and severe agitated delirium. FiO2 requirement remains very high, and cxr continues to show worsening airspace disease L>R. lengthy discussion with pt's /2 daughters this am. strongly recommended transition to comfort care pathway. despite our best efforts to get him through multi-organ failure he has remained uncomfortable and agitated. pulmonary met with family - they also recommend transition to comfort care. family in agreement with such. palliative care then consulted and Ms Mavis Copeland met with pt's family as well. appreciate pulmonary & palliative care assistance. plan - * d/c steroids, abx, labs, vitals, other oral meds * defer comfort meds to palliative care * d/c tele, transfer to med/surg for end-of-life care/comfort care pathway * offered family music education adjunct professor consult - declined * offered to contact their local orthodoxy/transfer and line up worker - declined * support given to pt's & 2 daughters (2) Acute encephalopathy: Plan: ongoing. severe agitated delirium. has not slept soundly in 6+ days. multifactorial causes -- metabolic from pneumonia, acute kidney injury, hypoxia, etc. toxic from steroids. poor response to IM zyprexa 2.5mg x 2 doses overnight. transitioning to comfort care pathway. ativan/haldol prn. (3) Acute respiratory failure with hypoxia: Plan: SEVERE. Ongoing. Acute resp failure 2nd to bacterial pneumonia. +/- moderate sized right-sided pleural effusion - likely malignant - probably also contributing to his resp failure but to a lesser degree. +/- acute diastolic CHF (resolved). +/- pembrolizumab induced pneumonitis (suspected). Ongoing, worsening status despite Rx of all components above. Transitioning now to comfort care pathway. d/c abx, steroids, etc. (4) Sepsis: Plan: 2nd to b/l pneumonia. Negative blood cultures from admission. Completed 5 days zithromax + 7 days of cefepime. Respiratory BioFire fully negative including RSV/flu/COVID. legionella urine ag still pending. sputum cx negative. Transition to comforrt care measures only. (5) Pneumonia: Plan: Diffuse, b/l pneumonia. Worse despite Rx of bacterial pneumonia for 7 days with broad-spectrum abx. This is also despite improvement in procal, crp, and wbc count. Atypical infection ? (PJP? Fungal? other?) Not a candidate for high-dose bactrim therapy due to BELIA even if PJP suspected. Not a good candidate for anti-fungal empiric therapy due to abnormal LFTs and interaction with amiodarone. Regardless - transitioning now to comfort care. (6) Pancytopenia due to chemotherapy: Plan: s/p 2 unit PRBCs since admission platelets 30 today - cont to trend down (7) BELIA (acute kidney injury): Plan: worse again today. pt likely suffering from uremia. cause -- likely sepsis-associated + prerenal from diuresis w/ lasix + volume depletion no further Rx or w/u (8) Atrial fibrillation with RVR: Plan: resolved s/p amio drip now over to PO amio unable to take PO amiodarone due to altered MS stop due to transition to comfort care (9) Malignant pleural effusion: Plan: right-sided, chronic. no change in size on serial cxrs. pulmonary had given consideration to thoracentesis earlier in the stay for therapeutic purposes but was not pursued due to low platelets and tenuous status. (10) Anemia: (11) Hyperlipidemia: (12) Paroxysmal atrial fibrillation: Plan: he had been taking chronic Eliquis + metoprolol pre-hospital all meds stopped - transition to comfort care measures only (13) Bladder carcinoma: Plan: h/o Low-grade papillary urothelial carcinoma s/p cystoscopy and TURBT. (14) Hypertension: (15) Lung cancer: Plan: stage 4 previous biopsy suggested the following -- pleomorphic carcinoma of pulmonary origin, large cell carcinoma of pulmonary origin, or poorly differentiated adenocarcinoma of pulmonary origin. Remains on maintenance pemetrexed/pembrolizumab chemotherapy. See discussion above re: possibility of pneumonitis from pembrolizumab therapy. previous imaging with bone mets, etc. there is concern for pembrolizumab induced pneumonitis thus high-dose IV steroids initiated last week now transitioning to comfort care measures only (16) Personal history of tobacco use: Plan: was smoking actively prior to this hospitalization (17) Hypokalemia: Plan: replaced resolved (18) Hypomagnesemia: Plan: replaced resolved (19) History of duodenal ulcer: Plan: 10/02 - along with gastric ulcers (20) Dysphagia: (21) Prediabetes: Plan transition to comfort care measures only/palliative care pathway/end-of-life care support given to pt's immediate family throughout the day appreciate palliative care assistance complicated/complex care coordination today Admission and Anticipated Discharge Date Admission Date: December 09, 2022 Subjective despite 2 doses of IM zyprexa overnight the patient only slept about 2 hours he was quite agitated - would not keep CPAP mask in place; was placed back to HFNC (Vapotherm) without O2 support he had significant desaturation restless all night daughter stayed with patient for support tele overnight - NSR, no PAF nursing reported they held his AM oral meds since he was so altered during my AM rounds patient had finally closed his eyes and was resting he was on Vapotherm with 80% FiO2 requirement , 2 daughters were present at bedside I showed them Mr Duran' cxr from this am - significant worsening in left-sided infiltrates despite supportive care over the last 7+ days following my exam I sat down with the pt's & 2 daughters in a waiting room area we discussed his ongoing agitated delirium, lack of response to multiple medications tried for the delirium, ongoing high amount of respiratory support, lack of nutrition in 4-5+ days, worsening renal failure, etc discussed that I could ask pulmonary to see him one more time to determine if there is anything else we can offer him we discussed that we could continue to give supportive care but that he was tiring/fatiguing from his illness and that without nutrition, control of his agitation/delirium, etc we likely would not make meaningful progress discussed that he was not an enteral feeding candidate (coresafe) and that TPN was not an option due to elevated LFTs discussed that given his radiographic worsening of his pulmonary disease (despite aggressive measures to date) that this portends poor prognosis confirmed that "he wouldn't want to live like this" (at baseline he is a very active gentleman, doesn't like to sit still - likes to be active) again they confirmed he would not want intubation/mech ventilation following this 25-30 min meeting I then spoke with Dr Del Rio from pulmonary we thoroughly discussed his situation we reviewed his imaging studies, labs, etc Dr Del Rio then spoke with the pt's family and recommended transition to comfort care Dr Del Rio ordered dilaudid infusion & other comfort care measures Mavis Min from palliative care was then consulted as well for additional recommendations Review of Systems Review of Systems: Unobtainable due to cognitive status and Unobtainable due to reduced consciousness Physical Exam Physical Exam: gen - eyes closed, sleeping, tachypnea noted mouth - MM dry heart - RRR, s1 s2, no murmur lungs - decreased BS right base - no change; wheezes b/l - no change; tachypneic; mild rales left lung abd - soft NT ND BS+ ext - no edema, pulses 2+ b/l Results & Data Results & Data ([facility]) Vital Signs (Past 12 Hours) Vital Signs Temp Pulse Pulse Resp BP BP Pulse Ox 12/16/22 11:27 36.2 C L 88 24 163/77 H 98 12/16/22 10:32 80 12/16/22 10:07 12/16/22 07:54 36.2 C L 79 26 H 154/74 H 97 12/16/22 06:58 78 26 H 100 12/16/22 05:04 36.3 C L 79 22 157/78 H 96 12/16/22 02:13 65 96 O2 Del Method O2 Flow Rate FiO2 12/16/22 11:27 High Flow Nasal Cannula 30 85 12/16/22 10:32 12/16/22 10:07 High Flow Nasal Cannula 40 85 12/16/22 07:54 High Flow Nasal Cannula 12/16/22 06:58 High Flow Nasal Cannula 30 100 12/16/22 05:04 High Flow Nasal Cannula 30 100 12/16/22 02:13 High Flow Nasal Cannula 30 100 Laboratory Results Laboratory Results - last 48 hr 12/16/22 12/16/22 12/16/22 06:29 06:29 06:29 WBC 6.31 RBC 2.66 L Hgb 8.6 L Hct 24.0 L MCV 90.2 MCH 32.3 MCHC 35.8 RDW Std Deviation 52.9 H RDW Coeff of Jimbo 16.1 H Plt Count 30 L Immature Gran % (Auto) 1.9 Neut % (Auto) 94.9 Lymph % (Auto) 2.1 [place] % (Auto) 0.8 Eos % (Auto) 0.0 Baso % (Auto) 0.3 Neut # (Auto) 5.99 Lymph # (Auto) 0.13 L [place] # (Auto) 0.05 L Eos # (Auto) 0.00 Baso # (Auto) 0.02 Immature Gran # (Auto) 0.12 Polychromasia 1+ Target Cells 1+ VBG pH VBG pCO2 VBG pO2 VBG HCO3 VBG O2 Saturation VBG Base Excess Sodium 135 L Potassium 4.7 Chloride 101 Carbon Dioxide 20 L Anion Gap 14 H BUN 109 H Creatinine 4.12 H D Est Cr Clr Drug Dosing 16.4 Est GFR ( Amer) 15.8 Est GFR (Non-Af Amer) 13.6 BUN/Creatinine Ratio 26.5 H Glucose 124 H Calcium 9.0 Total Bilirubin 1.1 H AST 70 H ALT 136 H Alkaline Phosphatase 129 H Total Creatine Kinase C-Reactive Protein Total Protein 7.0 Albumin 3.1 L Globulin 3.9 Albumin/Globulin Ratio 0.8 L Procalcitonin 2.47 H Diagnostic Findings SINGLE VIEW CHEST CLINICAL HISTORY: Pleural effusion. Pneumonia FINDINGS: An AP, portable, upright chest radiograph is compared to study dated 12/13/2022 and correlated with chest CT dated 12/09/2022. The examination is degraded by portable technique and patient rotation. The cardiomediastinal silhouette is unremarkable noting atherosclerotic calcification of the thoracic aorta. Volume loss and parenchymal scarring in the right lung is similar to previous., As is a pleural effusion the right lung base. There is increasing airspace consolidation throughout the left lung as compared to previous. No pneumothorax is seen. The skeletal structures are osteopenic. The bony thorax is grossly intact. IMPRESSION: 1. There is increasing airspace consolidation throughout the left lung as compared to 12/13/2022. 2. A right pleural effusion with right basilar consolidation is similar to previous. ACT 112: Negative or not required by law. Electronically signed by: Silverio Szymanski M.D. 12/16/2022 8:03 AM PG Care Time/CCT Total # of Minutes Spent Total Time Spent with Patient: Total time spent is greater than 50% in coordination of care (as documented) at patient's floor/unit and/or counseling patient: Coding Level of Care Code 98525 SUB INP/OBS CARE 3/50MIN Diagnoses Palliative care status Z51.5 Acute encephalopathy G93.40 Acute respiratory failure with hypoxia J96.01 Sepsis A41.9 Pneumonia J18.9 Pancytopenia due to chemotherapy D61.810 BELIA (acute kidney injury) N17.9 Atrial fibrillation with RVR I48.91 Malignant pleural effusion J91.0 Anemia D64.9 Hyperlipidemia E78.5 Paroxysmal atrial fibrillation I48.0 Bladder carcinoma C67.9 Hypertension I10 Hypertension type: essential hypertension Lung cancer C34.90 Personal history of tobacco use Z87.891 Hypokalemia E87.6 Hypomagnesemia E83.42 History of duodenal ulcer Z87.19 Dysphagia R13.10 Prediabetes R73.03 (14) Hypertension Hypertension type: essential hypertension Qualified Code(s): I10 - Essential (primary) hypertension
--- NOTE | 2022-12-16 14:31 | Palliative Care Consultation ---
Date of Consultation December 16, 2022 Assessment & Plan (1) Palliative care by specialist: 72-year-old male with stage IV metastatic lung cancer (large cell vs pleomorphic or poorly differentiated adeno/malignant pleural effusion) presenting with respiratory failure and hypoxia in the setting of multifocal groundglass opacities as well as chronic moderate right pleural effusion. Patient has a very large and extended family although, present in the waiting room. I met with his , daughter/son-in-law and extended family members in the waiting room and then again with and daughter at the bedside with patient. Patient is delirious and minimally responsive, lethargic. He is not able to participate in this meeting or any discussion. Family are unanimously in agreement to comfort the focus of his care to comfort. They unanimously tell me that he would not want his or dying prolonged and would wish to have comfort and peace at the end of life. Met with pt/family. Provided overview of Palliative Medicine, a subspecialty that provides specialized medical care for people living with a serious illness by offering a focus on quality of life. Palliative Medicine is often conflated with hospice: I advised patient/family that Palliative and hospice can be partners but we are not the same. It is important to understand the difference so that we may be informed, and not afraid. Palliative Medicine works to improve QOL through reduction of symptom burden/more control over their illness, for both the patient and family. Palliative medicine clinicians are board certified, specially-trained and another member of the patient's medical care team. We often provide an extra layer of support because our care is based on the needs of the patient, not the prognosis; as such, it's appropriate at any age/advancing stage of a serious illness and can be provided along with curative treatment. Palliative Medicine clinicians are also trained in advanced communication methodologies, to facilitate complex discussions about advanced illness planning, which are needed to help assure that the treatment choices match the patient's goals, aka delivering Goal Concordant care. Finally, we discussed that hospice is a visiting nurse service that focuses on care delivered at the very end of life for patients with terminal illness, with life expectancy less than 6 month. (2) Advanced care planning/counseling discussion: In addition in addition to time spent with patient, an additional 50 minutes was spent in [id number] advance care planning discussion with his family. This included a meeting at the bedside with his and daughter as well as with his , daughter and extended large family in the waiting room. They all shared in agreement that they want him to be comfortable and have good symptom management. His sister expressed concerns about whether or not he could be able to come home but he was advised that with his current high flow oxygen demands this would not be feasible They will share the same goal: They want him to be comfortable and have a peaceful end-of-life process. A Dilaudid infusion has been ordered. Daughter identifies herself as a nurse in the cardiac ICU at [employer]. She asks why Dilaudid is being ordered instead of morphine. Reviewed that patient's kidney function has been worsening and therefore morphine would be nephrotoxic: advised that we prefer to avoid use of morphine in this patient with advanced renal disease/nephropathy-->pt cannot have morphine because of renal failure - it is recommended that morphine (and codeine) are avoided in renal failure/dialysis patients, because when renal failure patients take morphine, their toxic metabolites, which are renally excreted, accumulate and can quickly cause over-opiation. Over-opiation would be easily done with the use of a medication that pt cannot properly excrete. Morphine is unlikely to be as effective in relieving his symptoms as Dilaudid would be. Family verbalized understanding and were in agreement with the plan. His niece had several questions about how additional symptoms such as agitation and restlessness especially in regards to his delirium could be managed. We spoke at length about the medications that would be used on an as needed manner to relieve the symptoms. Advised family that I would write these orders today for nursing to administer as needed and should the family feel he has any symptoms that did not appear well controlled and all I need to do was notified the nurse that additional medication can be given. Additional end-of-life care education was provided as follows: TEACHING THE FAMILY WHAT TO EXPECT WHEN THE PATIENT IS DYING (from Elmer Ba MD, PhD) Introduction: Family members look to the medical team to help them know what to expect when a loved one is dying. No matter the underlying causes, there is a common final pathway that most patients travel. 1. Social Withdrawal is normal for the dying patient as the person becomes less concerned about his or her surroundings. Separation begins first from the world no more interest in newspaper or television, then from people no more neighbors visiting, and finally from the children, grandchildren and perhaps even those persons most loved. With this withdrawal comes less of a need to communicate with others, even with close family. 2. Food: The patient will have a decreased need for food and drink as the body is preparing to . This is one of the hardest things for some family to accept. There is a gradual decrease in interest in eating and appetiteeven for their favorite foods. Interest may come and go. The patient is not starving to deaththis reflects the underlying disease. Liquids are preferred to solidsfollow the patients lead and do not force feed. 3. Sleep: The patient will spend more and more time sleeping; it may be difficult for them to keep their eyes open. This is a result of a change in the bodys metabolism as a result of the disease. Tell family to spend more time with the patient during those times when he/she is most alert; this might be the middle of the night. 4. Disorientation: The patient may become confused about time, place and the identity of people around him/her. He/she may see people who are not there, such as family members who have already . Sometimes patients describe welcoming or beckoning. While the patient may not be distressed, it is frequently distressing to family or health childcare administrator. Gently orient the patient if he or she asks. There is no need to correct the patient if he or she is not distressed. 5. Restlessness: The patient may become restless and pull at the bed linens. These symptoms are also a change in the bodys metabolism. Talk calmly and assuredly with the patient so as not to startle or frighten them. If the patient is a danger to himself or others, you may prescribe sedating neuroleptics (e.g.chlorpromazine), or neuroleptics (e.g. haloperidol) in combination with benzodiazepines (e.g. lorazepam), to help the patient rest. 6. Decreased Senses: Clarity of hearing and vision may decrease. Soft lights in the room may prevent visual misinterpretations. Never assume that the patient cannot hear you, as hearing is the last of the five senses to be lost. 7. Incontinence of urine and bowel movements is often not a problem until is very near. Invite family to participate in direct care; the nurse can help place absorbent pads under the patient for more comfort and cleanliness, or a urinary catheter may be used. The amount of urine will decrease and the urine become darker as becomes near. 8. Physical Changes as approaches: a. The blood pressure decreases; the pulse may increase or decrease. c. The body temperature can fluctuate; fever is common. d. There is increased perspiration often with clamminess. e. The skin color changes: flushed with fever, bluish with cold. A pale yellowish pallor (not to be confused with jaundice) often accompanies approaching . f. Breathing changes also occur. Respirations may increase, decrease or become irregular; periods of no breathing (apnea) are common. g. Congestion will present as a rattling sound in the lungs and/or upper throat. This occurs because the patient is too weak to clear the throat or cough. The congestion can be affected by positioning, may be very loud, and sometimes just comes and goes. Anticholin ergic medications (like scopolamine or glycopyrrolate) can help (see Fast Fact #109). Elevating the head of bed and swabbing the mouth with oral swabs give comfort and give the family something to do. h. The arms and legs may become cool to the touch. The hands and feet become purplish. The knees, ankles and elbows are blotchy. These symptoms are a result of decreased circulation. i. The patient will enter a coma before and not respond to verbal or tactile stimuli. HOW TO KNOW THAT HAS OCCURRED No breathing and heartbeat. Loss of control of bowel or bladder. No response to verbal commands or gentle shaking. Eyelids slightly open; eyes fixed on a certain spot. Jaw relaxed and mouth slightly open. Acknowledgement: This Fact Fact was adapted with permission from a family information handout (The Blue Sheet) given to families of [facility]. References 1. Norman Mcintosh I. The terminal phase. In: Johnnie Huffman, Shala PARADA, Caryn Demarco, eds. [employer] [place] Textbook of Palliative Medicine. 2nd ed. [place], [place]: [employer]; 1998. 2. Zelda J, Willy C. Care of the dying patient: the last hours or days of life. BMJ. 2003; 326(1798):30-4. 3. Miguel FD, lily Walsh CF, Hugo LL. Competency in End of Life Care: the last hours of living. J Palliat Med. 2003; 6(4):605-613. (3) End of life care: see #2 ABOVE Mr. Duran qualifies for inpatient hospice admission. This was offered to his family. After some discussion they were very clear that he did not feel he needed the additional support that hospice could offer. The family asked if there was any reason to believe that his pain and symptom management needs cannot be met at by current hospital medicine teams and they were advised that the hospital medicine teams can indeed manage his symptoms but that hospice support would be an extra layer to provide ongoing grief and bereavement support to them as a family for up to 13 months after his . They declined this firmly but politely and indicated that they have a strong network of support and a very large extended family. They feel they will better support each other than the hospice agency and declined this service. (4) Acute respiratory failure with hypoxia: Dilaudid infusion has been started to assist with pain and symptom management especially his respiratory effort and dyspnea. His respiratory effort is more comfortably managed, we will begin titrating down his FiO2 on his high flow nasal cannula. Additionally, should patient's family desire a more controlled de-escalation of high flow nasal cannula, then the following protocol may be initiated however would be preferred the palliative medicine is only unit when this is done: Although the role of high flow oxygen via nasal cannula (HFNC) in patients with life-limiting respiratory illnesses is not well-defined, weaning high flow oxygen in a conscious and interactive patient at the end of life presents unique challenges but allows for meaningful life-closure moments. Recommended Protocol: * Provider, RN, and RT discuss plan * engage additional MDT as needed: social work, slack cooper, etc. * Stop monitors, ensure working IV * Pre-wean medications: Begin hydromorphone infusion, prn dose and Lorazepam 1mg IV * Consider Hydromorphone 0.5-1mg per hour infusion * Consider Hydromorphone 1mg IV Q10min prn air hunger * Four Down Titrations: Approximately 25% Reduction every 10 minutes (reduce FiO2 and liter flow) - Medicate - Wait for 10 min for peak effect, decrease liter flow and FiO2 by 25% followed by immediate repeat bolusing - Wait 10 min then decrease liter flow and FiO2 by 25%, followed by immediate repeat bolusing - Give another Lorazepam 1mg IV bolus - Wait another 10 min then decrease liter flow and FiO2 by 25% followed by immediate repeat bolusing - Wait another 10 min then decrease liter flow and FiO2 by the final 25% followed by immediate repeat bolusing - Give another 1mg Lorazepam 1mg IV if needed * Observe for and treat symptoms * Provide anticipatory guidance (5) Malignant pleural effusion: (6) Pancytopenia due to chemotherapy: (7) Sepsis: Plan Mr. Duran is a 72-year-old gentleman with a terminal stage IV metastatic lung cancer with recurrent malignant pleural effusions, hypoxic respiratory failure, sepsis and worsening multifocal groundglass opacities. In spite of escalating medical interventions, he continues to worsen and decline. At this point it is believed that he is terminally ill and family has decided to move to a comfort plan of care. They are in agreement that patient would not want to have the dying process prolonged. He has been increasingly agitated and alternates with periods of moderate wakefulness during which he is lethargic and confused. He has not been able to hold a meaningful conversation with anyone for few days. Patient is currently on Vapotherm high flow nasal cannula oxygen and cannot be discharged home on his current modality. He is on 85% FiO2. He has some significant respiratory effort noted and a Dilaudid infusion has been started. I discussed with the family that as his respiratory rate becomes more comfortable and his effort decreases, we will begin weaning down the high flow nasal cannula. I have communicated this to respiratory therapy as well. I have updated the nursing team. I have updated primary medicine team as well. Dilaudid infusion has been ordered to assist with his pain and symptom management. Additionally, I have ordered medications for comfort care and breakthrough symptom management. I have also stopped nonessential medications, labs and interventions. I will DC monitoring. Dr. Musa has written an order to move patient to a private room which family has been advised may take some time given helpful the hospitalist at present. Fabby Pedersen DNP Clinical Director, Palliative Medicine History of Present Illness Reason for Consultation: On 12/16/22 @ 13:17 Lavell Del Rio Wrote To Kandcae Benitez Comfort Care Attending Physician: Steve Musa History of Present Illness Rolando Victoria was admitted to 2019 with complaints of increased dyspnea, tachycardia and found to have sepsis with a lactate of 2.2. Pneumonia was discovered and he was started on renally dosed cefepime and azithromycin IV. He tested negative for influenza, COVID and RSV. His chest CT demonstrated a complicated pleural effusion and stage IV lung cancer.Pulmonary consult was obtained. This was felt to be a malignant recurrent pleural effusion. Therapeutic thoracentesis was done. Pulmonary medicine noted groundglass opacities (multiple) on his CT. Unfortunately, due to his low platelet counts thoracentesis was not able to be completed. He is not interested in pursuing bronchoscopy. He continues to have respiratory failure with hypoxia and was on BiPAP 10/5 nightly which with worsening ultimately required escalation to high flow nasal cannula. There was concern that this was a potential pembrolizumab induced pulmonary toxicity and he was started on steroids 12/13/2022. It is noted the pembrolizumab pulmonary toxicity carries a significant mortality. Unfortunately, patient continued to decline. He is not gravely ill with worsening renal function and progressive delirium. Due to his failure to improve despite escalated interventions, family today in discussion with pulmonary medicine decided to proceed with a comfort focused plan of care. Patient's , daughter, son-in-law, niece, sister and other multiple extensive family members are all present in the waiting room. See family meeting discussion held below. At the time of my visit, patient is lethargic minimally arousable. He has some snoring respirations. He is not able to provide any history. Allergies Allergy/AdvReac Type Severity Reaction Status Date / Time LARS Inhibitors Allergy Severe Severe Verified 10/22/22 12:12 angioedema Iodinated Contrast Media Allergy Intermediate Rash and Verified 10/22/22 12:[address] scan with contrast Penicillins Allergy Intermediate hives Verified 10/22/22 12:12 Home Medications Medication Instructions Recorded Confirmed Type atorvastatin 10 mg tablet 10 mg PO QPM 03/27/22 12/09/22 History amlodipine 5 mg tablet 5 mg PO QAM #90 tabs 09/09/22 12/09/22 Rx pantoprazole 40 mg tablet,delayed 40 mg PO QAM #90 tabs 10/31/22 12/09/22 Rx release (Protonix) metoprolol tartrate 50 mg tablet 50 mg PO BID #180 tabs 12/02/22 12/09/22 Rx apixaban 5 mg tablet 5 mg PO BID #90 tabs 12/03/22 12/09/22 Rx Patient History Medical History (Updated 12/16/22 @ 14:37 by Fabby Pedersen DNP) Advanced care planning/counseling discussion Angioedema of tongue September 2021 at [facility] from an allergy to lisinopril. Treated through the Emergency Room at [facility]. Placed on a ventilator at that time- while inpatient tested positive for covid-19 and then developed rectal bleeding where an ulcer perforation had been found and repaired. Pt did follow up with an vacuum plastic forming machine operator s/p angioedema Anxiety Bladder tumor Recently diagnosed within the last year () COVID-19 Duodenal ulcer 09/2021 with perforation. treated while inpatient at [facility] End of life care Erectile dysfunction GI bleed History of COVID-19 Tested positive 09/24/21 during inpatient stay- asymptomatic at that time- may have had covid in August 2021 when was ill with Covid. Hyperlipidemia Hypertension Lung cancer Lung mass Recently diagnosed- awaiting further testing Mediastinal lymphadenopathy Recently diagnosed- awaiting further testing On anticoagulant therapy Palliative care by specialist Paroxysmal atrial fibrillation - September 2021, reason for blood thinner - Rapid response 09/2021- "RVR in 160s and hypotensive after large bloody BM. Required cardioversion x 3, finally converted to NSR in 80s and then back to a fib with RVR. Amiodarone IV bolus and drip initiated per ACLS protocol. Converted to NSR- treated later with Lopressor. Discharged on Amiodarone, Lopressor and Eliquis. Pleural effusion, right Thoracentesis scheduled 03/29/22 Prediabetes Diet controlled Surgical History History of cystoscopy with TURBT large 03/28/22 History of esophagogastroduodenoscopy (EGD) with repair of ulcer perforation in september 2021/oct 2021 History of thoracentesis US guided catheter thoracentesis 03/29/22 Family History Father Coronary heart disease Cardiac disorder Myocardial infarction Sister Diabetes Myocardial infarction Mother Hypertension Other No family history of adverse response to anesthesia Denies family history of Ovarian cancer Prostate cancer Crohn's disease Breast cancer Colorectal cancer Ulcerative colitis Social History Smoking Status: Current some day smoker Tobacco Type: Cigarettes Age Started Using Tobacco: 17; packs per day: 0.5; Cigarettes Per Day: 1/2 ppd; Second Hand Exposure: Yes; Hx Alcohol Use: No Hx Substance Use: No Preferred Language: [place] Communication Ability: Effective Visual Impairment: No Limitations Hearing Ability: Hard of Hearing Actor Understudy Required: No Beliefs That Will Affect Care: None marital status: Current Living Situation: Spouse current occupational status: retired 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 Will slightly arouse to voice but does not interact in a purposeful or meaningful way. He is not able to awaken and stay awake for the duration of this interaction. There is bitemporal wasting noted. Pharynx is slightly dry. He is on high flow nasal cannula. There is no stridor or thyromegaly. There are bilateral coarse rhonchi with dramatically increased respiratory effort. His respiratory rate on my assessment was 38/min. There is use of accessory muscles and abdominal breathing noted. He is tachycardic S1-S2 with some mild JVD. There is very mild abdominal distention but no grimacing when abdomen is palpated. Extremities are thin with muscle wasting and atrophy noted. Strength is markedly diminished. Color is pale but skin is warm to touch. There is mild pallor noted overall with some early,early cyanotic changes to the nailbeds. There is no mottling noted to the lower extremities. Patient will slightly respond to verbal but is not able to answer any questions appropriately. Delirium screen is positive. Results & Data ([facility]) Vital Signs (Past 12 Hours) Vital Signs Temp Pulse Pulse Resp BP BP Pulse Ox 12/16/22 11:27 36.2 C L 88 24 163/77 H 98 12/16/22 10:32 80 12/16/22 10:07 12/16/22 07:54 36.2 C L 79 26 H 154/74 H 97 12/16/22 06:58 78 26 H 100 12/16/22 05:04 36.3 C L 79 22 157/78 H 96 O2 Del Method O2 Flow Rate FiO2 12/16/22 11:27 High Flow Nasal Cannula 30 85 12/16/22 10:32 12/16/22 10:07 High Flow Nasal Cannula 40 85 12/16/22 07:54 High Flow Nasal Cannula 12/16/22 06:58 High Flow Nasal Cannula 30 100 12/16/22 05:04 High Flow Nasal Cannula 30 100 Laboratory Results Data reviewed Diagnostic Findings Data reviewed PG Care Time/CCT Total # of Minutes Spent Total Time Spent: 125 Total Time Spent with Patient: Total time spent is greater than 50% in coordination of care (as documented) at patient's floor/unit and/or counseling patient: I spent 125 minutes overall addressing this complex case: 15 in medical data review/discussion with referring provider(s) and/or preparation for the visit 30 in direct interaction with the patient and /dtr 50 additional min in face to face family counseling for Advance Care Planning/Goals of Care discussions as detailed above in note (must be >16min) pt cannot participate/see notes above 15 in subsequent review and synthesis of assessment and plan 15 in communicating with other providers regarding the patient's case: [] Prolonged Care Time Prolonged Care Time: Yes Advanced Care Planning 53600 Advanced Care Planning 30 Min 71792 Advanced Care Planning Additional 30 [place] [address] IN/OBS CONSULT LVL 5,80M Patient Type New Medical Decision Making High Complexity Diagnoses Palliative care by specialist Z51.5 Advanced care planning/counseling discussion Z71.89 End of life care Z51.5 Acute respiratory failure with hypoxia J96.01 Malignant pleural effusion J91.0 Pancytopenia due to chemotherapy D61.810 Sepsis A41.9 Additional Codes Prolonged Care Time - Prolonged Care Time: Yes ([id number]) Advanced Care Planning - 92700 Advanced Care Planning 30 Min: 39051 Advanced Care Planning 30 Min ([id number]) Advanced Care Planning - 42930 Advanced Care Planning Additional 30 Min: 99703 Advanced Care Planning Additional 30 Min ([id number])
[2022-12-16] MEDS ORDERED: HYDROmorphone INJ 0.5 MG/0.5 ML SYR IV PRN ×2 (15:26→19:03)
[2022-12-16] MEDS: GLYCOPYRROLATE 0.2 MG/ML VIAL IV PRN ×2 (17:03→21:12)
--- NOTE | 2022-12-16 19:16 | Palliative Care Progress Note ---
Date of Service December 16, 2022 Assessment & Plan (1) Palliative care by specialist: Plan: Patient is demonstrating terminal dyspnea with the progression of his terminal metastatic lung cancer related respiratory failure. I have made the following changes to his regimen: I have increased his Dilaudid infusion to 1 mg/h to match up to what he is beginning to require with baseline plus extra doses. I have increased the bolus from the bag dose to 0.7 mg and reduce the frequency to every 15 minutes as needed as needed for respiratory distress, terminal air hunger or pain. I have modified the order to allow for a 0.5 mg dose titration if the above changes are insufficient or patient continues to exhibit distress. I have added additional as needed orders for nursing to administer: Dilaudid 1 mg and Dilaudid 0.8 mg IV every 15 minutes and every 10 minutes as needed for very severe symptoms, terminal air hunger, terminal dyspnea, very severe pain unrelieved by lower doses. I have increased Ativan to 1 mg IV every 2 hours as needed for myoclonus, agitation, restlessness, nausea or delirium. I reviewed these changes with the nurse, Priyanka. I have updated charge nurse, Livier Nielsen RN. Please not hesitate to call or page me for additional needs as they may arise for this patient. (2) End of life care: (3) Acute respiratory failure with hypoxia: (4) Dyspnea and respiratory abnormalities: Plan Patient is demonstrating terminal dyspnea with the progression of his terminal metastatic lung cancer related respiratory failure. I have made the following changes to his regimen: I have increased his Dilaudid infusion to 1 mg/h to match up to what he is beginning to require with baseline plus extra doses. I have increased the bolus from the bag dose to 0.7 mg and reduce the frequency to every 15 minutes as needed as needed for respiratory distress, terminal air hunger or pain. I have modified the order to allow for a 0.5 mg dose titration if the above changes are insufficient or patient continues to exhibit distress. I have added additional as needed orders for nursing to administer: Dilaudid 1 mg and Dilaudid 0.8 mg IV every 15 minutes and every 10 minutes as needed for very severe symptoms, terminal air hunger, terminal dyspnea, very severe pain unrelieved by lower doses. I have increased Ativan to 1 mg IV every 2 hours as needed for myoclonus, agitation, restlessness, nausea or delirium. I reviewed these changes with the nurse, Priyanka. I have updated charge nurse, Livier Nielsen RN. Please not hesitate to call or page me for additional needs as they may arise for this patient. This note has been documented using [employer] [place] text, talk to text dictation. Typos or errors are unintended and may be a result of talk to text technology. If any questions or confusion exist, please not hesitate contact the author of this note directly for clarification. Total time spent including chart review, discussion with nursing, order modification and documentation is 25 minutes. Fabby Pedersen [facility] Clinical Director, Palliative Medicine Admission and Anticipated Discharge Date Admission Date: December 09, 2022 Subjective Priority page from nursing at 6:45 PM, stating that patient was in significant respiratory distress and family was extremely upset. Bolus administration of Dilaudid had been given as well as titration of hourly rate for the Dilaudid infusion. A dose of Ativan had also been given. It was felt that patient's respiratory distress had begun to proceed however family remained quite upset and felt the patient was significantly suffering without adequate medication to relieve his symptoms and distress. Results & Data ([facility]) Vital Signs (Past 12 Hours) Vital Signs Temp Pulse Pulse Resp BP Pulse Ox O2 Del Method 12/16/22 11:27 36.2 C L 88 24 163/77 H 98 High Flow Nasal Cannula 12/16/22 10:32 80 12/16/22 10:07 High Flow Nasal Cannula 12/16/22 07:54 36.2 C L 79 26 H 154/74 H 97 High Flow Nasal Cannula O2 Flow Rate FiO2 12/16/22 11:27 30 85 12/16/22 10:32 12/16/22 10:07 40 85 12/16/22 07:54 PG Care Time/CCT Total # of Minutes Spent Total Time Spent: 25 Total Time Spent with Patient: Total time spent is greater than 50% in coordination of care (as documented) at patient's floor/unit and/or counseling patient: [place] [address] Prolonged Care-adt'l 30m Patient Type Established History Problem Focused Medical Decision Making Moderate Complexity Diagnoses Palliative care by specialist Z51.5 End of life care Z51.5 Acute respiratory failure with hypoxia J96.01 Dyspnea and respiratory abnormalities R06.00; R06.89
[2022-12-16] MEDS: HYDROmorphone INJ 1 MG/ML SYRINGE IV PRN ×3 (19:25→23:52)
[2022-12-17] MEDS: GLYCOPYRROLATE 0.2 MG/ML VIAL IV PRN ×6 (01:33→22:11)
--- NOTE | 2022-12-17 11:15 | Palliative Care Progress Note ---
Date of Service December 17, 2022 Assessment & Plan (1) Palliative care by specialist: (2) End of life care: (3) Acute respiratory failure with hypoxia: (4) Dyspnea and respiratory abnormalities: Plan Continue comfort care. Orders were modified last night, see my prior note. Patient is doing much better since those changes. Some family asked about changes to expect. We discussed changes pt may move through in the dying process including but not limited to sleeping more, disorie ntation when awake, restlessness, diminished senses/inability to respond to stimulus although ability to be aware of them remains intact longer, changes in body temperatures, skin changes/mottling/cyanosis, respiratory pattern changes, oral secretions. Family verbalized understanding. The goal is to assure a peaceful . asking about expected timeline. advised likely hours to a few days but with apneas of 10 seconds, likely within next day or two at most is my suspicion. expressed hope for pt that he dies sooner, to help ease his way to [facility] where she knows he was waiting to reunite with his parents. Family expressed their concerns and experience from last night's events. Reassurance provided. They are happy with his care and the comfort level we have achieved for him. No new concerns at this time. NO changes at this time. family in agreement. Fabby Pedersen DNP Clinical Director, Palliative Medicine Admission and Anticipated Discharge Date Admission Date: December 09, 2022 Subjective on comfort care events of last night noted family at bedside: , dtr, grand dtr and other members + greater family group [place] [facility] [place] resp distress occ apneas, noted 10 sec off high flow, now nasal cannula Review of Systems Review of Systems: Unobtainable due to reduced consciousness Physical Exam Physical Exam: Elderly male, lying in bed, unarousable. +bitemporal wasting noted. +nasal cannula. no stridor or thyromegaly. RR18, + use of accessory muscles and abdominal breathing noted. Apneas 10-12sec. tachycardic. Color is pale but skin is warm to touch. There is mild pallor noted overall with some increased cyanotic changes to the nailbeds. Results & Data ([facility]) Vital Signs (Past 12 Hours) Vital Signs Resp O2 Del Method O2 Flow Rate 12/17/22 07:55 High Flow Nasal Cannula 11 12/17/22 07:55 16 12/17/22 00:40 Oxymask 15 PG Care Time/CCT Total # of Minutes Spent Total Time Spent: 50 Total Time Spent with Patient: Total time spent is greater than 50% in coordination of care (as documented) at patient's floor/unit and/or counseling patient: [place] [address] SUB INP/OBS CARE 2/35MIN Patient Type Established Medical Decision Making Moderate Complexity Diagnoses Palliative care by specialist Z51.5 End of life care Z51.5 Acute respiratory failure with hypoxia J96.01 Dyspnea and respiratory abnormalities R06.00; R06.89
--- NOTE | 2022-12-17 16:04 | Hospitalist Progress Note ---
Date of Service December 17, 2022 Assessment & Plan (1) Palliative care status: Plan: End-stage lung cancer. Palliative care consultation and recommendations appreciated. He remains on a Dilaudid drip. (2) Acute encephalopathy: Plan: Currently unresponsive. Continue Dilaudid drip. Comfort care measures only (3) Acute respiratory failure with hypoxia: Plan: No further treatment. Low-flow oxygen without titration. Comfort measures only. (4) Sepsis: Plan: 2nd to b/l pneumonia. Present on admission. No further treatment at this time. (5) Pneumonia: Plan: Diffuse, b/l pneumonia present on admission. Treated initially with intravenous antibiotics. No further treatment at this time. Comfort measures only. (6) Pancytopenia due to chemotherapy: Plan: s/p 2 unit PRBCs since admission. No further lab studies ordered (7) BELIA (acute kidney injury): Plan: Previously treated with IV fluids. No further intervention at this time. No further labs. (8) Atrial fibrillation with RVR: Plan: Present on admission. Treated with amiodarone. (9) Malignant pleural effusion: Plan: right-sided, chronic. No planned intervention at this time (10) Anemia: Plan: No further labs. No further intervention (11) Hyperlipidemia: Plan: No treatment indicated at this time (12) Paroxysmal atrial fibrillation: Plan: all meds stopped. He has been transitioned to comfort care measures only (13) Bladder carcinoma: Plan: h/o Low-grade papillary urothelial carcinoma. s/p cystoscopy and TURBT. (14) Hypertension: Plan: No further treatment at this time (15) Lung cancer: Plan: stage 4 . Previous biopsy suggested pleomorphic carcinoma of pulmonary origin, large cell carcinoma of pulmonary origin, or poorly differentiated adenocarcinoma of pulmonary origin. End-stage. No further treatment indicated at this time. Comfort care measures only (16) Personal history of tobacco use: Plan: was smoking actively prior to this hospitalization (17) Hypokalemia: Plan: Initially treated and corrected. No further labs at this time (18) Hypomagnesemia: Plan: Initially treated and corrected. No further labs at this time (19) History of duodenal ulcer: Plan: No further treatment at this time (20) Dysphagia: Plan: No further treatment at this time (21) Prediabetes: Plan: No further treatment at this time Plan Comfort care measures only. Family is in attendance. Admission and Anticipated Discharge Date Admission Date: December 09, 2022 Subjective The patient is obtunded. The family is at the bedside. Palliative care entry noted. Comfort care measures at this time Review of Systems Review of Systems: The patient is obtunded and unable to answer any questions regarding review of systems Physical Exam Physical Exam: General-unresponsive state HEENT-head atraumatic and normocephalic Neck-no lymphadenopathy or thyromegaly, trachea midline Chest-scattered bilateral rhonchi anteriorly. No wheezing i Cardiac-regular rate and rhythm, normal S1 and S2 Abdomen-hypoactive but present bowel sounds Extremities-no cyanosis, clubbing, or edema Neuro-cannot assess due to unresponsive state Psych-cannot assess Results & Data Results & Data ([facility]) Vital Signs (Past 12 Hours) Vital Signs Resp O2 Del Method O2 Flow Rate 12/17/22 13:53 High Flow Nasal Cannula 4 12/17/22 12:20 High Flow Nasal Cannula 7 12/17/22 07:55 High Flow Nasal Cannula 11 12/17/22 07:55 16 Laboratory Results 12/16/22 06:29 12/16/22 06:29 PG Care Time/CCT Total # of Minutes Spent Total Time Spent with Patient: Total time spent is greater than 50% in coordination of care (as documented) at patient's floor/unit and/or counseling patient: Coding Level of Care Code 46939 SUB INP/OBS CARE 3/50MIN Diagnoses Palliative care status Z51.5 Acute encephalopathy G93.40 Acute respiratory failure with hypoxia J96.01 Sepsis A41.9 Pneumonia J18.9 Pancytopenia due to chemotherapy D61.810 BELIA (acute kidney injury) N17.9 Atrial fibrillation with RVR I48.91 Malignant pleural effusion J91.0 Anemia D64.9 Hyperlipidemia E78.5 Paroxysmal atrial fibrillation I48.0 Bladder carcinoma C67.9 Hypertension I10 Hypertension type: essential hypertension Lung cancer C34.90 Personal history of tobacco use Z87.891 Hypokalemia E87.6 Hypomagnesemia E83.42 History of duodenal ulcer Z87.19 Dysphagia R13.10 Prediabetes R73.03 (14) Hypertension Hypertension type: essential hypertension Qualified Code(s): I10 - Essential (primary) hypertension
--- NOTE | 2022-12-17 23:33 | Discharge Summary ---
Date of Service December 17, 2022 Admission HPI Per Admitting Provider Rolando Duran is a 72-year-old male on maintenance chemotherapy for lung cancer who presents to the ER with shortness of breath and cough. He thinks his initial symptoms started when he went to a sporting events last weekend when he was exposed to flulike symptoms. Much worse on Friday/ with fevers, generalized weakness, shortness of breath and cough. Cough productive of "snot", unknown color. He continued to have chills all weekend and yesterday had a fever of 102 F. He reports his sinuses and ears had been feeling full although this has been improving and not currently present. He does not use o xygen at baseline. His daughter recommended he came to the ER last night but he refused. Admission Exam (Per Admitting) Constitutional Constitutional: WD/WN, vitals as above no acute distress Eyes: + anicteric sclerae; normal pupil size ENMT: external ear and nose normal, oropharynx normal Ears: + hearing impairment Mouth: oral mucous membranes not dry Neck: trachea midline, no thyromegaly Respiratory: normal respiratory effort; no respiratory distress, no labored breathing, does not use accessory muscles and expiratory phase not prolonged Auscultation: + breath sounds absent (right base) and + rhonchi (b/l throughout); no diminished lung sounds and no wheezes Cardiovascular: RRR, no murmur, no edema Gastrointestinal (Abdomen): normal bowel sounds, soft, nontender, no hepatosplenomegaly Musculoskeletal: no cyanosis or clubbing, extremities motor strength 5/5 Skin: no rashes, warm and dry Neurologic: moves all extremities and awake; no focal motor deficits and not confused Psychiatric: A+Ox3, euthymic affect Genitourinary: no CVA tenderness Discharge Data Consultations 12/09/22 11:48 ED Decision to Admit Stat 12/10/22 06:56 Consult Pulmonology Routine 12/13/22 13:32 Consult Nutrition Routine 12/16/22 13:16 Consult Palliative Care Routine Hospital Course (1) Palliative care status: Pt at 10:22 PM on 12/17/22 and had been on comfort measures at time of exp iration. Hospital course outlined below as of 12/17/22 progress note (1) Palliative care status: Plan: End-stage lung cancer. Palliative care consultation and recommendations appreciated. He remains on a Dilaudid drip. (2) Acute encephalopathy: Plan: Currently unresponsive. Continue Dilaudid drip. Comfort care measures only (3) Acute respiratory failure with hypoxia: Plan: No further treatment. Low-flow oxygen without titration. Comfort measures only. (4) Sepsis: Plan: 2nd to b/l pneumonia. Present on admission. No further treatment at this time. (5) Pneumonia: Plan: Diffuse, b/l pneumonia present on admission. Treated initially with intravenous antibiotics. No further treatment at this time. Comfort measures only. (6) Pancytopenia due to chemotherapy: Plan: s/p 2 unit PRBCs since admission. No further lab studies ordered (7) BELIA (acute kidney injury): Plan: Previously treated with IV fluids. No further intervention at this time. No further labs. (8) Atrial fibrillation with RVR: Plan: Present on admission. Treated with amiodarone. (9) Malignant pleural effusion: Plan: right-sided, chronic. No planned intervention at this time (10) Anemia: Plan: No further labs. No further intervention (11) Hyperlipidemia: Plan: No treatment indicated at this time (12) Paroxysmal atrial fibrillation: Plan: all meds stopped. He has been transitioned to comfort care measures only (13) Bladder carcinoma: Plan: h/o Low-grade papillary urothelial carcinoma. s/p cystoscopy and TURBT. (14) Hypertension: Plan: No further treatment at this time (15) Lung cancer: Plan: stage 4 . Previous biopsy suggested pleomorphic carcinoma of pulmonary origin, large cell carcinoma of pulmonary origin, or poorly differentiated adenocarcinoma of pulmonary origin. End-stage. No further treatment indicated at this time. Comfort care measures only (16) Personal history of tobacco use: Plan: was smoking actively prior to this hospitalization (17) Hypokalemia: Plan: Initially treated and corrected. No further labs at this time (18) Hypomagnesemia: Plan: Initially treated and corrected. No further labs at this time (19) History of duodenal ulcer: Plan: No further treatment at this time (20) Dysphagia: Plan: No further treatment at this time (21) Prediabetes: Plan: No further treatment at this time Plan Comfort care measures only. Family is in attendance. Resident Activity Tracking Resident Involvement: Resident Care Provided Care Provided: [facility]
--- NOTE | 2022-12-17 23:35 | Death Pronouncement Note ---
Date of Service December 17, 2022 Pronouncement Note Admission Date December 09, 2022 Date and Time of Date of : 12/17/22 Time of : 22:22 Preliminary Cause of (1) Palliative care status: (2) Dyspnea and respiratory abnormalities: (3) Acute encephalopathy: Summary Pt had been on comfort measures. I was called to examine pt at 10:20 PM by nursing staff due to concern of expiration. I examined the patient and confirmed expiration- time of 10:22 PM on 12/17/22. Family at bedside during pronouncement. Additional Data Confirmation of : no pulse, no respirations, no heart sounds and pupils fixed and dilated Pronouncement Performed By: Resident Physician Family: at bedside Attending/PCP notified?: Yes Attending physician: Keaton Vance MD Was code activated?: No Resident Activity Tracking Resident Involvement: Resident Care Provided Care Provided: Adult Hospital Medicine
== END 2022-12-17 22:22 | disposition expired | DRG 871 ==
LOC: ED 09:42 → 2S 12:30 → SUATTDRO 12:30 → 2S 14:23 → 3E 12-16 16:06